=== PATIENT | female | born 1950 | race Caucasian/White ===

== ENCOUNTER 2019-07-19 10:06 | Outpatient (CLI) | payer MEDICARE, OTHER, SELFPAY ==
--- NOTE | 2019-07-19 11:30 | XRR_ITS ---
PROCEDURE INFORMATION: Exam: XR Chest, 2 Views Exam date and time: 07/19/2019 11:30 AM Age: 68 years old Clinical indication: Condition or disease; Lung condition and disease; Pulmonary nodule, solitary; Additional info: Hip pain, left pulmonary nodule TECHNIQUE: Imaging protocol: XR of the chest Views: 2 views. COMPARISON: CT CHEST 08/17/2018 12:51 PM FINDINGS: Lungs: No lung consolidation or pulmonary edema. The pulmonary nodules identified on the comparison CT CHEST are not radiographically evident. CT would be the best way to follow these. Pleural space: No pleural effusion or pneumothorax. Heart/Mediastinum: The cardiac silhouette is not enlarged. The mediastinal contours are normal. Bones/joints: There is diffuse idiopathic skeletal hyperostosis. XR/XR chest 2V* [id number] IMPRESSION: No acute radiographic abnormality.
--- NOTE | 2019-07-19 11:30 | XRR_ITS ---
PROCEDURE INFORMATION: Exam: XR Left Hip with Pelvis when Performed Exam date and time: 07/19/2019 11:30 AM Age: 68 years old Clinical indication: Left hip pain. TECHNIQUE: Imaging protocol: XR Left hip with pelvis when performed. Views: 2 or 3 views. COMPARISON: CR Hip 2-3v LEFT wwo Pelv* [id number] 02/11/2013 1:32 AM FINDINGS: Bones/joints: No fracture. No dislocation. No hip joint space narrowing. Pre-existing overgrowth of the bony acetabulum. Soft tissues: No acute soft tissue abnormality. XR/XR hip LT 2-3V wo/w pel* [id number] IMPRESSION: No acute osseous abnormality.
== END 2019-07-19 10:07 | disposition home or self-care (01) ==
PROVIDERS: Family Provider Electrodiagnostic Medicine; PCP Electrodiagnostic Medicine; Visit Provider Electrodiagnostic Medicine
DX: M25.552 Pain in left hip (principal); R91.1 Solitary pulmonary nodule
CPT/HCPCS: 71046; 73502

== ENCOUNTER 2019-12-07 08:07 | Outpatient (CLI) | payer MEDICARE, OTHER, SELFPAY ==
--- NOTE | 2019-12-07 08:39 | CT_ITS ---
WS: [id number] CT CHEST WITHOUT INTRAVENOUS CONTRAST HISTORY: PULMONARY NODULE TECHNIQUE: Contiguous 5 mm axial imaging performed on the thorax. Coronal and sagittal reformats are submitted. All CT scans at [facility] use at least one of these dose optimization techniq ues: automated exposure control; mA and/or kV adjustment per patient size (includes targeted exams wh ere dose is matched to clinical indication); or iterative reconstruction. CONTRAST: None DLP: 1026.53 mGycm COMPARISON: 08/17/2018 and 01/03/2018 Lungs and central airway: Lungs are well expanded. There are numerous very small noncalcified nodules in the RIGHT middle and RIGHT lower lobe as seen on the prior study. Minimal increase in size by les s than 2 mm since 2017. The largest measures 8 mm in the medial RIGHT middle lobe. Linear scar at the LEFT lung base. Pleura: Normal. No pleural effusion. Heart and pericardium: Mild size heart. There is extensive calcification throughout the [place] LEFT a nterior descending coronary artery. More moderate calcification in the circumflex artery. Mediastinum and hetal: No mediastinum or hilar adenopathy. Vessels: Mild atherosclerosis aorta. LEFT vertebral artery arises directly from the arch. Chest wall and lower neck: No soft tissue masses. Upper abdomen: Cholelithiasis without acute cholecystitis. Mild hepatic steatosis. Normal-sized adren al glands. Osseous structures: Mild increase in the thoracic kyphosis. CT/CT chest wo con [id number] IMPRESSION: 1. Long-term stability of subcentimeter and noncalcified RIGHT middle and RIGH T lower lobe pulmonary nodules. No additional follow-up necessary. 2. Mild cardiomegaly. 3. Extensive atherosclerosis in the [place] coronary arteries. 4. Cholelithiasis without acute cholecystitis.
== END 2019-12-07 08:08 | disposition home or self-care (01) ==
LOC: RADWPI 08:14
PROVIDERS: Family Provider Electrodiagnostic Medicine; PCP Electrodiagnostic Medicine; Visit Provider Electrodiagnostic Medicine
DX: R91.1 Solitary pulmonary nodule (principal); I51.7 Cardiomegaly; I25.10 Atherosclerotic heart disease of native coronary artery without angina pectoris; K80.20 Calculus of gallbladder without cholecystitis without obstruction
CPT/HCPCS: 71250

== ENCOUNTER 2020-09-15 18:47 | Emergency (ER) | payer MEDICARE, OTHER, SELFPAY ==
[2020-09-15 19:09] VITALS: BP 175/83; PULSE 65; RESP 16; TEMP 36.6; O2SAT 99; BMI 34.0
--- NOTE | 2020-09-15 19:50 | W.ED.FEMALGU ---
HPI - Female Genitourinary General: Chief complaint: Urogenital-Female Stated complaint: Abd Pain\Bleeding Time Seen by Provider: 09/15/20 19:50 History of Present Illness: HPI Narrative: 69-year-old female comes in today with urinary difficulty, pain, and blood in urine. Patient reports that she has had similar infections in the past that have treated well with antibiotic and medication for pain. Patient appears well and nontoxic. Patient is slightly obese. Patient is in no acute distress. Review of Systems General: Reports: 10 or more systems reviewed and unremarkable except in HPI and below : Reports: dysuria, urinary frequency and hematuria Physical Exam Const: COMMON NORMALS: no acute distress and patient oriented x3 GENERAL APPEARANCE: cooperative HENMT: COMMON NORMALS: normocephalic and Normal external nose present HEAD & SCALP: normal to inspection and normocephalic NOSE: Normal external nose present MOUTH: Normal oral and palatal mucosa present Eye: GENERAL EYE: appearance normal, both eyes and all related structures Neck/C-Spine: COMMON NORMALS: full ROM Chest: COMMONS NORMALS: normal inspection of the chest Resp: COMMON NORMALS: normal respiratory effort EFFORT & INSPECTION: Yes able to speak in complete sentences Cardio: COMMON NORMALS: regular rate and regular rhythm RATE: regular rate RHYTHM: regular rhythm GI: COMMON NORMALS: non-tender Back/Pelvis: COMMON NORMALS: thoracic and lumbar spine normal to inspection Extremity: COMMON NORMALS: normal to inspection Neuro: COMMON NORMALS: patient oriented x3 and moves all extremities Psych: COMMON NORMALS: mental status grossly normal and cooperative Skin: COMMON NORMALS: no rashes or lesions noted GENERAL SKIN EXAM: no rashes or lesions noted Course Vital Signs: Vital signs: Vital Signs Temperature 97.9 F 09/15/20 19:09 Pulse Rate 65 09/15/20 19:09 Respiratory Rate 16 09/15/20 19:09 Blood Pressure 175/83 09/15/20 19:09 Pulse Oximetry 99 09/15/20 19:09 MDM - Female MDM Narrative: Medical decision making narrative: 69-year-old female comes in today for complaints of blood in her urine. Patient reports that she has had previous urinary tract infections with blood in her urine. Patient reports most of her pain is in her bladder and low back. Respirations are even lungs are clear to auscultation. No CVA tenderness. No tenderness with palpation of the abdomen. Differential diagnosis includes but not limited to cystitis with hematuria, renal calculi, bladder cancer. Reviewed exam with patient with recommendations for treatment for infection. There is noticeable blood in the urine and white blood cells. Urine culture will be sent. Patient was recommended to follow-up with primary care in 1 week to make sure that the urine is clear. Patient reported understanding of care plan and need for follow-up or return. Lab Data: Labs: Lab Results 09/15/20 Range/Units 19:49 Urine Color Yellow (Yellow) Urine Appearance Sl hazy (CLEAR) Urine pH 5 (5-7) Ur Specific Gravit y 1.010 (1.005-1.030) Urine Protein Trace (Negative) Urine Glucose (UA) 4+ H (Normal) Urine Ketones Negative (Negative) Urine Blood 3+ H (Negative) Urine Nitrate Negative (Negative) Urine Bilirubin Neg (Negative) Urine Urobilinogen Norm (Negative) mg/dL Ur Leukocyte Cori ase 1+ H (Negative) Urine RBC >100 H (0-2) /hpf Urine WBC 10-15 H (0-5) /hpf Ur Squamous Epith Cells 0-4 H (0-5) /hpf Amorphous Sediment Not Reportable Urine Bacteria Trace (NONE) /hpf Discharge Plan Discharge Patient Disposition: Home Clinical Impression: Urinary tract infection Qualifiers: Urinary tract infection type: acute cystitis Hematuria presence: with hematuria Qualified Code(s): N30.01 - Acute cystitis with hematuria Condition: Stable Prescriptions: New levofloxacin 500 mg tablet 500 mg PO DAILY 7 Days RF: 0 phenazopyridine 100 mg tablet 100 mg PO TID PRN (Reason: pain) Qty: 6 RF: 0 Discharge Orders: Discharge ED (Routine); Ordered 09/15/20 Ordered By: Vinnie Moon Referrals: Vishnu Bautista DO [Primary Care Provider] - Discharge Diet: Usual diet Discharge Activity: Increase activity as tolerated Patient Instructions: Acute Hematuria (ED), Opioid Safety Activity Restrictions/Additional Instructions: Drink plenty of water. Take antibiotics as directed. Follow-up with primary care in 1 week for recheck of urine. If the blood does not seem to resolve you need to follow-up with the urologist. Return to the emergency department for new concerns. Coding Level of Care Code ED Heel Edge Inker Machine for Chg Fwd Exam Comprehensive
[2020-09-15 20:34] LABS: Urine Appearance SL Hazy (CLEAR); Urine Color Yellow (Yellow); pH Urine 5 (5-7)
[2020-09-15 20:35] LABS: Add Urine Microscopic? YES; Bilirubin Urine Neg (Negative); Blood Urine 3+ (Negative); Glucose Urine UA 4+ (Normal); Ketones Urine Negative (Negative); Leukocyte Esterase Urine 1+ (Negative); Nitrate Urine Negative (Negative); Protein Urine Trace (Negative); Urobilinogen Urine Norm (Negative)
[2020-09-15 20:44] LABS: Add Urine Culture? Yes; Bacteria Urine TRACE /hpf; RBC Urine >100 /hpf (0-2); Squamous Epithelial Cell Urine 0-4 /hpf (0-5)
[2020-09-15] MEDS: levoFLOXacin 500 mg Tablet PO (21:08)
[2020-09-15] MEDS: phenazopyridine 100 mg Tablet PO (21:08)
== END 2020-09-15 21:12 | disposition home or self-care (01) ==
LOC: ER 20:57
PROVIDERS: Emergency Medicine; Emergency Provider Nurse Practitioner Family; Family Provider Electrodiagnostic Medicine; PCP Electrodiagnostic Medicine
DX: N30.01 Acute cystitis with hematuria (principal)
CPT/HCPCS: 81001; 87077; 87086; 87186; 99283

== ENCOUNTER → 2021-03-13 15:26 | Outpatient (BNVA) | payer OTHER, MEDICARE, SELFPAY | PROVIDERS: Family Provider Electrodiagnostic Medicine; PCP Electrodiagnostic Medicine; Visit Provider Nurse Practitioner | DX: R39.9 Unspecified symptoms and signs involving the genitourinary system (principal) | CPT/HCPCS: 81000 ==

== ENCOUNTER 2021-10-20 13:53 | Emergency (ER) | payer MEDICARE, OTHER, SELFPAY ==
[2021-10-20 14:10] VITALS: BP 178/101; PULSE 61; RESP 16; TEMP 36.7; O2SAT 99; BMI 35.2
--- NOTE | 2021-10-20 15:36 | XRR_ITS ---
PROCEDURE INFORMATION: Exam: XR Right Humerus Exam date and time: 10/20/2021 3:59 PM Age: 70 years old Clinical indication: Pain; Upper arm; Right; Additional info: Fall TECHNIQUE: Imaging protocol: Radiologic exam of the Right humerus. Views: 2 or more views. COMPARISON: CT chest wo con [id number] 12/07/2019 9:14 AM FINDINGS: Bones/joints: Degenerative change of the glenohumeral joint. No fracture or other acute osseous abnormality. Vasculature: There are atherosclerotic calcifications demonstrated. Soft tissues: The soft tissues appear unremarkable. XR/[place] [id number] IMPRESSION: No acute fracture demonstrated.
--- NOTE | 2021-10-20 15:36 | XRR_ITS ---
PROCEDURE INFORMATION: Exam: XR Left Hand Exam date and time: 10/20/2021 4:07 PM Age: 70 years old Clinical indication: Pain; Hand; Left; Additional info: Fall TECHNIQUE: Imaging protocol: Radiologic exam of the Left hand. Views: 3 or more views. COMPARISON: No relevant prior studies available. FINDINGS: Bones/joints: No fracture or other acute osseous abnormality. Mild degenerative changes of the interphalangeal joints. Soft tissues: 3 mm soft tissue calcifications incidentally noted adjacent to the 3rd metacarpophalangeal joint. Vasculature: There are atherosclerotic calcifications demonstrated. XR/XR hand LT min 3V* [id number] IMPRESSION: No acute fracture demonstrated.
[2021-10-20] MEDS: HYDROcodone-acetaminophen 5-325 mg Tablet 1 TAB PO (15:43)
--- NOTE | 2021-10-20 17:19 | ED_ITS ---
HPI - Fall General: Chief Complaint: Fall Stated Complaint: fall, right hand pain Time Seen by Provider: 10/20/21 14:17 History of Present Illness: 70-year-old female patient presents to the emergency department stating she had a fall about a month ago and is continuing to have left hand pain as well as right arm pain. Patient states she can use her arm and her hand it just hurts to do so. Patient denies any other injury or trauma. Patient denies any fever patient denies any numbness or tingling Associated symptoms-after fall: Denies abdominal pain, chest pain, confusion, difficulty walking, headache(s), hematuria, lightheadedness, neck pain or vertigo Review of Systems Const: Denies: fever(s), chills, body aches, change in appetite, change in weight, fatigue, malaise or diaphoresis Eyes: Denies: change in vision, blurry vision, blind spots, photophobia, eye discomfort, eye discharge, eye redness, floaters or seeing flashes ENMT: Denies: throat pain, uvular edema, enlarged tonsils, odynophagia, hoarseness, mouth pain, swelling of lips/tongue, oral sores, bleeding gums, dental pain, dry mouth, ear or mastoid pain, ear discharge, change in hearing, tinnitus, disequilibrium, nasal discharge, nasal congestion, post nasal drip or sinus pain Card: Denies: chest pain, palpitations, irregular heart rhythm, edema, swelling of feet/ankles, lightheadedness, syncope, pre-syncope, dyspnea on exertion, orthopnea, leg pain with exertion or acrocyanosis Resp: Denies: dyspnea, productive cough, non-productive cough, wheezing, stridor, pain on inspiration, change in phlegm color, hemoptysis or chest congestion GI: Denies: abdominal pain, nausea, vomiting, hematemesis, dysphagia, diarrhea, constipation, GI cramping, change in bowel habits or rectal pain : Denies: flank pain, difficulty voiding, dysuria, urinary frequency, urinary urgency, urinary hesitancy or hematuria Musc: Reports: extremity pain; Denies: neck pain, back pain, extremity swelling, joint pain, joint swelling, joint redness, joint warmth or deformity Skin/Breast: Denies: rash, pruritus, erythema, sores, new lesions, changes in skin color or dry skin Neuro: Denies: headache(s), numbness in extremities, weakness in extremities, sensory changes, lack of coordination, difficulty walking, frequent falls, dizziness, vertigo, confusion, behavioral changes, Slurred speech present, difficulty communicating thoughts or seizure-like activity Psych: Denies: anxiety, depression, suicidal ideation or homicidal ideation Endo: Denies: polyuria, polydipsia, tired all the time, cold intolerance, excessive sweating, flushing, hot flashes or heat intolerance Adrian/Lymph: Denies: easy bruising, easy bleeding, petechiae, purpura, enlarged lymph nodes or tender lymph nodes All/Imm: Denies: urticaria, throat swelling, tongue swelling, facial swelling, acute wheezing or itchy eyes PFSH ED PFSH: Social History Smoking and tobacco status: current every day smoker Physical Exam Const: COMMON NORMALS: no acute distress, average body habitus, patient oriented x3, no limitations, healthy appearing, alert and well nourished HENMT: THROAT: no uvular edema : COMMON NORMALS: Yes no CVA tenderness BLADDER/KIDNEY EXAM: Yes no CVA tenderness Back/Pelvis: COMMON NORMALS: no CVA tenderness, thoracic and lumbar spine normal to inspection, no thoracic nor lumbar tenderness and thoraco-lumbar ROM normal Extremity: NARRATIVE EXTREMITY EXAM: Patient is tender to third digit on the right left hand as well as distal aspect of the humerus patient is neurovascular intact Neuro: COMMON NORMALS: patient oriented x3 SENSORIUM/ORIENTATION: Yes alert Course Vital Signs: Vital signs: Vital Signs Temperature 98.0 F 10/20/21 14:10 Pulse Rate 61 10/20/21 14:10 Respiratory Rate 16 10/20/21 14:10 Blood Pressure 178/101 10/20/21 14:10 Pulse Oximetry 99 10/20/21 14:10 Oxygen Delivery Me thod 10/20/21 14:10 MDM - Fall Medical Decision Making Patient is well apearing non toxic and in no acute distress. 70-year-old female patient presents to the emergency department stating she had a fall about a month ago and is continuing to have left hand pain as well as right arm pain. Patient states she can use her arm and her hand it just hurts to do so. Patient denies any other injury or trauma. Patient denies any fever patient denies any numbness or tingling Xrays are negative for acute findings. I discussed home care and follow up with pt Lab Data Radiology Impressions Hand X-Ray 10/20/21 15:36 IMPRESSION: No acute fracture demonstrated. Humerus X-Ray 10/20/21 15:36 IMPRESSION: No acute fracture demonstrated. Discharge Plan Discharge Patient Disposition: Home Clinical Impression: Finger sprain Condition: Stable Prescriptions: No Action metoprolol succinate 100 mg tablet extended release 24 hr 100 mg PO DAILY paroxetine HCl [Paxil] 40 mg tablet 60 mg PO DAILY Jardiance 25 mg tablet 25 mg PO DAILY Levemir FlexTouch U-100 Insuln 100 unit/mL (3 mL) insulin pen 110 unit SUBCUT BID ciprofloxacin HCl [Cipro] 500 mg tablet 500 mg PO Q12H 7 Days Qty: 14 0RF phenazopyridine [Pyridium] 200 mg tablet 200 mg PO TID Qty: 6 0RF Discharge Orders: Discharge ED (Routine); Ordered 10/20/21 Ordered By: Rani Meadows Referrals: Vishnu Bautista DO [Primary Care Provider] - Discharge Diet: Advance as tolerated Discharge Activity: Increase activity as tolerated Patient Instructions: Opioid Safety Activity Restrictions/Additional Instructions: Marito tape for comfort Return to ER with any worsening of symptoms Coding Level of Care Code 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
== END 2021-10-20 17:53 | disposition home or self-care (01) ==
PROVIDERS: Emergency Provider Registered Nurse; PCP Electrodiagnostic Medicine
DX: S63.612A Unspecified sprain of right middle finger, initial encounter (principal); F17.210 Nicotine dependence, cigarettes, uncomplicated; Z79.4 Long term (current) use of insulin; W19.XXXA Unspecified fall, initial encounter
CPT/HCPCS: 73060; 73130; 99283

== ENCOUNTER 2022-11-17 16:12 | Inpatient (IN) | payer MEDICARE, OTHER, SELFPAY ==
[2022-11-17] VITALS (7 sets, daily range): BP systolic 111–137; BP diastolic 55–66; PULSE 62–69; RESP 16–19; TEMP 36.4–36.6; O2SAT 99–100; BMI 28.3
--- NOTE | 2022-11-17 16:14 | XR_ITS ---
WS: [id number] EXAMINATION: XR chest 1V portable [id number] REASON FOR EXAM: dyspnea/cough COMPARISON: 07/19/2019 ORDER DATE: 11/17/2022 4:19 PM TECHNIQUE: A single, portable frontal chest x-ray was obtained. X-RAY FINDINGS: The lungs are clear. Pleural spaces are clear. No pleural effusions or pneumothorax. Cardiomediastinal silhouette is normal. No evidence for pulmonary edema. Soft tissue and osseous structures are unremarkable. No tubes or lines are present. IMPRESSION: Unremarkable frontal portable chest x-ray.
[2022-11-17 16:30] LABS: Basophils % 0.4 %; Hematocrit 44.2 % (36-47); Lymphocytes % 9.4 %; Mean Corpuscular HGB Conc 33.7 g/dL (30-55); Mean Corpuscular Hemoglobin 30.3 pg (27-33); Mean Corpuscular Volume 89.8 fl (85-98); Mean Platelet Volume 10.2 fL (7.4-10.4); Monocytes # 0.8 10^3/uL (0.2-0.9); Monocytes % 6.9 %; Neutrophils # 9.11 10^3/uL (1.8-7.7); Neutrophils % 82.8 %; Nucleated Red Blood Cells % 0 %; Platelet Count 188 10^3/cmm (157-399); Red Blood Count 4.92 10^6/uL (3.85-5.65); Red Cell Distribution Width 13.5 % (12.1-15.1); White Blood Count 11.01 10^3/uL (3.29-11.43)
[2022-11-17 16:34] LABS: Glucose Point of Care 349 mg/dL (70-110)
[2022-11-17] MEDS: ondansetron 2 mg/ML SDV 2 mL 4 MG IVP (16:47)
--- NOTE | 2022-11-17 17:06 | ED_ITS ---
HPI - Altered Mental Status General: Chief Complaint: Altered Mental Status Stated Complaint: AMS x 1weeks Time Seen by Provider: 11/17/22 16:13 Source: patient and family Mode of arrival: EMS History of Present Illness: 71-year-old female presents emergency room with complaints of altered mental status not eating or drinking well for the last several weeks. She also had some vomiting. Family told me that she has been having coffee-ground emesis began this morning she is up 3-4 times today patient denies throwing up. The nurses notes stated that she did been having vomiting blood for the last 3 days and that she had not eaten for 5 days. Her speech has been altered but all of this both the son and the daughter at the bedside says been going on for months. Patient herself denies any chest pain or difficulty breathing she is a poorly controlled diabetic. I do states she had significant weight loss in the last several months as well. She is aware of place and person but unable to tell date or time or month. MD complaint: altered mental status and confusion Onset (ago): week(s) Severity: moderate Consistency of symptoms: Getting Worse Context: diabetes (Poorly controlled) Associated symptoms: Deny auditory hallucinations, visual hallucinations, delusions, depression, homicidal ideation, racing thoughts or suicidal ideation Review of Systems ENMT: Denies: throat pain, ear or mastoid pain, nasal discharge or nasal congestion Card: Denies: chest pain, edema, dyspnea on exertion or orthopnea Resp: Denies: dyspnea, productive cough or non-productive cough GI: Denies: abdominal pain, nausea, vomiting, hematemesis, coffee ground emesis, diarrhea, constipation, bloating, hematochezia or melena : Denies: flank pain, difficulty voiding, dysuria, urinary frequency or urinary urgency Skin/Breast: Denies: rash or pruritus Psych: Denies: depression, visual hallucinations, auditory hallucinations, suicidal ideation or homicidal ideation [facility] ED PFSH: Medical History (Updated 11/22/22 @ 11:50 by Sedrick Abbott DO) Acute encephalopathy WARREN (acute kidney injury) CVA (cerebrovascular accident due to intracerebral hemorrhage) Diverticulitis Elevated lipase Hematemesis History of type 2 diabetes mellitus Hypernatremia NSTEMI (non-ST elevated myocardial infarction) Rhabdomyolysis Type 2 diabetes mellitus Uremia Social History Smoking and tobacco status: current every day smoker Physical Exam Const: GENERAL APPEARANCE: cooperative and comfortable ORIENTATION/CONSCIOUSNESS: Yes awake, Yes oriented to person and Yes oriented to place HENMT: COMMON NORMALS: normocephalic, atraumatic, hearing grossly normal bilaterally, external ears normal, EAC's normal, TM's normal bilaterally, Normal nasal mucous membranes and turbinates present, moist oral mucous membranes and oropharynx normal HEAD & SCALP: normocephalic and atraumatic NOSE: Normal nasal mucous membranes and turbinates present EXTERNAL EAR: Yes external ears normal EXTERNAL AUDITORY CANAL: EAC's normal TYMPANIC MEMBRANE: TM's normal bilaterally Neck/C-Spine: COMMON NORMALS: full ROM, no lymphadenopathy, supple and no JVD Lymph: LYMPHATIC: no lymphadenopathy noted and no lymphedema noted Resp: COMMON NORMALS: normal respiratory effort, No retractions, No use of accessory muscles and clear to auscultation bilaterally AUSCULTATION: clear to auscultation bilaterally Cardio: COMMON NORMALS: no JVD, regular rate, regular rhythm and No murmurs present (Cardio) RATE: regular rate RHYTHM: regular rhythm GI: COMMON NORMALS: Soft to palpation and No hepatosplenomegaly present AUSCULTATION: Yes normoactive bowel sounds PALPATION: Yes Soft to palpation, No Tenderness to palpation present (GI), No Guarding due to palpation present (GI) and Yes No hepatosplenomegaly present Extremity: COMMON NORMALS: normal to inspection, capillary refill normal, no clubbing, cyanosis or edema, no calf tenderness and no pedal edema Neuro: SENSORIUM/ORIENTATION: Yes oriented to person and Yes oriented to place Psych: THOUGHT CONTENT: No delusions Skin: COMMON NORMALS: no rashes or lesions noted GENERAL SKIN EXAM: no rashes or lesions noted Course Vital Signs: Vital signs: Vital Signs Temperature 97.3 F L 11/20/22 17:47 Pulse Rate 81 11/20/22 17:47 Respiratory Rate 18 11/20/22 17:47 Blood Pressure 159/69 11/20/22 17:47 Pulse Oximetry 100 11/20/22 17:47 Oxygen Delivery Me thod Room Air 11/20/22 17:11 MDM - Altered Mental Status Medical Decision Making Acute encephalopathy. This been ongoing and progressively worsening according to the family. She does have an acute kidney injury. With evidence of rhabdomyolysis. Discussed with hospitalist will admit. She does have a mildly elevated lipase as well but has no abdominal pain at this time. CT of head included in this report was done after admission by hospitalist. Medical Records I reviewed the patient's medical records. Lab Data I reviewed the patient's lab results. 11/20/22 04:28 11/20/22 04:28 Radiology Impressions Abdomen/Pelvis CT 11/17/22 17:50 IMPRESSION: 1. No acute findings. 2. Diverticulosis of the colon without diverticulitis. COMMENTS: Consistent with the [employer]'s Incidental Findings Committee white paper (J Am Shannen Radiol 2017): Any incidental adrenal lesion less than 1 cm is likely benign. No follow-up imaging is recommended for these lesions per consensus recommendations based on imaging criteria. Further lab evaluation could be pursued if warranted based on clinical findings. Head CT 11/17/22 20:59 IMPRESSION: 1. Hyperdensity in the right caudate head, anterior limb of the internal capsule, and lentiform nucleus. This most likely represents an acute parenchymal hemorrhage. ADDENDUM: 11/17/222319 The comparison CT head on 02/11/2013 was made available. The 3.3 cm hyperdensity in the right basal ganglia is a new finding and is believed to represent acute hemorrhage. THIS REPORT CONTAINS FINDINGS THAT MAY BE CRITICAL TO PATIENT CARE. The findings were verbally communicated via telephone conference with TK ADAMS at 11:16 PM CDT on 11/17/2022. The findings were acknowledged and understood. Chest CT 11/17/22 23:20 IMPRESSION: 1. Mild bilateral atelectasis or scarring. 2. Lower esophageal thickening suggestive of esophagitis. 3. Atherosclerotic vascular disease including coronary artery disease. 4. Densely calcified proximal right subclavian artery with moderate to severe stenosis. Laboratory Results WBC 11.01 10^3/uL (3.29-11.43) 11/17/22 16:00 RBC 4.92 10^6/uL (3.85-5.65) 11/17/22 16:00 Hgb 14.90 g/dL (11.27-16.99) 11/17/22 16:00 Hct 44.2 % (36-47) 11/17/22 16:00 MCV 89.8 fl (85-98) 11/17/22 16:00 MCH 30.3 pg (27-33) 11/17/22 16:00 MCHC 33.7 g/dL (30-55) 11/17/22 16:00 RDW 13.5 % (12.1-15.1) 11/17/22 16:00 Plt Count 188 10^3/cmm (157-399) 11/17/22 16:00 MPV 10.2 fL (7.4-10.4) 11/17/22 16:00 Neut % (Auto) 82.8 % 11/17/22 16:00 Lymph % (Auto) 9.4 % 11/17/22 16:00 Stephens % (Auto) 6.9 % 11/17/22 16:00 Eos % (Auto) 0.0 % 11/17/22 16:00 Baso % (Auto) 0.4 % 11/17/22 16:00 Neut # (Auto) 9.11 10^3/uL (1.8-7.7) H 11/17/22 16:00 Lymph # (Auto) 1.0 10^3/uL (0.8-4.8) 11/17/22 16:00 Stephens # (Auto) 0.8 10^3/uL (0.2-0.9) 11/17/22 16:00 Eos # (Auto) 0.0 10^3/uL (0.0-0.8) 11/17/22 16:00 Baso # (Auto) 0.0 10^3/uL (0.0-0.1) 11/17/22 16:00 Nucleated RBC % (auto) 0 % 11/17/22 16:00 Nucleated RBCs # 0.0 /100WBC 11/17/22 16:00 Sodium 137 mmol/L (136-145) 11/17/22 16:52 Potassium 3.8 mmol/L (3.5-5.1) 11/17/22 16:52 Chloride 96 mmol/L (98-107) L 11/17/22 16:52 Carbon Dioxide 11 mmol/L (22-29) L 11/17/22 16:52 Anion Gap 33.8 (5-19) H 11/17/22 16:52 BUN 62 mg/dL (8-23) H 11/17/22 16:52 Creatinine 1.4 mg/dL (0.5-0.9) H 11/17/22 16:52 GFR Calculation Not Reportable 11/17/22 16:52 Glucose 336 mg/dL (65-115) H 11/17/22 16:52 POC Glucose 349 mg/dL (70-110) H 11/17/22 16:31 Calculated Osmolality 315 mOsm/kg (285-295) H 11/17/22 16:52 Lactic Acid 1.8 mmol/L (0.5-2.2) 11/17/22 16:52 Calcium 9.1 mg/dL (8.5-10.5) 11/17/22 16:52 Total Bilirubin 0.3 mg/dL (0.15-1.2) 11/17/22 16:52 AST 54 U/L (0-32) H 11/17/22 16:52 ALT 15 U/L (0-33) 11/17/22 16:52 Alkaline Phosphatase 105 U/L (35-105) 11/17/22 16:52 Creatine Kinase 406 U/L (26-192) H* 11/17/22 16:52 Total Protein 6.7 g/dL (6.6-8.7) 11/17/22 16:52 Albumin 2.9 g/dL (3.5-5.2) L 11/17/22 16:52 Globulin 3.8 g/dL (1.3-4.6) 11/17/22 16:52 Lipase 289 U/L (13-60) H 11/17/22 16:52 Urine Color Yellow (Yellow) 11/17/22 17:22 Urine Appearance Clear (CLEAR) 11/17/22 17:22 Urine pH 5 (5-7) 11/17/22 17:22 Ur Specific [place] 1.015 (1.005-1.030) 11/17/22 17:22 Urine Protein Neg (Negative) 11/17/22 17:22 Urine Glucose (UA) 4+ (Normal) H 11/17/22 17:22 Urine Ketones 2+ (Negative) H 11/17/22 17:22 Urine Blood Neg (Negative) 11/17/22 17: Urine Nitrate Negative (Negative) 11/17/22 17:22 Urine Bilirubin Neg (Negative) 11/17/22 17:22 Urine Urobilinogen Norm mg/dL (Negative) 11/17/22 17:22 Ur Leukocyte Esterase Negative (Negative) 11/17/22 17:22 All radiology interpretation(s) finalized by discharge Discharge Plan Discharge Patient Disposition: Admitted As Inpatient Admit Provider: Sobia Gunderson Clinical Impression: Acute kidney injury, Delirium due to general medical condition, Dementia, Rhabdomyolysis Condition: Stable Discharge Diet: As Directed Coding Level of Care Code ED Sap Grc Security for Airam Hamilton
[2022-11-17 17:26] LABS: Lactic Sepsis W/Reflex 1.8 mmol/L (0.5-2.2)
[2022-11-17 17:27] LABS: Alanine Aminotransferase 15 U/L (0-33); Albumin Level 2.9 g/dL (3.5-5.2); Alkaline Phosphatase 105 U/L (35-105); Anion Gap 33.8 (5-19); Aspartate Amino Transferase 54 U/L (0-32); Blood Urea Nitrogen 62 mg/dL (8-23); Calcium 9.1 mg/dL (8.5-10.5); Carbon Dioxide 11 mmol/L (22-29); Chloride 96 mmol/L (98-107); Globulin 3.8 g/dL (1.3-4.6); Glucose 336 mg/dL (65-115); Lipase 289 U/L (13-60); Osmolality Calculated 315 mOsm/kg (285-295); Potassium 3.8 mmol/L (3.5-5.1); Sodium 137 mmol/L (136-145); Total Bilirubin 0.3 mg/dL (0.15-1.2); Total Protein 6.7 g/dL (6.6-8.7)
[2022-11-17 17:39] LABS: Add Urine Microscopic? NO; Charge for UA Resulting for Rev
[2022-11-17 17:44] LABS: Creatine Phosphokinase 406 U/L (26-192)
--- NOTE | 2022-11-17 17:50 | CTR_ITS ---
PROCEDURE INFORMATION: Exam: CT Abdomen And Pelvis With Contrast Exam date and time: 11/17/2022 6:06 PM Age: 71 years old Clinical indication: Abdominal pain; Generalized; Additional info: Abd pain TECHNIQUE: Imaging protocol: Computed tomography of the abdomen and pelvis with contrast. Radiation optimization: All CT scans at this facility use at least one of these dose optimization techniques: automated exposure control; mA and/or kV adjustment per patient size (includes targeted exams where dose is matched to clinical indication); or iterative reconstruction. Contrast material: OMNI 350; Contrast volume: 100 ml; Contrast route: INTRAVENOUS (IV); REPORTING DATA: Count of CT and Cardiac NM exams in prior 12 months: This patient has received 0 known CTs and 0 known cardiac nuclear medicine studies in the 12 months prior to the current study. COMPARISON: CT kidney stone [id number] 03/05/2017 8:32 AM RADIATION DOSE METRICS: Total DLP (mGy-cm): 778 FINDINGS: Limitations: Images are degraded by motion artifact. Coronary arteries: Dense coronary artery calcifications. Liver: Normal. No mass. Gallbladder and bile ducts: 5 mm solitary stone in the gallbladder. No wall thickening. The bile ducts are normal. Pancreas: Normal. No ductal dilation. Spleen: Normal. No splenomegaly. 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 The right adrenal is normal. Kidneys and ureters: Normal. No hydronephrosis. Stomach and bowel: Mild diverticulosis of the colon. No diverticulitis. The stomach and small bowel are unremarkable. No wall thickening or obstruction. Appendix: The appendix is visualized and is normal. Intraperitoneal space: Unremarkable. No free air. No significant fluid collection. Vasculature: Scattered arterial calcifications. No aneurysm. Lymph nodes: Unremarkable. No enlarged lymph nodes. Urinary bladder: Unremarkable as visualized. Reproductive: Unremarkable as visualized. Bones/joints: Mild degenerative changes of the spine. No acute fracture. Soft tissues: Calcified injection granulomas in the buttock. CT/CT abdomen pelvis w con* [id number] IMPRESSION: 1. No acute findings. 2. Diverticulosis of the colon without diverticulitis. COMMENTS: Consistent with the [employer]'s Incidental Findings Committee white paper (J Am Shannen Radiol 2017): Any incidental adrenal lesion less than 1 cm is likely benign. No follow-up imaging is recommended for these lesions per consensus recommendations based on imaging criteria. Further lab evaluation could be pursued if warranted based on clinical findings.
[2022-11-17 18:04] LABS: Glucose Urine UA 4+ (Normal); Ketones Urine 2+ (Negative); Protein Urine Neg (Negative); Specific Gravity, Urine 1.015 (1.005-1.030); Urine Appearance Clear (CLEAR); Urine Color Yellow (Yellow); pH Urine 5 (5-7)
[2022-11-17 18:05] LABS: Bilirubin Urine Neg (Negative); Blood Urine Neg (Negative); Leukocyte Esterase Urine Negative (Negative); Nitrate Urine Negative (Negative); Urobilinogen Urine Norm (Negative)
[2022-11-17] MEDS: pantoprazole 40 mg SDV IVP (18:16)
[2022-11-17] MEDS: sodium chloride 0.9% 1,000 ML 999 ML IV ×2 (18:16→20:06)
[2022-11-17] MEDS: iohexol 350 mg/mL 500 mL Btl (per mL) IV (18:37)
[2022-11-17] MEDS: sucralfate 1 gm/10 mL Oral Liq UDC PO (20:09)
--- NOTE | 2022-11-17 20:57 | P.HP_ITS ---
Providers/Chief Complaint Admitting Physician: Sobia Gunderson MD Primary Care Provider: Vihsnu Bautista DO Chief Complaint: AMS x 1weeks History of Present Illness Danita Thorpe is a 71 year old female with a past medical history of type 2 diabetes mellitus, who presents [facility] due to concerns for hematemesis, and confusion. Currently patient is alert to person, not to place, not to time, she can follow commands, she keeps looking towards her right th inking that that the nurse at her bedside is her daughter, Wendie. Whenever I asked her question she looks over to the right, thinking it is Wendie for the answer, when asked her why she is here in the hospital she tells me she does not know, she denies any pain, I asked her about her vomiting blood she tells me yes but she cannot exactly tell me the specifics, she denies any abdominal pain, no chest pain, no shortness of breath she denies a history of CAD, denies a history of COPD no history of strokes currently I cannot discern any facial droop, no slurring of words, no focal weakness, she cannot provide any other history, as she tells me Wendie knows everything, she tells me that she lives in [place] with her daughter Wendie, but then tells me that Wendie , could not obtain a surgical history, could not obtain a family history, could not obtain a social history due to patient's encephalopathy Review of Systems Const: Denies: fever(s) Card: Denies: chest pain Resp: Denies: dyspnea GI: Denies: abdominal pain Medications/Allergies Home Medications Medication Instructions Recorded Confirmed Last Taken Type ciprofloxacin HCl 500 mg tablet 500 mg PO Q12H 7 days #14 tabs 03/13/21 03/13/21 Unknown Rx (Cipro) empagliflozin 25 mg tablet 25 mg PO DAILY 03/13/21 03/13/21 Unknown History (Jardiance) insulin detemir U-100 100 unit/mL 110 unit SUBCUT BID 03/13/21 03/13/21 Unknown History (3 mL) subcutaneous pen (Levemir FlexTouch U-100 Insulin) paroxetine HCl 40 mg tablet (Paxil) 60 mg PO DAILY 03/13/21 03/13/21 Unknown History phenazopyridine 200 mg tablet 200 mg PO TID 6 doses #6 tabs 03/13/21 03/13/21 Unknown Rx (Pyridium) metoprolol succinate 100 mg See Rx Instructions .Route 07/27/22 Unknown Rx tablet,extended release 24 hr .COMPLEX #90 tabs Allergies Allergy/AdvReac Type Severity Reaction Status Date / Time cefaclor [From [facility]] Allergy ALGY-Anaphy Verified 11/17/22 16:24 laxis Iodine and Iodide Containing Allergy ADR-Vomitin Verified 11/17/22 16:24 Produc g PFSH Acute PFSH: Medical History (Updated 11/17/22 @ 21:06 by Addison Akers MD) History of type 2 diabetes mellitus Social History Smoking and tobacco status: current every day smoker Vitals/I&O/Wt Last Vital Signs Temp 97.6 F 11/17/22 20:00 Pulse 62 11/17/22 20:00 Resp 16 11/17/22 20:00 BP 122/62 11/17/22 20:00 Pulse Ox 99 11/17/22 20:00 O2 Del Method Room Air 11/17/22 20:00 11/17/22 11/17/22 11/17/22 06:59 14:59 22:59 Intake Total 1000 / 1000 Balance 1000 / 1000 Weight last 48 hrs Weight 68.039 kg Physical Exam Const: COMMON NORMALS: no acute distress EXAM LIMITATIONS: altered mental status GENERAL APPEARANCE: cooperative and well developed ORIENTATION/CONSCIOUSNESS: Yes awake, Yes oriented to person and Yes confused; not oriented to place and not oriented to time HENMT: COMMON NORMALS: normocephalic and Normal external nose present HEAD & SCALP: normocephalic FACE & SINUS: normal facial exam NOSE: Normal external nose present MOUTH: Normal oral and palatal mucosa present Eye: COMMON NORMALS: Equal, round and reactive pupils present, EOMs intact bilaterally, conjunctivae normal and no scleral icterus CONJUNCTIVA: Yes conjunctivae normal PUPIL: Yes Equal, round and reactive pupils present Neck/C-Spine: COMMON NORMALS: full ROM, no lymphadenopathy, no JVD, Thyroid normal and No carotid bruits THYROID: Thyroid normal Lymph: LYMPHATIC: no lymphadenopathy noted Chest: COMMONS NORMALS: normal inspection of the chest Resp: COMMON NORMALS: normal respiratory effort, No retractions, No use of accessory muscles and clear to auscultation bilaterally AUSCULTATION: clear to auscultation bilaterally Cardio: COMMON NORMALS: regular rate, regular rhythm, S1 normal heart sound present, S2 normal heart sound present, No murmurs present (Cardio) and Peripheral pulses 2+ throughout RATE: regular rate RHYTHM: regular rhythm HEART SOUNDS: S1 normal heart sound present and S2 normal heart sound present PERIPHERAL PULSES: Peripheral pulses 2+ throughout GI: COMMON NORMALS: Normal to inspection, nondistended, normoactive bowel sounds present, Soft to palpation and non-tender : BLADDER/KIDNEY EXAM: Yes no CVA tenderness Back/Pelvis: COMMON NORMALS: no CVA tenderness Extremity: COMMON NORMALS: normal to inspection and full ROM Neuro: COMMON NORMALS: CN's II-XII intact bilaterally, moves all extremities and no focal motor deficits OTHER: Difficult to do extensive neurologic testing Psych: COMMON NORMALS: cooperative and speech normal Skin: COMMON NORMALS: turgor normal and no jaundice GENERAL SKIN EXAM: turgor normal Urinary Catheter Management: Straight: Cath Placed During This Visit: yes Urinary Catheter Date of Insertion: 11/17/22 Urinary Catheter Time of Insertion: 17:36 Data 11/17/22 16:00 11/17/22 16:52 A&P Assessment and plan (1) Acute encephalopathy: (2) Hematemesis: (3) WARREN (acute kidney injury): (4) Rhabdomyolysis: (5) Type 2 diabetes mellitus: (6) Elevated lipase: (7) Uremia: Plan Acute encephalopathy -Etiology unclear -Potentially patient could have underlying dementia -We will order CT of the head -She does have uremia, BUN 62 -We will order ammonia levels -UA unremarkable -no focal neurologic deficits, no facial droop, no slurred words -Neuro checks, and NIH stroke scale, aspiration precautions -Acute kidney injury, IV fluids -Rhabdomyolysis, IV fluids -Hematemesis, hemoglobin within normal limits, hold anticoagulant therapy, Protonix, Carafate, monitor hemoglobin -Elevated lipase? No radiographic evidence of acute bursitis, no abdominal pain on palpation, will monitor, GGT, amylase, Attestations Medical Necessity Statement*: Patient requires hospitalization, inpatient, greater than 2 midnights, for acute encephalopathy, WARREN, rhabdomyolysis, Diagnoses Acute encephalopathy G93.40 Hematemesis K92.0 WARREN (acute kidney injury) N17.9 Rhabdomyolysis M62.82 Type 2 diabetes mellitus E11.9 Elevated lipase R74.8 Uremia N19
--- NOTE | 2022-11-17 20:59 | CTR_ITS ---
PROCEDURE INFORMATION: Exam: CT Head Without Contrast Exam date and time: 11/17/2022 10:33 PM Age: 71 years old Clinical indication: Altered mental status/memory loss; Additional info: AMS TECHNIQUE: Imaging protocol: Computed tomography of the head without contrast. Radiation optimization: All CT scans at this facility use at least one of these dose optimization techniques: automated exposure control; mA and/or kV adjustment per patient size (includes targeted exams where dose is matched to clinical indication); or iterative reconstruction. REPORTING DATA: Count of CT and Cardiac NM exams in prior 12 months: This patient has received 0 known CTs and 0 known cardiac nuclear medicine studies in the 12 months prior to the current study. COMPARISON: No relevant prior studies available. RADIATION DOSE METRICS: Total DLP (mGy-cm): 1086.58 FINDINGS: Brain: Mild diffuse cortical volume loss. Mild hypodensities in supratentorial periventricular and subcortical white matter, consistent with microangiopathy. Hyperdensity in the right caudate head, anterior limb of the right internal capsule, and in the right lentiform nucleus. This measures 55 Hounsfield units, with an estimated volume of 4.8 cc. Cerebral ventricles: No ventriculomegaly. Paranasal sinuses: Visualized sinuses are unremarkable. No fluid levels. Mastoid air cells: Visualized mastoid air cells are well aerated. Bones/joints: Unremarkable. No acute fracture. Soft tissues: Unremarkable. Vasculature: No hyperdense artery. CT/CT head wo con* [id number] IMPRESSION: 1. Hyperdensity in the right caudate head, anterior limb of the internal capsule, and lentiform nucleus. This most likely represents an acute parenchymal hemorrhage.
--- NOTE | 2022-11-17 21:06 | ECG_ITS ---
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 Measurements Intervals [place] Rate: 62 P: 63 CA: 156 QRS: 3 QRSD: 110 T: 136 QT: 449 QTc: 459 Interpretive Statements SINUS RHYTHM POSSIBLE LATERAL MYOCARDIAL INFARCTION , OF INDETERMINATE AGE [30 ms Q WAVE IN I/aVL/V5/V6] MODERATE T-WAVE ABNORMALITY, CONSIDER ANTERIOR ISCHEMIA [-0.1+ mV T-WAVE IN V3/V4] No previous ECG available for comparison Electronically Signed On 11-18-2022 8:27:12 CDT by Manohar Campbell M.D. [id number]
[2022-11-17] MEDS: sodium chloride 0.9% 1,000 ML 100 ML IV (21:26)
[2022-11-17 22:11] LABS: Glucose Point of Care 192 mg/dL (70-110)
[2022-11-17 23:02] LABS: Ammonia 12 umol/L (11-51)
[2022-11-17 23:04] LABS: Estmated Average Glucose 369; Hemoglobin A1C 14.5 % (4.0-6.0)
[2022-11-17 23:10] LABS: Procalcitonin 1.46 ng/mL (0-0.5); Thyroid Stimulating Hormone 1.05 uIU/mL (0.27-4.20)
[2022-11-17 23:12] LABS: Troponin(5th) Baseline 1946 ng/L (0-10)
--- NOTE | 2022-11-17 23:19 | USCV_ITS ---
Danita Thorpe Age: 71 Gender: F : 1950 Exam Date: 11/17/2022 23:39 Ordering Phys: Addison Akers MD Technologist: DURAN [place] [facility] [place]: NSTEMI, altered mental status. Patient is poor historian, confused. BP: 122 / 62 HR: 76 Rhythm: Sinus Technical Quality: Adequate MEASUREMENTS (Male / Female) Normal Values 2D ECHO LV Diastolic Diameter PLAX 3.7 cm 4.2 - 5.9 / 3.9 - 5.3 cm LV Systolic Diameter PLAX 2.6 cm IVS Diastolic Thickness 2.0 cm 0.6 - 1.0 / 0.6 - 0.9 cm IVS Systolic Thickness 2.6 cm LVPW Diastolic Thickness 1.2 cm 0.6 - 1.0 / 0.6 - 0.9 cm LVPW Systolic Thickness 1.4 cm LVOT Diameter 1.8 cm LV Ejection Fraction 2D Teich 56.3 % LV Ejection Fraction MOD 2C 59.8 % LV Ejection Fraction 2C AL 59.7 % LA Diameter 3.4 cm LA Width 3.5 cm LA Height 5.2 cm RA Width 2.8 cm RA Height 4.4 cm Aorta at Sinotubular Diameter 2.4 cm IVC Diameter 1.3 cm M-MODE Aortic Annulus Diameter 2.8 cm LA Ao Ratio MM 1.2 MV E Point Septal Separation 0.1 cm DOPPLER AV Peak Velocity 109.0 cm/s LVOT Peak Velocity 85.0 cm/s AV Area Cont Eq vti 1.9 cm squared AV Area Cont Eq pk 2.0 cm squared MV Peak Velocity 97.0 cm/s MV Area PHT 3.0 cm squared Mitral E to A Ratio 0.8 MV E' Velocity 41.0 cm/s Mitral E to MV E' Ratio 14.7 Mitral E to LV E' Lateral Ratio 14.7 Mitral E to LV E' Septal Ratio 14.7 TR Peak Velocity 223.0 cm/s TR Peak Gradient 19.9 mmHg TV Peak E Velocity 39.0 cm/s Right Atrial Pressure 5.0 mmHg Pulmonary Artery Systolic Pressu 24.9 mmHg PV Peak Velocity 77.0 cm/s RV Acceleration Time 0.1 s RV Ejection Time 0.4 s RV AcT/ET 0.2 FINDINGS Left Ventricle Left ventricle is normal in size. LV systolic function is normal with EF of 55-60%. No regional wall motion abnormalities are seen. Grade 1 diastolic dysfunction Right Ventricle Normal in size and function Right Atrium Normal in size Left Atrium Dilated Mitral Valve Structurally normal mitral valve. Mild mitral regurgitation. Aortic Valve Structurally normal aortic valve. No significant stenosis or regurgitation. Tricuspid Valve Mild tricuspid regurgitation. Insufficient TR jet to calculate RVSP Pulmonic Valve Not well visualized Pericardium Normal Aorta Normal in size IVC Appears to be normal CONCLUSIONS LV systolic function is normal with EF of 55-60% Grade 1 diastolic dysfunction Left atrial dilation Mild mitral regurgitation Mild tricuspid regurgitation No comparison studies are available. Manohar Campbell MD (Electronically Signed) Final Date: 18 November 2022 11:44 S
--- NOTE | 2022-11-17 23:20 | CTR_ITS ---
PROCEDURE INFORMATION: Exam: CT Chest Without Contrast; Diagnostic Exam date and time: 11/18/2022 4:13 AM Age: 71 years old Clinical indication: Cough TECHNIQUE: Imaging protocol: Diagnostic computed tomography of the chest without contrast. Radiation optimization: All CT scans at this facility use at least one of these dose optimization techniques: automated exposure control; mA and/or kV adjustment per patient size (includes targeted exams where dose is matched to clinical indication); or iterative reconstruction. REPORTING DATA: Count of CT and Cardiac NM exams in prior 12 months: This patient has received 2 known CTs and 0 known cardiac nuclear medicine studies in the 12 months prior to the current study. COMPARISON: 1. CT abdomen pelvis w con* [id number] 11/17/2022 6:06 PM 2. CR XR chest 1V portable [id number] 11/17/2022 4:[address] chest wo con [id number] 12/07/2019 9:14 AM RADIATION DOSE METRICS: Total DLP (mGy-cm): 552.82 FINDINGS: Limitations: Mild motion artifact. Lungs: Mild bilateral atelectasis or scarring. No consolidation. Redemonstrated stable small circumscribed bilateral noncalcified pulmonary nodules or granulomas including 8 mm medial right middle lobe subpleural nodule. Pleural spaces: No significant pleural effusion. No pneumothorax. Heart: Heart size upper limits of normal. Coronary arteries: Dense coronary artery calcifications. Mediastinal space: Lower esophageal thickening suggestive of esophagitis. Lymph nodes: No enlarged lymph nodes. Vasculature: Atherosclerotic tortuosity and calcification of the thoracic aorta. No aortic aneurysm. Densely calcified proximal right subclavian artery with moderate to severe stenosis. Bones/joints: Thoracic spondylosis and degenerative bony changes. Soft tissues: No significant soft tissue abnormalities. CT/CT chest wo con [id number] IMPRESSION: 1. Mild bilateral atelectasis or scarring. 2. Lower esophageal thickening suggestive of esophagitis. 3. Atherosclerotic vascular disease including coronary artery disease. 4. Densely calcified proximal right subclavian artery with moderate to severe stenosis.
[2022-11-17 23:23] LABS: Amylase 271 U/L (28-100); C Reactive Protein 168.3 mg/L (0.0-4.9)
[2022-11-18] VITALS (7 sets, daily range): BP systolic 136–154; BP diastolic 66–81; PULSE 60–69; RESP 16–18; TEMP 36.4–36.8; O2SAT 97–99
[2022-11-18 00:12] LABS: Gamma Glutamyl Transferase 39 U/L (5-36)
[2022-11-18 01:08] LABS: Troponin 5 2HR 1648 ng/L (0-10)
[2022-11-18 03:59] LABS: Basophils % 0.1 %; Hematocrit 38.2 % (36-47); Lymphocytes % 9.1 %; Mean Corpuscular HGB Conc 34.3 g/dL (30-55); Mean Corpuscular Hemoglobin 30.3 pg (27-33); Mean Corpuscular Volume 88.4 fl (85-98); Mean Platelet Volume 9.5 fL (7.4-10.4); Monocytes # 0.6 10^3/uL (0.2-0.9); Monocytes % 5.4 %; Neutrophils # 9.27 10^3/uL (1.8-7.7); Nucleated Red Blood Cells % 0 %; Platelet Count 169 10^3/cmm (157-399); Red Blood Count 4.32 10^6/uL (3.85-5.65); Red Cell Distribution Width 13.7 % (12.1-15.1)
[2022-11-18 04:21] LABS: Anion Gap 22.3 (5-19); Blood Urea Nitrogen 51 mg/dL (8-23); Calcium 8.9 mg/dL (8.5-10.5); Carbon Dioxide 20 mmol/L (22-29); Chloride 106 mmol/L (98-107); Glucose 79 mg/dL (65-115); Magnesium 2.3 mg/dL (1.7-2.3); Osmolality Calculated 313 mOsm/kg (285-295); Phosphorus 2.1 mg/dL (2.5-4.5); Potassium 3.3 mmol/L (3.5-5.1); Sodium 145 mmol/L (136-145); Troponin 5 6HR 1621 ng/L (0-10)
[2022-11-18 04:23] LABS: Creatinine Clr Calc Pharmacy 44.2119
[2022-11-18] MEDS: pantoprazole 40 mg SDV IVP ×2 (04:46→17:29)
[2022-11-18 06:26] LABS: Glucose Point of Care 76 mg/dL (70-110)
--- NOTE | 2022-11-18 08:49 | PC.PHAR ---
PT UNABLE TO VERIFY MEDICATIONS- PT DOES NOT HAVE A VALID CONTACTS IN THE SYSTEM- MEDICATIONS VERIFIED USING EXTERNAL MED LIST AND CALLING PTS PHARMACY FOR LAST FILLED AND PICKED UP [facility]
--- NOTE | 2022-11-18 09:43 | P.PN_ITS ---
Subjective Subjective: This morning patient is able to follow commands Short attention span Spoke with her daughter phone number is [phone] She is not endorsing any chest pain or shortness of breath, she is on room air Hemodynamic stable She lives with her family PT OT ST pending Not a candidate to be on any anticoagulating agent considering non-STEMI Vitals/I&O/Wt Last Vital Signs Temp 97.7 F 11/18/22 07:31 Pulse 61 11/18/22 07:31 Resp 18 11/18/22 07:31 BP 148/66 11/18/22 07:31 Pulse Ox 99 11/18/22 07:31 O2 Del Method Room Air 11/18/22 04:00 11/17/22 11/18/22 11/18/22 22:59 06:59 14:59 Intake Total 1999 Output Total 250 / 250 525 / 775 Balance 1750 / 1750 -525 / 1225 Weight last 48 hrs Weight 68.039 kg Physical Exam Narrative: She is able to move her extremities Noticed significant dysarthria Mild left-sided facial droop Strength of upper and lower extremity reduced She is not able to keep her extremities in the air for more than 5 seconds Comprehension has been reduced Able to answer questions to some extent Answered simple question S1, S2 Currently on room air Abdomen soft Euvolemic Urinary Catheter Management: Straight: Cath Placed During This Visit: yes Urinary Catheter Date of Insertion: 11/17/22 Urinary Catheter Time of Insertion: 17:36 Data 11/18/22 03:23 11/18/22 03:23 Micro: Microbiology 11/17/22 22:23 Blood Culture - Preliminary Blood SPECIMEN COLLECTED 11/17/22 22:15 Blood Culture - Preliminary Blood SPECIMEN COLLECTED A&P Assessment and plan (1) Uremia: (2) Elevated lipase: (3) Type 2 diabetes mellitus: (4) Rhabdomyolysis: (5) WARREN (acute kidney injury): (6) Hematemesis: (7) Acute encephalopathy: (8) NSTEMI (non-ST elevated myocardial infarction): (9) CVA (cerebrovascular accident due to intracerebral hemorrhage): Plan Acute CVA Hemorrhagic stroke Keep blood pressure at goal below 120/60 mmHg Raise head end PT OT ST Non-STEMI Not a candidate to be on any antiplatelet therapy considering intra parenchymal hemorrhage We will request echo Stress test Type 2 diabetes uncontrolled hemoglobin A1c above 10 Patient will need higher dose of insulin not sure if he was compliant with her insulin at home she was taking 60 twice daily Continue IV fluids for now Spoke with her family phone number [phone]: Ignacio Harris Diverticulitis: Start Zosyn No hematemesis/hemoptysis at the time of my evaluation Full code however daughter stating that patient never wanted resuscitation and she did verbalize her in the past, she will like to be discussed with her mother today I will put her on pur?ed diet until speech evaluation Attestations Medical Necessity Statement*: Continue medical management Diagnoses Uremia N19 Elevated lipase R74.8 Type 2 diabetes mellitus E11.9 Rhabdomyolysis M62.82 WARREN (acute kidney injury) N17.9 Hematemesis K92.0 Acute encephalopathy G93.40 NSTEMI (non-ST elevated myocardial infarction) I21.4 CVA (cerebrovascular accident due to intracerebral hemorrhage) I61.9
--- NOTE | 2022-11-18 10:02 | PC.CHAP ---
Pastoral Care Encounter/Spiritual Assessment Type of Contact [] Declined [employer] football [employer] visit [] Patient/Family/Request visit [] Outpatient visit [] Follow-up visit [] Physician referral [] Code/Alert [x] Routine visit [] Staff referral [] Actively dying [] Patient sleeping [] Family support [] [] Out of room [] Palliative care [] [] Receiving care in room [] Pre-surgical visit [] Trauma [] Long length of stay [] ICU visit [] Other: Relational/Emotional Strength [] Patient feels connected with others/family/visitors/staff [] Distress [] Loneliness/isolation [] Abandonment Spirituality of Patient [] Person of Patti [] Attends Sikh of their Patti [] Believes in Prayer [] Reads Bible or Yazidi materials [] There are Spiritual issues to be addressed Publications Designer Interventions [x] Prayer [] Active listening [] Non-anxious presence [] Spiritual/emotional support [] Crisis/trauma care [] Spiritual counseling [] Bereavement support [] Provided bereavement packet [] Provided Bible/devotional materials [] Provided toy/stuffed animal, coloring book to patient or family member [] Provided Communion [] Anointing/[place] [] Salvation [] Completed spiritual assessment [] Other: Impact on Illness or Injury [] Angry [] Fearful [] Anxious [] Often cries [] Exhaustion [] Unable to work [] Unable to attend denominational [] Unable to walk/stand [] Unable to read [] Unable to drive [] Unable to eat/drink [] Unable to sleep [] Unable to be with family [] Patient intubated [] Other: Summary Time spent with patient 10 min
--- NOTE | 2022-11-18 10:09 | ECG_ITS ---
[facility] Test Date: 2022-11-20 Pat Name: Danita Thorpe Department: Room: 261 Gender: Female Motion Picture Commentator: : 1950 Requested By: Corrie Dale Order Number: [id number] Corey MD: Michaela Simmons M.D. Interpretive Statements NAME OF STUDY: LEXISCAN SESTAMIBI STRESS TEST INDICATION: NSTEMI PROCEDURE: At the baseline, the blood pressure was 129/58 mm Hg with a heart rate of 77 bpm. The electrocardiogram showed sinus rhythm with isolated PVC, normal axis. Poor anterior R wave progression. Non specific ST depression. ??? The Lexiscan was infused over a period of 20 seconds. A total of 0.4 milligrams of Lexiscan was infused. The stress phase was continued for a total of 5 minutes. Heart rate at the end of the stress phase was 88 bpm with a blood pressure of 92/42 mm Hg. The EKG at the peak infusion revealed no significant ST- T wave chnages. Study was terminated due to protocol completion. ??? Sestamibi was injected 20 seconds after the Lexiscan infusion. ??? Blood pressure at the end of the recovery phase was 109/39 mm Hg with a heart rate of 84 beats per minute. ??? CONCLUSION: 1. No significant EKG changes with the LexiScan infusion. 2. No LexiScan induced chest pain or cardiac arrhythmia. 3. Normal blood pressure and heart rate response. 4. Sestamibi/sestamibi perfusion scan pending; see separate report. Electronically Signed On 11-24-2022 12:31:26 CDT by Michaela Simmons M.D. [email or web address]
[2022-11-18] MEDS: sodium chloride 0.9% 1,000 ML 100 ML IV ×2 (10:28→21:23)
[2022-11-18] MEDS: piperacillin-tazobactam 3.375 GM in sodium chloride 0.9% (plus) 50 ML IV ×2 (10:43→17:26)
[2022-11-18 11:22] LABS: Glucose Point of Care 63 mg/dL (70-110)
--- NOTE | 2022-11-18 11:22 | PC.OT ---
HOLD OT EVALUATION TODAY DUE TO ELEVATED TROPONIN AND DISCUSSION WITH NURSE.
[2022-11-18 11:53] LABS: Glucose Point of Care 64 mg/dL (70-110)
[2022-11-18] MEDS: dextrose 50% syringe 50 mL 25 ML IVP (11:55)
[2022-11-18 12:37] LABS: Glucose Point of Care 127 mg/dL (70-110)
[2022-11-18] MEDS: dextrose 5 % 500 ML 50 ML IV (12:48)
[2022-11-18 16:50] LABS: Glucose Point of Care 132 mg/dL (70-110)
[2022-11-18 21:23] LABS: Glucose Point of Care 139 mg/dL (70-110)
[2022-11-18] MEDS: sucralfate 1 gm/10 mL Oral Liq UDC PO (21:24)
[2022-11-19] VITALS (8 sets, daily range): BP systolic 110–176; BP diastolic 68–78; PULSE 65–81; RESP 15–18; TEMP 36.4–37.1; O2SAT 92–99
[2022-11-19] MEDS: piperacillin-tazobactam 3.375 GM in sodium chloride 0.9% (plus) 50 ML IV ×3 (01:56→17:54)
[2022-11-19] MEDS: pantoprazole 40 mg SDV IVP ×2 (04:49→17:54)
--- NOTE | 2022-11-19 06:01 | PC.NURSE ---
Patient refusing to be injected for stress test. Patient educated on reasoning for and need for stress test and stated I just don't feel good. Attempt to contact patient's daughter and she did not answer. Voicemail left asking to call back.
[2022-11-19 06:53] LABS: Basophils % 0.3 %; Hematocrit 37.1 % (36-47); Lymphocytes # 0.7 10^3/uL (0.8-4.8); Lymphocytes % 10.4 %; Mean Corpuscular Hemoglobin 30.3 pg (27-33); Mean Corpuscular Volume 89.2 fl (85-98); Mean Platelet Volume 9.7 fL (7.4-10.4); Monocytes # 0.5 10^3/uL (0.2-0.9); Monocytes % 6.5 %; Neutrophils # 5.68 10^3/uL (1.8-7.7); Neutrophils % 82.4 %; Nucleated Red Blood Cells % 0 %; Platelet Count 128 10^3/cmm (157-399); Red Blood Count 4.16 10^6/uL (3.85-5.65); Red Cell Distribution Width 13.9 % (12.1-15.1)
[2022-11-19 06:58] LABS: Glucose Point of Care 107 mg/dL (70-110)
--- NOTE | 2022-11-19 07:01 | SUR.PREOP ---
PRE STRESS NOTE Patient at this point states she does not feel well and doesn't want to proceed. Awaiting approval from patient/family/ to proceed. Stress test on hold at this point.
[2022-11-19 07:09] LABS: Blood Urea Nitrogen 23 mg/dL (8-23); Calcium 8.9 mg/dL (8.5-10.5); Carbon Dioxide 23 mmol/L (22-29); Chloride 112 mmol/L (98-107); Creatinine Clr Calc Pharmacy 55.2648; Glucose 101 mg/dL (65-115); Magnesium 2.1 mg/dL (1.7-2.3); Osmolality Calculated 312 mOsm/kg (285-295); Sodium 149 mmol/L (136-145)
[2022-11-19 07:48] LABS: Anion Gap 17.1 (5-19); Phosphorus 0.9 mg/dL (2.5-4.5); Potassium 3.1 mmol/L (3.5-5.1)
[2022-11-19] MEDS: sodium chloride 0.9% 1,000 ML 100 ML IV (08:13)
[2022-11-19] MEDS: sucralfate 1 gm/10 mL Oral Liq UDC PO ×2 (08:13→20:41)
--- NOTE | 2022-11-19 09:45 | PM.PN ---
Subjective Subjective: Hyponatremia noted Patient refused her stress test Patient stating that she is not feeling like she has energy to go for a stress test today No active chest pain Started diet, n.p.o. after midnight Vitals/I&O/Wt Last Vital Signs Temp 98 F 11/19/22 07:34 Pulse 71 11/19/22 07:34 Resp 17 11/19/22 07:34 BP 176/78 11/19/22 07:34 Pulse Ox 97 11/19/22 07:34 O2 Del Method Room Air 11/19/22 05:15 11/18/22 11/19/22 11/19/22 22:59 06:59 14:59 Intake Total 605 / 1961.667 650 / 2611.667 338.333 / 338.333 Output Total 400 / 600 Balance 605 / 1761.667 250 / 2011.667 338.333 / 338.333 Weight last 48 hrs Weight 68.039 kg Physical Exam Narrative: Awake and alert Able to move extremities No dysarthria Fatigue lethargic GCS 15 Currently on room air Pleasant and cooperative S1, S2 Urinary Catheter Management: Straight: Cath Placed During This Visit: yes Urinary Catheter Date of Insertion: 11/17/22 Urinary Catheter Time of Insertion: 17:36 Data 11/19/22 05:50 11/19/22 05:50 Micro: Microbiology 11/17/22 22:23 Blood Culture - Preliminary Blood NEGATIVE TO DATE 11/17/22 22:15 Blood Culture - Preliminary Blood NEGATIVE TO DATE A&P Assessment and plan (1) CVA (cerebrovascular accident due to intracerebral hemorrhage): (2) NSTEMI (non-ST elevated myocardial infarction): (3) Elevated lipase: (4) Uremia: (5) Type 2 diabetes mellitus: (6) WARREN (acute kidney injury): (7) Hematemesis: (8) Acute encephalopathy: (9) Diverticulitis: (10) Hypernatremia: Plan Diverticulitis continue Zosyn Acute CVA hemorrhagic stroke conservative management No new focal deficit Non-STEMI We will request a stress tomorrow Not a candidate for to be on antiplatelet therapy We will follow-up with PT evaluation Daughter wanted to take her home with home health services We have to wait for 1 more day because she refused stress test today N.p.o. after midnight I will start D5 half-normal saline for her hypernatremia due to poor p.o. intake Attestations Medical Necessity Statement*: Continue medical management Diagnoses CVA (cerebrovascular accident due to intracerebral hemorrhage) I61.9 NSTEMI (non-ST elevated myocardial infarction) I21.4 Elevated lipase R74.8 Uremia N19 Type 2 diabetes mellitus E11.9 WARREN (acute kidney injury) N17.9 Hematemesis K92.0 Acute encephalopathy G93.40 Diverticulitis K57.92 Hypernatremia E87.0
--- NOTE | 2022-11-19 10:31 | PC.NURSE ---
Pt able to verbalize name, , month, location, and what admitting dx is to this nurse.
[2022-11-19] MEDS: dextrose 5%-sod chloride 0.45% 1,000 ML 75 ML IV (10:44)
[2022-11-19 10:58] LABS: Glucose Point of Care 126 mg/dL (70-110)
[2022-11-19 16:03] LABS: Glucose Point of Care 124 mg/dL (70-110)
[2022-11-19 20:58] LABS: Glucose Point of Care 108 mg/dL (70-110)
[2022-11-20] VITALS (7 sets, daily range): BP systolic 109–170; BP diastolic 37–77; PULSE 62–81; RESP 16–18; TEMP 36.3–36.7; O2SAT 99–100
[2022-11-20] MEDS: dextrose 5%-sod chloride 0.45% 1,000 ML 75 ML IV (03:01)
[2022-11-20] MEDS: piperacillin-tazobactam 3.375 GM in sodium chloride 0.9% (plus) 50 ML IV (03:02)
[2022-11-20 04:41] LABS: Basophils % 0.4 %; Eosinophils % 0.2 %; Hematocrit 37.7 % (36-47); Lymphocytes # 0.9 10^3/uL (0.8-4.8); Lymphocytes % 16.4 %; Mean Corpuscular HGB Conc 32.6 g/dL (30-55); Mean Corpuscular Hemoglobin 30.2 pg (27-33); Mean Corpuscular Volume 92.6 fl (85-98); Mean Platelet Volume 10.1 fL (7.4-10.4); Monocytes # 0.4 10^3/uL (0.2-0.9); Monocytes % 6.7 %; Neutrophils # 4.21 10^3/uL (1.8-7.7); Neutrophils % 75.6 %; Nucleated Red Blood Cells % 0 %; Platelet Count 105 10^3/cmm (157-399); Red Blood Count 4.07 10^6/uL (3.85-5.65); White Blood Count 5.56 10^3/uL (3.29-11.43)
[2022-11-20] MEDS: pantoprazole 40 mg SDV IVP (04:48)
[2022-11-20 05:00] LABS: Anion Gap 26.7 (5-19); Blood Urea Nitrogen 14 mg/dL (8-23); Calcium 8.5 mg/dL (8.5-10.5); Carbon Dioxide 19 mmol/L (22-29); Chloride 104 mmol/L (98-107); Creatinine Clr Calc Pharmacy 55.2648; Glucose 120 mg/dL (65-115); Magnesium 1.8 mg/dL (1.7-2.3); Osmolality Calculated 306 mOsm/kg (285-295); Phosphorus 1.5 mg/dL (2.5-4.5); Sodium 147 mmol/L (136-145)
[2022-11-20 05:08] LABS: Potassium 2.7 mmol/L (3.5-5.1)
[2022-11-20] MEDS: regadenoson 0.4 Mg/5 ml Syringe IVP (07:49)
--- NOTE | 2022-11-20 08:00 | NMCV_ITS ---
NM mario perf SPECT r/s* [id number] Danita Thorpe Age: 71 Gender: F : 1950 Exam Date: 11/20/2022 06:33 Ordering Phys: Corrie Dale MD Technologist: RENETTA Jean Baptiste Exam Location: [facility] Indications: CHEST PAIN STRESS TEST [facility] IMAGE PROTOCOL Rest/Stress 1 Lexiscan Day Radiopharmaceutical Dose (mCi) Administration Site Administered by Rest: Tc-99m 10.9 IV Cam Noland, KILN TESTER Sestamibi Stress:Tc-99m 32.9 IV Cam N[place]and, KILN TESTER Sestamibi Rest: 20-Nov-2022 60 Discovery 630 Stress: 20-Nov-2022 30 Discovery 630 0.4mg Lexiscan. Supine position only as patient was unable to lay prone. SPECT RESULTS Technical Quality: Excellent Raw Data Analysis: Normal Image Corrections: No attenuation or motion correction applied Summed Stress Score: 6 Summed Rest Score: 19 Summed Difference Score: 0 PERFUSION FINDINGS Large sized perfusion abnormality of basal to apical inferior, basal to mid inferolateral, mid anterolateral apical lateral and apical naranjo on rest images with improved tracer uptake in inferior wall on stress images. FUNCTIONAL RESULTS (calculated via Gated SPECT) Stress Image LV EF (%): 71 Stress EDV (mL):38 TID: 1.39 Stress ESV (mL):11 FUNCTIONAL FINDINGS: The left ventricle is normal in size. Transient Ischemia Dilatation of 1.39. The left ventricular ejection fraction is normal with a value of 71%. There is normal left ventricular wall thickening. IMPRESSIONS 1. Large sized perfusion abnormality of basal to apical inferior, basal to mid inferolateral, mid anterolateral apical lateral and apical naranjo improved tracer uptake on stress images. 2. This is likely suggestive of attenuation artifact. 3. Overall left ventricular systolic function is normal without regional wall motion abnormalities, LVEF=71%. 4. EKG portion of the study will be reported separately. 5. No coronary ischemia based on the study. Michaela Simmons MD (Electronically Signed) Final Date: 20 November 2022 11:21 S
[2022-11-20] MEDS: aminophylline 25 mg/mL SDV 10 mL IVP (08:01)
--- NOTE | 2022-11-20 09:35 | PM.DCS ---
Discharge Providers Date of Admission: 11/17/22 18:38 Date of Discharge: November 20, 2022 Attending Provider at Admission: Sobia Gunderson MD Attending Provider at Discharge: Corrie Dale MD Primary Care Provider: Vishnu Bautista DO Diagnoses at Discharge Discharge Diagnosis (1) CVA (cerebrovascular accident due to intracerebral hemorrhage): Status: Acute (2) NSTEMI (non-ST elevated myocardial infarction): Status: Acute (3) Elevated lipase: Status: Acute (4) Uremia: Status: Acute (5) Type 2 diabetes mellitus: Status: Acute (6) WARREN (acute kidney injury): Status: Acute (7) Hematemesis: Status: Acute (8) Acute encephalopathy: Status: Acute (9) Diverticulitis: Status: Acute (10) Hypernatremia: Status: Acute Reason for Visit Reason for Visit: AMS x 1weeks Hospital Course Hospital Course 68-year female who was admitted for management evaluation of metabolic encephalopathy, she was diagnosed with hemorrhagic stroke, blood pressure was kept at goal, patient was not put on ACS protocol patient has significant troponin leak echo did not show wall motion abnormality grade 1 diastolic function with EF 55 to 60%. Patient remained in sinus rhythm. Patient was put on level 4 dysphagia diet, she did well with physical therapy, home health services arranged. Patient lives with her daughter. Family meeting conducted. She is not a candidate of coronary angiogram aspirin or Plavix considering intracranial hemorrhage, she did not complain of any chest pain, EKG did not show any significant ischemic or infarct changes, because of intraparenchymal hemorrhage. Patient has not shown any worsening of her symptoms. Case discussed with Dr. Rita Muhammad wire photo operator who recommended medical management since she is not a candidate for angiogram or anticoagulating agent, will discharge patient on beta-nawaf, atorvastatin and lisinopril. Patient will need outpatient neurology evaluation to get clearance for possible angiogram in the future Physical Exam Narrative: Dysarthria improved Good strength of upper and lower extremity Short attention span otherwise able to comprehend and answer questions appropriately GCS 15 Urinary Catheter Management: Straight: Cath Placed During This Visit: yes Urinary Catheter Date of Insertion: 11/17/22 Urinary Catheter Time of Insertion: 17:36 Discharge Data Studies Completed and Pending Completed Studies During Hospitalization Category Date Time Status CT abdomen pelvis w con* [id number] Stat Cat Scan 11/17/22 17:[address] chest wo con [id number] Routine Cat Scan 11/17/22 23:[address] head wo con* [id number] Routine Cat Scan 11/17/22 20:59 Completed Sestamibi Stress Test Request Routine Exams 11/18/22 10:09 Draft XR chest 1V portable [id number] Stat Exams 11/17/22 16:14 Completed CV. echo complete* [id number] Routine Ultrasound 11/17/22 23:19 Completed Pending at discharge Category Date Time Status Sestamibi Stress Test Request Routine Exams 11/19/22 09:46 Ordered Blood Culture Stat Lab 11/17/22 22:23 Results NM mario perf SPECT r/s* [id number] Routine Nuc Med 11/20/22 08:00 Taken Radiology Impressions Abdomen/Pelvis CT 11/17/22 17:50 IMPRESSION: 1. No acute findings. 2. Diverticulosis of the colon without diverticulitis. COMMENTS: Consistent with the [place] [employer]'s Incidental Findings Committee white paper (J Am Shannen Radiol 2017): Any incidental adrenal lesion less than 1 cm is likely benign. No follow-up imaging is recommended for these lesions per consensus recommendations based on imaging criteria. Further lab evaluation could be pursued if warranted based on clinical findings. Head CT 11/17/22 20:59 IMPRESSION: 1. Hyperdensity in the right caudate head, anterior limb of the internal capsule, and lentiform nucleus. This most likely represents an acute parenchymal hemorrhage. ADDENDUM: 11/17/[id number] head on 02/11/2013 was made available. The 3.3 cm hyperdensity in the right basal ganglia is a new finding and is believed to represent acute hemorrhage. THIS REPORT CONTAINS FINDINGS THAT MAY BE CRITICAL TO PATIENT CARE. The findings were verbally communicated via telephone conference with TK ADAMS at 11:16 PM CDT on 11/17/2022. The findings were acknowledged and understood. Chest CT 11/17/22 23:20 IMPRESSION: 1. Mild bilateral atelectasis or scarring. 2. Lower esophageal thickening suggestive of esophagitis. 3. Atherosclerotic vascular disease including coronary artery disease. 4. Densely calcified proximal right subclavian artery with moderate to severe stenosis. Laboratory Results WBC 5.56 10^3/uL (3.29-11.43) 11/20/22 04:28 RBC 4.07 10^6/uL (3.85-5.65) 11/20/22 04:28 Hgb 12.30 g/dL (11.27-16.99) 11/20/22 04:28 Hct 37.7 % (36-47) 11/20/22 04:28 MCV 92.6 fl (85-98) 11/20/22 04:28 MCH 30.2 pg (27-33) 11/20/22 04:28 MCHC 32.6 g/dL (30-55) 11/20/22 04:28 RDW 14.0 % (12.1-15.1) 11/20/22 04:28 Plt Count 105 10^3/cmm (157-399) L 11/20/22 04:28 MPV 10.1 fL (7.4-10.4) 11/20/22 04:28 Neut % (Auto) 75.6 % 11/20/22 04:28 Lymph % (Auto) 16.4 % 11/20/22 04:28 [place] % (Auto) 6.7 % 11/20/22 04:28 Eos % (Auto) 0.2 % 11/20/22 04:28 Baso % (Auto) 0.4 % 11/20/22 04:28 Neut # (Auto) 4.21 10^3/uL (1.8-7.7) 11/20/22 04:28 Lymph # (Auto) 0.9 10^3/uL (0.8-4.8) 11/20/22 04:28 [place] # (Auto) 0.4 10^3/uL (0.2-0.9) 11/20/22 04:28 Eos # (Auto) 0.0 10^3/uL (0.0-0.8) 11/20/22 04:28 Baso # (Auto) 0.0 10^3/uL (0.0-0.1) 11/20/22 04:28 Nucleated RBC % (auto) 0 % 11/20/22 04:28 Nucleated RBCs # 0.0 /100WBC 11/20/22 04:28 Sodium 147 mmol/L (136-145) H 11/20/22 04:28 Potassium 2.7 mmol/L (3.5-5.1) L* 11/20/22 04:28 Chloride 104 mmol/L (98-107) 11/20/22 04:28 Carbon Dioxide 19 mmol/L (22-29) L 11/20/22 04:28 Anion Gap 26.7 (5-19) H 11/20/22 04:28 BUN 14 mg/dL (8-23) 11/20/22 04:28 Creatinine 0.8 mg/dL (0.5-0.9) 11/20/22 04:28 GFR Calculation Not Reportable 11/20/22 04:28 Glucose 120 mg/dL (65-115) H 11/20/22 04:28 POC Glucose 108 mg/dL (70-110) 11/19/22 20:52 Estimat Average Glucose 369 11/17/22 22:15 Hemoglobin A1c 14.5 % (4.0-6.0) H 11/17/22 22:15 Calculated Osmolality 306 mOsm/kg (285-295) H 11/20/22 04:28 Lactic Acid 1.8 mmol/L (0.5-2.2) 11/17/22 16:52 Calcium 8.5 mg/dL (8.5-10.5) 11/20/22 04:28 Phosphorus 1.5 mg/dL (2.5-4.5) L D 11/20/22 04:28 Magnesium 1.8 mg/dL (1.7-2.3) 11/20/22 04:28 Total Bilirubin 0.3 mg/dL (0.15-1.2) 11/17/22 16:52 GGT 39 U/L (5-36) H 11/17/22 22:15 AST 54 U/L (0-32) H 11/17/22 16:52 ALT 15 U/L (0-33) 11/17/22 16:52 Alkaline Phosphatase 105 U/L (35-105) 11/17/22 16:52 Ammonia 12 umol/L (11-51) 11/17/22 22:15 Creatine Kinase 406 U/L (26-192) H* 11/17/22 16:52 Troponin T Baseline 1946 ng/L (0-10) H* 11/17/22 22:15 Troponin T 120 Minute 1648 ng/L (0-10) H 11/18/22 00:15 Delta Troponin T -298 ABS# (0-10) L 11/18/22 00:15 Troponin T Hi Sens 6Hr 1621 ng/L (0-10) H 11/18/22 03:23 Troponin T Hi Sens 6Hr Delta -325 ng/L (0-12) L 11/18/22 03:23 C-Reactive Protein 168.3 mg/L (0.0-4.9) H 11/17/22 22:15 Total Protein 6.7 g/dL (6.6-8.7) 11/17/22 16:52 Albumin 2.9 g/dL (3.5-5.2) L 11/17/22 16:52 Globulin 3.8 g/dL (1.3-4.6) 11/17/22 16:52 Amylase 271 U/L (28-100) H 11/17/22 22:15 Lipase 289 U/L (13-60) H 11/17/22 16:52 Procalcitonin 1.46 ng/mL (0-0.5) H 11/17/22 22:15 TSH 1.05 uIU/mL (0.27-4.20) 11/17/22 22:15 Urine Color Yellow (Yellow) 11/17/22 17:22 Urine Appearance Clear (CLEAR) 11/17/22 17:22 Urine pH 5 (5-7) 11/17/22 17:22 Ur Specific [place] 1.015 (1.005-1.030) 11/17/22 17:22 Urine Protein Neg (Negative) 11/17/22 17:22 Urine Glucose (UA) 4+ (Normal) H 11/17/22 17:22 Urine Ketones 2+ (Negative) H 11/17/22 17:22 Urine Blood Neg (Negative) 11/17/22 17:22 Urine Nitrate Negative (Negative) 11/17/22 17:22 Urine Bilirubin Neg (Negative) 11/17/22 17:22 Urine Urobilinogen Norm mg/dL (Negative) 11/17/22 17:22 Ur Leukocyte Esterase Negative (Negative) 11/17/22 17:22 Vitals Last Vital Signs Temp 97.8 F 11/20/22 08:39 Pulse 78 11/20/22 08:39 Resp 18 11/20/22 08:39 BP 170/77 11/20/22 08:39 Pulse Ox 100 11/20/22 08:39 O2 Del Method Room Air 11/20/22 08:39 Discharge Plan Discharge Patient Disposition: Home Condition: Stable Prescriptions: New insulin lispro [Humalog KwikPen Insulin] 100 unit/mL insulin pen See Rx Instructions .ROUTE .COMPLEX Qty: 15 2RF Rx Instructions: Low intensity sliding scale amoxicillin-pot clavulanate 875-125 mg tablet 1 tab PO BID Qty: 6 0RF lisinopril 20 mg tablet 20 mg PO DAILY Qty: 60 0RF amlodipine 5 mg tablet 5 mg PO DAILY Qty: 30 0RF Phospha 250 Neutral 250 mg Tablet 250 mg PO BID Qty: 10 0RF potassium chloride [Klor-Con] 20 mEq packet 20 meq PO DAILY 6 Days Qty: 30 0RF magnesium 200 mg tablet 200 mg PO DAILY Qty: 10 0RF atorvastatin 40 mg tablet 40 mg PO DAILY Qty: 60 0RF Continued phenazopyridine [Pyridium] 200 mg tablet 200 mg PO TID Qty: 6 0RF fenofibrate micronized 200 mg capsule 200 mg PO DAILY rosuvastatin 10 mg tablet 10 mg PO DAILY metoprolol succinate 100 mg tablet extended release 24 hr 100 mg PO DAILY Lantus Solostar U-100 Insulin 100 unit/mL (3 mL) insulin pen 60 unit SUBCUT BID Qty: 15 3RF Discontinued Levemir FlexTouch U100 Insulin 100 unit/mL (3 mL) insulin pen 110 unit SUBCUT BID glipizide 10 mg tablet extended release 24hr 10 mg PO DAILY Discharge Orders: Discharge Order (Routine); Ordered 11/20/22 Ordered By: Corrie Dale Other Ambulatory Orders: DME: Wheelchair (Order) Location: None Selected Ordered By: Sobia Gunderson Referrals: Vishnu Bautista DO [Primary Care Provider] - 11/23/22 10:10 am Discharge Diet: As Directed Patient Instructions: Hyponatremia (ED), Benzodiazepine Use Disorder (ED), Dementia (ED), Non-diabetic Hypoglycemia (ED), Hypoglycemia in a Person with Diabetes (ED), Concussion (ED), Alcohol Intoxication (ED), Subarachnoid Hemorrhage (GEN), Altered Mental Status (ED), Opioid Safety Activity Restrictions/Additional Instructions: Keep your blood pressure below 130 mmHg for which I have added amlodipine and lisinopril you can continue metoprolol Discharge Attestations Time Spent in Discharge Care*: greater than 30 min Quality Metrics Clinical Quality Measures [ No reported AMI, CVA or VTE this stay] Coding Level of Care Code Acute Code for Chg Fwd Diagnoses CVA (cerebrovascular accident due to intracerebral hemorrhage) I61.9 NSTEMI (non-ST elevated myocardial infarction) I21.4 Elevated lipase R74.8 Uremia N19 Type 2 diabetes mellitus E11.9 WARREN (acute kidney injury) N17.9 Hematemesis K92.0 Acute encephalopathy G93.40 Diverticulitis K57.92 Hypernatremia E87.0
[2022-11-20 10:18] LABS: Glucose Point of Care 136 mg/dL (70-110)
[2022-11-20] MEDS: sucralfate 1 gm/10 mL Oral Liq UDC PO (10:27)
[2022-11-20] MEDS: lidocaine 1% 5 ML in potassium chloride premix 100 ML 26.25 ML IV (10:27)
[2022-11-20] MEDS: phosphorus 250 mg Tablet PO (10:27)
[2022-11-20 11:48] LABS: Glucose Point of Care 194 mg/dL (70-110)
[2022-11-20] MEDS: insulin lispro 100 unit/1 mL SUBCUT (13:44)
[2022-11-20 16:41] LABS: Glucose Point of Care 212 mg/dL (70-110)
== END 2022-11-20 17:48 | disposition home or self-care (01) | DRG 64 ==
LOC: ER 17:07 → MEDSURG 18:39
PROVIDERS: Family Medicine; Admitting Provider Student in an Organized Health Care Education/Training Program; Emergency Provider Family Medicine; PCP Electrodiagnostic Medicine; Visit Provider Internal Medicine
DX: I61.8 Other nontraumatic intracerebral hemorrhage (principal); G93.41 Metabolic encephalopathy; I21.4 Non-ST elevation (NSTEMI) myocardial infarction; N17.9 Acute kidney failure, unspecified; G81.94 Hemiplegia, unspecified affecting left nondominant side; M62.82 Rhabdomyolysis; K92.0 Hematemesis; K57.92 Diverticulitis of intestine, part unspecified, without perforation or abscess without bleeding; E87.1 Hypo-osmolality and hyponatremia; R29.704 NIHSS score 4; I62.9 Nontraumatic intracranial hemorrhage, unspecified; R47.1 Dysarthria and anarthria; R29.810 Facial weakness; Z79.4 Long term (current) use of insulin; E11.9 Type 2 diabetes mellitus without complications; F17.200 Nicotine dependence, unspecified, uncomplicated; F03.90 Unspecified dementia, unspecified severity, without behavioral disturbance, psychotic disturbance, mood disturbance, and anxiety
CPT/HCPCS: 36415; 36416; 51701; 51702; 70450; 71045; 71250; 74177; 78452; 80048; 80053; 81003; 82140; 82150; 82550; 82962; 82977; 83036; 83605; 83690; 83735; 84100; 84145; 84443; 84484; 85025; 86140; 87040; 92507; 92523; 92526; 92610; 93005; 93017; 93306; 94664; 96372; 96374; 96375; 97116; 97161; 97167; 97530; 99285; A9500; C9113; J0280; J1815; J2405; J2543; J2785; J3480; J7030; J7060; J7799; Q9967

== ENCOUNTER 2022-11-27 09:10 | Observation (INO) | payer MEDICARE, OTHER, SELFPAY ==
[2022-11-27] VITALS (20 sets, daily range): BP systolic 121–171; BP diastolic 59–74; PULSE 67–158; RESP 11–21; TEMP 36.7–37.1; O2SAT 93–99
[2022-11-27 09:24] LABS: Glucose Point of Care 156 mg/dL (70-110)
--- NOTE | 2022-11-27 09:24 | CT_ITS ---
WS: [id number] CT HEAD NONCONTRAST HISTORY: Recent CVA TECHNIQUE: Contiguous axial imaging performed through the brain in 2.5 mm imaging. Bone and soft tiss ue windows. Sagittal and coronal reformats reviewed. All CT scans at [facility] use at least one of these dose optimization techniques: automated exposure control; mA and/or kV adjustment per pa tient size (includes targeted exams where dose is matched to clinical indication); or iterative recon struction. DLP: 1005.18 mGy.cm COMPARISON: None available. Recently described acute RIGHT caudate, lentiform nucleus and internal capsule hemorrhage is identifi ed but decreasing in overall density consistent with resolving hemorrhage. No acute blood products. Moderate atrophy and small vessel ischemic disease is chronic. Ventricles: Normal size with no hydrocephalus. Paranasal sinuses: As visualized are clear. Mastoid air cells: Well pneumatized. Calvarium and scalp: Skull is intact with no soft tissue edema or swelling. IMPRESSION: 1. Resolving, subacute hemorrhage in the RIGHT caudate head and basal ganglia since 11/17/2022. No new acute blood products. 2. No hydrocephalus. 3. Moderate atrophy and small vessel ischemic disease.
--- NOTE | 2022-11-27 09:25 | XR_ITS ---
WS: [id number] Portable AP supine chest, 11/27/2022 Clinical Data: dyspnea/cough Comparison: Portable chest, 11/17/2022 Findings: No nodules, masses or effusions are seen. The heart is normal. The pulmonary vascularity is not increased. No pneumonia or pneumothorax is seen. The aortic arch shows mild tortuosity. Impression: Atherosclerosis.
--- NOTE | 2022-11-27 09:25 | ECG_ITS ---
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 Measurements Intervals [place] Rate: 70 P: 8 [place]: 160 QRS: -23 QRSD: 110 T: 105 QT: 401 QTc: 434 Interpretive Statements SINUS RHYTHM BORDERLINE LEFT AXIS DEVIATION [QRS AXIS < -20] ST DEVIATION AND MODERATE T-WAVE ABNORMALITY, CONSIDER LATERAL ISCHEMIA [-0.1+ mV T-WAVE IN I/aVL/V5/V6] Compared to ECG 11/17/2022 21:53:01 Myocardial infarct finding no longer present T-wave abnormality still present Possible ischemia still present Electronically Signed On 11-27-2022 11:04:14 CDT by Michaela Simmons M.D. [id number]
[2022-11-27 09:33] LABS: Basophils % 0.5 %; Eosinophils % 0.5 %; Hematocrit 41.5 % (36-47); Lymphocytes # 1.3 10^3/uL (0.8-4.8); Lymphocytes % 17.1 %; Mean Corpuscular HGB Conc 33.5 g/dL (30-55); Mean Corpuscular Hemoglobin 30.4 pg (27-33); Mean Corpuscular Volume 90.8 fl (85-98); Monocytes # 0.9 10^3/uL (0.2-0.9); Monocytes % 12.5 %; Neutrophils # 5.09 10^3/uL (1.8-7.7); Neutrophils % 69.3 %; Nucleated Red Blood Cells % 0 %; Platelet Count 195 10^3/cmm (157-399); Red Blood Count 4.57 10^6/uL (3.85-5.65); Red Cell Distribution Width 13.2 % (12.1-15.1); White Blood Count 7.36 10^3/uL (3.29-11.43)
--- NOTE | 2022-11-27 09:39 | W.ED.AMS ---
HPI - Altered Mental Status General: Chief Complaint: Altered Mental Status Stated Complaint: AMS Time Seen by Provider: 11/27/22 09:12 Source: patient Mode of arrival: EMS History of Present Illness: 71-year-old female brought in by EMS with complaints of altered mental status they were concerned because she recently had a small stroke she been hospitalized. She also had a positive stress test no complaint of chest pain. EMS found her blood sugar is 49 initially was given glucose supplement and improved to 156 on arrival here she is awake and alert she is slightly confused has known history of dementia. complaint: altered mental status Severity: moderate Context: other (Recent hemorrhagic stroke) Review of Systems Const: Denies: fever(s) or chills Card: Denies: chest pain Resp: Denies: dyspnea GI: Denies: abdominal pain : Denies: dysuria, urinary frequency or urinary urgency Musc: Denies: neck pain or back pain Skin/Breast: Denies: rash PFSH ED PFSH: Medical History Acute encephalopathy WARREN (acute kidney injury) CVA (cerebrovascular accident due to intracerebral hemorrhage) Diverticulitis Elevated lipase Hematemesis History of type 2 diabetes mellitus Hypernatremia NSTEMI (non-ST elevated myocardial infarction) Rhabdomyolysis Type 2 diabetes mellitus Uremia Social History Smoking and tobacco/nicotine status: current every day tobacco/nicotine user Household members: other Details: Daughter Physical Exam Const: COMMON NORMALS: no acute distress GENERAL APPEARANCE: cooperative and comfortable ORIENTATION/CONSCIOUSNESS: Yes awake HENMT: COMMON NORMALS: normocephalic, atraumatic and hearing grossly normal bilaterally HEAD & SCALP: normocephalic and atraumatic Resp: COMMON NORMALS: normal respiratory effort, No retractions, No use of accessory muscles and clear to auscultation bilaterally AUSCULTATION: clear to auscultation bilaterally Cardio: COMMON NORMALS: regular rate, regular rhythm and No murmurs present (Cardio) RATE: regular rate RHYTHM: regular rhythm GI: COMMON NORMALS: Soft to palpation and No hepatosplenomegaly present AUSCULTATION: Yes normoactive bowel sounds PALPATION: Yes Soft to palpation, No Tenderness to palpation present (GI), No Guarding due to palpation present (GI) and Yes No hepatosplenomegaly present Extremity: COMMON NORMALS: normal to inspection, capillary refill normal, no clubbing, cyanosis or edema, no calf tenderness and no pedal edema Skin: COMMON NORMALS: no rashes or lesions noted GENERAL SKIN EXAM: no rashes or lesions noted Course Vital Signs: Vital signs: Vital Signs Temperature 99.1 F 11/28/22 04:00 Pulse Rate 75 11/28/22 04:39 Respiratory Rate 18 11/28/22 04:00 Blood Pressure 126/58 11/28/22 04:00 Pulse Oximetry 93 11/28/22 04:00 Oxygen Delivery Me thod Room Air 11/28/22 04:00 MDM - Altered Mental Status Medical Decision Making Her episode of altered mental status appears to have been caused by hypoglycemia. She is completely resolved and back to her normal baseline at this time. She was recently hospitalized and had a intraparenchymal hemorrhage that is decreasing in size. She was also found to have an NSTEMI and no symptoms or EKG changes at the time stress testing showed area of reversibility there was concern about proceeding with any intervention if she was stented she would need aspirin and Plavix because of the recent intracranial hemorrhage it was decided to treat her medically. Patient has a slight bump in her troponin. She continues to be asymptomatic. I did review the case with Dr. Whitney she felt the patient could be placed on Plavix or aspirin if necessary. Discussed with hospitalist will admit to continue rule out reevaluate for possible further cardiac assessments. Medical Records I reviewed the patient's medical records. Lab Data I reviewed the patient's lab results. 11/28/22 03:15 11/28/22 03:15 Radiology Impressions Pelvis X-Ray 11/27/22 15:30 IMPRESSION: No acute findings. Laboratory Results WBC 7.36 10^3/uL (3.29-11.43) 11/27/22 09:00 RBC 4.57 10^6/uL (3.85-5.65) 11/27/22 09:00 Hgb 13.90 g/dL (11.27-16.99) 11/27/22 09:00 Hct 41.5 % (36-47) 11/27/22 09:00 MCV 90.8 fl (85-98) 10/13/23 09:00 MCH 30.4 pg (27-33) 11/27/22 09:00 MCHC 33.5 g/dL (30-55) 11/27/22 09:00 RDW 13.2 % (12.1-15.1) 11/27/22 09:00 Plt Count 195 10^3/cmm (157-399) 11/27/22 09:00 MPV 9.0 fL (7.4-10.4) 11/27/22 09:00 Neut % (Auto) 69.3 % 11/27/22 09:00 Lymph % (Auto) 17.1 % 11/27/22 09:00 [place] % (Auto) 12.5 % 11/27/22 09:00 Eos % (Auto) 0.5 % 11/27/22 09:00 Baso % (Auto) 0.5 % 11/27/22 09:00 Neut # (Auto) 5.09 10^3/uL (1.8-7.7) 11/27/22 09:00 Lymph # (Auto) 1.3 10^3/uL (0.8-4.8) 11/27/22 09:00 [place] # (Auto) 0.9 10^3/uL (0.2-0.9) 11/27/22 09:00 Eos # (Auto) 0.0 10^3/uL (0.0-0.8) 11/27/22 09:00 Baso # (Auto) 0.0 10^3/uL (0.0-0.1) 11/27/22 09:00 Nucleated RBC % (auto) 0 % 11/27/22 09:00 Nucleated RBCs # 0.0 /100WBC 11/27/22 09:00 Sodium 141 mmol/L (136-145) 11/27/22 09:00 Potassium 3.8 mmol/L (3.5-5.1) 11/27/22 09:00 Chloride 99 mmol/L (98-107) 11/27/22 09:00 Carbon Dioxide 31 mmol/L (22-29) H 11/27/22 09:00 Anion Gap 14.8 (5-19) 11/27/22 09:00 BUN 14 mg/dL (8-23) 11/27/22 09:00 Creatinine 0.6 mg/dL (0.5-0.9) 11/27/22 09:00 GFR Calculation Not Reportable 11/27/22 09:00 Glucose 32 mg/dL (65-115) L* 11/27/22 09:00 POC Glucose 92 mg/dL (70-110) 11/27/22 14:14 Calculated Osmolality 289 mOsm/kg (285-295) 11/27/22 09:00 Calcium 9.4 mg/dL (8.5-10.5) 11/27/22 09:00 Troponin T Baseline 122 ng/L (0-10) H* 11/27/22 09:00 Troponin T 120 Minute 126.6 ng/L (0-10) H 11/27/22 10:54 Delta Troponin T 4.6 ABS# (0-10) 11/27/22 10:54 All radiology interpretation(s) finalized by discharge Discharge Plan Discharge Patient Disposition: Placed in Observation Admit Provider: Aram Jeffers Clinical Impression: Hypoglycemia, History of recent stroke, Dementia, Troponin level elevated Condition: Stable Coding Level of Care Code ED Motor 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
[2022-11-27 09:57] LABS: Anion Gap 14.8 (5-19); Blood Urea Nitrogen 14 mg/dL (8-23); Calcium 9.4 mg/dL (8.5-10.5); Carbon Dioxide 31 mmol/L (22-29); Chloride 99 mmol/L (98-107); Osmolality Calculated 289 mOsm/kg (285-295); Potassium 3.8 mmol/L (3.5-5.1); Sodium 141 mmol/L (136-145)
[2022-11-27 09:59] LABS: Glucose Point of Care 133 mg/dL (70-110)
[2022-11-27 09:59] LABS: Glucose 32 mg/dL (65-115)
[2022-11-27 10:14] LABS: Troponin(5th) Baseline 122 ng/L (0-10)
[2022-11-27 10:52] LABS: Glucose Point of Care 107 mg/dL (70-110)
[2022-11-27 11:22] LABS: Troponin 5 2HR Delta 4.6 ABS# (0-10)
--- NOTE | 2022-11-27 11:25 | ECG_ITS ---
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 Measurements Intervals [place] Rate: 72 P: 46 CT: 167 QRS: -24 QRSD: 98 T: 98 QT: 381 QTc: 417 Interpretive Statements SINUS RHYTHM BORDERLINE LEFT AXIS DEVIATION [QRS AXIS < -20] MODERATE T-WAVE ABNORMALITY, CONSIDER LATERAL ISCHEMIA [-0.1+ mV T-WAVE IN I/aVL/V5/V6] Compared to ECG 11/27/2022 09:29:06 No significant changes Electronically Signed On 11-27-2022 12:35:32 CDT by Michaela Simmons M.D. [id number]
[2022-11-27 11:27] LABS: Troponin 5 2HR 126.6 ng/L (0-10)
[2022-11-27 12:16] LABS: Glucose Point of Care 137 mg/dL (70-110)
--- NOTE | 2022-11-27 12:59 | PC.NURSE ---
PT NOT UP FOR DISCHARGE PER DR. GOLD
[2022-11-27] MEDS: nitroglycerin 1 gm/inch oint Pkt 1 INCH TOPICAL (13:00)
[2022-11-27 14:19] LABS: Glucose Point of Care 92 mg/dL (70-110)
--- NOTE | 2022-11-27 15:30 | XRR_ITS ---
PROCEDURE INFORMATION: Exam: XR Pelvis Exam date and time: 11/27/2022 4:16 PM Age: 71 years old Clinical indication: Injury or trauma; Fall; Other: Unknown; Additional info: Falls, coccyx pain TECHNIQUE: Imaging protocol: Radiologic exam of the pelvis. Views: 1 or 2 view. COMPARISON: CT abdomen pelvis w con* [id number] 11/17/2022 6:06 PM FINDINGS: Bones/joints: Unremarkable. No acute fracture. Soft tissues: Unremarkable. XR/XR pelvis 1-2V* [id number] IMPRESSION: No acute findings.
--- NOTE | 2022-11-27 15:31 | USCV_ITS ---
Danita Thorpe Age: 71 Gender: F : 1950 Exam Date: 11/27/2022 16:08 Ordering Phys: Aram Jeffers MD Technologist: Jesse David [place] [facility] [place]: elevated trop BP: 126 / 70 HR: 72 Rhythm: Sinus Technical Quality: Adequate MEASUREMENTS (Male / Female) Normal Values 2D ECHO LVOT Diameter 2.0 cm LV Ejection Fraction MOD 2C 64.2 % LV Ejection Fraction 2C AL 63.4 % LA Diameter 3.1 cm LA Width 3.0 cm LA Height 3.9 cm RA Width 2.3 cm RA Height 3.6 cm Aorta at Sinotubular Diameter 2.3 cm M-MODE Aortic Annulus Diameter 2.6 cm LA Ao Ratio MM 1.2 MV E Point Septal Separation 0.6 cm DOPPLER Right Atrial Pressure 8.0 mmHg FINDINGS Left Ventricle Normal left ventricular size and systolic function, EF 63 %. Mild left ventricular hypertrophy. No regional wall motion abnormalities. Right Ventricle Normal right ventricular size and systolic function. Right Atrium The right atrium is normal in size. Left Atrium The left atrium is normal in size. Mitral Valve No gross abnormalities noted Aortic Valve Thickened aortic valve. Tricuspid Valve No gross abnormalities no Pulmonic Valve Pulmonic valve not well visualized. Pericardium No pericardial effusion. Aorta Normal ascending aorta dimension. IVC Inferior vena cava not visualized. CONCLUSIONS Normal left ventricular size and systolic function, EF 63 %. Mild left ventricular hypertrophy. No regional wall motion abnormalities. Thickened aortic valve. There is no pericardial effusion. Compared to the study from 10/25/2022 11/17/2022, there is no significant change in the LV ejection fraction or any new wall motion normalities Dr Richard Cherry MD FACC (Electronically Signed) Final Date: 27 November 2022 19:17 S
[2022-11-27 15:43] LABS: Troponin 5 6HR 118.1 ng/L (0-10); Troponin 5 6HR Delta -3.9 ng/L (0-12)
--- NOTE | 2022-11-27 15:44 | PM.HP ---
Providers/Chief Complaint Admitting Physician: Aram Jeffers Primary Care Provider: Vishnu Bautista DO Chief Complaint: AMS History of Present Illness Pleasant 71-year-old lady was brought in for evaluation due to altered mental status at home, found to have severe hypoglycemia by EMS, given glucose supplement, still hypoglycemic on arrival here on BMP glucose 32 initially, but on recheck glucose rising. Some confusion noted on arrival. Underlying history of dementia. She is not sure but thinks there may have been some changes in her insulin regimen recently. She states she also has not had very good appetite only had a tuna sandwich today. Her history is complicated also with recent admission in the beginning of November with NSTEMI, but also with intraparenchymal hemorrhage, reassessed in ER it has been improving. He troponin is noted elevated but not nearly as high as last time which was as high as 1900, today baseline 1.2, 2 hours 126.6. Some T wave inversions noted on EKG. She tells me she is feeling better, closer to her usual self, but somewhat tired. Has no chest pain or pressure, nor any shortness of breath. She does report has had several falls recently. Is having pain in her tailbone. Chest x-ray with atherosclerosis, mild tortuosity of aortic arch. Review of Systems Const: Reports: change in appetite; Denies: fever(s), chills, body aches or malaise ENMT: Denies: throat pain Card: Denies: chest pain, edema, pre-syncope or dyspnea on exertion Resp: Denies: dyspnea, productive cough, change in phlegm color or hemoptysis GI: Denies: abdominal pain, nausea, vomiting, diarrhea, constipation, hematochezia or melena : Denies: flank pain, urinary frequency or hematuria Musc: Denies: back pain, joint swelling or joint redness Skin/Breast: Denies: rash or new lesions Neuro: Reports: frequent falls and confusion; Denies: headache(s), numbness in extremities, weakness in extremities, dizziness or seizure-like activity Medications/Allergies Home Medications Medication Instructions Recorded Confirmed Last Taken Type fenofibrate micronized 200 mg 200 mg PO QAM 11/18/22 11/27/22 11/26/22 History capsule metoprolol succinate 100 mg 100 mg PO QAM 11/18/22 11/27/22 11/26/22 History tablet,extended release 24 hr rosuvastatin 10 mg tablet 10 mg PO QAM 11/18/22 11/27/22 11/26/22 History amoxicillin 875 mg-potassium 1 tab PO BID #6 tabs 11/20/22 11/27/22 11/26/22 Rx clavulanate 125 mg tablet insulin lispro 100 unit/mL See Rx Instructions .Route 11/20/22 11/27/22 Unknown Rx subcutaneous pen (Humalog KwikPen .COMPLEX #15 mL (U-100) Insulin) sodium di- and 250 mg PO BID #10 tabs 11/20/22 11/27/22 11/26/22 Rx monophosphate-potassium phos monobasic 250 mg tablet (Phospha Neutral) empagliflozin 25 mg tablet 25 mg PO QAM 11/27/22 11/27/22 11/26/22 History (Jardiance) insulin glargine 100 unit/mL (3 45 unit (0.45 mL) SUBCUT BID #15 mL 11/27/22 11/27/22 11/26/22 Rx mL) subcutaneous pen (Lantus Solostar U-100 Insulin) magnesium 200 mg tablet 200 mg PO QAM 11/27/22 11/27/22 11/26/22 History paroxetine HCl 40 mg tablet 40 mg PO QAM 11/27/22 11/27/22 11/26/22 History Allergies Allergy/AdvReac Type Severity Reaction Status Date / Time cefaclor [From Ceclor] Allergy ALGY-Anaphy Verified 11/27/22 09:18 laxis Iodine and Iodide Containing Allergy ADR-Vomitin Verified 11/27/22 09:18 Produc g PFSH Acute PFSH: Medical History Acute encephalopathy WARREN (acute kidney injury) CVA (cerebrovascular accident due to intracerebral hemorrhage) Diverticulitis Elevated lipase Hematemesis History of type 2 diabetes mellitus Hypernatremia NSTEMI (non-ST elevated myocardial infarction) Rhabdomyolysis Type 2 diabetes mellitus Uremia Social History Smoking and tobacco/nicotine status: current every day tobacco/nicotine user Household members: other Details: Daughter Vitals/I&O/Wt Last Vital Signs Temp 98.1 F 11/27/22 09:13 Pulse 73 11/27/22 13:02 Resp 18 11/27/22 13:02 BP 171/74 11/27/22 13:02 Pulse Ox 97 11/27/22 13:02 O2 Del Method Room Air 11/27/22 15:23 Weight last 48 hrs Weight 80.739 kg Physical Exam Const: COMMON NORMALS: alert GENERAL APPEARANCE: cooperative ORIENTATION/CONSCIOUSNESS: Yes awake HENMT: COMMON NORMALS: oropharynx normal Neck/C-Spine: COMMON NORMALS: no JVD Resp: COMMON NORMALS: normal respiratory effort and clear to auscultation bilaterally AUSCULTATION: clear to auscultation bilaterally Cardio: COMMON NORMALS: no JVD, regular rhythm, S1 normal heart sound present, S2 normal heart sound present and No murmurs present (Cardio) RHYTHM: regular rhythm HEART SOUNDS: S1 normal heart sound present and S2 normal heart sound present GI: COMMON NORMALS: Normal to inspection, nondistended, normoactive bowel sounds present, Soft to palpation and non-tender PALPATION: Yes Soft to palpation Extremity: COMMON NORMALS: no joint enlargement and no pedal edema Neuro: COMMON NORMALS: patient oriented x3 and moves all extremities SENSORIUM/ORIENTATION: Yes alert Skin: COMMON NORMALS: no rashes or lesions noted GENERAL SKIN EXAM: no rashes or lesions noted Data 11/27/22 09:00 11/27/22 09:00 A&P Assessment and plan (1) Hypoglycemia: Severe symptomatic hypoglycemia with acute metabolic encephalopathy. Risk of severe neurologic injury, stroke, seizure, . Monitor accuchecks. Hold Lantus. Hypoglycemia protocol. History had to be obtained from ER staff. Could not reach her daughter oneither phone number. She feels there may have been some insulin regimen changes recently. Discussed with her. Discussed with ER physician. ER documentation reviewed. (2) Troponin level elevated: Discussed with her. Troponin elevation with increase in delta from baseline 122-126.6. TWI on review of EKG without definite sign of CO. Recent NSTEMI complicated by incidentalfinding of intracerebral hemorrhage. Complete troponin series. Monitor on tleemtry. Has not had chest pain, monitor symptoms. Obtain follow up limited echo. Intracerebral hemorrhage noted on review of head CT, noted improving compared to prior. If necessary could receive antiplatelets per discussion of ER physician ben neurology, but certainly she understands that this would increase her risk of rebleeding. As she is currently asymptomatic with only moderate troponin elevation without severe rise, for now holding off. Continue ANDRIY toscano. (3) Delirium due to general medical condition: Acute metabolic encephalopathy with severe symptomatic hypoglycemia. Treat hypoglycemia. Additional assessment for possible ACS in a lady with recent NSTEMI. Reorient. Monitor condition. Obtain UA Reviewed head CT, chest x-ray. (4) Dementia: (5) History of recent stroke: Intracerebral hemorrhage noted on review of head CT, noted improving compared to prior. Hold paroxetine for now. Plan DM2: monitor accuchecks. CC diet. SSI. History of NSTEMI: Continue statin, beta-nawaf. Plans were for additional assessment with coronary angiography at some point which was delayed due to intracerebral hemorrhage. Recently several falls: Having pain in her tailbone. Will assess pelvis x-ray. Obtain PT evaluation. Attestations Medical Necessity Statement*: Place in observation for additional assessment management of severe symptomatic hypoglycemia with acute metabolic encephalopathy, further assessment for ACS in a lady with recent NSTEMI with complication of incidentally found intracerebral hemorrhage. Diagnoses Hypoglycemia E16.2 Troponin level elevated R79.89 Delirium due to general medical condition F05 Dementia F03.90 History of recent stroke Z86.73
--- NOTE | 2022-11-27 16:34 | PC.NURSE ---
Nurse removed nitropaste from chest after a blood pressure reading of 84/45 with a MAP of 54. Nurse wiped chest clean and retook blood pressure and got a reading of 121/59.
[2022-11-27 17:56] LABS: Glucose Point of Care 110 mg/dL (70-110)
--- NOTE | 2022-11-27 18:18 | ECG_ITS ---
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 Measurements Intervals [place] Rate: 75 P: 10 RI: 155 QRS: -30 QRSD: 105 T: 103 QT: 383 QTc: 429 Interpretive Statements SINUS RHYTHM BORDERLINE LEFT AXIS DEVIATION [QRS AXIS < -20] ST DEVIATION AND MODERATE T-WAVE ABNORMALITY, CONSIDER LATERAL ISCHEMIA [-0.1+ mV T-WAVE IN I/aVL/V5/V6] Compared to ECG 11/27/2022 11:54:47 No significant changes Electronically Signed On 11-27-2022 20:28:40 CDT by Michaela Simmons M.D. [id number]
[2022-11-27] MEDS: insulin lispro 100 unit/1 mL SUBCUT (21:06)
[2022-11-27 21:43] LABS: Glucose Point of Care 180 mg/dL (70-110)
[2022-11-28] VITALS (11 sets, daily range): BP systolic 116–144; BP diastolic 52–77; PULSE 65–89; RESP 16–32; TEMP 36.6–37.7; O2SAT 91–99
[2022-11-28 03:31] LABS: Basophils % 0.7 %; Eosinophils # 0.1 10^3/uL (0.0-0.8); Eosinophils % 1.1 %; Hematocrit 35.2 % (36-47); Lymphocytes # 1.2 10^3/uL (0.8-4.8); Lymphocytes % 21.8 %; Mean Corpuscular HGB Conc 32.4 g/dL (30-55); Mean Corpuscular Volume 92.6 fl (85-98); Monocytes # 0.7 10^3/uL (0.2-0.9); Monocytes % 13.2 %; Neutrophils # 3.43 10^3/uL (1.8-7.7); Nucleated Red Blood Cells % 0 %; Platelet Count 180 10^3/cmm (157-399); Red Cell Distribution Width 13.1 % (12.1-15.1); White Blood Count 5.45 10^3/uL (3.29-11.43)
[2022-11-28 03:50] LABS: Anion Gap 11.4 (5-19); Blood Urea Nitrogen 17 mg/dL (8-23); Carbon Dioxide 33 mmol/L (22-29); Chloride 99 mmol/L (98-107); Glucose 122 mg/dL (65-115); Magnesium 2.2 mg/dL (1.7-2.3); Osmolality Calculated 293 mOsm/kg (285-295); Potassium 3.4 mmol/L (3.5-5.1); Sodium 140 mmol/L (136-145)
[2022-11-28 06:33] LABS: Glucose Point of Care 127 mg/dL (70-110)
[2022-11-28] MEDS: metoprolol succinate ER (24 HR) 100 mg Tablet PO (06:34)
[2022-11-28] MEDS: atorvastatin 40 mg Tablet PO (06:34)
[2022-11-28 11:30] LABS: Glucose Point of Care 211 mg/dL (70-110)
[2022-11-28] MEDS: insulin lispro 100 unit/1 mL SUBCUT ×3 (13:07→21:44)
[2022-11-28 14:26] LABS: Adenovirus Not Detected (NOT DETECT); Chlamydia Pneumoniae Not Detected (NOT DETECT); Coronavirus 229E,HKU1,NL63,OC4 Not Detected (NOT DETECT); Human Metapneumovirus Not Detected (NOT DETECT); Human Rhinovirus/Enterovirus Not Detected (NOT DETECT); Influenza A Not Detected (NOT DETECT); Influenza A H1 Not Detected (NOT DETECT); Influenza A H1-2009 Not Detected (NOT DETECT); Influenza A H3 Not Detected (NOT DETECT); Influenza B Not Detected (NOT DETECT); Mycoplasma Pneumoniae Not Detected (NOT DETECT); Parainfluenza Virus Type 1 Not Detected (NOT DETECT); Parainfluenza Virus Type 2 Not Detected (NOT DETECT); Parainfluenza Virus Type 3 Not Detected (NOT DETECT); Parainfluenza Virus Type 4 Not Detected (NOT DETECT); Respiratory Syncytial Virus A Not Detected (NOT DETECT); Respiratory Syncytial Virus B Not Detected (NOT DETECT); SARS-COV-2 Not Detected (NOT DETECT)
--- NOTE | 2022-11-28 17:06 | PM.PN ---
Subjective Subjective: She is overall feeling better In terms of lethargy/confusion. More awake. Had low-grade temp this morning of 9.9 Fahrenheit. Denies additional new symptoms. No dysuria. No nausea vomiting or diarrhea. Has been feeling weaker. Weaker compared to prior discharge. She does have a stage 2-3 pressure sore on the sacrum. Vitals/I&O/Wt Last Vital Signs Temp 97.9 F 11/28/22 12:00 Pulse 70 11/28/22 16:00 Resp 22 H 11/28/22 16:00 BP 117/52 11/28/22 12:00 Pulse Ox 97 11/28/22 16:00 O2 Del Method Room Air 11/28/22 16:00 11/28/22 11/28/22 11/28/22 06:59 14:59 22:59 Intake Total 160 / 160 Balance 160 / 160 Weight last 48 hrs Weight 80.739 kg Physical Exam Narrative: Accompanied by family including her daughter. Const: COMMON NORMALS: alert GENERAL APPEARANCE: cooperative ORIENTATION/CONSCIOUSNESS: Yes awake HENMT: COMMON NORMALS: oropharynx normal Neck/C-Spine: COMMON NORMALS: no JVD Resp: COMMON NORMALS: normal respiratory effort and clear to auscultation bilaterally AUSCULTATION: clear to auscultation bilaterally Cardio: COMMON NORMALS: no JVD, regular rhythm, S1 normal heart sound present, S2 normal heart sound present and No murmurs present (Cardio) RHYTHM: regular rhythm HEART SOUNDS: S1 normal heart sound present and S2 normal heart sound present GI: COMMON NORMALS: Normal to inspection, nondistended, normoactive bowel sounds present, Soft to palpation and non-tender PALPATION: Yes Soft to palpation Extremity: COMMON NORMALS: no joint enlargement and no pedal edema Neuro: COMMON NORMALS: moves all extremities SENSORIUM/ORIENTATION: Yes alert Skin: OTHER: Stage 2-3 3cm decub on R side ischium Data 11/28/22 03:15 11/28/22 03:15 A&P Assessment and plan (1) Fever: Low grade 99.9F. Source unclear. Requested respiratory viral panel as discussed with her and her family. We will request UA. On review of chest x-ray no obvious pneumonia. Does have a small decub without surrounding cellulitis. Grossly does not appear infected. Monitor symptoms for changes. Reassess vital signs. (2) Weakness: Discussed with physical therapy. She is weaker than she had been recently during her admission with stroke. Has become more deconditioned. Would benefit from SNF rehabilitation. Continue physical therapy. Will place case management consultation. (3) Hypoglycemia: Resolvevd. She has been receiving 60 mg twice daily of insulin Lantus per history obtained from family. reviewed Accu-Cheks. Discussed with her family we will hold entirely for now has not been quite that elevated. We will watch glucose before resuming Lantus. Continue sliding scale insulin. With recurrence of hypoglycemia atRisk of severe neurologic injury, stroke, seizure, . (4) Troponin level elevated: Reviewed TTE. Reviewed troponin series. Discussed with her and family. She remains free of chest pain. Does not appear to have any additional acute ACS. Monitor on telemetry While here. Should follow-up with cardiology. Recent NSTEMI complicated by incidentalfinding of intracerebral hemorrhage. Intracerebral hemorrhage noted on review of head CT, noted improving compared to prior. If necessary could receive antiplatelets per discussion of ER physician w neurology, but certainly she understands that this would increase her risk of rebleeding. As she is currently asymptomatic with only moderate troponin elevation without severe rise, for now holding off. Continue everton BB. (5) Delirium due to general medical condition: Resolved. Acute metabolic encephalopathy with severe symptomatic hypoglycemia. Treat hypoglycemia. Additional assessment for possible ACS in a lady with recent NSTEMI. Reorient. Monitor condition. Requested UA Reviewed head CT, chest x-ray. (6) Dementia: (7) History of recent stroke: Intracerebral hemorrhage noted on review of head CT, noted improving compared to prior. Hold paroxetine for now. (8) Decubitus ulcer: per history obtained from family has had decubitus ulcer at home. Managed with foam dressings. Reposition. Continue. Add nutritional supplements to meals. Plan DM2: monitor accuchecks. CC diet. SSI. History of NSTEMI: Continue statin, beta-nawaf. Plans were for additional assessment with coronary angiography at some point which was delayed due to intracerebral hemorrhage. Recently several falls: Having pain in her tailbone. Reviewed pelvis x-ray. Attestations Medical Necessity Statement*: Continue hospitalization for assessment management following acute encephalopathy, low-grade fever, worsening generalized weakness and lady with recent hemorrhagic CVA, [place]. and High MDM includes amount and/or complexity of data reviewed/ordered [ resulted lab(s)/test(s), independent historian and other healthcare professional discussion] as documented Diagnoses Fever R50.9 Weakness R53.1 Hypoglycemia E16.2 Troponin level elevated R79.89 Delirium due to general medical condition F05 Dementia F03.90 History of recent stroke Z86.73 Decubitus ulcer L89.90
[2022-11-28 17:40] LABS: Glucose Point of Care 280 mg/dL (70-110)
[2022-11-28] MEDS: acetaminophen 325 mg Tablet 650 MG PO (18:48)
[2022-11-28 21:20] LABS: Glucose Point of Care 295 mg/dL (70-110)
[2022-11-29] VITALS (62 sets, daily range): BP systolic 99–156; BP diastolic 52–83; PULSE 57–113; RESP 12–40; TEMP 36.8–37.5; O2SAT 90–97
[2022-11-29] MEDS: atorvastatin 40 mg Tablet PO (05:37)
[2022-11-29] MEDS: metoprolol succinate ER (24 HR) 100 mg Tablet PO (05:37)
[2022-11-29 05:43] LABS: Eosinophils # 0.1 10^3/uL (0.0-0.8); Eosinophils % 1.7 %; Hematocrit 35.1 % (36-47); Lymphocytes # 1.2 10^3/uL (0.8-4.8); Lymphocytes % 29.6 %; Mean Corpuscular HGB Conc 32.5 g/dL (30-55); Mean Corpuscular Hemoglobin 30.2 pg (27-33); Mean Corpuscular Volume 92.9 fl (85-98); Mean Platelet Volume 8.9 fL (7.4-10.4); Monocytes # 0.5 10^3/uL (0.2-0.9); Neutrophils % 55.5 %; Nucleated Red Blood Cells % 0 %; Platelet Count 194 10^3/cmm (157-399); Red Blood Count 3.78 10^6/uL (3.85-5.65); Red Cell Distribution Width 13.1 % (12.1-15.1); White Blood Count 4.15 10^3/uL (3.29-11.43)
[2022-11-29 05:54] LABS: Glucose Point of Care 210 mg/dL (70-110)
[2022-11-29 05:59] LABS: Anion Gap 11.5 (5-19); Blood Urea Nitrogen 20 mg/dL (8-23); Calcium 9.9 mg/dL (8.5-10.5); Carbon Dioxide 32 mmol/L (22-29); Chloride 94 mmol/L (98-107); Glucose 176 mg/dL (65-115); Osmolality Calculated 285 mOsm/kg (285-295); Potassium 3.5 mmol/L (3.5-5.1); Sodium 134 mmol/L (136-145)
[2022-11-29] MEDS: insulin lispro 100 unit/1 mL SUBCUT ×4 (08:45→20:43)
[2022-11-29 11:35] LABS: Glucose Point of Care 260 mg/dL (70-110)
--- NOTE | 2022-11-29 19:00 | PM.PN ---
Subjective Subjective: She is feeling better today. Denies any additional new symptoms. No trouble breathing. No nausea vomiting or diarrhea. Vitals/I&O/Wt Last Vital Signs Temp 99.5 F 11/29/22 17:05 Pulse 70 11/29/22 17:05 Resp 16 11/29/22 17:05 BP 116/63 11/29/22 17:05 Pulse Ox 94 11/29/22 17:05 O2 Del Method Room Air 11/29/22 04:00 11/29/22 11/29/22 11/29/22 06:59 14:59 22:59 Intake Total 720 / 720 720 / 1440 Balance 720 / 720 720 / 1440 Physical Exam Const: COMMON NORMALS: patient oriented x3 and alert GENERAL APPEARANCE: cooperative ORIENTATION/CONSCIOUSNESS: Yes awake HENMT: COMMON NORMALS: oropharynx normal Neck/C-Spine: COMMON NORMALS: no JVD Resp: COMMON NORMALS: normal respiratory effort and clear to auscultation bilaterally AUSCULTATION: clear to auscultation bilaterally Cardio: COMMON NORMALS: no JVD, regular rhythm, S1 normal heart sound present, S2 normal heart sound present and No murmurs present (Cardio) RHYTHM: regular rhythm HEART SOUNDS: S1 normal heart sound present and S2 normal heart sound present GI: COMMON NORMALS: Normal to inspection, nondistended, normoactive bowel sounds present, Soft to palpation and non-tender PALPATION: Yes Soft to palpation Extremity: COMMON NORMALS: no joint enlargement and no pedal edema Neuro: COMMON NORMALS: patient oriented x3 and moves all extremities SENSORIUM/ORIENTATION: Yes alert Skin: COMMON NORMALS: no rashes or lesions noted GENERAL SKIN EXAM: no rashes or lesions noted OTHER: Stage 2-3 3cm decub on R side ischium Data 11/29/22 05:20 11/29/22 05:20 A&P Assessment and plan (1) Fever: Denied again 99.5 low-grade temp. Pending UA. No new symptoms. Subjectively feeling better. Add incentive spirometer. Low grade 99.9F yesterday. Source unclear. Respiratory viral panel obtained, reviewed, Unremarkable. Reviewed CBC, no leukocytosis. On chest x-ray no obvious pneumonia. Does have a small decub without surrounding cellulitis. Grossly does not appear infected. Monitor symptoms for changes. Reassess vital signs. (2) Weakness: Discussed with PT. Reviewed PT note. Noted orthostatic. Will not add midodrine at this time given recent cardiac ischemia. She is weaker than she had been recently during her admission with stroke. Has become more deconditioned. Would benefit from SNF rehabilitation. Continue physical therapy. Will place case management consultation. (3) Hypoglycemia: Accu-Cheks reviewed. We will try to resume Lantus at 10 units. Monitor glucose. At risk of hypoglycemia Resolvevd. She has been receiving 60 mg twice daily of insulin Lantus per history obtained from family. reviewed Accu-Cheks. Discussed with her family we will hold entirely for now has not been quite that elevated. We will watch glucose before resuming Lantus. Continue sliding scale insulin. With recurrence of hypoglycemia atRisk of severe neurologic injury, stroke, seizure, . (4) Troponin level elevated: She remains free of chest pain. Does not appear to have any additional acute ACS. Monitor on telemetry While here. Should follow-up with cardiology. Recent NSTEMI complicated by incidentalfinding of intracerebral hemorrhage. Intracerebral hemorrhage noted on review of head CT, noted improving compared to prior. If necessary could receive antiplatelets per discussion of ER physician w neurology, but certainly she understands that this would increase her risk of rebleeding. As she is currently asymptomatic with only moderate troponin elevation without severe rise, for now holding off. Continue everton BB. (5) Delirium due to general medical condition: Resolved. Acute metabolic encephalopathy with severe symptomatic hypoglycemia. Treat hypoglycemia. Additional assessment for possible ACS in a lady with recent NSTEMI. Reorient. Monitor condition. Requested UA Reviewed head CT, chest x-ray. (6) Dementia: (7) History of recent stroke: Intracerebral hemorrhage noted on review of head CT, noted improving compared to prior. Hold paroxetine for now. (8) Decubitus ulcer: per history obtained from family has had decubitus ulcer at home. Managed with foam dressings. Reposition. Continue. Add nutritional supplements to meals. Plan DM2: Insulin requirement seems to be quite a bit lower. We will try to resume Lantus at 10 units. Monitor glucose with Accu-Cheks. CC diet. SSI. History of NSTEMI: Continue statin, beta-nawaf. Plans were for additional assessment with coronary angiography at some point which was delayed due to intracerebral hemorrhage. Recently several falls: Having pain in her tailbone. Reviewed pelvis x-ray. Attestations Medical Necessity Statement*: Continue? hospitalization for assessment management? following acute encephalopathy, low-grade fever, worsening generalized weakness and lady with recent hemorrhagic CVA, [place]. Diagnoses Fever R50.9 Weakness R53.1 Hypoglycemia E16.2 Troponin level elevated R79.89 Delirium due to general medical condition F05 Dementia F03.90 History of recent stroke Z86.73 Decubitus ulcer L89.90
[2022-11-29 20:21] LABS: Glucose Point of Care 265 mg/dL (70-110)
[2022-11-29] MEDS: insulin glargine 100 units/1 mL 10 UNIT SUBCUT (20:42)
[2022-11-30] VITALS (7 sets, daily range): BP systolic 126–160; BP diastolic 65–77; PULSE 58–70; RESP 14–20; TEMP 37.1; O2SAT 90–98
--- NOTE | 2022-11-30 04:58 | PC.NURSE ---
pt pulled iv out of left ac. physician notified, and nurse given the ok to not restart it.
[2022-11-30 05:20] LABS: Eosinophils # 0.1 10^3/uL (0.0-0.8); Eosinophils % 1.2 %; Hematocrit 36.2 % (36-47); Lymphocytes # 1.3 10^3/uL (0.8-4.8); Lymphocytes % 32.4 %; Mean Corpuscular HGB Conc 32.3 g/dL (30-55); Mean Corpuscular Hemoglobin 29.5 pg (27-33); Mean Corpuscular Volume 91.4 fl (85-98); Mean Platelet Volume 9.2 fL (7.4-10.4); Monocytes # 0.5 10^3/uL (0.2-0.9); Monocytes % 11.5 %; Neutrophils # 2.19 10^3/uL (1.8-7.7); Neutrophils % 53.7 %; Nucleated Red Blood Cells % 0 %; Platelet Count 201 10^3/cmm (157-399); Red Blood Count 3.96 10^6/uL (3.85-5.65); Red Cell Distribution Width 12.9 % (12.1-15.1); White Blood Count 4.08 10^3/uL (3.29-11.43)
[2022-11-30 05:47] LABS: Anion Gap 13.6 (5-19); Blood Urea Nitrogen 21 mg/dL (8-23); Calcium 9.6 mg/dL (8.5-10.5); Carbon Dioxide 31 mmol/L (22-29); Chloride 99 mmol/L (98-107); Glucose 123 mg/dL (65-115); Osmolality Calculated 294 mOsm/kg (285-295); Potassium 3.6 mmol/L (3.5-5.1); Sodium 140 mmol/L (136-145)
[2022-11-30] MEDS: metoprolol succinate ER (24 HR) 100 mg Tablet PO (06:46)
[2022-11-30] MEDS: atorvastatin 40 mg Tablet PO (06:46)
[2022-11-30 08:12] LABS: Glucose Point of Care 251 mg/dL (70-110)
[2022-11-30 08:12] LABS: Glucose Point of Care 141 mg/dL (70-110)
[2022-11-30 08:16] LABS: Glucose Point of Care 159 mg/dL (70-110)
[2022-11-30] MEDS: insulin lispro 100 unit/1 mL SUBCUT ×2 (08:25→12:41)
[2022-11-30] MEDS: lisinopril 10 mg Tablet PO (09:42)
[2022-11-30 10:13] LABS: Chol HDL Ratio 3.54 mg/dL (0.0-4.40); Cholesterol 99 mg/dL (0-200); HDL Cholesterol 28 mg/dL (60-100); Iron 32 ug/dL (37-145); LDL Cholesterol Calculated 38 mg/dL (50-129); Percent Saturation 22.3 % (20-50); Total Iron Binding Capacity 143 mcg/dl; Triglycerides 167 mg/dL (0-150); Unsaturated Iron Binding 111 ug/dL (112-347); VLDL Cholestrol Calculation 33 mg/dL (0-30); Vitamin B12 1497 pg/mL (232-1245)
--- NOTE | 2022-11-30 11:26 | P.DS_ITS ---
Discharge Providers Date of Admission: 11/27/22 14:27 Date of Discharge: November 30, 2022 Attending Provider at Admission: Aram Jeffers Attending Provider at Discharge: Kaden Potts MD Primary Care Provider: Vishnu Bautista DO Diagnoses at Discharge Discharge Diagnosis (1) Fever: Status: Acute (2) Weakness: Status: Acute (3) Hypoglycemia: Status: Acute (4) Troponin level elevated: Status: Acute (5) Delirium due to general medical condition: Status: Acute (6) Dementia: Status: Acute (7) History of recent stroke: Status: Acute (8) Decubitus ulcer: Status: Acute Reason for Visit Reason for Visit: AMS Brief History: History as per HPI: Pleasant 71-year-old lady was brought in for evaluation due to altered mental status at home, found to have severe hypoglycemia by EMS, given glucose supplement, still hypoglycemic on arrival here on BMP glucose 32 initially, but on recheck glucose rising.? Some confusion noted on arrival.? Underlying history of dementia.? She is not sure but thinks there may have been some changes in her insulin regimen recently.? She states she also has not had very good appetite only had a tuna sandwich today. Her history is complicated also with recent admission in the beginning of November with NSTEMI, but also with intraparenchymal hemorrhage, reassessed in ER it has been improving.? He troponin is noted elevated but not nearly as high as last time which was as high as 1900, today baseline 1.2, 2 hours 126.6.? Some T wave inversions noted on EKG.? She tells me she is feeling better, closer to her usual self, but somewhat tired.? Has no chest pain or pressure, nor any shortness of breath. She does report has had several falls recently.? Is having pain in her tailbone. Chest x-ray with atherosclerosis, mild tortuosity of aortic arch. Hospital Course Hospital Course Patient was admitted to the hospital further evaluation and management of de lirium most likely in setting of hypoglycemia. Patient's hypoglycemia admission was intractable most likely in setting of high dose of Lantus. It is believed hypoglycemia with home dose of insulin is most likely secondary to poor oral intake in setting of recent stroke. Her blood sugars improved gradually and low-dose insulin was restarted. Causes of hypoglycemia including possible infectious source were ruled out with negative UTI, pneumonia, respiratory viral panel being negative. Repeat CT head during hospitalization showed resolving subacute hemorrhage in the right caudate and basal ganglia. Patient was seen by physical therapy in the hospital and they recommended patient to be discharged to SNF for further rehabitation given recent stroke. Both patient and patient's daughter were counseled in detail for possible discharge to SNF but they declined and she has been discharged back to home with home health. Patient is advised to follow-up with cardiology and neurology within next 2 weeks for initiation of dual antiplatelets given history of recent acute non-ST elevation OH and stroke with intra cranial hemorrhage. Physical Exam Narrative: Accompanied by family including her daughter. Const: COMMON NORMALS: patient oriented x3 and alert GENERAL APPEARANCE: cooperative ORIENTATION/CONSCIOUSNESS: Yes awake HENMT: COMMON NORMALS: oropharynx normal Neck/C-Spine: COMMON NORMALS: no JVD Resp: COMMON NORMALS: normal respiratory effort and clear to auscultation bilaterally AUSCULTATION: clear to auscultation bilaterally Cardio: COMMON NORMALS: no JVD, regular rhythm, S1 normal heart sound present, S2 normal heart sound present and No murmurs present (Cardio) RHYTHM: regular rhythm HEART SOUNDS: S1 normal heart sound present and S2 normal heart sound present GI: COMMON NORMALS: Normal to inspection, nondistended, normoactive bowel sounds present, Soft to palpation and non-tender PALPATION: Yes Soft to palpation Extremity: COMMON NORMALS: no joint enlargement and no pedal edema Neuro: COMMON NORMALS: patient oriented x3 and moves all extremities SENS ORIUM/ORIENTATION: Yes alert Skin: COMMON NORMALS: no rashes or lesions noted GENERAL SKIN EXAM: no rashes or lesions noted OTHER: Stage 2-3 3cm decub on R side ischium Discharge Data Studies Completed and Pending Completed Studies During Hospitalization Category Date Time Status CT head wo con* [id number] Stat Cat Scan 11/27/22 09:24 Completed XR chest 1V portable [id number] Stat Exams 11/27/22 09:25 Completed XR pelvis 1-2V* [id number] Routine Exams 11/27/22 15:30 Completed CV. echo limited [id number] Routine Ultrasound 11/27/22 15:31 Completed Pending at discharge Category Date Time Status Complete Blood Count w/Auto AM LABS Lab 12/01/22 04:00 Ordered Comprehensive Metabolic Panel AM LABS Lab 12/01/22 04:00 Ordered Folate Level AM LABS Lab 12/01/22 04:00 Ordered UA w/Reflex to Microscope [Urinalysis] Routine Lab 11/28/22 11:02 Uncollected Radiology Impressions Pelvis X-Ray 11/27/22 15:30 IMPRESSION: No acute findings. Laboratory Results WBC 4.08 10^3/uL (3.29-11.43) 11/30/22 04:27 RBC 3.96 10^6/uL (3.85-5.65) 11/30/22 04:27 Hgb 11.70 g/dL (11.27-16.99) 11/30/22 04:27 Hct 36.2 % (36-47) 11/30/22 04:27 MCV 91.4 fl (85-98) 11/30/22 04:27 MCH 29.5 pg (27-33) 11/30/22 04:27 MCHC 32.3 g/dL (30-55) 11/30/22 04:27 RDW 12.9 % (12.1-15.1) 11/30/22 04:27 Plt Count 201 10^3/cmm (157-399) 11/30/22 04:27 MPV 9.2 fL (7.4-10.4) 11/30/22 04:27 Neut % (Auto) 53.7 % 11/30/22 04:27 Lymph % (Auto) 32.4 % 11/30/22 04:27 [place] % (Auto) 11.5 % 11/30/22 04:27 Eos % (Auto) 1.2 % 11/30/22 04:27 Baso % (Auto) 1.0 % 11/30/22 04:27 Neut # (Auto) 2.19 10^3/uL (1.8-7.7) 11/30/22 04:27 Lymph # (Auto) 1.3 10^3/uL (0.8-4.8) 11/30/22 04:27 [place] # (Auto) 0.5 10^3/uL (0.2-0.9) 11/30/22 04:27 Eos # (Auto) 0.1 10^3/uL (0.0-0.8) 11/30/22 04:27 Baso # (Auto) 0.0 10^3/uL (0.0-0.1) 11/30/22 04:27 Nucleated RBC % (auto) 0 % 11/30/22 04:27 Nucleated RBCs # 0.0 /100WBC 11/30/22 04:27 Sodium 140 mmol/L (136-145) 11/30/22 04:27 Potassium 3.6 mmol/L (3.5-5.1) 11/30/22 04:27 Chloride 99 mmol/L (98-107) 11/30/22 04:27 Carbon Dioxide 31 mmol/L (22-29) H 11/30/22 04:27 Anion Gap 13.6 (5-19) 11/30/22 04:27 BUN 21 mg/dL (8-23) 11/30/22 04:27 Creatinine 0.6 mg/dL (0.5-0.9) 11/30/22 04:27 GFR Calculation Not Reportable 11/30/22 04:27 Glucose 123 mg/dL (65-115) H 11/30/22 04:27 POC Glucose 159 mg/dL (70-110) H 11/30/22 08:12 Calculated Osmolality 294 mOsm/kg (285-295) 11/30/22 04:27 Calcium 9.6 mg/dL (8.5-10.5) 11/30/22 04:27 Magnesium 2.2 mg/dL (1.7-2.3) 11/28/22 03:15 Iron 32 ug/dL (37-145) L 11/30/22 04:27 TIBC 143 mcg/dl 11/30/22 04:27 % Saturation 22.3 % (20-50) 11/30/22 04:27 Unsat Iron Binding 111 ug/dL (112-347) L 11/30/22 04:27 Troponin T Baseline 122 ng/L (0-10) H* 11/27/22 09:00 Troponin T 120 Minute 126.6 ng/L (0-10) H 11/27/22 10:54 Delta Troponin T 4.6 ABS# (0-10) 11/27/22 10:54 Troponin T Hi Sens 6Hr 118.1 ng/L (0-10) H 11/27/22 15:00 Troponin T Hi Sens 6Hr Delta -3.9 ng/L (0-12) L 11/27/22 15:00 Triglycerides 167 mg/dL (0-150) H 11/30/22 04:27 Cholesterol 99 mg/dL (0-200) 11/30/22 04:27 LDL Cholesterol, Calc 38 mg/dL (50-129) L 11/30/22 04:27 Total VLDL Cholesterol 33 mg/dL (0-30) H 11/30/22 04:27 HDL Cholesterol 28 mg/dL (60-100) L 11/30/22 04:27 Cholesterol/HDL Ratio 3.54 mg/dL (0.0-4.40) 11/30/22 04:27 Vitamin B12 1497 pg/mL (232-1245) H 11/30/22 04:27 Nasal Influ A H1 2009 PCR Not detected (NOT DETECT) 11/28/22 12:29 Adenovirus (PCR) Not detected (NOT DETECT) 11/28/22 12:29 C. pneumoniae DNA (PCR) Not detected (NOT DETECT) 11/28/22 12:29 Coronavirus 229E (PCR) Not detected (NOT DETECT) 11/28/22 12:29 Human Metapneumovir PCR Not detected (NOT DETECT) 11/28/22 12:29 Influenza A (H1) PCR Not detected (NOT DETECT) 11/28/22 12:29 Influenza A (H3) PCR Not detected (NOT DETECT) 11/28/22 12:29 Influenza Type A (PCR) Not detected (NOT DETECT) 11/28/22 12:29 Influenza Type B (PCR) Not detected (NOT DETECT) 11/28/22 12:29 M. pneumoniae (PCR) Not detected (NOT DETECT) 11/28/22 12:29 Parainfluenza 1 (PCR) Not detected (NOT DETECT) 11/28/22 12:29 Parainfluenza 2 (PCR) Not detected (NOT DETECT) 11/28/22 12:29 Parainfluenza 3 (PCR) Not detected (NOT DETECT) 11/28/22 12:29 Parainfluenza 4 (PCR) Not detected (NOT DETECT) 11/28/22 12:29 RSV Type A (PCR) Not detected (NOT DETECT) 11/28/22 12:29 RSV Type B (PCR) Not detected (NOT DETECT) 11/28/22 12:29 Entero/Rhino (PCR) Not detected (NOT DETECT) 11/28/22 12:29 SARS-CoV-2 (PCR) Not detected (NOT DETECT) 11/28/22 12:29 Vitals Last Vital Signs Temp 98.8 F 11/30/22 04:54 Pulse 69 11/30/22 09:55 Resp 18 11/30/22 09:55 BP 160/72 11/30/22 08:00 Pulse Ox 98 11/30/22 09:55 O2 Del Method Room Air 11/30/22 09:55 O2 Flow Rate 18 11/30/22 09:55 Discharge Plan Discharge Patient Disposition: Home Health Service Condition: Stable Prescriptions: New lisinopril 10 mg Tablet 10 mg PO DAILY 30 Days Qty: 30 0RF Lantus Solostar U-100 Insulin 100 unit/mL (3 mL) insulin pen 10 unit SUBCUT DAILY Qty: 15 0RF amoxicillin-pot clavulanate 875-125 mg tablet 1 tab PO Q12H Qty: 10 0RF Continued fenofibrate micronized 200 mg capsule 200 mg PO QAM rosuvastatin 10 mg tablet 10 mg PO QAM metoprolol succinate 100 mg tablet extended release 24 hr 100 mg PO QAM insulin lispro [Humalog KwikPen Insulin] 100 unit/mL insulin pen See Rx Instructions .ROUTE .COMPLEX Qty: 15 2RF Rx Instructions: Low intensity sliding scale paroxetine HCl 40 mg tablet 40 mg PO QAM Jardiance 25 mg tablet 25 mg PO QAM magnesium 200 mg tablet 200 mg PO QAM Discontinued Phospha 250 Neutral 250 mg Tablet 250 mg PO BID Qty: 10 0RF insulin glargine [Lantus Solostar U-100 Insulin] 100 unit/mL (3 mL) insulin pen 60 unit SUBCUT BID Qty: 15 3RF amoxicillin-pot clavulanate 875-125 mg tablet 1 tab PO BID Qty: 6 0RF Discharge Orders: Discharge Order (Routine); Ordered 11/30/22 Ordered By: Kaden Potts Referrals: Vishnu Bautista DO [Primary Care Provider] - 12/15/22 7:30 am Sarah Whitney MD [Physician] - 2 weeks (Initiation of dual antiplatelet for non-ST elevation OH recently in setting of recent stroke with intracranial hemorrhage) Lindsey Lockett FNP [Nurse Practitioner] - 2 weeks Discharge Diet: Cardiac Discharge Activity: Resume usual activity and Increase activity as tolerated Patient Instructions: Lisinopril (By mouth), Amoxicillin/Clavulanate Potassium (By mouth) (Augmentin, Augmentin..., Insulin Glargine (By injection) (Lantus, Lantus SoloStar, Toujeo, Semglee), Fever - Adult, Weakness (DC), Opioid Safety, Pain Management, Decubitus Ulcers Activity Restrictions/Additional Instructions: Dose of Lantus has been decreased to 10 units daily. Neutra-Phos has been stopped. Continue taking Augmentin for 5 more days. For high blood pressure lisinopril 10 mg daily has been added to your medication list. Please follow-up with your primary care provider onsite appointment for further discussions about initiation of dual antiplatelet in setting of recent non-ST elevation OH and intracranial hemorrhage. Please also follow-up with neurology and cardiology as discussed before. Discharge Attestations Time Spent in Discharge Care*: greater than 30 min Specific Discharge Activities: educating patient, educating and/or supporting family/caregiver, discussing with pcp/other providers, discussing with employment evaluator/case manager/social workers/dc planners, documenting/other paperwork and evaluating patient/reviewing data Status at Discharge: Cognitive status at discharge: mildly impaired cognition , Behavioral status at discharge: cooperative , Functional status at discharge: uses cane/walker , Overall status at discharge: patient is back to baseline Quality Metrics Clinical Quality Measures [ No reported AMI, CVA or VTE this stay] Coding Level of Care Code 07234 Total time (in minutes) for Discharge: 60 Diagnoses Fever R50.9 Weakness R53.1 Hypoglycemia E16.2 Troponin level elevated R79.89 Delirium due to general medical condition F05 Dementia F03.90 History of recent stroke Z86.73 Decubitus ulcer L89.90
[2022-11-30 12:00] LABS: Glucose Point of Care 186 mg/dL (70-110)
--- NOTE | 2022-11-30 19:32 | PC.NURSE ---
Daughter called as she stated taht she was disconnected from the nurse going over yesenia mother's medications. The medication in question was Kwikpen insulin Lispro. It appears taht thei was a continued medication and that their pharmacy was holding it as tthe pharmacy needed clarification on the sliding scale order. I tried to explain this to the daughter and she stated that she understood. Instructed daughter to call [facility] pharmacy and see if they have clarified the orders as yet.
== END 2022-11-30 14:47 | disposition home health service (06) ==
LOC: ER 10:52 → CSU 14:29 → ICU 11-28 14:53 → CSU 11-28 15:34
PROVIDERS: Admitting Provider Internal Medicine; Emergency Provider Family Medicine; PCP Electrodiagnostic Medicine; Visit Provider Student in an Organized Health Care Education/Training Program
DX: R41.82 Altered mental status, unspecified (principal); R50.9 Fever, unspecified; R53.1 Weakness; R79.89 Other specified abnormal findings of blood chemistry; F05 Delirium due to known physiological condition; F03.90 Unspecified dementia, unspecified severity, without behavioral disturbance, psychotic disturbance, mood disturbance, and anxiety; Z86.73 Personal history of transient ischemic attack (TIA), and cerebral infarction without residual deficits; E11.649 Type 2 diabetes mellitus with hypoglycemia without coma; Z79.4 Long term (current) use of insulin; Z91.81 History of falling; M53.3 Sacrococcygeal disorders, not elsewhere classified; I25.2 Old myocardial infarction; F17.210 Nicotine dependence, cigarettes, uncomplicated; I35.8 Other nonrheumatic aortic valve disorders; L89.213 Pressure ulcer of right hip, stage 3
CPT/HCPCS: 36415; 36416; 70450; 71045; 72170; 80048; 80061; 82607; 82962; 83540; 83550; 83735; 84484; 85025; 87486; 87581; 87633; 93005; 93308; 96372; 97110; 97116; 97161; 97530; 99285; G0378; J1815

== ENCOUNTER 2023-08-06 10:34 | Observation (INO) | payer MEDICARE, OTHER, SELFPAY ==
[2023-08-06] VITALS (8 sets, daily range): BP systolic 103–184; BP diastolic 51–99; PULSE 60–86; RESP 12–22; TEMP 36.8–36.9; O2SAT 97–100; BMI 30.2
--- NOTE | 2023-08-06 10:44 | ECG_ITS ---
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 Measurements Intervals [place] Rate: 86 P: 33 DE: 173 QRS: -25 QRSD: 94 T: 64 QT: 352 QTc: 421 Interpretive Statements SINUS RHYTHM WITH OCCASIONAL VENTRICULAR PREMATURE COMPLEXES POSSIBLE ANTERIOR MYOCARDIAL INFARCTION , PROBABLY OLD [30 ms Q WAVE IN V3/V4, OR R < 0.2 mV IN V4] Compared to ECG 11/27/2022 18:18:46 Ventricular premature complex(es) now present Myocardial infarct finding now present T-wave abnormality no longer present Possible ischemia no longer present Electronically Signed On 08-07-2023 8:10:38 CDT by Red Powell M.D. [email or web address]
--- NOTE | 2023-08-06 10:51 | W.ED.GENADLT ---
Documented by User: CESIA Padilla 08/06/23 13:33 HPI - General Adult General: Chief complaint: Altered Mental Status Stated complaint: ams Time Seen by Provider: 08/06/23 10:40 Source: patient and EMS Mode of arrival: EMS Limitations: altered mental status (pt has chronic dementia; she seems alert and oriented at time of exam) History of Present Illness: Patient is a 72-year-old female presents to ED today via EMS after police were called about an individual yelling on the front steps of her home. Police then called EMS as they were concerned about possible psychiatric issues. Patient has a history of dementia. She is alert and oriented upon arrival. Patient tells me she lives with her daughter and her lesbian lover but then later states it is a boyfriend. Patient states her and her daughter do not get along and she feels like daughter is trying to kill her. She states she does not like the food her daughter cooks for her and refers to it as slop . She feels like her daughter is not compliant with dosing her medications. She becomes tearful and states her daughter will not allow her to drive. It looks like she saw her primary care provider Dr. Carcamo back in May with a request to drive and he denied this based on her lack of insight and limitations related to her dementia. Daughter states they are about to get evicted from the home because they cannot afford rent/mortgage. Daughter states patient has been making threats to kill her. Patient is her own guardian-daughter has tried to get paperwork to gain guardianship but cannot afford the legal fees. Daughter would like to see her placed in a prison or [facility] psych facility because they cannot continue to care for her. States she has had a decline/worsening of her dementia over the past several months. She reportedly was on hospice at one point but no longer is. She did have home health services but daughter states they no longer have this either. Patient adamantly does not want to go to a prison. Both the daughter and another individual who lives in the home have filled out affidavits on patient's behalf. Daughters affidavit states that patient makes statements that she wants to . She makes threatening statements to the daughter stating that she is going to kill her and pay somebody else to hurt her. Patient states she has been peeing and defecating on herself and pulling off her adult depend and urinating on the floor. The affidavit filed by the friend states that patient has made threatening statements towards her as well. She states that the patient tries to get in her vehicle and drive. She states that patient will urinate the bed and then blame it on the animals. Onset (ago): hour(s) Relieving factors: none Exacerbating factors: other (stress at home with daughter) Associated symptoms: Deny chest pain, dyspnea, headache(s), malaise or rash Treatments prior to arrival: none Review of Systems Const: Denies: fever(s), chills, body aches, fatigue or malaise Card: Denies: chest pain Resp: Denies: dyspnea GI: Denies: abdominal pain : Denies: flank pain or dysuria Musc: Denies: neck pain, back pain, extremity pain or joint pain Skin/Breast: Denies: rash Neuro: Reports: difficulty walking (chronic-using a walker/wheelchair); Denies: headache(s) or dizziness [facility] ED PFSH: Medical History Decubitus ulcer Wheel chair as ambulatory aid Hypertension CVA (cerebrovascular accident due to intracerebral hemorrhage) NSTEMI (non-ST elevated myocardial infarction) Type 2 diabetes mellitus Acute encephalopathy Surgical History No pertinent past surgical history Family History Father Heart disease Hypertension Mother Stroke Social History Smoking and tobacco/nicotine status: former use of tobacco/nicotine Quit status (tobacco/nicotine): has quit using Alcohol intake: former Substance/Drug Use: never Household members: other Details: Daughter Physical Exam Const: COMMON NORMALS: no acute distress, average body habitus, patient oriented x3, alert and well nourished GENERAL APPEARANCE: cooperative ORIENTATION/CONSCIOUSNESS: Yes awake, Yes oriented to person, Yes oriented to place and Yes oriented to time OTHER: pt becomes very agitated when daughter is in the room; she yells at her calling her a huge druggy who abandoned her kids and now lives with her lesbian lover , accuses her of poisoning her and trying to kill her Eye: COMMON NORMALS: Equal, round and reactive pupils present and EOMs intact bilaterally GENERAL EYE: appearance normal, both eyes and all related structures and normal light reflex PUPIL: Yes Equal, round and reactive pupils present DIRECT OPHTHALMOSCOPY: Yes normal light reflex Resp: COMMON NORMALS: normal respiratory effort and clear to auscultation bilaterally AUSCULTATION: clear to auscultation bilaterally Cardio: COMMON NORMALS: regular rate and regular rhythm RATE: regular rate RHYTHM: regular rhythm GI: COMMON NORMALS: Normal to inspection, nondistended, normoactive bowel sounds present, Soft to palpation and non-tender PALPATION: Yes Soft to palpation : COMMON NORMALS: Yes no CVA tenderness BLADDER/KIDNEY EXAM: Yes no CVA tenderness Back/Pelvis: COMMON NORMALS: no CVA tenderness Extremity: GENERAL: Yes normal exam except as noted Neuro: SARAVANAN COMA SCALE: document GCS findings Saravanan coma scale eye opening: Spontaneous Benavides coma scale verbal response: Orientated Benavides coma scale motor response: Obey commands Benavides coma scale total score: 15 COMMON NORMALS: patient oriented x3 SENSORIUM/ORIENTATION: Yes alert, Yes oriented to person, Yes oriented to place and Yes oriented to time Skin: COMMON NORMALS: no rashes or lesions noted GENERAL SKIN EXAM: no rashes or lesions noted Course Consultations: Consultation #1: Dr. Aguilar-accepts hospitalization Vital Signs: Vital signs: Vital Signs Temperature 98.2 F 08/12/23 03:58 Pulse Rate 64 08/12/23 03:58 Respiratory Rate 17 08/12/23 03:58 Blood Pressure 128/56 08/12/23 03:58 Pulse Oximetry 99 08/12/23 03:58 Oxygen Delivery Me thod Room Air 08/12/23 03:58 MDM - General Adult Medical Decision Making Patient is a 72-year-old female here for worsening dementia. Family states they can no longer care for her at home. Patient was found to have a glucose of over 600. She has a urinary tract infection. Patient will be admitted to hospital services and we will have case management consult on her regarding guardianship. Daughter states she has tried to get guardianship but cannot afford the legal fees associated with this. Medical Records I reviewed the patient's medical records. Lab Data I reviewed the patient's lab results. 08/11/23 05:37 08/11/23 05:37 Radiology Impressions Chest X-Ray 08/06/23 11:49 IMPRESSION: Unremarkable chest radiograph. Head CT 08/06/23 12:36 IMPRESSION: No acute pathology. Interval resolution of right caudate/basal ganglia hemorrhage seen on prior study. Head MRI 08/09/23 10:21 IMPRESSION: 1. No evidence of restricted diffusion to suggest acute ischemia. 2. 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 Mild small vessel changes with moderate parenchymal volume loss. 4. Moderate to advanced atrophy RIGHT greater than LEFT temporal lobes and hippocampal formations. 5. Small chronic lacunar infarct RIGHT cerebellum. 6. No other acute findings. Laboratory Results WBC 8.36 10^3/uL (3.29-11.43) 08/06/23 10:47 RBC 4.53 10^6/uL (3.85-5.65) 08/06/23 10:47 Hgb 13.70 g/dL (11.27-16.99) 08/06/23 10:47 Hct 40.9 % (36-47) 08/06/23 10:47 MCV 90.3 fl (85-98) 08/06/23 10:47 MCH 30.2 pg (27-33) 08/06/23 10:47 MCHC 33.5 g/dL (30-55) 08/06/23 10:47 RDW 12.3 % (12.1-15.1) 08/06/23 10:47 Plt Count 171 10^3/cmm (157-399) 08/06/23 10:47 MPV 11.5 fL (7.4-10.4) H 08/06/23 10:47 Neut % (Auto) 73.7 % 08/06/23 10:47 Lymph % (Auto) 17.7 % 08/06/23 10:47 [place] % (Auto) 7.5 % 08/06/23 10:47 Eos % (Auto) 0.4 % 08/06/23 10:47 Baso % (Auto) 0.5 % 08/06/23 10:47 Neut # (Auto) 6.16 10^3/uL (1.8-7.7) 08/06/23 10:47 Lymph # (Auto) 1.5 10^3/uL (0.8-4.8) 08/06/23 10:47 [place] # (Auto) 0.6 10^3/uL (0.2-0.9) 08/06/23 10:47 Eos # (Auto) 0.0 10^3/uL (0.0-0.8) 08/06/23 10:47 Baso # (Auto) 0.0 10^3/uL (0.0-0.1) 08/06/23 10:47 Nucleated RBC % (auto) 0 % 08/06/23 10:47 Nucleated RBCs # 0.0 /100WBC 08/06/23 10:47 Specimen Type Arterial 08/06/23 11:58 Sample Site Brachial, right 08/06/23 11:58 ABG pH 7.42 (7.35-7.45) 08/06/23 11:58 ABG pCO2 39.9 mmHg (35-45) 08/06/23 11:58 ABG pO2 85.5 mmHg (80.0-100.0) 08/06/23 11:58 ABG PO2/FiO2 Ratio 0 08/06/23 11:58 ABG HCO3 25.8 mmol/L (22-26) 08/06/23 11:58 ABG O2 Saturation 98.2 08/06/23 11:58 ABG Base Excess 1.2 mmol/L (-2.0-2.0) 08/06/23 11:58 Tyrese Test Pos 08/06/23 11:58 A-a O2 Gradient 2.0 mmHg (5-10) L 08/06/23 11:58 Hematocrit 35.9 % (37-47) L 08/06/23 11:58 Hgb O2 Saturation 95.8 % (95-100) 08/06/23 11:58 Carboxyhemoglobin 1.7 %THgb (0.4-20.1) 08/06/23 11:58 Methemoglobin 0.8 % (0.4-1.5) 08/06/23 11:58 Total Hemoglobin 11.7 g/dL (12-16) L 08/06/23 11:58 Sodium 138.0 mmol/L (131-143) 08/06/23 11:58 Potassium 3.8 mmol/L (3.5-5.0) 08/06/23 11:58 Glucose 401.0 mg/dL (70-115) H 08/06/23 11:58 Ionized Calcium 1.3 mmol/L (1.1-1.4) 08/06/23 11:58 O2 Delivery Device Room air 08/06/23 11:58 FiO2 21.0 % 08/06/23 11:58 Outside Solar Sales Consultant ID [employer] 08/06/23 11:58 Sodium 133 mmol/L (136-145) L 08/06/23 10:47 Potassium 5.2 mmol/L (3.5-5.1) H 08/06/23 10:47 Chloride 94 mmol/L (98-107) L 08/06/23 10:47 Carbon Dioxide 24 mmol/L (22-29) 08/06/23 10:47 Anion Gap 20.2 (5-19) H 08/06/23 10:47 BUN 34 mg/dL (8-23) H 08/06/23 10:47 Creatinine 1.1 mg/dL (0.5-0.9) H 08/06/23 10:47 GFR Calculation Not Reportable 08/06/23 10:47 Glucose 632 mg/dL (65-115) H* 08/06/23 10:47 POC Glucose 335 mg/dL (70-110) H 08/06/23 13:12 Estimat Average Glucose 272 08/06/23 10:47 Hemoglobin A1c 11.1 % (4.0-6.0) H 08/06/23 10:47 Calculated Osmolality 313 mOsm/kg (285-295) H 08/06/23 10:47 Calcium 10.4 mg/dL (8.5-10.5) 08/06/23 10:47 Total Bilirubin 0.6 mg/dL (0.15-1.2) 08/06/23 10:47 AST 20 U/L (0-32) 08/06/23 10:47 ALT 13 U/L (0-33) 08/06/23 10:47 Alkaline Phosphatase 85 U/L (35-105) 08/06/23 10:47 Total Protein 7.8 g/dL (6.6-8.7) 08/06/23 10:47 Albumin 4.3 g/dL (3.5-5.2) 08/06/23 10:47 Globulin 3.5 g/dL (1.3-4.6) 08/06/23 10:47 Vitamin B12 954 pg/mL (232-1245) 08/06/23 10:47 Urine Color Yellow (Yellow) 08/06/23 11:13 Urine Appearance Cloudy (CLEAR) A 08/06/23 11:13 Urine pH 5 (5-7) 08/06/23 11:13 Ur Specific [place] 1.010 (1.005-1.030) 08/06/23 11:13 Urine Protein 1+ (Negative) H 08/06/23 11:13 Urine Glucose (UA) 4+ (Normal) H 08/06/23 11:13 Urine Ketones 1+ (Negative) H 08/06/23 11:13 Urine Blood 2+ (Negative) H 08/06/23 11:13 Urine Nitrate Negative (Negative) 08/06/23 11:13 Urine Bilirubin Neg (Negative) 08/06/23 11:13 Urine Urobilinogen Norm mg/dL (Negative) 08/06/23 11:13 Ur Leukocyte Esterase 2+ (Negative) H 08/06/23 11:13 Urine RBC 0-4 /hpf (0-2) H 08/06/23 11:13 Urine WBC Too numerous to cnt /hpf (0-5) H 08/06/23 11:13 Ur Squamous Epith Cells 0-4 /hpf (0-5) H 08/06/23 11:13 Amorphous Sediment Not Reportable 08/06/23 11:13 Urine Bacteria 2+ /hpf (NONE) H 08/06/23 11:13 Urine Mucus Trace /hpf 08/06/23 11:13 Serum Ketones Negative (Negative) 08/06/23 10:47 All radiology interpretation(s) finalized by discharge Discharge Plan Discharge Patient Disposition: Admitted As Inpatient Admit Provider: Shannon Aguilar Clinical Impression: Dementia, Type 2 diabetes mellitus, Acute UTI Condition: Stable Coding Level of Care Code 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 [employer] Documented by User: Sedrick Abbott DO 08/12/23 06:24 HPI - General Adult General: Chief complaint: Altered Mental Status Stated complaint: ams Time Seen by Provider: 08/06/23 10:40 [facility] ED PFSH: Medical History Decubitus ulcer Wheel chair as ambulatory aid Hypertension CVA (cerebrovascular accident due to intracerebral hemorrhage) NSTEMI (non-ST elevated myocardial infarction) Type 2 diabetes mellitus Acute encephalopathy Surgical History No pertinent past surgical history Family History Father Heart disease Hypertension Mother Stroke Social History Smoking and tobacco/nicotine status: former use of tobacco/nicotine Quit status (tobacco/nicotine): has quit using Alcohol intake: former Substance/Drug Use: never Household members: other Details: Daughter Physical Exam Neuro: SARAVANAN COMA SCALE: document GCS findings Benavides coma scale total score: 15 Course Vital Signs: Vital signs: Vital Signs Temperature 98.2 F 08/12/23 03:58 Pulse Rate 64 08/12/23 03:58 Respiratory Rate 17 08/12/23 03:58 Blood Pressure 128/56 08/12/23 03:58 Pulse Oximetry 99 08/12/23 03:58 Oxygen Delivery Me thod Room Air 08/12/23 03:58 MDM - General Adult Medical Decision Making Patient is a 72-year-old female here for worsening dementia. Family states they can no longer care for her at home. Patient was found to have a glucose of over 600. She has a urinary tract infection. Patient will be admitted to hospital services and we will have case management consult on her regarding guardianship. Daughter states she has tried to get guardianship but cannot afford the legal fees associated with this. Chart reviewed and patient discussed with midlevel. Agree with assessment and plan. Lab Data 08/11/23 05:37 08/11/23 05:37 Radiology Impressions Chest X-Ray 08/06/23 11:49 IMPRESSION: Unremarkable chest radiograph. Head CT 08/06/23 12:36 IMPRESSION: No acute pathology. Interval resolution of right caudate/basal ganglia hemorrhage seen on prior study. Head MRI 08/09/23 10:21 IMPRESSION: 1. No evidence of restricted diffusion to suggest acute ischemia. 2. 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 Mild small vessel changes with moderate parenchymal volume loss. 4. Moderate to advanced atrophy RIGHT greater than LEFT temporal lobes and hippocampal formations. 5. Small chronic lacunar infarct RIGHT cerebellum. 6. No other acute findings. Laboratory Results WBC 8.36 10^3/uL (3.29-11.43) 08/06/23 10:47 RBC 4.53 10^6/uL (3.85-5.65) 08/06/23 10:47 Hgb 13.70 g/dL (11.27-16.99) 08/06/23 10:47 Hct 40.9 % (36-47) 08/06/23 10:47 MCV 90.3 fl (85-98) 08/06/23 10:47 MCH 30.2 pg (27-33) 08/06/23 10:47 MCHC 33.5 g/dL (30-55) 08/06/23 10:47 RDW 12.3 % (12.1-15.1) 08/06/23 10:47 Plt Count 171 10^3/cmm (157-399) 08/06/23 10:47 MPV 11.5 fL (7.4-10.4) H 08/06/23 10:47 Neut % (Auto) 73.7 % 08/06/23 10:47 Lymph % (Auto) 17.7 % 08/06/23 10:47 [place] % (Auto) 7.5 % 08/06/23 10:47 Eos % (Auto) 0.4 % 08/06/23 10:47 Baso % (Auto) 0.5 % 08/06/23 10:47 Neut # (Auto) 6.16 10^3/uL (1.8-7.7) 08/06/23 10:47 Lymph # (Auto) 1.5 10^3/uL (0.8-4.8) 08/06/23 10:47 [place] # (Auto) 0.6 10^3/uL (0.2-0.9) 08/06/23 10:47 Eos # (Auto) 0.0 10^3/uL (0.0-0.8) 08/06/23 10:47 Baso # (Auto) 0.0 10^3/uL (0.0-0.1) 08/06/23 10:47 Nucleated RBC % (auto) 0 % 08/06/23 10:47 Nucleated RBCs # 0.0 /100WBC 08/06/23 10:47 Specimen Type Arterial 08/06/23 11:58 Sample Site Brachial, right 08/06/23 11:58 ABG pH 7.42 (7.35-7.45) 08/06/23 11:58 ABG pCO2 39.9 mmHg (35-45) 08/06/23 11:58 ABG pO2 85.5 mmHg (80.0-100.0) 08/06/23 11:58 ABG PO2/FiO2 Ratio 0 08/06/23 11:58 ABG HCO3 25.8 mmol/L (22-26) 08/06/23 11:58 ABG O2 Saturation 98.2 08/06/23 11:58 ABG Base Excess 1.2 mmol/L (-2.0-2.0) 08/06/23 11:58 Tyrese Test Pos 08/06/23 11:58 A-a O2 Gradient 2.0 mmHg (5-10) L 08/06/23 11:58 Hematocrit 35.9 % (37-47) L 08/06/23 11:58 Hgb O2 Saturation 95.8 % (95-100) 08/06/23 11:58 Carboxyhemoglobin 1.7 %THgb (0.4-20.1) 08/06/23 11:58 Methemoglobin 0.8 % (0.4-1.5) 08/06/23 11:58 Total Hemoglobin 11.7 g/dL (12-16) L 08/06/23 11:58 Sodium 138.0 mmol/L (131-143) 08/06/23 11:58 Potassium 3.8 mmol/L (3.5-5.0) 08/06/23 11:58 Glucose 401.0 mg/dL (70-115) H 08/06/23 11:58 Ionized Calcium 1.3 mmol/L (1.1-1.4) 08/06/23 11:58 O2 Delivery Device Room air 08/06/23 11:58 FiO2 21.0 % 08/06/23 11:58 Outside Solar Sales Consultant ID Sacha 08/06/23 11:58 Sodium 133 mmol/L (136-145) L 08/06/23 10:47 Potassium 5.2 mmol/L (3.5-5.1) H 08/06/23 10:47 Chloride 94 mmol/L (98-107) L 08/06/23 10:47 Carbon Dioxide 24 mmol/L (22-29) 08/06/23 10:47 Anion Gap 20.2 (5-19) H 08/06/23 10:47 BUN 34 mg/dL (8-23) H 08/06/23 10:47 Creatinine 1.1 mg/dL (0.5-0.9) H 08/06/23 10:47 GFR Calculation Not Reportable 08/06/23 10:47 Glucose 632 mg/dL (65-115) H* 08/06/23 10:47 POC Glucose 335 mg/dL (70-110) H 08/06/23 13:12 Estimat Average Glucose 272 08/06/23 10:47 Hemoglobin A1c 11.1 % (4.0-6.0) H 08/06/23 10:47 Calculated Osmolality 313 mOsm/kg (285-295) H 08/06/23 10:47 Calcium 10.4 mg/dL (8.5-10.5) 08/06/23 10:47 Total Bilirubin 0.6 mg/dL (0.15-1.2) 08/06/23 10:47 AST 20 U/L (0-32) 08/06/23 10:47 ALT 13 U/L (0-33) 08/06/23 10:47 Alkaline Phosphatase 85 U/L (35-105) 08/06/23 10:47 Total Protein 7.8 g/dL (6.6-8.7) 08/06/23 10:47 Albumin 4.3 g/dL (3.5-5.2) 08/06/23 10:47 Globulin 3.5 g/dL (1.3-4.6) 08/06/23 10:47 Vitamin B12 954 pg/mL (232-1245) 08/06/23 10:47 Urine Color Yellow (Yellow) 08/06/23 11:13 Urine Appearance Cloudy (CLEAR) A 08/06/23 11:13 Urine pH 5 (5-7) 08/06/23 11:13 Ur Specific [place] 1.010 (1.005-1.030) 08/06/23 11:13 Urine Protein 1+ (Negative) H 08/06/23 11:13 Urine Glucose (UA) 4+ (Normal) H 08/06/23 11:13 Urine Ketones 1+ (Negative) H 08/06/23 11:13 Urine Blood 2+ (Negative) H 08/06/23 11:13 Urine Nitrate Negative (Negative) 08/06/23 11:13 Urine Bilirubin Neg (Negative) 08/06/23 11:13 Urine Urobilinogen Norm mg/dL (Negative) 08/06/23 11:13 Ur Leukocyte Esterase 2+ (Negative) H 08/06/23 11:13 Urine RBC 0-4 /hpf (0-2) H 08/06/23 11:13 Urine WBC Too numerous to cnt /hpf (0-5) H 08/06/23 11:13 Ur Squamous Epith Cells 0-4 /hpf (0-5) H 08/06/23 11:13 Amorphous Sediment Not Reportable 08/06/23 11:13 Urine Bacteria 2+ /hpf (NONE) H 08/06/23 11:13 Urine Mucus Trace /hpf 08/06/23 11:13 Serum Ketones Negative (Negative) 08/06/23 10:47 Discharge Plan Discharge Patient Disposition: Admitted As Inpatient Admit Provider: Shannon Aguilar Clinical Impression: Dementia, Type 2 diabetes mellitus, Acute UTI Condition: Stable Coding Level of Care Code 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 Airam Hamilton
--- NOTE | 2023-08-06 10:53 | PC.NURSE ---
Glucose @1050 via fingerstick: 559
[2023-08-06 10:57] LABS: Basophils % 0.5 %; Eosinophils % 0.4 %; Hematocrit 40.9 % (36-47); Lymphocytes # 1.5 10^3/uL (0.8-4.8); Lymphocytes % 17.7 %; Mean Corpuscular HGB Conc 33.5 g/dL (30-55); Mean Corpuscular Hemoglobin 30.2 pg (27-33); Mean Corpuscular Volume 90.3 fl (85-98); Mean Platelet Volume 11.5 fL (7.4-10.4); Monocytes # 0.6 10^3/uL (0.2-0.9); Monocytes % 7.5 %; Neutrophils # 6.16 10^3/uL (1.8-7.7); Neutrophils % 73.7 %; Nucleated Red Blood Cells % 0 %; Platelet Count 171 10^3/cmm (157-399); Red Blood Count 4.53 10^6/uL (3.85-5.65); Red Cell Distribution Width 12.3 % (12.1-15.1); White Blood Count 8.36 10^3/uL (3.29-11.43)
[2023-08-06 11:14] LABS: Alanine Aminotransferase 13 U/L (0-33); Albumin Level 4.3 g/dL (3.5-5.2); Alkaline Phosphatase 85 U/L (35-105); Blood Urea Nitrogen 34 mg/dL (8-23); Calcium 10.4 mg/dL (8.5-10.5); Carbon Dioxide 24 mmol/L (22-29); Chloride 94 mmol/L (98-107); Globulin 3.5 g/dL (1.3-4.6); Osmolality Calculated 313 mOsm/kg (285-295); Sodium 133 mmol/L (136-145); Total Bilirubin 0.6 mg/dL (0.15-1.2); Total Protein 7.8 g/dL (6.6-8.7)
[2023-08-06 11:15] LABS: Ketone (Acetest) Serum Negative (Negative)
[2023-08-06] MEDS: insulin regular-human 100 units/1 mL 10 UNIT IVP (11:29)
[2023-08-06] MEDS: sodium chloride 0.9% 1,000 ML 999 ML IV (11:36)
[2023-08-06 11:37] LABS: Glucose 632 mg/dL (65-115)
[2023-08-06] MEDS: metoprolol tartrate 1 mg/1 mL SDV 5 mL 5 MG IVP (11:37)
--- NOTE | 2023-08-06 11:37 | PC.NURSE ---
Daughter presents to pt bedside, calm and cooperative. per daughter, she has been taking care of pt for the last 8 months, pt has had many falls recently. pt seems very irritable, argumentative with daughter.
[2023-08-06 11:38] LABS: Anion Gap 20.2 (5-19); Aspartate Amino Transferase 20 U/L (0-32); Potassium 5.2 mmol/L (3.5-5.1)
[2023-08-06 11:45] LABS: Blood Urine 2+ (Negative); Glucose Urine UA 4+ (Normal); Ketones Urine 1+ (Negative); Nitrate Urine Negative (Negative); Protein Urine 1+ (Negative); Urine Appearance Cloudy (CLEAR); Urine Color Yellow (Yellow); pH Urine 5 (5-7)
[2023-08-06 11:46] LABS: Add Urine Microscopic? YES; Bilirubin Urine Neg (Negative); Leukocyte Esterase Urine 2+ (Negative); Urobilinogen Urine Norm (Negative)
[2023-08-06 11:49] LABS: Add Urine Culture? Yes; Bacteria Urine 2+ /hpf; Mucus Urine TRACE /hpf; RBC Urine 0-4 /hpf (0-2); Squamous Epithelial Cell Urine 0-4 /hpf (0-5); WBC Urine TOO NUMEROUS TO CNT /hpf (0-5)
--- NOTE | 2023-08-06 11:49 | XR_ITS ---
WS: [id number] Exam: XR chest 1V portable [id number] Date/Time of Exam: 08/06/2023 11:49 AM Reason For Exam: ams Comparison 11/27/2022. Findings: The lungs are clear and fully expanded. Costophrenic angles are sharp. No infiltrates. Bronchovascula r relief appears normal. Cardiac silhouette is unremarkable. Bony elements are intact. XR/XR chest 1V portable [id number] IMPRESSION: Unremarkable chest radiograph.
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
[2023-08-06 12:10] LABS: ABG PCO2 39.9 mmHg (35-45); ABG PH Result 7.42 (7.35-7.45); Arterial Blood Gas Hematocrit 35.9 % (37-47); Base Excess ABG 1.2 mmol/L (-2.0-2.0); Blood Gas Allen Test Pos; Blood Gas Operator Identificat WALCI; Blood Gas Sample Site Brachial, right; Blood Gas Sample Type Arterial; Carboxyhemoglobin 1.7 %THgb (0.4-20.1); HCO3 ABG 25.8 mmol/L (22-26); HGB O2 Sat 95.8 % (95-100); Ionized Calcium Level - ABG 1.3 mmol/L (1.1-1.4); Methemoglobin 0.8 % (0.4-1.5); Oxygen Device ROOM AIR; Oxygen Saturation ABG 98.2; PO2 ABG 85.5 mmHg (80.0-100.0); PO2 FiO2 Ratio Arterial Blood 0; Potassium Level - ABG 3.8 mmol/L (3.5-5.0); Total Hemoglobin 11.7 g/dL (12-16)
--- NOTE | 2023-08-06 12:36 | CTR_ITS ---
PROCEDURE INFORMATION: Exam: CT Head Without Contrast Exam date and time: 08/06/2023 12:55 PM Age: 72 years old Clinical indication: Altered mental status/memory loss; Confusion or disorientation; Additional info: AMS TECHNIQUE: Imaging protocol: Computed tomography of the head without contrast. Radiation optimization: All CT scans at this facility use at least one of these dose optimization techniques: automated exposure control; mA and/or kV adjustment per patient size (includes targeted exams where dose is matched to clinical indication); or iterative reconstruction. COMPARISON: CT head wo con* [id number] 11/27/2022 9:41 AM RADIATION DOSE METRICS: Total DLP (mGy-cm): 1007.26 FINDINGS: Brain: Mild cerebral atrophy. Mild areas of low-attenuation in the white matter most likely representing small vessel ischemic change. Interval resolution right caudate/basal ganglia hemorrhage seen on the prior exam.No evidence of mass effect, intracranial hemorrhage or extra-axial collection. No acute infarct. Cerebral ventricles: Unremarkable for age. Paranasal sinuses: No significant pathology. Mastoid air cells: Mastoids are within normal limits. Orbital cavities: Orbits are within normal limits. Bones: Unremarkable. No acute fracture. Soft tissues: No significant pathology. CT/CT head wo con* [id number] IMPRESSION: No acute pathology. Interval resolution of right caudate/basal ganglia hemorrhage seen on prior study.
--- NOTE | 2023-08-06 13:09 | PC.PHAR ---
PT UNABLE TO VERIFY MEDICATIONS-LEFT MESSAGE FOR DAUGHTER TO CALL BACK. 08/06/23 1:10PM
[2023-08-06] MEDS: haloperidol inj 5 mg/mL INJ 1 mL 2.5 MG IVP (13:13)
[2023-08-06] MEDS: LORazepam 2 mg/mL INJ 10 mL MDV 1 MG IVP (13:15)
[2023-08-06] MEDS: ciprofloxacin 400 MG/200 ML PREMIX 200 MG IV (13:15)
--- NOTE | 2023-08-06 13:17 | PC.NURSE ---
Glucose @1316 via fingerstick: 335
[2023-08-06 13:19] LABS: Glucose Point of Care 335 mg/dL (70-110)
--- NOTE | 2023-08-06 13:34 | PC.NURSE ---
pt very agitated stating she needs a catheter so she doesn't have to keep getting up . pt states she needs to go home, she can take care of herself, but unwilling to get out of bed to urinate without assistance.
--- NOTE | 2023-08-06 14:10 | P.HP_ITS ---
Providers/Chief Complaint 2 Primary Care Provider: Williams Carcamo MD Chief Complaint: ams History of Present Illness Danita Thorpe is a 72 year old female who presented to hospital with chief complaint of confusion, agitation, as per the report daughter is not able to take care of her, apparently there is an eviction notice, daughter brought her to the hospital because she won't be able to take care of her mother at this point. 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 Patient is stating that she is not able to afford medications that is why her blood sugar is very high.. That her daughter is 50 something years old her name is Wendie, she has been very nice until there is a new girlfriend that she brought in the house and since then things are different. She is also stating that daughter put title of the car on her name. She keeps saying : Her daughter can do anything she wants but she was raised differently and she does not support her actions. Review of Systems 2 Const: Denies: fever(s) Eyes: Denies: change in vision ENMT: Denies: throat pain Card: Denies: chest pain Resp: Denies: dyspnea GI: Denies: abdominal pain : Denies: flank pain Medications/Allergies Home Medications Medication Instructions Recorded Confirmed Last Taken Type fenofibrate micronized 200 mg 200 mg PO QAM 11/18/22 08/06/23 11/26/22 History capsule rosuvastatin 10 mg tablet 10 mg PO QAM 11/18/22 08/06/23 11/26/22 History insulin lispro 100 unit/mL See Rx Instructions .Route 11/20/22 08/06/23 Unknown Rx subcutaneous pen (Humalog KwikPen .COMPLEX #15 mL (U-100) Insulin) empagliflozin 25 mg tablet 25 mg PO QAM 11/27/22 08/06/23 11/26/22 History (Jardiance) magnesium 200 mg tablet 200 mg PO QAM 11/27/22 08/06/23 11/26/22 History paroxetine HCl 40 mg tablet 40 mg PO QAM 11/27/22 08/06/23 11/26/22 History insulin glargine 100 unit/mL (3 10 unit (0.1 mL) SUBCUT DAILY #15 11/30/22 08/06/23 Unknown Rx mL) subcutaneous pen (Lantus mL Solostar U-100 Insulin) Extended shower chair #1 ea 01/01/23 08/06/23 Unknown Rx metoprolol succinate 50 mg 50 mg PO QAM blood pressure #30 01/15/23 08/06/23 Unknown Rx tablet,extended release 24 hr tabs glucose free style test strips #100 ea 06/04/23 08/06/23 Unknown Rx glipizide 10 mg tablet, extended 10 mg PO QAM 08/06/23 08/06/23 Unknown History release 24 hr Allergies Allergy/AdvReac Type Severity Reaction Status Date / Time cefaclor [From Ceclor] Allergy ALGY-Anaphy Verified 05/18/23 09:15 laxis Iodine and Iodide Containing Allergy ADR-Vomitin Verified 05/18/23 09:15 Produc g PFSH Acute 2 PFSH: Medical History Decubitus ulcer Wheel chair as ambulatory aid Hypertension CVA (cerebrovascular accident due to intracerebral hemorrhage) NSTEMI (non-ST elevated myocardial infarction) Type 2 diabetes mellitus Acute encephalopathy Surgical History No pertinent past surgical history Family History Father Heart disease Hypertension Mother Stroke Social History Smoking and tobacco/nicotine status: former use of tobacco/nicotine Quit status (tobacco/nicotine): has quit using Alcohol intake: former Substance/Drug Use: never Household members: other Details: Daughter Vitals/I&O/Wt Last Vital Signs Temp 98.5 F 08/06/23 10:40 Pulse 72 08/06/23 13:53 Resp 22 H 08/06/23 13:53 BP 120/69 08/06/23 13:53 Pulse Ox 98 08/06/23 13:53 O2 Del Method Room Air 08/06/23 13:53 08/05/23 08/06/23 08/06/23 22:59 06:59 14:59 Intake Total 1000 / 1000 Balance 1000 / 1000 Weight last 48 hrs Weight 72.575 kg Physical Exam 2 Narrative: Patient is very pleasant cooperative Nonfocal neuroexam 15GCS Tangential thought pattern Speech is not pressured Nonfocal neuroexam Euvolemic S1, S2 Hemodynamic stable Able to get up and walk from the wheelchair to the bed Data 08/06/23 10:47 08/06/23 10:47 A&P Assessment and plan (1) Hypertension: Qualifiers: Hypertension type: primary hypertension Qualified Code(s): I10 - Essential (primary) hypertension (2) Type 2 diabetes mellitus: Qualifiers: Diabetes mellitus long term care phlebotomist insulin use: with longterm use Diabetes mellitus complication status: with other specified complication Qualified Code(s): E11.69 - Type 2 diabetes mellitus with other specified complication; Z79.4 - continuous churn buttermaker (current) use of insulin (3) Acute UTI: (4) Dementia: Qualifiers: Dementia behavioral or psychological symptom: unspecified whether behavioral, psychotic, or mood disturbance or anxiety Dementia severity: m oderate Dementia type: unspecified type Qualified Code(s): F03.B0 - Unspecified dementia, moderate, without behavioral disturbance, psychotic disturbance, mood disturbance, and anxiety (5) Hyperglycemia: Plan UTI Delirium related to UTI: Resolving CT head unremarkable Previous history of hemorrhagic stroke: Improving Nonfocal neuroexam Hyperglycemia No signs of DKA Start IV fluids will give her long-acting insulin along sliding scale Check A1c level Hypertension Patient is stating that she has not taken her medication because she is not able to afford them Daughter wanted snf placement but patient is stating that she will not be interested in rehab or Ana psych placement I would like to treat her UTI first before evaluating her decision-making capacity which might be impaired she is very forgetful not able to give me a straight answer when she moved with her daughter and for how long she has been living in [place] otherwise answer questions appropriately Full code DVT prophylaxis on board Mild WARREN: Start IV fluids monitor urine output correlate with creatinine Attestations 2 Medical Necessity Statement*: More than 2 midnights anticipated Diagnoses Primary hypertension I10 Hypertension type: primary hypertension Type 2 diabetes mellitus with other specified complication, with long-term current use of insulin E11.69; Z79.4 Diabetes mellitus long term care phlebotomist insulin use: with long term care phlebotomist use Diabetes mellitus complication status: with other specified complication Acute UTI N39.0 Moderate dementia, unspecified dementia type, unspecified whether behavioral, psychotic, or mood disturbance or anxiety F03.B0 Dementia behavioral or psychological symptom: unspecified whether behavioral, psychotic, or mood disturbance or anxiety Dementia severity: moderate Dementia type: unspecified type Hyperglycemia R73.9
--- NOTE | 2023-08-06 14:19 | PC.PHAR ---
PHONED BOTH [facility] AND [facility]. FILL DATES ON INSULIN ARE CORRECT. PT SEEMS TO BE UNINSURED AND UNABLE TO PAY FOR MEDICATIONS. CASE MANAGEMENT COULD POSSIBLY HELP WITH MEDICARE AND MEDICAID APPLICATIONS.
[2023-08-06 15:58] LABS: Estmated Average Glucose 272; Hemoglobin A1C 11.1 % (4.0-6.0)
[2023-08-06 16:35] LABS: Glucose Point of Care 330 mg/dL (70-110)
[2023-08-06 16:41] LABS: Vitamin B12 954 pg/mL (232-1245)
[2023-08-06] MEDS: piperacillin-tazobactam 3.375 GM in sodium chloride 0.9% (plus) 50 ML IV (17:46)
[2023-08-06] MEDS: sodium chloride 0.9% 1,000 ML 75 ML IV (17:47)
[2023-08-06] MEDS: enoxaparin 40 mg/0.4 mL Syringe SUBCUT (17:47)
[2023-08-06] MEDS: insulin glargine 100 units/1 mL 20 UNIT SUBCUT (17:48)
[2023-08-06] MEDS: insulin lispro 100 unit/1 mL SUBCUT ×2 (17:48→21:24)
--- NOTE | 2023-08-06 18:04 | PC.NURSE ---
[facility] made by this nurse. Report #[id number]
[2023-08-06 20:40] LABS: Glucose Point of Care 311 mg/dL (70-110)
[2023-08-07] VITALS (7 sets, daily range): BP systolic 101–157; BP diastolic 51–72; PULSE 72–106; RESP 17–18; TEMP 36.4–37.5; O2SAT 95–99; BMI 26.8
[2023-08-07] MEDS: piperacillin-tazobactam 3.375 GM in sodium chloride 0.9% (plus) 50 ML IV ×3 (00:02→17:17)
[2023-08-07 05:10] LABS: Basophils % 0.5 %; Eosinophils # 0.1 10^3/uL (0.0-0.8); Eosinophils % 0.9 %; Hematocrit 35.7 % (36-47); Lymphocytes # 1.7 10^3/uL (0.8-4.8); Lymphocytes % 21.1 %; Mean Corpuscular HGB Conc 32.8 g/dL (30-55); Mean Corpuscular Hemoglobin 30.4 pg (27-33); Mean Corpuscular Volume 92.7 fl (85-98); Mean Platelet Volume 11.1 fL (7.4-10.4); Monocytes # 0.8 10^3/uL (0.2-0.9); Monocytes % 9.6 %; Neutrophils % 67.6 %; Nucleated Red Blood Cells % 0 %; Platelet Count 139 10^3/cmm (157-399); Red Blood Count 3.85 10^6/uL (3.85-5.65); Red Cell Distribution Width 12.5 % (12.1-15.1); White Blood Count 7.98 10^3/uL (3.29-11.43)
[2023-08-07 05:37] LABS: Anion Gap 14.2 (5-19); Blood Urea Nitrogen 30 mg/dL (8-23); Calcium 9.8 mg/dL (8.5-10.5); Carbon Dioxide 24 mmol/L (22-29); Chloride 104 mmol/L (98-107); Glucose 201 mg/dL (65-115); Magnesium 1.9 mg/dL (1.7-2.3); Osmolality Calculated 298 mOsm/kg (285-295); Potassium 4.2 mmol/L (3.5-5.1); Sodium 138 mmol/L (136-145)
[2023-08-07 06:13] LABS: Glucose Point of Care 218 mg/dL (70-110)
[2023-08-07] MEDS: insulin lispro 100 unit/1 mL SUBCUT ×4 (09:07→21:21)
[2023-08-07] MEDS: amlodipine 5 mg Tablet PO (09:07)
[2023-08-07 11:34] LABS: Glucose Point of Care 306 mg/dL (70-110)
--- NOTE | 2023-08-07 14:24 | P.PN_ITS ---
Subjective 2 Subjective: seen today no acute events overnight Vitals/I&O/Wt Last Vital Signs Temp 97.6 F 08/07/23 08:00 Pulse 106 H 08/07/23 08:00 Resp 17 08/07/23 08:00 BP 152/61 08/07/23 08:00 Pulse Ox 98 08/07/23 08:00 O2 Del Method Room Air 08/07/23 07:50 08/06/23 08/07/23 08/07/23 22:59 06:59 14:59 Intake Total 320 / 1320 340 / 1660 1290 / 1290 Balance 320 / 1320 340 / 1660 1290 / 1290 Weight last 48 hrs Weight 64.41 kg Weight 72.575 kg Weight 72.575 kg Physical Exam 2 Narrative: Patient is very pleasant cooperative Nonfocal neuroexam 15GCS sitting up in bed, comfortable Nonfocal neuroexam Euvolemic S1, S2 Hemodynamic stable cta b/l, no wheezes or ronchi Able to get up and walk from the wheelchair to the bed Patient is alert oriented x 2 once redirected she knows who the president is and she knows what going on. Data 08/07/23 04:07 08/07/23 04:07 Micro: Microbiology 08/06/23 11:13 Urine Culture - Preliminary Urine,Clean Catch Gram Negative Rods A&P Assessment and plan (1) Hypertension: Qualifiers: Hypertension type: primary hypertension Qualified Code(s): I10 - Essential (primary) hypertension (2) Type 2 diabetes mellitus: Qualifiers: Diabetes mellitus [facility] insulin use: with parts counterman use Diabetes mellitus complication status: with other specified complication Qualified Code(s): E11.69 - Type 2 diabetes mellitus with other specified complication; Z79.4 - rodent exterminator (current) use of insulin (3) Acute UTI: (4) Dementia: Qualifiers: Dementia behavioral or psychological symptom: unspecified whether behavioral, psychotic, or mood disturbance or anxiety Dementia severity: m oderate Dementia type: unspecified type Qualified Code(s): F03.B0 - Unspecified dementia, moderate, without behavioral disturbance, psychotic disturbance, mood disturbance, and anxiety (5) Hyperglycemia: Plan UTI Delirium related to UTI: Resolving CT head unremarkable Previous history of hemorrhagic stroke: Improving Nonfocal neuroexam ceftriaxone 1g daily Diabetes mellitus, insulin-dependent complicated by hyperglycemia No signs of DKA Start IV fluids will give her long-acting insulin along sliding scale Check A1c level - 11.1 start lantus 15 daily Hypertension Patient is stating that she has not taken her medication because she is not able to afford them amlodipine 5 mg daily Daughter wanted group home placement but patient is stating that she will not be interested in rehab or Ana psych placement Full code DVT prophylaxis on board Mild WARREN: continue IV fluids monitor urine output correlate with creatinine Attestations 2 Medical Necessity Statement*: More than 2 midnights anticipated Diagnoses Primary hypertension I10 Hypertension type: primary hypertension Type 2 diabetes mellitus with other specified complication, with long-term current use of insulin E11.69; Z79.4 Diabetes mellitus [facility] insulin use: with [facility] use Diabetes mellitus complication status: with other specified complication Acute UTI N39.0 Moderate dementia, unspecified dementia type, unspecified whether behavioral, psychotic, or mood disturbance or anxiety F03.B0 Dementia behavioral or psychological symptom: unspecified whether behavioral, psychotic, or mood disturbance or anxiety Dementia severity: moderate Dementia type: unspecified type Hyperglycemia R73.9
[2023-08-07 16:55] LABS: Glucose Point of Care 245 mg/dL (70-110)
[2023-08-07] MEDS: sodium chloride 0.9% 1,000 ML 75 ML IV (17:17)
[2023-08-07] MEDS: enoxaparin 40 mg/0.4 mL Syringe SUBCUT (17:18)
[2023-08-07 21:14] LABS: Glucose Point of Care 161 mg/dL (70-110)
[2023-08-07] MEDS: insulin glargine 100 units/1 mL 15 UNIT SUBCUT (21:21)
[2023-08-08] VITALS (7 sets, daily range): BP systolic 115–185; BP diastolic 61–79; PULSE 74–88; RESP 16–20; TEMP 36.4–37.1; O2SAT 92–99
[2023-08-08] MEDS: piperacillin-tazobactam 3.375 GM in sodium chloride 0.9% (plus) 50 ML IV ×3 (00:04→17:18)
[2023-08-08 05:56] LABS: Glucose Point of Care 150 mg/dL (70-110)
[2023-08-08 06:28] LABS: Basophils % 0.4 %; Eosinophils # 0.1 10^3/uL (0.0-0.8); Eosinophils % 2.1 %; Hematocrit 34.2 % (36-47); Lymphocytes # 1.7 10^3/uL (0.8-4.8); Lymphocytes % 35.4 %; Mean Corpuscular Hemoglobin 30.5 pg (27-33); Mean Corpuscular Volume 92.2 fl (85-98); Mean Platelet Volume 10.4 fL (7.4-10.4); Monocytes # 0.5 10^3/uL (0.2-0.9); Monocytes % 9.7 %; Neutrophils # 2.47 10^3/uL (1.8-7.7); Neutrophils % 52.2 %; Nucleated Red Blood Cells % 0 %; Platelet Count 137 10^3/cmm (157-399); Red Blood Count 3.71 10^6/uL (3.85-5.65); Red Cell Distribution Width 12.3 % (12.1-15.1); White Blood Count 4.74 10^3/uL (3.29-11.43)
[2023-08-08] MEDS: sodium chloride 0.9% 1,000 ML 75 ML IV ×2 (06:30→21:01)
[2023-08-08 06:54] LABS: Anion Gap 13.3 (5-19); Blood Urea Nitrogen 21 mg/dL (8-23); Calcium 8.9 mg/dL (8.5-10.5); Carbon Dioxide 23 mmol/L (22-29); Chloride 111 mmol/L (98-107); Glucose 145 mg/dL (65-115); Magnesium 1.8 mg/dL (1.7-2.3); Osmolality Calculated 302 mOsm/kg (285-295); Potassium 4.3 mmol/L (3.5-5.1); Sodium 143 mmol/L (136-145)
[2023-08-08] MEDS: insulin lispro 100 unit/1 mL SUBCUT ×4 (08:55→21:00)
[2023-08-08] MEDS: amlodipine 5 mg Tablet PO (08:56)
[2023-08-08 12:12] LABS: Glucose Point of Care 264 mg/dL (70-110)
--- NOTE | 2023-08-08 13:07 | P.PN_ITS ---
Subjective 2 Subjective: seen this morning She states she is to live alone at home and now her daughter lives with her. She has her daughter is using her car without her permission. She says she cooks and cleans and is doing well for herself. She has a car that is totally paid off as she was used for money wisely she says. She was tearful saying that her daughter is trying to take over her life. She says there is not a single doctor who has told her yet that she cannot make her own decisions. She says yes she is forgetful sometimes. I discussed with her assisting living facility and patient is very interested at this time. I told her we can do a [place] assessment and go from there to which she agrees to. She says she is aware she is being treated for UTI. She also says that she had a fall a few weeks ago and had a bump on her head and that is the reason she came to the hospital yesterday however then she was told she is getting admitted. She says that her daughter went out the room and said something to the position of the after which I was admitted. Patient quite upset and tearful over the above. Vitals/I&O/Wt Last Vital Signs Temp 98.0 F 08/08/23 12:28 Pulse 78 08/08/23 12:28 Resp 20 H 08/08/23 12:28 BP 160/76 08/08/23 12:28 Pulse Ox 96 08/08/23 12:28 O2 Del Method Room Air 08/08/23 12:28 08/07/23 08/08/23 08/08/23 22:59 06:59 14:59 Intake Total 590 / 2360 1241.25 / 3601.25 720 / 720 Balance 590 / 2360 1241.25 / 3601.25 720 / 720 Weight last 48 hrs Weight 64.41 kg Weight 64.41 kg Weight 72.575 kg Physical Exam 2 Narrative: Patient is very pleasant cooperative Nonfocal neuroexam 15GCS sitting up in bed, comfortable Nonfocal neuroexam Euvolemic S1, S2 Hemodynamic stable cta b/l, no wheezes or ronchi Able to get up and walk from the wheelchair to the bed Patient is alert oriented x 2 once redirected she knows who the president is and she knows what going on. Data 08/08/23 06:03 08/08/23 06:03 Micro: Microbiology 08/06/23 11:13 Urine Culture - Preliminary Urine,Clean Catch Gram Negative Rods A&P Assessment and plan (1) Hypertension: Qualifiers: Hypertension type: primary hypertension Qualified Code(s): I10 - Essential (primary) hypertension (2) Type 2 diabetes mellitus: Qualifiers: Diabetes mellitus parts counterman insulin use: with parts counterman use Diabetes mellitus complication status: with other specified complication Qualified Code(s): E11.69 - Type 2 diabetes mellitus with other specified complication; Z79.4 - manager long term care (current) use of insulin (3) Acute UTI: (4) Dementia: Qualifiers: Dementia behavioral or psychological symptom: unspecified whether behavioral, psychotic, or mood disturbance or anxiety Dementia severity: m oderate Dementia type: unspecified type Qualified Code(s): F03.B0 - Unspecified dementia, moderate, without behavioral disturbance, psychotic disturbance, mood disturbance, and anxiety (5) Hyperglycemia: Plan UTI Delirium related to UTI: Resolving CT head unremarkable Previous history of hemorrhagic stroke: Improving Nonfocal neuroexam ceftriaxone 1g daily Diabetes mellitus, insulin-dependent complicated by hyperglycemia No signs of DKA Start IV fluids will give her long-acting insulin along sliding scale Check A1c level - 11.1 start lantus 15 daily Hypertension Patient is stating that she has not taken her medication because she is not able to afford them amlodipine 5 mg daily Daughter wanted senior care placement but patient is stating that she will not be interested in rehab or Ana psych placement Full code DVT prophylaxis on board Mild WARREN: Resolved Based on my conversation with the patient this morning I believe patient has capacity to make her own medical decisions. She is awake alert and knows what is going on. However at times she will be a little forgetful and is not completely oriented to time or place however does end up correcting herself after thinking about it a little bit. Between me seeing her today and yesterday I have not questioned her capacity. No doubt she may have early onset dementia or some component of it however I believe she is still quite functional. She may have some social issues and may be will benefit from assisted living facility. Will discuss with healthcare social worker in AM. I have not had a chance to talk to her daughter yet. I have a one-sided story. There has been no family at bedside. I did try to reach out however was unable to get a hold of anybody over the phone. We may try calling back again on Wednesday. I will also consult psychiatry for them to get their opinion regarding patient's capacity to have 2 physicians assessment. Check [facility] assessment today. Patient is not interested in rehab, Ana psych placement or senior care. She is open to the idea of assisted living at this time. Attestations 2 Medical Necessity Statement*: Await urine culture, disposition to be decided after further assessments. Diagnoses Primary hypertension I10 Hypertension type: primary hypertension Type 2 diabetes mellitus with other specified complication, with long-term current use of insulin E11.69; Z79.4 Diabetes mellitus parts counterman insulin use: with retirement use Diabetes mellitus complication status: with other specified complication Acute UTI N39.0 Moderate dementia, unspecified dementia type, unspecified whether behavioral, psychotic, or mood disturbance or anxiety F03.B0 Dementia behavioral or psychological symptom: unspecified whether behavioral, psychotic, or mood disturbance or anxiety Dementia severity: moderate Dementia type: unspecified type Hyperglycemia R73.9
[2023-08-08 16:34] LABS: Glucose Point of Care 283 mg/dL (70-110)
[2023-08-08] MEDS: enoxaparin 40 mg/0.4 mL Syringe SUBCUT (17:18)
[2023-08-08 20:43] LABS: Glucose Point of Care 199 mg/dL (70-110)
[2023-08-08] MEDS: insulin glargine 100 units/1 mL 15 UNIT SUBCUT (21:01)
[2023-08-09] VITALS (7 sets, daily range): BP systolic 114–185; BP diastolic 67–78; PULSE 60–85; RESP 16–20; TEMP 36.2–37.1; O2SAT 97–100
[2023-08-09] MEDS: piperacillin-tazobactam 3.375 GM in sodium chloride 0.9% (plus) 50 ML IV ×2 (00:18→08:30)
[2023-08-09] MEDS: amlodipine 5 mg Tablet PO ×2 (04:49→08:31)
[2023-08-09 06:27] LABS: Glucose Point of Care 208 mg/dL (70-110)
[2023-08-09 06:42] LABS: Blood Urea Nitrogen 17 mg/dL (8-23); Calcium 9.3 mg/dL (8.5-10.5); Carbon Dioxide 21 mmol/L (22-29); Chloride 107 mmol/L (98-107); Glucose 173 mg/dL (65-115); Osmolality Calculated 296 mOsm/kg (285-295); Sodium 140 mmol/L (136-145)
[2023-08-09] MEDS: insulin lispro 100 unit/1 mL SUBCUT ×4 (08:29→21:29)
--- NOTE | 2023-08-09 09:24 | PC.CHAP ---
Pastoral Care Encounter/Spiritual Assessment Type of Contact [] Declined turbinated bone grinder visit [] Patient/Family/Request visit [] Outpatient visit [] Follow-up visit [] Physician referral [] Code/Alert [x] Routine visit [] Staff referral [] Actively dying [] Patient sleeping [] Family support [] [x] Out of room [] Palliative care [] [] Receiving care in room [] Pre-surgical visit [] Trauma [] Long length of stay [] ICU visit [] Other: Relational/Emotional Strength [] Patient feels connected with others/family/visitors/staff [] Distress [] Loneliness/isolation [] Abandonment Spirituality of Patient [] Person of Patti [] Attends Holiness of their Patti [] Believes in Prayer [] Reads Bible or Sikh materials [] There are Spiritual issues to be addressed Central Office Technician Interventions [] Prayer [] Active listening [] Non-anxious presence [] Spiritual/emotional support [] Crisis/trauma care [] Spiritual counseling [] Bereavement support [] Provided bereavement packet [] Provided Bible/devotional materials [] Provided toy/stuffed animal, coloring book to patient or family member [] Provided Communion [] Anointing/[place] [] Salvation [] Completed spiritual assessment [] Other: Impact on Illness or Injury [] Angry [] Fearful [] Anxious [] Often cries [] Exhaustion [] Unable to work [] Unable to attend methodist [] Unable to walk/stand [] Unable to read [] Unable to drive [] Unable to eat/drink [] Unable to sleep [] Unable to be with family [] Patient intubated [] Other: Summary Time spent with patient
--- NOTE | 2023-08-09 10:21 | MR_ITS ---
WS: [id number] MRI HEAD WITHOUT CONTRAST TECHNIQUE: Sagittal T1, T2 axial, T2 axial FLAIR, axial and coronal T1 images, axial susceptibility w eighted imaging, axial diffusion weighted images, and coronal T2 images were obtained. CLINICAL INFORMATION: Post stroke, ams COMPARISON: CT 11/27/2022 and 08/06/2023 FINDINGS: No evidence of restricted diffusion to suggest acute ischemia. Ventricular system and basal cisterns are patent. Increased T1 signal abnormality with hemosiderin in the RIGHT basal ganglia corresponds to the previously described resolved hemorrhage on the prior CT 11/27/2022. T1 signal abnormality likely due to laminar necrosis. Otherwise no evidence of acute or r ecent hemorrhage. Small chronic lacunar infarct RIGHT cerebellum. Normal vascular flow voids at the skull base. No extr a-axial fluid collections. No evidence of mass or mass effect. Paranasal sinuses and mastoid air cell s are well aerated. Moderate to advanced atrophy RIGHT greater than LEFT temporal lobes and hippocampal formations. Yue l optic chiasm and pituitary infundibulum. Mild small vessel changes. Moderate parenchymal volume los s. Mild small vessel changes in the meme. No other acute findings. MR/MR head wo con* [id number] IMPRESSION: 1. No evidence of restricted diffusion to suggest acute ischemia. 2. 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 Mild small vessel changes with moderate parenchymal volume loss. 4. Moderate to advanced atrophy RIGHT greater than LEFT temporal lobes and hip pocampal formations. 5. Small chronic lacunar infarct RIGHT cerebellum. 6. No other acute findings.
[2023-08-09] MEDS: cefTRIAXone 1,000 MG in sodium chloride 0.9% (plus) 50 ML 100 MG IV (11:14)
[2023-08-09] MEDS: losartan 50 mg Tablet 25 MG PO (11:14)
[2023-08-09] MEDS: metoprolol succinate ER (24 HR) 25 mg Tablet PO (11:14)
[2023-08-09] MEDS: sodium chloride 0.9% 1,000 ML 75 ML IV (11:19)
[2023-08-09 11:21] LABS: Glucose Point of Care 359 mg/dL (70-110)
[2023-08-09 11:29] LABS: Thyroid Stimulating Hormone 4.16 uIU/mL (0.27-4.20)
[2023-08-09] MEDS: enoxaparin 40 mg/0.4 mL Syringe SUBCUT (15:36)
--- NOTE | 2023-08-09 15:51 | P.PN_ITS ---
Subjective 2 Subjective: Course, labs. On examination patient laying comfortably in bed. Awake. She is alert to self, being in the hospital but thinks he is in [facility], she is alert to the date of but is not alert to current year. Thinks she is living in 2012. She states she is in the hospital because she thinks she had a UTI because of lower abdominal pain which has improved now. She is aware that her daughter wants her to go to a half-way but she will think she has been confused because she recently moved to a new house. Vitals/I&O/Wt Last Vital Signs Temp 97.2 F L 08/09/23 12:02 Pulse 85 08/09/23 12:02 Resp 20 H 08/09/23 12:02 BP 170/76 08/09/23 12:02 Pulse Ox 98 08/09/23 12:02 O2 Del Method Room Air 08/09/23 12:02 08/09/23 08/09/23 08/09/23 06:59 14:59 22:59 Intake Total 170 / 2785.0 1360 / 1360 530 / 1890 Balance 170 / 2785.0 1360 / 1360 530 / 1890 Weight last 48 hrs Weight 65.005 kg Weight 64.41 kg Physical Exam 2 Narrative: General: No acute distress, awake and alert to self, being in the hospital, date of but not aware of the CT, current year. Slow to respond HEENT: PERRLA, pupils bilaterally equal and reactive Chest: Normal vesicular breath sounds, no added sounds, equal good air entry bilaterally CVS: S1-S2 regular, no murmurs, no tachycardia, no gallops, no rubs Abdomen: Soft, nontender, no organomegaly, bowel sounds present Neuro: No focal deficits, no facial deformity, AO x3, power 5/5 in all limbs Data 08/08/23 06:03 08/09/23 05:32 Micro: Microbiology 08/06/23 11:13 Urine Culture - Final Urine,Clean Catch Escherichia coli A&P Assessment and plan (1) Altered mental status: Alert to self and date of . Not alert to being in [facility]. Thinks she is in [facility]. Not alert to current year. Appreciate vitamin B12 levels, CT head done on admission. Check TSH. Electrolyte abnormality has resolved. WARREN has resolved. Concerns for dementia. Does have history of hemorrhagic stroke in the past. Check MRI brain. Restart home dose of paroxetine. Could be in setting of UTI. (2) Acute UTI: Urine culture growing E. coli. Sensitivities appreciated. Switch IV Zosyn to IV ceftriaxone 1 g daily. Will plan to finish a 5 to 7-day course. (3) Hypertension: Goal blood pressure less than 140/90 mmHg. Patient's blood pressure currently elevated. Patient at home takes metoprolol succinate 50 mg oral daily. Increase dose of amlodipine to 10 mg daily, add metoprolol succinate 25 mg oral daily. Add losartan 25 mg oral daily. Uptitrate as for goal blood pressures. Qualifiers: Hypertension type: primary hypertension Qualified Code(s): I10 - Essential (primary) hypertension (4) Type 2 diabetes mellitus: A1c 11.1. Blood sugars elevated. Continue with current sliding scale. Increase Lantus to 15 units twice daily. Monitor for hypoglycemia. 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 States she would want patient to go to SNF. Patient currently declining placement to SNF. Today she is alert and oriented only to self and date of . Not alert to current year or being in the hospital. Was significantly in setting of uncontrolled hypertension or UTI. Could be in setting of worsening baseline dementia. Currently patient does not seem to be stable to be living by herself. Consult Occupational Therapy for cognitive study. Will plan for safe discharge depending on occupational therapy evaluation. Qualifiers: Dementia behavioral or psychological symptom: unspecified whether behavioral, psychotic, or mood disturbance or anxiety Dementia severity: m oderate Dementia type: unspecified type Qualified Code(s): F03.B0 - Unspecified dementia, moderate, without behavioral disturbance, psychotic disturbance, mood disturbance, and anxiety (6) Hyperglycemia: Plan Full code Cardiac carb consistent diet Famotidine for PUD prophylaxis Lovenox for DVT prophylaxis Discharge plan: Plan to discharge home with home health versus SNF depending on cognitive study. Patient currently declining SNF placement. Attestations 2 Medical Necessity Statement*: Requires further hospitalization for further evaluation and management of altered mental status while, UTI, further evaluation is completed, uncontrolled hypertension, recent hemorrhagic stroke while safe discharge planning if sought Diagnoses Altered mental status R41.82 Acute UTI N39.0 Primary hypertension I10 Hypertension type: primary hypertension Type 2 diabetes mellitus with other specified complication, with long-term current use of insulin E11.69; Z79.4 Diabetes mellitus director long term care insulin use: with intermediate use Diabetes mellitus complication status: with other specified complication Moderate dementia, unspecified dementia type, unspecified whether behavioral, psychotic, or mood disturbance or anxiety F03.B0 Dementia behavioral or psychological symptom: unspecified whether behavioral, psychotic, or mood disturbance or anxiety Dementia severity: moderate Dementia type: unspecified type Hyperglycemia R73.9
[2023-08-09 16:45] LABS: Glucose Point of Care 241 mg/dL (70-110)
[2023-08-09] MEDS: famotidine 20 mg Tablet PO (17:38)
[2023-08-09] MEDS: insulin glargine 100 units/1 mL 15 UNIT SUBCUT (18:16)
[2023-08-09 20:22] LABS: Glucose Point of Care 215 mg/dL (70-110)
[2023-08-09] MEDS: acetaminophen 500 mg Tablet PO (21:28)
[2023-08-10] VITALS (9 sets, daily range): BP systolic 116–174; BP diastolic 60–93; PULSE 65–75; RESP 16–18; TEMP 36.3–37.1; O2SAT 95–100
[2023-08-10] MEDS: atorvastatin 40 mg Tablet PO (05:42)
[2023-08-10] MEDS: PARoxetine 20 mg Tablet 40 MG PO (05:43)
[2023-08-10 06:20] LABS: Glucose Point of Care 165 mg/dL (70-110)
[2023-08-10 07:12] LABS: Basophils % 0.6 %; Eosinophils # 0.1 10^3/uL (0.0-0.8); Eosinophils % 1.9 %; Hematocrit 39.9 % (36-47); Lymphocytes # 1.8 10^3/uL (0.8-4.8); Lymphocytes % 37.5 %; Mean Corpuscular HGB Conc 32.6 g/dL (30-55); Mean Corpuscular Hemoglobin 30.4 pg (27-33); Mean Corpuscular Volume 93.2 fl (85-98); Mean Platelet Volume 10.2 fL (7.4-10.4); Monocytes # 0.5 10^3/uL (0.2-0.9); Monocytes % 9.6 %; Neutrophils # 2.34 10^3/uL (1.8-7.7); Nucleated Red Blood Cells % 0 %; Platelet Count 149 10^3/cmm (157-399); Red Blood Count 4.28 10^6/uL (3.85-5.65); Red Cell Distribution Width 12.6 % (12.1-15.1); White Blood Count 4.69 10^3/uL (3.29-11.43)
[2023-08-10 07:33] LABS: Alanine Aminotransferase 11 U/L (0-33); Albumin Level 3.4 g/dL (3.5-5.2); Alkaline Phosphatase 54 U/L (35-105); Anion Gap 15.2 (5-19); Aspartate Amino Transferase 21 U/L (0-32); Blood Urea Nitrogen 20 mg/dL (8-23); Carbon Dioxide 24 mmol/L (22-29); Chloride 106 mmol/L (98-107); Globulin 2.9 g/dL (1.3-4.6); Glucose 180 mg/dL (65-115); Osmolality Calculated 299 mOsm/kg (285-295); Potassium 4.2 mmol/L (3.5-5.1); Sodium 141 mmol/L (136-145); Total Bilirubin 0.2 mg/dL (0.15-1.2); Total Protein 6.3 g/dL (6.6-8.7)
[2023-08-10 07:35] LABS: Magnesium 2.3 mg/dL (1.7-2.3)
[2023-08-10] MEDS: metoprolol succinate ER (24 HR) 25 mg Tablet PO (09:21)
[2023-08-10] MEDS: amlodipine 5 mg Tablet 10 MG PO (09:21)
[2023-08-10] MEDS: famotidine 20 mg Tablet PO ×2 (09:21→18:00)
[2023-08-10] MEDS: insulin lispro 100 unit/1 mL SUBCUT ×4 (09:22→21:00)
[2023-08-10] MEDS: losartan 50 mg Tablet 25 MG PO ×2 (09:22→12:19)
--- NOTE | 2023-08-10 09:33 | PC.CHAP ---
Pastoral Care Encounter/Spiritual Assessment Type of Contact [] Declined filter press supervisor visit [] Patient/Family/Request visit [] Outpatient visit [] Follow-up visit [] Physician referral [] Code/Alert [x] Routine visit [] Staff referral [] Actively dying [] Patient sleeping [] Family support [] [] Out of room [] Palliative care [] [] Receiving care in room [] Pre-surgical visit [] Trauma [] Long length of stay [] ICU visit [] Other: Relational/Emotional Strength [x] Patient feels connected with others/family/visitors/staff [] Distress [] Loneliness/isolation [] Abandonment Spirituality of Patient [x] Person of Patti [] Attends Sabianism of their Ptati [x] Believes in Prayer [] Reads Bible or Nondenominational materials [] There are Spiritual issues to be addressed Information Security Officer Interventions [x] Prayer [x] Active listening [x] Non-anxious presence [x] Spiritual/emotional support [] Crisis/trauma care [] Spiritual counseling [] Bereavement support [] Provided bereavement packet [] Provided Bible/devotional materials [] Provided toy/stuffed animal, coloring book to patient or family member [] Provided Communion [] Anointing/Grace [] Salvation [x] Completed spiritual assessment [] Other: Impact on Illness or Injury [] Angry [] Fearful [] Anxious [] Often cries [] Exhaustion [] Unable to work [] Unable to attend adventist [] Unable to walk/stand [] Unable to read [] Unable to drive [] Unable to eat/drink [] Unable to sleep [] Unable to be with family [] Patient intubated [] Other: Summary Time spent with patient 5 min
[2023-08-10] MEDS: cefTRIAXone 1,000 MG in sodium chloride 0.9% (plus) 50 ML 100 MG IV (10:43)
[2023-08-10] MEDS: insulin glargine 100 units/1 mL 15 UNIT SUBCUT ×2 (11:13→18:00)
[2023-08-10 11:25] LABS: Glucose Point of Care 300 mg/dL (70-110)
--- NOTE | 2023-08-10 12:23 | PC.NURSE ---
Addendum entered by Larisa Wood LPN 08/10/23 13:13: Dr. Potts aware. Original Note: Pt Behavior: During medication administration of Humalog to pt, pt stated, You sure are giving me a lot of insulin. Maybe my dream will come true and I will here instead of dying somewhere else like the care home. I want to but I don't believe in killing myself. Dr. Potts called, no answer. Message notification sent to Dr. Potts.
[2023-08-10] MEDS: enoxaparin 40 mg/0.4 mL Syringe SUBCUT (15:55)
--- NOTE | 2023-08-10 15:55 | P.PN_ITS ---
Subjective 2 Subjective: No acute events overnight. Patient has remained hemodynamically stable and afebrile. Blood pressure better but still elevated. States headache is improving. Patient is alert and oriented to self, being in hospital and date of . As per the nurse patient made a comment of stating that she would rather while being in the hospital then to go to the shelter and but she does not want to kill herself. Patient herself denied any suicidal or homicidal ideation. Patient is aware and is agreeable to go to SNF but he is not happy about the same. She would rather go and live with one of her friends if possible. We discussed in detail that unfortunately as of now as per cognitive study patient is not safe to live by herself and her daughter currently cannot take care of her. Vitals/I&O/Wt Last Vital Signs Temp 97.5 F L 08/10/23 11:45 Pulse 72 08/10/23 11:45 Resp 18 08/10/23 11:45 BP 167/93 08/10/23 12:19 Pulse Ox 99 08/10/23 11:45 O2 Del Method Room Air 08/10/23 11:45 08/10/23 08/10/23 08/10/23 06:59 14:59 22:59 Intake Total 480 / 3900 1010 / 1010 Balance 480 / 3900 1010 / 1010 Weight last 48 hrs Weight 64.319 kg Weight 65.005 kg Physical Exam 2 Narrative: General: No acute distress, awake and alert to self, being in the hospital, date of but not aware of the CT, current year. Slow to respond HEENT: PERRLA, pupils bilaterally equal and reactive Chest: Normal vesicular breath sounds, no added sounds, equal good air entry bilaterally CVS: S1-S2 regular, no murmurs, no tachycardia, no gallops, no rubs Abdomen: Soft, nontender, no organomegaly, bowel sounds present Neuro: No focal deficits, no facial deformity, AO x3, power 5/5 in all limbs Data 08/10/23 06:50 08/10/23 06:50 A&P Assessment and plan (1) Altered mental status: Alert to self and date of . Not alert to being in [facility]. Thinks she is in [facility]. Not alert to current year. Appreciate vitamin B12 levels, CT head done on admission. TSH within normal limits. Electrolyte abnormality has resolved. WARREN has resolved. Concerns for dementia. Does have history of hemorrhagic stroke in the past. 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 Continue with home dose of paroxetine. Could be in setting of UTI. (2) Acute UTI: Urine culture growing E. coli. Sensitivities appreciated. Continue with IV ceftriaxone. Currently day 4/7 of treatment. (3) Hypertension: Goal blood pressure less than 140/90 mmHg. Patient's blood pressure currently elevated. Patient at home takes metoprolol succinate 50 mg oral daily. Blood pressure is better but still elevated. Continue with amlodipine 10 mg oral daily, increase losartan to 50 mg oral daily, metoprolol succinate 25 mg oral daily. Will uptitrate losartan or add hydralazine as for goal blood pressures. Qualifiers: Hypertension type: primary hypertension Qualified Code(s): I10 - Essential (primary) hypertension (4) Type 2 diabetes mellitus: A1c 11.1. Blood sugars elevated. Continue with current sliding scale. Increase Lantus to 15 units twice daily. Monitor for hypoglycemia. Qualifiers: Diabetes mellitus jail insulin use: with petroleum terminal plant operator use Diabetes mellitus complication status: with other specified complication Qualified Code(s): E11.69 - Type 2 diabetes mellitus with other specified complication; Z79.4 - ferry terminal supervisor (current) use of insulin (5) Dementia: Daughter concerned about patient's confusion which has been getting worse. States she would want patient to go to SNF. Today she is alert and oriented only to self and date of . Not alert to current year or being in the hospital. As for Occupational Therapy evaluation for cognitive study patient scored 10 out of 12 on [place] deeming her and safe to live by herself. Patient would need to have care around herself going forward for safe discharge planning. Daughter as above does not think she will be able to take care of the patient. Discussed in detail with the patient. She is reluctant but agreeable to go to SNF. Qualifiers: Dementia behavioral or psychological symptom: unspecified whether behavioral, psychotic, or mood disturbance or anxiety Dementia severity: m oderate Dementia type: unspecified type Qualified Code(s): F03.B0 - Unspecified dementia, moderate, without behavioral disturbance, psychotic disturbance, mood disturbance, and anxiety (6) Hyperglycemia: Plan Depression: Does not have any active homicidal or suicidal ideation. Continue with home dose of paroxetine. Continue to monitor. Full code Cardiac carb consistent diet Famotidine for PUD prophylaxis Lovenox for DVT prophylaxis Discharge plan: Plan to go to SNF as above. Tried calling patient's daughter Ms. Pressley over the phone but unable to get in touch. Left a voice message. Attestations 2 Medical Necessity Statement*: Requires further hospitalization in setting of UTI, uncontrolled hypertension while safe discharge planning is sought in setting of poor cognition from dementia and old hemorrhagic stroke Diagnoses Altered mental status R41.82 Acute UTI N39.0 Primary hypertension I10 Hypertension type: primary hypertension Type 2 diabetes mellitus with other specified complication, with long-term current use of insulin E11.69; Z79.4 Diabetes mellitus petroleum terminal plant operator insulin use: with jail use Diabetes mellitus complication status: with other specified complication Moderate dementia, unspecified dementia type, unspecified whether behavioral, psychotic, or mood disturbance or anxiety F03.B0 Dementia behavioral or psychological symptom: unspecified whether behavioral, psychotic, or mood disturbance or anxiety Dementia severity: moderate Dementia type: unspecified type Hyperglycemia R73.9
[2023-08-10 16:37] LABS: Glucose Point of Care 276 mg/dL (70-110)
[2023-08-10 20:37] LABS: Glucose Point of Care 280 mg/dL (70-110)
[2023-08-11] VITALS (8 sets, daily range): BP systolic 110–149; BP diastolic 53–79; PULSE 59–73; RESP 16–18; TEMP 36.4–37.1; O2SAT 98–100
[2023-08-11] MEDS: atorvastatin 40 mg Tablet PO (05:12)
[2023-08-11] MEDS: PARoxetine 20 mg Tablet 40 MG PO (05:12)
[2023-08-11 05:50] LABS: Basophils % 0.3 %; Eosinophils # 0.1 10^3/uL (0.0-0.8); Eosinophils % 1.7 %; Hematocrit 37.3 % (36-47); Lymphocytes # 1.8 10^3/uL (0.8-4.8); Lymphocytes % 31.4 %; Mean Corpuscular Hemoglobin 30.9 pg (27-33); Mean Corpuscular Volume 93.7 fl (85-98); Mean Platelet Volume 9.9 fL (7.4-10.4); Monocytes # 0.6 10^3/uL (0.2-0.9); Monocytes % 10.8 %; Neutrophils # 3.18 10^3/uL (1.8-7.7); Neutrophils % 55.5 %; Nucleated Red Blood Cells % 0 %; Platelet Count 148 10^3/cmm (157-399); Red Blood Count 3.98 10^6/uL (3.85-5.65); Red Cell Distribution Width 12.4 % (12.1-15.1); White Blood Count 5.74 10^3/uL (3.29-11.43)
[2023-08-11 06:22] LABS: Alanine Aminotransferase 22 U/L (0-33); Albumin Level 3.6 g/dL (3.5-5.2); Alkaline Phosphatase 54 U/L (35-105); Anion Gap 14.7 (5-19); Aspartate Amino Transferase 40 U/L (0-32); Blood Urea Nitrogen 30 mg/dL (8-23); Carbon Dioxide 26 mmol/L (22-29); Chloride 107 mmol/L (98-107); Glucose 117 mg/dL (65-115); Osmolality Calculated 303 mOsm/kg (285-295); Potassium 4.7 mmol/L (3.5-5.1); Sodium 143 mmol/L (136-145); Total Bilirubin 0.3 mg/dL (0.15-1.2); Total Protein 6.6 g/dL (6.6-8.7)
[2023-08-11 06:31] LABS: Glucose Point of Care 120 mg/dL (70-110)
[2023-08-11] MEDS: metoprolol succinate ER (24 HR) 25 mg Tablet PO (08:51)
[2023-08-11] MEDS: insulin glargine 100 units/1 mL 15 UNIT SUBCUT ×2 (08:51→17:26)
[2023-08-11] MEDS: losartan 50 mg Tablet PO (08:51)
[2023-08-11] MEDS: famotidine 20 mg Tablet PO ×2 (08:51→17:26)
[2023-08-11] MEDS: amlodipine 5 mg Tablet 10 MG PO (08:51)
--- NOTE | 2023-08-11 09:43 | PC.SOCIAL ---
IMM Update Pg. 2 of IMM updated and reviewed with patient who verbalized understanding. Copy provided.
[2023-08-11] MEDS: cefTRIAXone 1,000 MG in sodium chloride 0.9% (plus) 50 ML 100 MG IV (10:35)
[2023-08-11 12:18] LABS: Glucose Point of Care 292 mg/dL (70-110)
[2023-08-11] MEDS: insulin lispro 100 unit/1 mL SUBCUT ×3 (12:22→20:46)
--- NOTE | 2023-08-11 14:06 | P.PN_ITS ---
Subjective 2 Subjective: No acute events overnight. Today morning seen sitting up in chair. States she is feeling a lot better. Joyful. Denies any nausea, vomiting, headache. Seems to be at her baseline mentation of being alert [place] oriented to self and date of . Today she states she got confused about her date of for a short while but now remembers that her birthday is in [birth year]. Vitals/I&O/Wt Last Vital Signs Temp 97.9 F 08/11/23 12:00 Pulse 64 08/11/23 12:00 Resp 16 08/11/23 12:00 BP 147/68 08/11/23 12:00 Pulse Ox 98 08/11/23 12:00 O2 Del Method Room Air 08/11/23 12:00 08/10/23 08/11/23 08/11/23 22:59 06:59 14:59 Intake Total 480 / 1490 120 / 1610 650 / 650 Balance 480 / 1490 120 / 1610 650 / 650 Weight last 48 hrs Weight 64.319 kg Weight 64.319 kg Physical Exam 2 Narrative: General: No acute distress, awake and alert to self, being in the hospital, date of but not aware of the CT, current year. Slow to respond HEENT: PERRLA, pupils bilaterally equal and reactive Chest: Normal vesicular breath sounds, no added sounds, equal good air entry bilaterally CVS: S1-S2 regular, no murmurs, no tachycardia, no gallops, no rubs Abdomen: Soft, nontender, no organomegaly, bowel sounds present Neuro: No focal deficits, no facial deformity, AO x3, power 5/5 in all limbs Data 08/11/23 05:37 08/11/23 05:37 A&P Assessment and plan (1) Altered mental status: Alert to self and date of . Not alert to being in [facility]. Thinks she is in [facility]. Not alert to current year. Appreciate vitamin B12 levels, CT head done on admission. TSH within normal limits. Electrolyte abnormality has resolved. WARREN has resolved. Concerns for dementia. Does have history of hemorrhagic stroke in the past. 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 Continue with home dose of paroxetine. Could be in setting of UTI. (2) Acute UTI: Urine culture growing E. coli. Sensitivities appreciated. Continue with IV ceftriaxone. Currently day 4/ of treatment. (3) Hypertension: Goal blood pressure less than 140/90 mmHg. Patient's blood pressure currently elevated. Patient at home takes metoprolol succinate 50 mg oral daily. Blood pressure is better but still elevated. Continue with amlodipine 10 mg oral daily, increase losartan to 50 mg oral daily, metoprolol succinate 25 mg oral daily. Will uptitrate losartan or add hydralazine as for goal blood pressures. Qualifiers: Hypertension type: primary hypertension Qualified Code(s): I10 - Essential (primary) hypertension (4) Type 2 diabetes mellitus: A1c 11.1. Blood sugars elevated. Continue with current sliding scale. Increase Lantus to 15 units twice daily. Monitor for hypoglycemia. 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 States she would want patient to go to SNF. Today she is alert and oriented only to self and date of . Not alert to current year or being in the hospital. As for Occupational Therapy evaluation for cognitive study patient scored 10 out of 12 on [place] deeming her and safe to live by herself. Patient would need to have care around herself going forward for safe discharge planning. Daughter as above does not think she will be able to take care of the patient. Discussed in detail with the patient. She is reluctant but agreeable to go to SNF. Qualifiers: Dementia behavioral or psychological symptom: unspecified whether behavioral, psychotic, or mood disturbance or anxiety Dementia severity: m oderate Dementia type: unspecified type Qualified Code(s): F03.B0 - Unspecified dementia, moderate, without behavioral disturbance, psychotic disturbance, mood disturbance, and anxiety (6) Hyperglycemia: Plan Depression: Does not have any active homicidal or suicidal ideation. Continue with home dose of paroxetine. Continue to monitor. Full code Cardiac carb consistent diet Famotidine for PUD prophylaxis Lovenox for DVT prophylaxis Plan for the day: Blood pressure is better controlled. Continue with current dose of amlodipine, losartan 50 mg, metoprolol 25 mg daily. Continue with Lantus 15 units twice daily for now. Blood sugars better controlled but still slightly elevated. Will continue to monitor for 24 more hours. Will uptitrate depending on the blood sugar within next 24 hours. Continue with IV ceftriaxone to finish a 7-day course. Day 5 today. Discharge plan: Plan to go to SNF as above. Tried calling patient's daughter Ms. Pressley over the phone but unable to get in touch. Left a voice message. Attestations 2 Medical Necessity Statement*: Requires further hospitalization for management of cognitive impairment in setting of dementia, UTI, hypertension while antihypertensives are adjusted and safe discharge planning is sought Diagnoses Altered mental status R41.82 Acute UTI N39.0 Primary hypertension I10 Hypertension type: primary hypertension Type 2 diabetes mellitus with other specified complication, with long-term current use of insulin E11.69; Z79.4 Diabetes mellitus superintendent terminal insulin use: with superintendent terminal use Diabetes mellitus complication status: with other specified complication Moderate dementia, unspecified dementia type, unspecified whether behavioral, psychotic, or mood disturbance or anxiety F03.B0 Dementia behavioral or psychological symptom: unspecified whether behavioral, psychotic, or mood disturbance or anxiety Dementia severity: moderate Dementia type: unspecified type Hyperglycemia R73.9
[2023-08-11] MEDS: enoxaparin 40 mg/0.4 mL Syringe SUBCUT (14:57)
[2023-08-11 16:13] LABS: Glucose Point of Care 165 mg/dL (70-110)
[2023-08-11 20:23] LABS: Glucose Point of Care 148 mg/dL (70-110)
[2023-08-12] VITALS (8 sets, daily range): BP systolic 100–169; BP diastolic 56–78; PULSE 62–72; RESP 16–20; TEMP 36.3–36.8; O2SAT 97–99
[2023-08-12] MEDS: PARoxetine 20 mg Tablet 40 MG PO (06:22)
[2023-08-12] MEDS: atorvastatin 40 mg Tablet PO (06:22)
[2023-08-12 06:28] LABS: Glucose Point of Care 206 mg/dL (70-110)
[2023-08-12] MEDS: metoprolol succinate ER (24 HR) 25 mg Tablet PO (08:35)
[2023-08-12] MEDS: amlodipine 5 mg Tablet 10 MG PO (08:35)
[2023-08-12] MEDS: insulin glargine 100 units/1 mL 15 UNIT SUBCUT ×2 (08:36→17:54)
[2023-08-12] MEDS: famotidine 20 mg Tablet PO ×2 (08:36→17:53)
[2023-08-12] MEDS: insulin lispro 100 unit/1 mL SUBCUT ×3 (08:36→20:47)
[2023-08-12] MEDS: losartan 50 mg Tablet PO (08:36)
[2023-08-12] MEDS: cefTRIAXone 1,000 MG in sodium chloride 0.9% (plus) 50 ML 100 MG IV (10:55)
[2023-08-12 11:43] LABS: Glucose Point of Care 265 mg/dL (70-110)
[2023-08-12] MEDS: enoxaparin 40 mg/0.4 mL Syringe SUBCUT (16:03)
--- NOTE | 2023-08-12 16:11 | P.PN_ITS ---
Subjective 2 Subjective: No acute events overnight. Today morning seen sitting up in the bed having her meal. Patient is awake and alert at baseline. Denies any nausea, vomiting, headache. Today patient states she would not want to go to SNF and is going home to live with her daughter who is buying a new camper for her. Vitals/I&O/Wt Last Vital Signs Temp 97.8 F 08/12/23 12:56 Pulse 62 08/12/23 12:56 Resp 20 H 08/12/23 12:56 BP 149/78 08/12/23 12:56 Pulse Ox 97 08/12/23 12:56 O2 Del Method Room Air 08/12/23 12:56 08/12/23 08/12/23 08/12/23 06:59 14:59 22:59 Intake Total 530 / 530 Output Total 500 / 500 Balance 30 / 30 Weight last 48 hrs Weight 64.949 kg Weight 64.319 kg Physical Exam 2 Narrative: General: No acute distress, awake and alert to self, being in the hospital, date of but not aware of the CT, current year. Slow to respond HEENT: PERRLA, pupils bilaterally equal and reactive Chest: Normal vesicular breath sounds, no added sounds, equal good air entry bilaterally CVS: S1-S2 regular, no murmurs, no tachycardia, no gallops, no rubs Abdomen: Soft, nontender, no organomegaly, bowel sounds present Neuro: No focal deficits, no facial deformity, AO x3, power 5/5 in all limbs Data 08/11/23 05:37 08/11/23 05:37 A&P Assessment and plan (1) Altered mental status: Alert to self and date of . Not alert to being in [facility]. Thinks she is in [facility]. Not alert to current year. Appreciate vitamin B12 levels, CT head done on admission. TSH within normal limits. Electrolyte abnormality has resolved. WARREN has resolved. Concerns for dementia. Does have history of hemorrhagic stroke in the past. 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 Continue with home dose of paroxetine. Could be in setting of UTI. (2) Acute UTI: Urine culture growing E. coli. Sensitivities appreciated. Continue with IV ceftriaxone. Currently day 4/7 of treatment. (3) Hypertension: Goal blood pressure less than 140/90 mmHg. Patient's blood pressure currently elevated. Patient at home takes metoprolol succinate 50 mg oral daily. Blood pressure is better but still elevated. Continue with amlodipine 10 mg oral daily, increase losartan to 50 mg oral daily, metoprolol succinate 25 mg oral daily. Will uptitrate losartan or add hydralazine as for goal blood pressures. Qualifiers: Hypertension type: primary hypertension Qualified Code(s): I10 - Essential (primary) hypertension (4) Type 2 diabetes mellitus: A1c 11.1. Blood sugars elevated. Continue with current sliding scale. Increase Lantus to 15 units twice daily. Monitor for hypoglycemia. 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 States she would want patient to go to SNF. Today she is alert and oriented only to self and date of . Not alert to current year or being in the hospital. As for Occupational Therapy evaluation for cognitive study patient scored 10 out of 12 on Kells deeming her and safe to live by herself. Patient would need to have care around herself going forward for safe discharge planning. Daughter as above does not think she will be able to take care of the patient. Discussed in detail with the patient. She is reluctant but agreeable to go to SNF. Qualifiers: Dementia behavioral or psychological symptom: unspecified whether behavioral, psychotic, or mood disturbance or anxiety Dementia severity: m oderate Dementia type: unspecified type Qualified Code(s): F03.B0 - Unspecified dementia, moderate, without behavioral disturbance, psychotic disturbance, mood disturbance, and anxiety (6) Hyperglycemia: Plan Depression: Does not have any active homicidal or suicidal ideation. Continue with home dose of paroxetine. Continue to monitor. Full code Cardiac carb consistent diet Famotidine for PUD prophylaxis Lovenox for DVT prophylaxis Plan for the day: given her lab holiday today. Repeat CBC and CMP in AM. Blood pressure stable. Continue with current medication. Blood sugars continue to remain elevated. Appreciate insulin requirement in last 24 hours. Increase Lantus to 20 units twice daily. Continue with current insulin sliding scale. Continue with IV ceftriaxone for 2 more days. Discharge planning: Patient would benefit from SNF placement and then transition to assisted living given for cognitive study. Today patient states she is going to live with her daughter who is agreeable to live with his daughter now and will be buying a camper for her. Discussed in detail with patient's daughter Ms. Lindsey Arriaga over the phone today. She confirms that she is willing and wants to live with her mother and take care of her and also her mother and herself are going to be following up with family counselor. Case management alerted. Discharge plan: Possible plan to discharge in next 24 hours to home with patient's daughter. Case management alerted. Possibly on discharge state will be informed as patient's daughter was hotlined when patient presented to the ER Attestations 2 Medical Necessity Statement*: Requires further hospitalization for management of UTI, uncontrolled hypertension in a patient with significant cognitive impairment while safe discharge planning is sought. 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
[2023-08-12 16:16] LABS: Glucose Point of Care 129 mg/dL (70-110)
[2023-08-12 20:38] LABS: Glucose Point of Care 310 mg/dL (70-110)
[2023-08-13] VITALS: BP 133/63; PULSE 63; RESP 16; TEMP 36.6; O2SAT 99
[2023-08-13 04:00] VITALS: BP 138/64; PULSE 69; RESP 18; TEMP 36.6; O2SAT 98
[2023-08-13] MEDS: atorvastatin 40 mg Tablet PO (06:01)
[2023-08-13] MEDS: PARoxetine 20 mg Tablet 40 MG PO (06:01)
[2023-08-13 06:22] LABS: Glucose Point of Care 104 mg/dL (70-110)
[2023-08-13 07:40] VITALS: BP 138/64
[2023-08-13] MEDS: losartan 50 mg Tablet PO (07:40)
[2023-08-13] MEDS: famotidine 20 mg Tablet PO (07:41)
[2023-08-13] MEDS: insulin glargine 100 units/1 mL 15 UNIT SUBCUT (07:41)
[2023-08-13] MEDS: amlodipine 5 mg Tablet 10 MG PO (07:41)
[2023-08-13] MEDS: metoprolol succinate ER (24 HR) 25 mg Tablet PO (07:41)
[2023-08-13 07:50] VITALS: BP 111/41; PULSE 78; RESP 16; TEMP 36.4; O2SAT 95
--- NOTE | 2023-08-13 10:30 | PC.NURSE ---
Pt refused 1030am IV Rocephin due to her discharging. I expressed to pt that it only takes 30mins to administer, however, pt declined for a second time.
--- NOTE | 2023-08-13 11:27 | PM.DCS ---
Discharge Providers Date of Admission: 08/06/23 14:46 Date of Discharge: August 13, 2023 Attending Provider at Admission: Shannon Aguilar MD Attending Provider at Discharge: Kaden Potts MD Primary Care Provider: Williams Carcamo MD Diagnoses at Discharge Discharge Diagnosis (1) Altered mental status: Status: Acute (2) Acute UTI: Status: Acute (3) Hypertension: Status: Acute Qualifiers: Hypertension type: primary hypertension Qualified Code(s): I10 - Essential (primary) hypertension (4) Type 2 diabetes mellitus: Status: Acute Qualifiers: Diabetes mellitus complication status: with other specified complication Diabetes mellitus residential insulin use: with residential use Qualified Code(s): E11.69 - Type 2 diabetes mellitus with other specified complication; Z79.4 - senior care (current) use of insulin (5) Dementia: Status: Acute Qualifiers: Dementia behavioral or psychological symptom: unspecified whether behavioral, psychotic, or mood disturbance or anxiety Dementia severity: moderate Dementia type: unspecified type Qualified Code(s): F03.B0 - Unspecified dementia, moderate, without behavioral disturbance, psychotic disturbance, mood disturbance, and anxiety (6) Hyperglycemia: Status: Acute Reason for Visit Reason for Visit: ams Brief History: History as per HPI: Danita Thorpe is a 72 year old female who presented to hospital with chief complaint of confusion, agitation, as per the report daughter is not able to take care of her, apparently there is an eviction notice, daughter brought her to the hospital because she won't be able to take care of her mother at this point. 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 Patient is stating that she is not able to afford medications that is why her blood sugar is very high.. That her daughter is 50 something years old her name is Wendie, she has been very nice until there is a new girlfriend that she brought in the house and since then things are different. She is also stating that daughter put title of the car on her name. She keeps saying : Her daughter can do anything she wants but she was raised differently and she does not support her actions. Hospital Course Hospital Course Patient was admitted to the hospital further evaluation and management of acute hyperglycemia, acute kidney injury, hyperkalemia from dehydration, UTI. She was started on IV hydration and broad-spectrum antibiotics. Her high anion gap metabolic acidosis, hyperkalemia and acute kidney injury resolved with IV fluids. Patient continued and finished a course of IV antibiotics for UTI. Patient was evaluated by Occupational Therapy during hospitalization and she was found to be cognitively impaired with Kells study showing requirement on 10 out of 12 points Which deemed patient unsafe to live by herself. During hospitalization she was also found to have elevated blood pressures for which her home antihypertensives were adjusted. Patient reluctantly agreed to go to SNF for safe discharge planning. While placement to SNF was worked up patient's daughter agreed to take care of her at home. Patient has been discharged home with her daughter after state has been informed in hemodynamically stable condition. Physical Exam Narrative: General: No acute distress, awake and alert to self, being in the hospital, date of but not aware of the CT, current year. Slow to respond HEENT: PERRLA, pupils bilaterally equal and reactive Chest: Normal vesicular breath sounds, no added sounds, equal good air entry bilaterally CVS: S1-S2 regular, no murmurs, no tachycardia, no gallops, no rubs Abdomen: Soft, nontender, no organomegaly, bowel sounds present Neuro: No focal deficits, no facial deformity, AO x3, power 5/5 in all limbs Discharge Data Studies Completed and Pending Completed Studies During Hospitalization Category Date Time Status CT head wo con* [id number] Stat Cat Scan 08/06/23 12:36 Completed XR chest 1V portable [id number] Urgent Exams 08/06/23 11:49 Completed MR head wo con* [id number] Routine MRI 08/09/23 10:21 Completed Radiology Impressions Chest X-Ray 08/06/23 11:49 IMPRESSION: Unremarkable chest radiograph. Head CT 08/06/23 12:36 IMPRESSION: No acute pathology. Interval resolution of right caudate/basal ganglia hemorrhage seen on prior study. Head MRI 08/09/23 10:21 IMPRESSION: 1. No evidence of restricted diffusion to suggest acute ischemia. 2. 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 Mild small vessel changes with moderate parenchymal volume loss. 4. Moderate to advanced atrophy RIGHT greater than LEFT temporal lobes and hippocampal formations. 5. Small chronic lacunar infarct RIGHT cerebellum. 6. No other acute findings. Microbiology 08/06/23 11:13 Urine,Clean Catch Urine Culture - Final Escherichia coli Laboratory Results WBC 5.74 10^3/uL (3.29-11.43) 08/11/23 05:37 RBC 3.98 10^6/uL (3.85-5.65) 08/11/23 05:37 Hgb 12.30 g/dL (11.27-16.99) 08/11/23 05:37 Hct 37.3 % (36-47) 08/11/23 05:37 MCV 93.7 fl (85-98) 08/11/23 05:37 MCH 30.9 pg (27-33) 08/11/23 05:37 MCHC 33.0 g/dL (30-55) 08/11/23 05:37 RDW 12.4 % (12.1-15.1) 08/11/23 05:37 Plt Count 148 10^3/cmm (157-399) L 08/11/23 05:37 MPV 9.9 fL (7.4-10.4) 08/11/23 05:37 Neut % (Auto) 55.5 % 08/11/23 05:37 Lymph % (Auto) 31.4 % 08/11/23 05:37 [place] % (Auto) 10.8 % 08/11/23 05:37 Eos % (Auto) 1.7 % 08/11/23 05:37 Baso % (Auto) 0.3 % 08/11/23 05:37 Neut # (Auto) 3.18 10^3/uL (1.8-7.7) 08/11/23 05:37 Lymph # (Auto) 1.8 10^3/uL (0.8-4.8) 08/11/23 05:37 [place] # (Auto) 0.6 10^3/uL (0.2-0.9) 08/11/23 05:37 Eos # (Auto) 0.1 10^3/uL (0.0-0.8) 08/11/23 05:37 Baso # (Auto) 0.0 10^3/uL (0.0-0.1) 08/11/23 05:37 Nucleated RBC % (auto) 0 % 08/11/23 05:37 Nucleated RBCs # 0.0 /100WBC 08/11/23 05:37 Specimen Type Arterial 08/06/23 11:58 Sample Site Brachial, right 08/06/23 11:58 ABG pH 7.42 (7.35-7.45) 08/06/23 11:58 ABG pCO2 39.9 mmHg (35-45) 08/06/23 11:58 ABG pO2 85.5 mmHg (80.0-100.0) 08/06/23 11:58 ABG PO2/FiO2 Ratio 0 08/06/23 11:58 ABG HCO3 25.8 mmol/L (22-26) 08/06/23 11:58 ABG O2 Saturation 98.2 08/06/23 11:58 ABG Base Excess 1.2 mmol/L (-2.0-2.0) 08/06/23 11:58 Tyrese Test Pos 08/06/23 11:58 A-a O2 Gradient 2.0 mmHg (5-10) L 08/06/23 11:58 Hematocrit 35.9 % (37-47) L 08/06/23 11:58 Hgb O2 Saturation 95.8 % (95-100) 08/06/23 11:58 Carboxyhemoglobin 1.7 %THgb (0.4-20.1) 08/06/23 11:58 Methemoglobin 0.8 % (0.4-1.5) 08/06/23 11:58 Total Hemoglobin 11.7 g/dL (12-16) L 08/06/23 11:58 Sodium 138.0 mmol/L (131-143) 08/06/23 11:58 Potassium 3.8 mmol/L (3.5-5.0) 08/06/23 11:58 Glucose 401.0 mg/dL (70-115) H 08/06/23 11:58 Ionized Calcium 1.3 mmol/L (1.1-1.4) 08/06/23 11:58 O2 Delivery Device Room air 08/06/23 11:58 FiO2 21.0 % 08/06/23 11:58 Process Controller ID Sacha 08/06/23 11:58 Sodium 143 mmol/L (136-145) 08/11/23 05:37 Potassium 4.7 mmol/L (3.5-5.1) 08/11/23 05:37 Chloride 107 mmol/L (98-107) 08/11/23 05:37 Carbon Dioxide 26 mmol/L (22-29) 08/11/23 05:37 Anion Gap 14.7 (5-19) 08/11/23 05:37 BUN 30 mg/dL (8-23) H 08/11/23 05:37 Creatinine 0.9 mg/dL (0.5-0.9) 08/11/23 05:37 GFR Calculation Not Reportable 08/11/23 05:37 Glucose 117 mg/dL (65-115) H 08/11/23 05:37 POC Glucose 104 mg/dL (70-110) 08/13/23 06:11 Estimat Average Glucose 272 08/06/23 10:47 Hemoglobin A1c 11.1 % (4.0-6.0) H 08/06/23 10:47 Calculated Osmolality 303 mOsm/kg (285-295) H 08/11/23 05:37 Calcium 10.0 mg/dL (8.5-10.5) 08/11/23 05:37 Phosphorus 3.0 mg/dL (2.5-4.5) 08/07/23 04:07 Magnesium 2.0 mg/dL (1.7-2.3) 08/11/23 05:37 Total Bilirubin 0.3 mg/dL (0.15-1.2) 08/11/23 05:37 AST 40 U/L (0-32) H 08/11/23 05:37 ALT 22 U/L (0-33) 08/11/23 05:37 Alkaline Phosphatase 54 U/L (35-105) 08/11/23 05:37 Total Protein 6.6 g/dL (6.6-8.7) 08/11/23 05:37 Albumin 3.6 g/dL (3.5-5.2) 08/11/23 05:37 Globulin 3.0 g/dL (1.3-4.6) 08/11/23 05:37 Vitamin B12 954 pg/mL (232-1245) 08/06/23 10:47 TSH 4.16 uIU/mL (0.27-4.20) 08/09/23 05:32 Urine Color Yellow (Yellow) 08/06/23 11:13 Urine Appearance Cloudy (CLEAR) A 08/06/23 11:13 Urine pH 5 (5-7) 08/06/23 11:13 Ur Specific [place] 1.010 (1.005-1.030) 08/06/23 11:13 Urine Protein 1+ (Negative) H 08/06/23 11:13 Urine Glucose (UA) 4+ (Normal) H 08/06/23 11:13 Urine Ketones 1+ (Negative) H 08/06/23 11:13 Urine Blood 2+ (Negative) H 08/06/23 11:13 Urine Nitrate Negative (Negative) 08/06/23 11:13 Urine Bilirubin Neg (Negative) 08/06/23 11:13 Urine Urobilinogen Norm mg/dL (Negative) 08/06/23 11:13 Ur Leukocyte Esterase 2+ (Negative) H 08/06/23 11:13 Urine RBC 0-4 /hpf (0-2) H 08/06/23 11:13 Urine WBC Too numerous to cnt /hpf (0-5) H 08/06/23 11:13 Ur Squamous Epith Cells 0-4 /hpf (0-5) H 08/06/23 11:13 Amorphous Sediment Not Reportable 08/06/23 11:13 Urine Bacteria 2+ /hpf (NONE) H 08/06/23 11:13 Urine Mucus Trace /hpf 08/06/23 11:13 Serum Ketones Negative (Negative) 08/06/23 10:47 Vitals Last Vital Signs Temp 97.5 F L 08/13/23 07:50 Pulse 78 08/13/23 07:50 Resp 16 08/13/23 07:50 BP 111/41 08/13/23 07:50 Pulse Ox 95 08/13/23 07:50 O2 Del Method Room Air 08/13/23 07:50 Discharge Plan Discharge Patient Disposition: Home Condition: Stable Prescriptions: New losartan 50 mg Tablet 50 mg PO DAILY Qty: 30 0RF amlodipine 5 mg Tablet 10 mg PO DAILY Qty: 60 0RF Continued (DME) Extended shower chair See Rx Instructions .Route .MEDSUPPLY Qty: 1 0RF Rx Instructions: As directed in shower metoprolol succinate 50 mg tablet extended release 24 hr 50 mg PO QAM Qty: 30 5RF Rx Instructions: hypotension (DME) glucose free style test strips See Rx Instructions .Route .MEDSUPPLY Qty: 100 5RF Rx Instructions: As directed fenofibrate micronized 200 mg capsule 200 mg PO QAM rosuvastatin 10 mg tablet 10 mg PO QAM insulin lispro [Humalog KwikPen Insulin] 100 unit/mL insulin pen See Rx Instructions .ROUTE .COMPLEX Qty: 15 2RF Rx Instructions: Low intensity sliding scale glipizide 10 mg tablet extended release 24hr 10 mg PO QAM paroxetine HCl 40 mg tablet 40 mg PO QAM Jardiance 25 mg tablet 25 mg PO QAM magnesium 200 mg tablet 200 mg PO QAM Changed Lantus Solostar U-100 Insulin 100 unit/mL (3 mL) insulin pen 20 unit SUBCUT DAILY Qty: 15 0RF Discharge Orders: Discharge Order (Routine); Ordered 08/13/23 Ordered By: Kaden Potts Referrals: [facility] [Outside] Williams Carcamo MD [Primary Care Provider] - 1 week (We have notified your physician's clinic of the need for a follow-up appointment to be scheduled. If you have not heard from them within the next 2 business days, please call them directly. ) Patient Instructions: Amlodipine (By mouth), Losartan (By mouth) (Cozaar), Altered Mental Status (ED), Opioid Safety Activity Restrictions/Additional Instructions: Dose of Lantus has been changed to 20 units daily. Amlodipine 10 mg oral daily and losartan 50 mg oral daily has been added to your medication list. Please check your blood pressure daily at home and maintain a blood pressure diary. Goal blood pressure is less than 140/90 mmHg. Discharge Attestations Time Spent in Discharge Care*: greater than 30 min Specific Discharge Activities: educating patient, educating and/or supporting family/caregiver, discussing with pcp/other providers, discussing with showcase trimmer/social workers/dc planners, documenting/other paperwork and evaluating patient/reviewing data Status at Discharge: Cognitive status at discharge: mildly impaired cognition, Behavioral status at discharge: cooperative, Functional status at discharge: independent ambulation, Overall status at discharge: patient is back to baseline Quality Metrics Clinical Quality Measures [ No reported AMI, CVA or VTE this stay] Coding Level of Care Code 33381 Total time (in minutes) for Discharge: 60 Diagnoses Altered mental status R41.82 Acute UTI N39.0 Primary hypertension I10 Hypertension type: primary hypertension Type 2 diabetes mellitus with other specified complication, with long-term current use of insulin E11.69; Z79.4 Diabetes mellitus complication status: with other specified complication Diabetes mellitus emt intermediate insulin use: with residential use Moderate dementia, unspecified dementia type, unspecified whether behavioral, psychotic, or mood disturbance or anxiety F03.B0 Dementia behavioral or psychological symptom: unspecified whether behavioral, psychotic, or mood disturbance or anxiety Dementia severity: moderate Dementia type: unspecified type Hyperglycemia R73.9
[2023-08-13 11:36] LABS: Glucose Point of Care 275 mg/dL (70-110)
[2023-08-13 11:51] VITALS: BP 101/54; PULSE 88; RESP 14; TEMP 36.4; O2SAT 95
[2023-08-13] MEDS: insulin lispro 100 unit/1 mL SUBCUT (11:54)
--- NOTE | 2023-08-13 12:46 | PC.NURSE ---
Discharge pending transportation. Patients daughter is her ride home and pt states that she has called her and she should be here to get her soon.
== END 2023-08-13 16:00 | disposition home or self-care (01) ==
LOC: ER 13:03 → MEDSURG 14:58
PROVIDERS: Internal Medicine; Admitting Provider Internal Medicine; Emergency Provider Physician Assistant; PCP Family Medicine Adult Medicine; Visit Provider Student in an Organized Health Care Education/Training Program
DX: N39.0 Urinary tract infection, site not specified (principal); E11.65 Type 2 diabetes mellitus with hyperglycemia; Z79.4 Long term (current) use of insulin; F03.B0 Unspecified dementia, moderate, without behavioral disturbance, psychotic disturbance, mood disturbance, and anxiety; I10 Essential (primary) hypertension; F32.A Depression, unspecified; N17.9 Acute kidney failure, unspecified; I25.2 Old myocardial infarction; Z87.891 Personal history of nicotine dependence
CPT/HCPCS: 36415; 36416; 36600; 70450; 70551; 71045; 80048; 80051; 80053; 81001; 82009; 82330; 82607; 82805; 82962; 83036; 83735; 84100; 84443; 85025; 87077; 87086; 87186; 93005; 96365; 96372; 96375; 97116; 97161; 97167; 97530; 99285; G0378; J0696; J0744; J1630; J1650; J1815; J2060; J2543; J3490; J7030

== ENCOUNTER 2023-09-12 14:01 | Emergency (ER) | payer MEDICARE, OTHER, SELFPAY ==
[2023-09-12 14:06] VITALS: BP 118/56; PULSE 70; TEMP 36.7; O2SAT 98; BMI 31.2
--- NOTE | 2023-09-12 14:06 | XRR_ITS ---
PROCEDURE INFORMATION: Exam: XR Chest Exam date and time: 09/12/2023 2:35 PM Age: 72 years old Clinical indication: Other: Weakness TECHNIQUE: Imaging protocol: Radiologic exam of the chest. Views: 1 view. COMPARISON: CR XR chest 1V portable [id number] 08/06/2023 12:19 PM FINDINGS: Lungs: Lungs are clear bilaterally. Pleural spaces: No pleural effusion. No pneumothorax. Heart/Mediastinum: Stable mild enlargement of the cardiac silhouette. Mediastinal contours are unremarkable. Vasculature: Stable vascular calcifications in the aorta. Bones/joints: Unremarkable for age. XR/XR chest 1V portable [id number] IMPRESSION: 1. No acute cardiopulmonary process. 2. Incidental/nonacute findings are listed in the report.
--- NOTE | 2023-09-12 14:07 | ECG_ITS ---
[facility] Test Date: 2023-09-12 Pat Name: Danita Thorpe Department: Room: Gender: Female Fitting Supervisor: : [id number] Requested By: Payton Falcon Order Number: [id number] Corey MD: Alexandr Graves M.D. Measurements Intervals [place] Rate: 68 P: -6 DC: 169 QRS: -24 QRSD: 111 T: 70 QT: 407 QTc: 433 Interpretive Statements SINUS RHYTHM BORDERLINE LEFT AXIS DEVIATION [QRS AXIS < -20] MODERATE INTRAVENTRICULAR CONDUCTION DELAY [110+ ms QRS DURATION] Compared to ECG 08/06/2023 10:44:06 Intraventricular conduction delay now present Ventricular premature complex(es) no longer present Electronically Signed On 09-12-2023 16:03:48 CDT by Alexandr Graves M.D. [id number]
--- NOTE | 2023-09-12 14:13 | ED_ITS ---
HPI - Altered Mental Status 2 General: Chief Complaint: Altered Mental Status Stated Complaint: AMS Time Seen by Provider: 09/12/23 14:03 Source: patient and EMS Mode of arrival: EMS Limitations: no limitations History of Present Illness: 72-year-old female is here with EMS for increasing confusion over the last 2 days she has a history of a stroke a year ago. Patient here is answering most my questions appropriately she knows her medical history knows her name where she is from she is a little confused on the year. She denies any headache denies any pain anywhere she states she had had some vomiting last night. Her glucose is elevated Review of Systems 2 Const: Denies: fever(s), chills, body aches or change in appetite ENMT: Denies: throat pain or dental pain Card: Denies: chest pain Resp: Denies: dyspnea GI: Reports: nausea and vomiting; Denies: abdominal pain or diarrhea Musc: Denies: neck pain or back pain Skin/Breast: Denies: rash Neuro: Reports: confusion; Denies: headache(s) PFSH ED 2 PFSH: Medical History Decubitus ulcer Wheel chair as ambulatory aid Hypertension CVA (cerebrovascular accident due to intracerebral hemorrhage) NSTEMI (non-ST elevated myocardial infarction) Type 2 diabetes mellitus Acute encephalopathy Surgical History No pertinent past surgical history Family History Father Heart disease Hypertension Mother Stroke Social History Smoking and tobacco/nicotine status: former use of tobacco/nicotine Quit status (tobacco/nicotine): has quit using Alcohol intake: former Substance/Drug Use: never Household members: other Details: Daughter Physical Exam 2 Const: COMMON NORMALS: no acute distress and healthy appearing; negative for patient oriented x3 HENMT: COMMON NORMALS: normocephalic and atraumatic HEAD & SCALP: n ormocephalic and atraumatic Eye: COMMON NORMALS: Equal, round and reactive pupils present and EOMs intact bilaterally PUPIL: Yes Equal, round and reactive pupils present Neck/C-Spine: COMMON NORMALS: full ROM and supple Chest: COMMONS NORMALS: normal inspection of the chest and normal palpation of entire chest wall Resp: COMMON NORMALS: normal respiratory effort, No retractions, No use of accessory muscles and clear to auscultation bilaterally AUSCULTATION: clear to auscultation bilaterally Cardio: COMMON NORMALS: regular rate, regular rhythm and No murmurs present (Cardio) RATE: regular rate RHYTHM: regular rhythm GI: COMMON NORMALS: Normal to inspection, nondistended, normoactive bowel sounds present, Soft to palpation, non-tender and no masses PALPATION: Yes Soft to palpation Extremity: COMMON NORMALS: normal to inspection and full ROM Neuro: COMMON NORMALS: moves all extremities and no focal motor deficits; negative for patient oriented x3 CRANIAL NERVES: Yes CN normal except as noted MOTOR EXAM: 5/5 motor strength present throughout Psych: COMMON NORMALS: mental status grossly normal, Normal thought process present and cooperative THOUGHT PROCESS: Normal thought process present Skin: COMMON NORMALS: no rashes or lesions noted and no wounds GENERAL SKIN EXAM: no rashes or lesions noted Course 2 Vital Signs: Vital signs: Vital Signs Temperature 98.1 F 09/12/23 14:06 Pulse Rate 67 09/12/23 14:25 Blood Pressure 118/56 09/12/23 14:06 Pulse Oximetry 97 09/12/23 14:25 Oxygen Delivery Me thod Room Air 09/12/23 14:25 MDM - Altered Mental Status Medical Decision Making Patient presents here with some confusion and she has not been confused here answering my questions appropriately blood work head CT here are all normal she is stable for discharge at this time. Medical Records I reviewed the patient's medical records. Lab Data I reviewed the patient's lab results. 09/12/23 13:52 09/12/23 13:52 Radiology Impressions Chest X-Ray 09/12/23 14:06 IMPRESSION: 1. No acute cardiopulmonary process. 2. Incidental/nonacute findings are listed in the report. Head CT 09/12/23 15:18 IMPRESSION: 1. No acute abnormality of the brain. 2. Stable mild atrophy of the brain parenchyma. 3. Stable mild chronic white matter microangiopathic change. Laboratory Results WBC 13.41 10^3/uL (3.29-11.43) H 09/12/23 13:52 RBC 4.10 10^6/uL (3.85-5.65) 09/12/23 13:52 Hgb 12.50 g/dL (11.27-16.99) 09/12/23 13:52 Hct 36.5 % (36-47) 09/12/23 13:52 MCV 89.0 fl (85-98) 09/12/23 13:52 MCH 30.5 pg (27-33) 09/12/23 13:52 MCHC 34.2 g/dL (30-55) 09/12/23 13:52 RDW 12.3 % (12.1-15.1) 09/12/23 13:52 Plt Count 159 10^3/cmm (157-399) 09/12/23 13:52 MPV 10.3 fL (7.4-10.4) 09/12/23 13:52 Neut % (Auto) 91.9 % 09/12/23 13:52 Lymph % (Auto) 2.8 % 09/12/23 13:52 [place] % (Auto) 4.3 % 09/12/23 13:52 Eos % (Auto) 0.3 % 09/12/23 13:52 Baso % (Auto) 0.2 % 09/12/23 13:52 Neut # (Auto) 12.33 10^3/uL (1.8-7.7) H 09/12/23 13:52 Lymph # (Auto) 0.4 10^3/uL (0.8-4.8) L 09/12/23 13:52 [place] # (Auto) 0.6 10^3/uL (0.2-0.9) 09/12/23 13:52 Eos # (Auto) 0.0 10^3/uL (0.0-0.8) 09/12/23 13:52 Baso # (Auto) 0.0 10^3/uL (0.0-0.1) 09/12/23 13:52 Nucleated RBC % (auto) 0 % 09/12/23 13:52 Nucleated RBCs # 0.0 /100WBC 09/12/23 13:52 Sodium 133 mmol/L (136-145) L 09/12/23 13:52 Potassium 4.0 mmol/L (3.5-5.1) 09/12/23 13:52 Chloride 94 mmol/L (98-107) L 09/12/23 13:52 Carbon Dioxide 23 mmol/L (22-29) 09/12/23 13:52 Anion Gap 20.0 (5-19) H 09/12/23 13:52 BUN 27 mg/dL (8-23) H 09/12/23 13:52 Creatinine 1.1 mg/dL (0.5-0.9) H 09/12/23 13:52 GFR Calculation Not Reportable 09/12/23 13:52 Glucose 444 mg/dL (65-115) H 09/12/23 13:52 POC Glucose 333 mg/dL (70-110) H 09/12/23 16:35 Calculated Osmolality 300 mOsm/kg (285-295) H 09/12/23 13:52 Calcium 10.3 mg/dL (8.5-10.5) 09/12/23 13:52 Total Bilirubin 0.5 mg/dL (0.15-1.2) 09/12/23 13:52 AST 23 U/L (0-32) 09/12/23 13:52 ALT 15 U/L (0-33) 09/12/23 13:52 Alkaline Phosphatase 96 U/L (35-105) 09/12/23 13:52 Total Protein 7.4 g/dL (6.6-8.7) 09/12/23 13:52 Albumin 3.8 g/dL (3.5-5.2) 09/12/23 13:52 Globulin 3.6 g/dL (1.3-4.6) 09/12/23 13:52 Lipase 28 U/L (13-60) 09/12/23 13:52 Urine Color Yellow (Yellow) 09/12/23 16:01 Urine Appearance Clear (CLEAR) 09/12/23 16:01 Urine pH 5 (5-7) 09/12/23 16:01 Ur Specific [place] 1.010 (1.005-1.030) 09/12/23 16:01 Urine Protein 1+ (Negative) H 09/12/23 16:01 Urine Glucose (UA) 4+ (Normal) H 09/12/23 16:01 Urine Ketones Negative (Negative) 09/12/23 16:01 Urine Blood Neg (Negative) 09/12/23 16:01 Urine Nitrate Negative (Negative) 09/12/23 16:01 Urine Bilirubin Neg (Negative) 09/12/23 16:01 Urine Urobilinogen Norm mg/dL (Negative) 09/12/23 16:01 Ur Leukocyte Esterase Negative (Negative) 09/12/23 16:01 Urine RBC None /hpf (0-2) 09/12/23 16:01 Urine WBC 0-4 /hpf (0-5) H 09/12/23 16:01 Ur Squamous Epith Cells None /hpf (0-5) 09/12/23 16:01 Amorphous Sediment Not Reportable 09/12/23 16:01 Urine Bacteria Trace /hpf (NONE) 09/12/23 16:01 All radiology interpretation(s) finalized by discharge EKG Data EKG 1: I personally reviewed and interpreted this EKG as follows: EKG interpretation date: 09/12/23 EKG interpretation time: 14:18 Interpretation: nsr hr [address] elevation qrs 111 qtc 424 Discharge Plan Discharge Patient Disposition: Home Clinical Impression: Confusion Condition: Stable Prescriptions: No Action (DME) Extended shower chair See Rx Instructions .Route .MEDSUPPLY Qty: 1 0RF Rx Instructions: As directed in shower metoprolol succinate 50 mg tablet extended release 24 hr 50 mg PO QAM Qty: 30 5RF Rx Instructions: hypotension (DME) glucose free style test strips See Rx Instructions .Route .MEDSUPPLY Qty: 100 5RF Rx Instructions: As directed fenofibrate micronized 200 mg capsule 200 mg PO QAM rosuvastatin 10 mg tablet 10 mg PO QAM insulin lispro [Humalog KwikPen Insulin] 100 unit/mL insulin pen See Rx Instructions .ROUTE .COMPLEX Qty: 15 2RF Rx Instructions: Low intensity sliding scale glipizide 10 mg tablet extended release 24hr 10 mg PO QAM losartan 50 mg Tablet 50 mg PO DAILY Qty: 30 0RF amlodipine 5 mg Tablet 10 mg PO DAILY Qty: 60 0RF Lantus Solostar U-100 Insulin 100 unit/mL (3 mL) insulin pen 20 unit SUBCUT DAILY Qty: 15 0RF paroxetine HCl 40 mg tablet 40 mg PO QAM Jardiance 25 mg tablet 25 mg PO QAM magnesium 200 mg tablet 200 mg PO QAM Discharge Orders: Discharge ED (Routine); Ordered 09/12/23 Ordered By: Payton Falcon Referrals: Williams Carcamo MD [Primary Care Provider] - 4-7 days Discharge Diet: Advance as tolerated Discharge Activity: Resume usual activity Patient Instructions: Altered Mental Status (ED) Coding Level of Care Code ED Plc Engineer for [place] Fwd NIH stroke score NIHSS Level Of Consciousness - 1a: 0 Level Of Consciousness Questions - 1b: Both Correct Level Of Consciousness Commands - 1c: Both Correct Best Gaze - 2: Normal Visual Alexis - 3: No Visual Loss Facial Palsy - 4: Normal Motor Arm Right - 5: No Drift Motor Arm Left - 5: No Drift Motor Leg Right - 6: No Drift Motor Leg Left - 6: No Drift Limb Ataxia - 7: Absent Sensory - 8: Normal Best Language - 9: No Aphasia Dysarthia - 10: Normal Extinction And Inattention - 11: 0 Score Total Score: 0
[2023-09-12] MEDS: sodium chloride 0.9% 1,000 ML 999 ML IV (14:18)
[2023-09-12] MEDS: ondansetron 2 mg/ML SDV 2 mL 4 MG IVP (14:21)
[2023-09-12 14:22] LABS: Basophils % 0.2 %; Eosinophils % 0.3 %; Hematocrit 36.5 % (36-47); Lymphocytes # 0.4 10^3/uL (0.8-4.8); Lymphocytes % 2.8 %; Mean Corpuscular HGB Conc 34.2 g/dL (30-55); Mean Corpuscular Hemoglobin 30.5 pg (27-33); Mean Platelet Volume 10.3 fL (7.4-10.4); Monocytes # 0.6 10^3/uL (0.2-0.9); Monocytes % 4.3 %; Neutrophils # 12.33 10^3/uL (1.8-7.7); Neutrophils % 91.9 %; Nucleated Red Blood Cells % 0 %; Platelet Count 159 10^3/cmm (157-399); Red Cell Distribution Width 12.3 % (12.1-15.1); White Blood Count 13.41 10^3/uL (3.29-11.43)
[2023-09-12 14:25] VITALS: PULSE 67; O2SAT 97
[2023-09-12 14:37] LABS: Alanine Aminotransferase 15 U/L (0-33); Albumin Level 3.8 g/dL (3.5-5.2); Alkaline Phosphatase 96 U/L (35-105); Aspartate Amino Transferase 23 U/L (0-32); Blood Urea Nitrogen 27 mg/dL (8-23); Calcium 10.3 mg/dL (8.5-10.5); Carbon Dioxide 23 mmol/L (22-29); Chloride 94 mmol/L (98-107); Globulin 3.6 g/dL (1.3-4.6); Glucose 444 mg/dL (65-115); Lipase 28 U/L (13-60); Osmolality Calculated 300 mOsm/kg (285-295); Sodium 133 mmol/L (136-145); Total Bilirubin 0.5 mg/dL (0.15-1.2); Total Protein 7.4 g/dL (6.6-8.7)
[2023-09-12 14:49] LABS: Glucose Point of Care 424 mg/dL (70-110)
[2023-09-12] MEDS: insulin regular-human 100 units/1 mL 10 UNIT IVP (15:01)
[2023-09-12 15:03] LABS: Creatinine Clr Calc Pharmacy 39.9004
--- NOTE | 2023-09-12 15:18 | CTR_ITS ---
PROCEDURE INFORMATION: Exam: CT Head Without Contrast Exam date and time: 09/12/2023 3:42 PM Age: 72 years old Clinical indication: Altered mental status/memory loss; Additional info: AMS TECHNIQUE: Imaging protocol: Computed tomography of the head without contrast. Sagittal and coronal reformatted images were created and reviewed. Radiation optimization: All CT scans at this facility use at least one of these dose optimization techniques: automated exposure control; mA and/or kV adjustment per patient size (includes targeted exams where dose is matched to clinical indication); or iterative reconstruction. COMPARISON: MR head wo con* [id number] 08/09/2023 12:53 PM RADIATION DOSE METRICS: Total DLP (mGy-cm): 992.58 FINDINGS: Brain: No acute intracranial hemorrhage. No acute infarct. No intra-axial or extra-axial masses. Ac-white matter differentiation is preserved. No cerebral edema. No extra-axial fluid collections. No midline shift. No evidence for Chiari 1 malformation. Stable mild atrophy of the brain parenchyma. Stable mildly decreased attenuation in the deep white matter, consistent with mild chronic microangiopathic change. Cerebral ventricles: No hydrocephalus. Paranasal sinuses: Visualized paranasal sinuses are clear. Mastoid air cells: Mastoid air cells are clear bilaterally. Orbital cavities: Globes and lenses, extraocular muscles, and optic nerves are intact bilaterally. No acute intraorbital abnormality. Bones: Unremarkable. No acute fracture. Soft tissues: The extracranial soft tissues are unremarkable. Vasculature: Atherosclerotic changes in the visualized arteries. CT/CT head wo con* [id number] IMPRESSION: 1. No acute abnormality of the brain. 2. Stable mild atrophy of the brain parenchyma. 3. Stable mild chronic white matter microangiopathic change.
[2023-09-12 16:37] LABS: Add Urine Microscopic? YES; Bilirubin Urine Neg (Negative); Blood Urine Neg (Negative); Glucose Urine UA 4+ (Normal); Ketones Urine Negative (Negative); Leukocyte Esterase Urine Negative (Negative); Nitrate Urine Negative (Negative); Protein Urine 1+ (Negative); Urine Appearance Clear (CLEAR); Urine Color Yellow (Yellow); Urobilinogen Urine Norm (Negative); pH Urine 5 (5-7)
[2023-09-12 16:38] LABS: Add Urine Culture? No; Bacteria Urine TRACE /hpf; WBC Urine 0-4 /hpf (0-5)
[2023-09-12 16:39] LABS: Glucose Point of Care 333 mg/dL (70-110)
[2023-09-12 17:49] VITALS: BP 108/51; PULSE 66; O2SAT 93
== END 2023-09-12 17:50 | disposition home or self-care (01) ==
PROVIDERS: Emergency Provider Emergency Medicine; PCP Family Medicine Adult Medicine
DX: R41.0 Disorientation, unspecified (principal); Z79.84 Long term (current) use of oral hypoglycemic drugs; Z79.4 Long term (current) use of insulin; I10 Essential (primary) hypertension; Z86.73 Personal history of transient ischemic attack (TIA), and cerebral infarction without residual deficits; I25.2 Old myocardial infarction; E11.9 Type 2 diabetes mellitus without complications; Z87.891 Personal history of nicotine dependence
CPT/HCPCS: 36416; 70450; 71045; 80053; 81001; 82962; 83690; 85025; 93005; 96374; 96375; 99285; J1815; J2405; J7030

== ENCOUNTER 2023-09-15 15:37 | Inpatient (IN) | payer MEDICARE, OTHER, SELFPAY ==
[2023-09-15] VITALS (9 sets, daily range): BP systolic 100–189; BP diastolic 50–96; PULSE 74–89; RESP 15–18; TEMP 36.9–37.1; O2SAT 95–99; BMI 31.2; BMI 27.9
--- NOTE | 2023-09-15 15:42 | XR_ITS ---
WS: [id number] Left forearm, AP and lateral views, 09/15/2023 Clinical Data: cellulitis Comparison: None. Findings: No fracture or dislocations are seen. The soft tissues are normal. The visualized left wrist and elbo w show no obvious abnormalities. There are vascular calcifications. XR/XR forearm LT 2V [id number] Impression: Negative left forearm.
--- NOTE | 2023-09-15 15:43 | ED_ITS ---
HPI - Wound/Laceration 2 General: Chief Complaint: Wound/Laceration Stated Complaint: Wound infection Time Seen by Provider: 09/15/23 15:39 Source: patient and EMS Mode of arrival: EMS Limitations: no limitations History of Present Illness: 72-year-old female who states she has morales d wound to her left arm states she thinks it was originally an insect bite she been scratching and has an open wound with erythema states erythema is worsened over the last 2 days she denies any pain or fever. Patient's not been on antibiotics. Has no other complaints at this time Associated symptoms: Denies chills, fever(s), nausea or vomiting Review of Systems 2 Const: Denies: fever(s), chills, body aches or change in appetite ENMT: Denies: throat pain or dental pain Card: Denies: chest pain Resp: Denies: dyspnea GI: Denies: abdominal pain, nausea, vomiting or diarrhea Musc: Denies: neck pain or back pain Skin/Breast: Reports: erythema; Denies: rash Neuro: Denies: headache(s) PFSH ED 2 PFSH: Medical History Decubitus ulcer Wheel chair as ambulatory aid Hypertension CVA (cerebrovascular accident due to intracerebral hemorrhage) NSTEMI (non-ST elevated myocardial infarction) Type 2 diabetes mellitus Acute encephalopathy Surgical History No pertinent past surgical history Family History Father Heart disease Hypertension Mother Stroke Social History Smoking and tobacco/nicotine status: former use of tobacco/nicotine Quit status (tobacco/nicotine): has quit using Alcohol intake: former Substance/Drug Use: never Household members: other Details: Daughter Physical Exam 2 Const: COMMON NORMALS: patient oriented x3 HENMT: COMMON NORMALS: normocephalic and atraumatic HEAD & SCALP: n ormocephalic and atraumatic Neck/C-Spine: COMMON NORMALS: full ROM and supple Chest: COMMONS NORMALS: normal inspection of the chest Resp: COMMON NORMALS: normal respiratory effort, No retractions, No use of accessory muscles and clear to auscultation bilaterally AUSCULTATION: clear to auscultation bilaterally Cardio: COMMON NORMALS: regular rate, regular rhythm and No murmurs present (Cardio) RATE: regular rate RHYTHM: regular rhythm Extremity: COMMON NORMALS: full ROM Neuro: COMMON NORMALS: patient oriented x3, moves all extremities and no focal motor deficits Psych: COMMON NORMALS: mental status grossly normal, Normal thought process present and cooperative THOUGHT PROCESS: Normal thought process present Skin: NARRATIVE SKIN EXAM: Superficial wound to left forearm with erythema cellulitis no abscess noted Course 2 Vital Signs: Vital signs: Vital Signs Temperature 98.5 F 09/15/23 15:40 Pulse Rate 85 09/15/23 16:08 Respiratory Rate 18 09/15/23 15:40 Blood Pressure 178/91 09/15/23 16:08 Pulse Oximetry 96 09/15/23 16:08 Oxygen Delivery Me thod Room Air 09/15/23 16:08 MDM - Wound/Laceration Medical Decision Making Patient presents here with cellulitis to her left arm along with hyperglycemia spoke to the hospitalist will admit for IV antibiotics for her cellulitis no signs of sepsis. Medical Records I reviewed the patient's medical records. Lab Data I reviewed the patient's lab results. 09/15/23 16:00 09/15/23 16:00 Radiology Impressions Forearm X-Ray 09/15/23 15:42 Impression: Negative left forearm. Laboratory Results WBC 5.02 10^3/uL (3.29-11.43) 09/15/23 16:00 RBC 3.86 10^6/uL (3.85-5.65) 09/15/23 16:00 Hgb 11.70 g/dL (11.27-16.99) 09/15/23 16:00 Hct 37.5 % (36-47) 09/15/23 16:00 MCV 97.2 fl (85-98) 09/15/23 16:00 MCH 30.3 pg (27-33) 09/15/23 16:00 MCHC 31.2 g/dL (30-55) 09/15/23 16:00 RDW 12.2 % (12.1-15.1) 09/15/23 16:00 Plt Count 165 10^3/cmm (157-399) 09/15/23 16:00 MPV 11.0 fL (7.4-10.4) H 09/15/23 16:00 Neut % (Auto) 70.7 % 09/15/23 16:00 Lymph % (Auto) 17.9 % 09/15/23 16:00 [place] % (Auto) 9.2 % 09/15/23 16:00 Eos % (Auto) 1.2 % 09/15/23 16:00 Baso % (Auto) 0.6 % 09/15/23 16:00 Neut # (Auto) 3.55 10^3/uL (1.8-7.7) 09/15/23 16:00 Lymph # (Auto) 0.9 10^3/uL (0.8-4.8) 09/15/23 16:00 [place] # (Auto) 0.5 10^3/uL (0.2-0.9) 09/15/23 16:00 Eos # (Auto) 0.1 10^3/uL (0.0-0.8) 09/15/23 16:00 Baso # (Auto) 0.0 10^3/uL (0.0-0.1) 09/15/23 16:00 Nucleated RBC % (auto) 0 % 09/15/23 16:00 Nucleated RBCs # 0.0 /100WBC 09/15/23 16:00 Sodium 134 mmol/L (136-145) L 09/15/23 16:00 Potassium 4.5 mmol/L (3.5-5.1) 09/15/23 16:00 Chloride 97 mmol/L (98-107) L 09/15/23 16:00 Carbon Dioxide 21 mmol/L (22-29) L 09/15/23 16:00 Anion Gap 20.5 (5-19) H 09/15/23 16:00 BUN 25 mg/dL (8-23) H 09/15/23 16:00 Creatinine 0.9 mg/dL (0.5-0.9) 09/15/23 16:00 GFR Calculation Not Reportable 09/15/23 16:00 Glucose 541 mg/dL (65-115) H* 09/15/23 16:00 POC Glucose 481 mg/dL (70-110) H 09/15/23 17:00 Calculated Osmolality 307 mOsm/kg (285-295) H 09/15/23 16:00 Lactic Acid 1.3 mmol/L (0.5-2.2) 09/15/23 16:00 Calcium 9.3 mg/dL (8.5-10.5) 09/15/23 16:00 Total Bilirubin 0.5 mg/dL (0.15-1.2) 09/15/23 16:00 AST 17 U/L (0-32) 09/15/23 16:00 ALT 12 U/L (0-33) 09/15/23 16:00 Alkaline Phosphatase 84 U/L (35-105) 09/15/23 16:00 C-Reactive Protein 68.7 mg/L (0.0-4.9) H 09/15/23 16:00 Total Protein 7.0 g/dL (6.6-8.7) 09/15/23 16:00 Albumin 3.2 g/dL (3.5-5.2) L 09/15/23 16:00 Globulin 3.8 g/dL (1.3-4.6) 09/15/23 16:00 All radiology interpretation(s) finalized by discharge Discharge Plan Discharge Patient Disposition: Admitted As Inpatient Clinical Impression: Cellulitis of arm, left, Hyperglycemia Condition: Stable Prescriptions: No Action (DME) Extended shower chair See Rx Instructions .Route .MEDSUPPLY Qty: 1 0RF Rx Instructions: As directed in shower metoprolol succinate 50 mg tablet extended release 24 hr 50 mg PO QAM Qty: 30 5RF Rx Instructions: hypotension (DME) glucose free style test strips See Rx Instructions .Route .MEDSUPPLY Qty: 100 5RF Rx Instructions: As directed fenofibrate micronized 200 mg capsule 200 mg PO QAM rosuvastatin 10 mg tablet 10 mg PO QAM insulin lispro [Humalog KwikPen Insulin] 100 unit/mL insulin pen See Rx Instructions .ROUTE .COMPLEX Qty: 15 2RF Rx Instructions: Low intensity sliding scale glipizide 10 mg tablet extended release 24hr 10 mg PO QAM losartan 50 mg Tablet 50 mg PO DAILY Qty: 30 0RF amlodipine 5 mg Tablet 10 mg PO DAILY Qty: 60 0RF Lantus Solostar U-100 Insulin 100 unit/mL (3 mL) insulin pen 20 unit SUBCUT DAILY Qty: 15 0RF paroxetine HCl 40 mg tablet 40 mg PO QAM Jardiance 25 mg tablet 25 mg PO QAM magnesium 200 mg tablet 200 mg PO QAM Referrals: Williams Carcamo MD [Primary Care Provider] - Coding Level of Care Code ED Outpatient Coding Specialist for Airam Hamilton
[2023-09-15 16:13] LABS: Basophils % 0.6 %; Eosinophils # 0.1 10^3/uL (0.0-0.8); Eosinophils % 1.2 %; Hematocrit 37.5 % (36-47); Lymphocytes # 0.9 10^3/uL (0.8-4.8); Lymphocytes % 17.9 %; Mean Corpuscular HGB Conc 31.2 g/dL (30-55); Mean Corpuscular Hemoglobin 30.3 pg (27-33); Mean Corpuscular Volume 97.2 fl (85-98); Monocytes # 0.5 10^3/uL (0.2-0.9); Monocytes % 9.2 %; Neutrophils # 3.55 10^3/uL (1.8-7.7); Neutrophils % 70.7 %; Nucleated Red Blood Cells % 0 %; Platelet Count 165 10^3/cmm (157-399); Red Blood Count 3.86 10^6/uL (3.85-5.65); Red Cell Distribution Width 12.2 % (12.1-15.1); White Blood Count 5.02 10^3/uL (3.29-11.43)
[2023-09-15] MEDS: vancomycin 1,000 MG in sodium chloride 0.9% 250 ML 250 MG IV (16:36)
[2023-09-15 16:43] LABS: Alanine Aminotransferase 12 U/L (0-33); Albumin Level 3.2 g/dL (3.5-5.2); Alkaline Phosphatase 84 U/L (35-105); Blood Urea Nitrogen 25 mg/dL (8-23); C Reactive Protein 68.7 mg/L (0.0-4.9); Calcium 9.3 mg/dL (8.5-10.5); Carbon Dioxide 21 mmol/L (22-29); Chloride 97 mmol/L (98-107); Creatinine Clr Calc Pharmacy 48.7672; Globulin 3.8 g/dL (1.3-4.6); Osmolality Calculated 307 mOsm/kg (285-295); Sodium 134 mmol/L (136-145); Total Bilirubin 0.5 mg/dL (0.15-1.2)
[2023-09-15 16:51] LABS: Lactic Sepsis W/Reflex 1.3 mmol/L (0.5-2.2)
[2023-09-15 17:00] LABS: Anion Gap 20.5 (5-19); Glucose 541 mg/dL (65-115); Potassium 4.5 mmol/L (3.5-5.1)
[2023-09-15 17:01] LABS: Aspartate Amino Transferase 17 U/L (0-32)
[2023-09-15 17:10] LABS: Glucose Point of Care 481 mg/dL (70-110)
[2023-09-15] MEDS: insulin regular-human 100 units/1 mL 10 UNIT IVP (17:27)
[2023-09-15 17:37] LABS: Charge for UA Resulting for Rev
[2023-09-15 17:41] LABS: Bilirubin Urine Negative (Negative); Blood Urine Negative (Negative); Glucose Urine UA 3+ (Normal); Ketones Urine Negative (Negative); Leukocyte Esterase Urine Negative (Negative); Nitrate Urine Negative (Negative); Protein Urine Trace (Negative); Specific Gravity, Urine 1.022 (1.005-1.030); Urine Appearance Clear (CLEAR); Urine Color Yellow (Yellow)
--- NOTE | 2023-09-15 17:44 | P.HP_ITS ---
Providers/Chief Complaint 2 Primary Care Provider: Williams Carcamo MD Chief Complaint: Wound infection History of Present Illness Danita Thorpe is a 72 year old female with a past medical history of type 2 diabetes mellitus, hypertension, hyperlipidemia, history of CVA who presents [facility] for hypoglycemia, and bug bite with subsequent cellulitis and wound of the left forearm. Patient tells me that a few days ago, on her left forearm she developed a bug bite, she is not sure what type of bug it was, but since then she has been developing severe pruritus of the area she tells me that over the last day it involved into area of erythema, she started developing areas of pustular drainage, one of the satellite lesions is quite tender, pustular, but she tells me that the main lesion mostly ruptured on itself and that has drained, no chills, but does report intermittent fevers, she does say that it is possible that one of her cats has licked her wounds, but she is not exactly sure, denies any polyuria no polydipsia no polyphagia, no abdominal pain, no nausea, vomiting, no headache, blurry vision, no lymphadenopathy Review of Systems 2 Const: Reports: fever(s); Denies: chills Card: Denies: chest pain GI: Denies: abdominal pain Medications/Allergies Home Medications Medication Instructions Recorded Confirmed Last Taken Type fenofibrate micronized 200 mg 200 mg PO QAM 11/18/22 08/06/23 11/26/22 History capsule rosuvastatin 10 mg tablet 10 mg PO QAM 11/18/22 08/06/23 11/26/22 History insulin lispro 100 unit/mL See Rx Instructions .Route 11/20/22 08/06/23 Unknown Rx subcutaneous pen (Humalog KwikPen .COMPLEX #15 mL (U-100) Insulin) empagliflozin 25 mg tablet 25 mg PO QAM 11/27/22 08/06/23 11/26/22 History (Jardiance) magnesium 200 mg tablet 200 mg PO QAM 11/27/22 08/06/23 11/26/22 History paroxetine HCl 40 mg tablet 40 mg PO QAM 11/27/22 08/06/23 11/26/22 History Extended shower chair #1 ea 01/01/23 08/06/23 Unknown Rx metoprolol succinate 50 mg 50 mg PO QAM blood pressure #30 01/15/23 08/06/23 Unknown Rx tablet,extended release 24 hr tabs glucose free style test strips #100 ea 06/04/23 08/06/23 Unknown Rx glipizide 10 mg tablet, extended 10 mg PO QAM 08/06/23 08/06/23 Unknown History release 24 hr amlodipine 5 mg tablet 10 mg (2 x 5 mg) PO DAILY #60 tabs 08/13/23 Unknown Rx insulin glargine 100 unit/mL (3 20 unit (0.2 mL) SUBCUT DAILY #15 08/13/23 08/06/23 Unknown Rx mL) subcutaneous pen (Lantus mL Solostar U-100 Insulin) losartan 50 mg tablet 50 mg PO DAILY #30 tabs 08/13/23 Unknown Rx Allergies Allergy/AdvReac Type Severity Reaction Status Date / Time cefaclor [From Ceclor] Allergy ALGY-Anaphy Verified 09/12/23 14:10 laxis Iodine and Iodide Containing Allergy ADR-Vomitin Verified 09/12/23 14:10 Produc g Sulfa (Sulfonamide Allergy Unknown Verified 09/12/23 14:11 Antibiotics) PFSH Acute 2 PFSH: Medical History Decubitus ulcer Wheel chair as ambulatory aid Hypertension CVA (cerebrovascular accident due to intracerebral hemorrhage) NSTEMI (non-ST elevated myocardial infarction) Type 2 diabetes mellitus Acute encephalopathy Surgical History No pertinent past surgical history Family History Father Heart disease Hypertension Mother Stroke Social History Smoking and tobacco/nicotine status: former use of tobacco/nicotine Quit status (tobacco/nicotine): has quit using Alcohol intake: former Substance/Drug Use: never Household members: other Details: Daughter Vitals/I&O/Wt Last Vital Signs Temp 98.5 F 09/15/23 15:40 Pulse 85 09/15/23 16:08 Resp 18 09/15/23 15:40 BP 178/91 09/15/23 16:08 Pulse Ox 96 09/15/23 16:08 O2 Del Method Room Air 09/15/23 16:08 Weight last 48 hrs Weight 72.575 kg Physical Exam 2 Const: COMMON NORMALS: no acute distress and patient oriented x3 HENMT: COMMON NORMALS: normocephalic HEAD & SCALP: normocephalic Eye: COMMON NORMALS: Equal, round and reactive pupils present and EOMs intact bilaterally Neck/C-Spine: COMMON NORMALS: no JVD Resp: COMMON NORMALS: normal respiratory effort, No retractions, No use of accessory muscles and clear to auscultation bilaterally AUSCULTATION: clear to auscultation bilaterally Cardio: COMMON NORMALS: regular rate, regular rhythm, S1 normal heart sound present and S2 normal heart sound present RATE: regular rate RHYTHM: r egular rhythm HEART SOUNDS: S1 normal heart sound present and S2 normal heart sound present GI: COMMON NORMALS: Normal to inspection, nondistended, normoactive bowel sounds present, Soft to palpation and non-tender PALPATION: Yes No hepatosplenomegaly present Extremity: COMMON NORMALS: no calf tenderness and no pedal edema Neuro: COMMON NORMALS: patient oriented x3, CN's II-XII intact bilaterally and moves all extremities Psych: COMMON NORMALS: mental status grossly normal Data 09/15/23 16:00 09/15/23 16:00 Micro: Microbiology 09/15/23 16:13 Blood Culture - Preliminary Blood SPECIMEN COLLECTED 09/15/23 16:00 Blood Culture - Preliminary Blood SPECIMEN COLLECTED A&P Assessment and plan (1) Cellulitis: (2) Abscess: (3) Hypertension: Qualifiers: Hypertension type: primary hypertension Qualified Code(s): I10 - Essential (primary) hypertension (4) Type 2 diabetes mellitus: Qualifiers: Diabetes mellitus [facility] insulin use: with emt intermediate use Diabetes mellitus complication status: with other specified complication Qualified Code(s): E11.69 - Type 2 diabetes mellitus with other specified complication; Z79.4 - [facility] (current) use of insulin (5) Hyperglycemia: (6) Dementia: Qualifiers: Dementia behavioral or psychological symptom: unspecified whether behavioral, psychotic, or mood disturbance or anxiety Dementia severity: m oderate Dementia type: unspecified type Qualified Code(s): F03.B0 - Unspecified dementia, moderate, without behavioral disturbance, psychotic disturbance, mood disturbance, and anxiety Plan Left forearm ? Area of cellulitis measuring 5 x 5 cm, irregular borders ? Superficial abscess, being abscess 1 x 1 cm, slight purulent drainage, but no palpable underlying abscess ? Satellite lesion abscess 1 x 1 cm, pustular abscess, -Radial, ulnar pulses present ? Plan ? Spoke to ER provider about drainage of possible abscess in the ER ? Wound care wet-to-dry ? Cellulitis and abscess all seem superficial, will hold off on further imaging ? Vancomycin -Meropenem -Blood cultures ? Wound cultures -She will need tight blood sugar control ? Full code -Lovenox for DVT prophylaxis ? Poorly controlled type 2 diabetes mellitus -Lantus 20 in its subcu daily, moderate dose sliding scale Hypertension resume home medications Hyperlipidemia resume home medications Attestations 2 Medical Necessity Statement*: Patient requires hospitalization, outpatient observation, for cellulitis, superficial abscess, hyperglycemia, with type 2 diabetes mellitus, poorly controlled Diagnoses Cellulitis L03.90 Abscess L02.91 Primary hypertension I10 Hypertension type: primary hypertension Type 2 diabetes mellitus with other specified complication, with long-term current use of insulin E11.69; Z79.4 Diabetes mellitus emt intermediate insulin use: with emt intermediate use Diabetes mellitus complication status: with other specified complication Hyperglycemia R73.9 Moderate dementia, unspecified dementia type, unspecified whether behavioral, psychotic, or mood disturbance or anxiety F03.B0 Dementia behavioral or psychological symptom: unspecified whether behavioral, psychotic, or mood disturbance or anxiety Dementia severity: moderate Dementia type: unspecified type
[2023-09-15 17:46] LABS: Bacteria Urine None Seen /hpf; Hyaline Casts Urine 0-4 /lpf; RBC Urine 0-2 /hpf (0-2); Squamous Epithelial Cell Urine 0-5 /hpf (0-5)
[2023-09-15 17:54] LABS: Ketone (Acetest) Serum Negative (Negative)
[2023-09-15 18:06] LABS: Procalcitonin 0.32 ng/mL (0-0.5)
[2023-09-15 18:25] LABS: Erythrocyte Sedimentation Rate 10 mm/hr (0-15)
--- NOTE | 2023-09-15 19:33 | PC.NURSE ---
Report called to Ayanna at 1933. med surg.
[2023-09-15] MEDS: sodium chloride 0.9% 1,000 ML 75 ML IV (20:34)
[2023-09-15] MEDS: enoxaparin 40 mg/0.4 mL Syringe SUBCUT (20:34)
[2023-09-15] MEDS: pantoprazole 40 mg SDV IVP (20:34)
[2023-09-15] MEDS: meropenem 500 mg SDV IVP (20:34)
[2023-09-15 20:40] LABS: Glucose Point of Care 311 mg/dL (70-110)
[2023-09-15] MEDS: hyDRALAzine 20 mg/mL INJ 1 mL 10 MG IVP (21:08)
[2023-09-15] MEDS: insulin lispro 100 unit/1 mL SUBCUT (21:14)
[2023-09-16] VITALS (8 sets, daily range): BP systolic 127–172; BP diastolic 63–74; PULSE 65–80; RESP 16–18; TEMP 36.9–37.1; O2SAT 97–99
[2023-09-16] MEDS: meropenem 500 mg SDV IVP ×3 (03:40→20:58)
[2023-09-16] MEDS: morphine 4 mg/mL SDV 1 mL 1 MG IVP (04:27)
[2023-09-16] MEDS: vancomycin 1,000 MG in sodium chloride 0.9% 250 ML 250 MG IV (04:28)
[2023-09-16] MEDS: metoprolol succinate ER (24 HR) 50 mg Tablet PO (05:14)
[2023-09-16] MEDS: atorvastatin 40 mg Tablet PO (05:14)
[2023-09-16] MEDS: PARoxetine 20 mg Tablet 40 MG PO (05:14)
[2023-09-16 06:40] LABS: Basophils % 0.2 %; Eosinophils # 0.1 10^3/uL (0.0-0.8); Hematocrit 31.1 % (36-47); Lymphocytes # 1.4 10^3/uL (0.8-4.8); Lymphocytes % 25.8 %; Mean Corpuscular HGB Conc 32.8 g/dL (30-55); Mean Corpuscular Volume 91.5 fl (85-98); Mean Platelet Volume 9.8 fL (7.4-10.4); Monocytes # 0.6 10^3/uL (0.2-0.9); Monocytes % 10.8 %; Neutrophils # 3.27 10^3/uL (1.8-7.7); Neutrophils % 60.8 %; Nucleated Red Blood Cells % 0 %; Platelet Count 147 10^3/cmm (157-399); Red Cell Distribution Width 12.1 % (12.1-15.1); White Blood Count 5.38 10^3/uL (3.29-11.43)
[2023-09-16 07:00] LABS: Anion Gap 15.1 (5-19); Blood Urea Nitrogen 22 mg/dL (8-23); Calcium 8.8 mg/dL (8.5-10.5); Carbon Dioxide 22 mmol/L (22-29); Chloride 107 mmol/L (98-107); Creatinine Clr Calc Pharmacy 52.3183; Glucose 315 mg/dL (65-115); Osmolality Calculated 305 mOsm/kg (285-295); Potassium 4.1 mmol/L (3.5-5.1); Sodium 140 mmol/L (136-145)
[2023-09-16 07:05] LABS: Procalcitonin 0.31 ng/mL (0-0.5)
[2023-09-16 07:45] LABS: C Reactive Protein 38.7 mg/L (0.0-4.9)
[2023-09-16 08:27] LABS: Glucose Point of Care 372 mg/dL (70-110)
[2023-09-16] MEDS: insulin glargine 100 units/1 mL 20 UNIT SUBCUT (08:32)
[2023-09-16] MEDS: losartan 50 mg Tablet PO (08:33)
[2023-09-16] MEDS: amlodipine 10 mg Tablet PO (08:33)
[2023-09-16] MEDS: insulin lispro 100 unit/1 mL SUBCUT ×4 (08:33→21:24)
--- NOTE | 2023-09-16 08:50 | PC.CHAP ---
Pastoral Care Encounter/Spiritual Assessment Type of Contact [] Declined epitaxial reactor technician visit [] Patient/Family/Request visit [] Outpatient visit [] Follow-up visit [] Physician referral [] Code/Alert [x] Routine visit [] Staff referral [] Actively dying [] Patient sleeping [] Family support [] [] Out of room [] Palliative care [] [] Receiving care in room [] Pre-surgical visit [] Trauma [] Long length of stay [] ICU visit [] Other: Relational/Emotional Strength [x] Patient feels connected with others/family/visitors/staff [x] Distress [] Loneliness/isolation [] Abandonment Spirituality of Patient [x] Person of Patti [] Attends Judaism of their Patti [x] Believes in Prayer [] Reads Bible or Latter Day materials [] There are Spiritual issues to be addressed Credit Front Office Developer Interventions [x] Prayer [x] Active listening [x] Non-anxious presence [x] Spiritual/emotional support [] Crisis/trauma care [] Spiritual counseling [] Bereavement support [] Provided bereavement packet [] Provided Bible/devotional materials [] Provided toy/stuffed animal, coloring book to patient or family member [] Provided Communion [] Anointing/[place] [] Salvation [x] Completed spiritual assessment [] Other: Impact on Illness or Injury [] Angry [] Fearful [] Anxious [] Often cries [] Exhaustion [] Unable to work [] Unable to attend scientology [] Unable to walk/stand [] Unable to read [] Unable to drive [] Unable to eat/drink [] Unable to sleep [] Unable to be with family [] Patient intubated [] Other: Summary Time spent with patient 5 min
[2023-09-16] MEDS: sodium chloride 0.9% 1,000 ML 75 ML IV ×2 (10:21→23:26)
[2023-09-16 11:03] LABS: Glucose Point of Care 322 mg/dL (70-110)
[2023-09-16] MEDS: water for injection-sterile 10 ML 240 ML (11:27)
--- NOTE | 2023-09-16 15:08 | P.PN_ITS ---
Subjective 2 Subjective: Patient was seen this morning, she is alert oriented x 3,,, she does state that the cellulitis in her left arm is getting better, no fevers, chills, cough blood sugars are still elevated currently greater than 300, no polyuria, no polydipsia, no polyphagia Vitals/I&O/Wt Last Vital Signs Temp 98.6 F 09/16/23 11:18 Pulse 65 09/16/23 11:18 Resp 16 09/16/23 11:18 BP 129/63 09/16/23 11:18 Pulse Ox 98 09/16/23 11:18 O2 Del Method Room Air 09/16/23 11:18 09/16/23 09/16/23 09/16/23 06:59 14:59 22:59 Intake Total 250 / 740 1500 / 1500 Output Total 525 / 525 Balance -275 / 215 1500 / 1500 Weight last 48 hrs Weight 66.043 kg Weight 64.892 kg Weight 72.575 kg Physical Exam 2 Const: COMMON NORMALS: no acute distress and patient oriented x3 Resp: COMMON NORMALS: normal respiratory effort, No retractions, No use of accessory muscles and clear to auscultation bilaterally AUSCULTATION: clear to auscultation bilaterally Cardio: COMMON NORMALS: regular rate, regular rhythm, S1 normal heart sound present and S2 normal heart sound present RATE: regular rate RHYTHM: r egular rhythm HEART SOUNDS: S1 normal heart sound present and S2 normal heart sound present GI: COMMON NORMALS: Normal to inspection, nondistended, normoactive bowel sounds present and non-tender Extremity: COMMON NORMALS: no pedal edema Neuro: COMMON NORMALS: patient oriented x3 Psych: COMMON NORMALS: mental status grossly normal Data 09/16/23 06:06 09/16/23 06:06 Micro: Microbiology 09/15/23 19:19 Gram Stain - Final Arm - Left Middle Anaerobic Culture - Preliminary Wound Culture - Preliminary Coag positive Staphylococcus 09/15/23 16:13 Blood Culture - Preliminary Blood SPECIMEN COLLECTED 09/15/23 16:00 Blood Culture - Preliminary Blood SPECIMEN COLLECTED A&P Assessment and plan (1) Cellulitis: (2) Abscess: (3) Hypertension: Qualifiers: Hypertension type: primary hypertension Qualified Code(s): I10 - Essential (primary) hypertension (4) Type 2 diabetes mellitus: Qualifiers: 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 control technician insulin use: with [facility] use Diabetes mellitus complication status: with other specified complication Qualified Code(s): E11.69 - Type 2 diabetes mellitus with other specified complication; Z79.4 - buttermaker continuous churn (current) use of insulin (5) Hyperglycemia: (6) Dementia: Qualifiers: Dementia behavioral or psychological symptom: unspecified whether behavioral, psychotic, or mood disturbance or anxiety Dementia severity: m oderate Dementia type: unspecified type Qualified Code(s): F03.B0 - Unspecified dementia, moderate, without behavioral disturbance, psychotic disturbance, mood disturbance, and anxiety Plan Left forearm ? Area of cellulitis measuring 5 x 5 cm, irregular borders ? Superficial abscess, being abscess 1 x 1 cm, slight purulent drainage, but no palpable underlying abscess ? Satellite lesion abscess 1 x 1 cm, pustular abscess, drained by ER -Radial, ulnar pulses present ? Culture showing coagulase positive staphylococci ? Plan ? Wound care wet-to-dry ? Cellulitis and abscess all seem superficial, has improved, but still significant, significant tenderness, no crepitus, continues to have significant warmth, still widespread erythema, will hold off on further imaging, looks improved today ? Vancomycin -Meropenem -Blood cultures ? Wound cultures -Blood sugars remain greater than 300, start high-dose sliding scale ? Full code -Lovenox for DVT prophylaxis ? Poorly controlled type 2 diabetes mellitus -Lantus 20 in its subcu daily, moderate dose sliding scale Hypertension resume home medications Hyperlipidemia resume home medications Attestations 2 Medical Necessity Statement*: Patient requires hospitalization for left forearm cellulitis, requiring IV antibiotics, type 2 diabetes mellitus requiring tight blood sugar control Diagnoses Cellulitis L03.90 Abscess L02.91 Primary hypertension I10 Hypertension type: primary hypertension Type 2 diabetes mellitus with other specified complication, with long-term current use of insulin E11.69; Z79.4 Diabetes mellitus [facility] insulin use: with termite control technician use Diabetes mellitus complication status: with other specified complication Hyperglycemia R73.9 Moderate dementia, unspecified dementia type, unspecified whether behavioral, psychotic, or mood disturbance or anxiety F03.B0 Dementia behavioral or psychological symptom: unspecified whether behavioral, psychotic, or mood disturbance or anxiety Dementia severity: moderate Dementia type: unspecified type
[2023-09-16 16:47] LABS: Glucose Point of Care 147 mg/dL (70-110)
--- NOTE | 2023-09-16 18:39 | PC.NURSE ---
I spoke with patient and verified that patient was comfortable being in the room alone with the door closed. Carry was called and was also okay with patient staying in the room alone with the door closed.
[2023-09-16] MEDS: enoxaparin 40 mg/0.4 mL Syringe SUBCUT (20:58)
[2023-09-16] MEDS: pantoprazole 40 mg SDV IVP (20:58)
[2023-09-16 21:17] LABS: Glucose Point of Care 170 mg/dL (70-110)
[2023-09-17] VITALS (7 sets, daily range): BP systolic 128–185; BP diastolic 61–70; PULSE 61–87; RESP 16–18; TEMP 36.8–37.1; O2SAT 96–99
[2023-09-17] MEDS: meropenem 500 mg SDV IVP ×3 (04:46→21:28)
[2023-09-17 05:14] LABS: Basophils % 0.5 %; Eosinophils # 0.1 10^3/uL (0.0-0.8); Eosinophils % 1.8 %; Hematocrit 31.1 % (36-47); Lymphocytes # 1.8 10^3/uL (0.8-4.8); Lymphocytes % 29.2 %; Mean Corpuscular HGB Conc 32.8 g/dL (30-55); Mean Corpuscular Hemoglobin 30.2 pg (27-33); Monocytes # 0.6 10^3/uL (0.2-0.9); Monocytes % 9.9 %; Neutrophils # 3.58 10^3/uL (1.8-7.7); Neutrophils % 58.1 %; Nucleated Red Blood Cells % 0 %; Platelet Count 152 10^3/cmm (157-399); Red Blood Count 3.38 10^6/uL (3.85-5.65); Red Cell Distribution Width 12.1 % (12.1-15.1); White Blood Count 6.16 10^3/uL (3.29-11.43)
[2023-09-17] MEDS: vancomycin 1,000 MG in sodium chloride 0.9% 250 ML 250 MG IV (05:29)
[2023-09-17] MEDS: metoprolol succinate ER (24 HR) 50 mg Tablet PO (05:30)
[2023-09-17] MEDS: atorvastatin 40 mg Tablet PO (05:30)
[2023-09-17] MEDS: PARoxetine 20 mg Tablet 40 MG PO (05:31)
[2023-09-17 05:33] LABS: C Reactive Protein 20.4 mg/L (0.0-4.9)
[2023-09-17 05:35] LABS: Anion Gap 14.7 (5-19); Blood Urea Nitrogen 19 mg/dL (8-23); Carbon Dioxide 22 mmol/L (22-29); Chloride 110 mmol/L (98-107); Creatinine Clr Calc Pharmacy 52.3183; Glucose 117 mg/dL (65-115); Osmolality Calculated 299 mOsm/kg (285-295); Potassium 3.7 mmol/L (3.5-5.1); Sodium 143 mmol/L (136-145)
[2023-09-17 05:41] LABS: Procalcitonin 0.25 ng/mL (0-0.5)
[2023-09-17 06:07] LABS: Glucose Point of Care 137 mg/dL (70-110)
[2023-09-17] MEDS: nystatin powder 15 gm Btl 1 APPLIC TOPICAL (06:45)
[2023-09-17] MEDS: amlodipine 10 mg Tablet PO (08:04)
[2023-09-17] MEDS: insulin glargine 100 units/1 mL 20 UNIT SUBCUT (08:04)
[2023-09-17] MEDS: losartan 50 mg Tablet PO (08:04)
[2023-09-17 10:40] LABS: Glucose Point of Care 291 mg/dL (70-110)
[2023-09-17] MEDS: insulin lispro 100 unit/1 mL SUBCUT ×3 (11:59→21:27)
[2023-09-17] MEDS: sodium chloride 0.9% 1,000 ML 75 ML IV (14:49)
[2023-09-17] MEDS: water for injection-sterile 10 ML 240 ML (14:50)
--- NOTE | 2023-09-17 15:18 | P.PN_ITS ---
Subjective 2 Subjective: Patient was seen this morning, she is alert oriented x 3, follows all commands, no nausea, no vomiting, no abdominal pain Vitals/I&O/Wt Last Vital Signs Temp 98.2 F 09/17/23 12:00 Pulse 66 09/17/23 12:00 Resp 18 09/17/23 12:00 BP 161/65 09/17/23 12:00 Pulse Ox 96 09/17/23 12:00 O2 Del Method Room Air 09/17/23 12:00 09/17/23 09/17/23 09/17/23 06:59 14:59 22:59 Intake Total 1351.25 / 2971.25 1360 / 1360 10 / 1370 Output Total 500 / 500 Balance 851.25 / 2471.25 1360 / 1360 10 / 1370 Weight last 48 hrs Weight 65.998 kg Weight 66.043 kg Weight 64.892 kg Weight 72.575 kg Physical Exam 2 Const: COMMON NORMALS: no acute distress and patient oriented x3 Resp: COMMON NORMALS: normal respiratory effort, No retractions, No use of accessory muscles and clear to auscultation bilaterally AUSCULTATION: clear to auscultation bilaterally Cardio: COMMON NORMALS: regular rate, regular rhythm, S1 normal heart sound present and S2 normal heart sound present RATE: regular rate RHYTHM: r egular rhythm HEART SOUNDS: S1 normal heart sound present and S2 normal heart sound present GI: COMMON NORMALS: Normal to inspection, nondistended, normoactive bowel sounds present and non-tender Extremity: COMMON NORMALS: no pedal edema Neuro: COMMON NORMALS: patient oriented x3 Psych: COMMON NORMALS: mental status grossly normal Skin: NARRATIVE SKIN EXAM: Left forearm, continues to have areas of erythema, serous drainage Data 09/17/23 04:47 09/17/23 04:47 Micro: Microbiology 09/15/23 19:19 Gram Stain - Final Arm - Left Middle Anaerobic Culture - Preliminary Wound Culture - Final Methicillin Resis Staph Aureus 09/15/23 16:13 Blood Culture - Preliminary Blood NEGATIVE TO DATE 09/15/23 16:00 Blood Culture - Preliminary Blood NEGATIVE TO DATE A&P Assessment and plan (1) Cellulitis: (2) Abscess: (3) Hypertension: Qualifiers: Hypertension type: primary hypertension Qualified Code(s): I10 - Essential (primary) hypertension (4) Type 2 diabetes mellitus: Qualifiers: Diabetes mellitus 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 school principal insulin use: with 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 school principal use Diabetes mellitus complication status: with other specified complication Qualified Code(s): E11.69 - Type 2 diabetes mellitus with other specified complication; Z79.4 - assisted (current) use of insulin (5) Hyperglycemia: (6) Dementia: Qualifiers: Dementia behavioral or psychological symptom: unspecified whether behavioral, psychotic, or mood disturbance or anxiety Dementia severity: m oderate Dementia type: unspecified type Qualified Code(s): F03.B0 - Unspecified dementia, moderate, without behavioral disturbance, psychotic disturbance, mood disturbance, and anxiety Plan Left forearm ? Area of cellulitis measuring 5 x 5 cm, irregular borders ? Superficial abscess, being abscess 1 x 1 cm, slight purulent drainage, but no palpable underlying abscess ? Satellite lesion abscess 1 x 1 cm, pustular abscess, drained by ER -Radial, ulnar pulses present ? Culture showing MRSA ? Plan ? Wound care wet-to-dry ? Cellulitis and abscess, continues to have serous drainage, purulence, erythema ? Wound culture showing ? Vancomycin -Meropenem -Blood cultures ? Wound cultures -Blood sugars remain greater than 300, start high-dose sliding scale ? Full code -Lovenox for DVT prophylaxis ? Poorly controlled type 2 diabetes mellitus -Lantus 20 in its subcu daily, moderate dose sliding scale Hypertension resume home medications Hyperlipidemia resume home medications Attestations 2 Medical Necessity Statement*: Patient requires hospitalization for left forearm cellulitis Diagnoses Cellulitis L03.90 Abscess L02.91 Primary hypertension I10 Hypertension type: primary hypertension Type 2 diabetes mellitus with other specified complication, with long-term current use of insulin E11.69; Z79.4 Diabetes mellitus skilled nursing insulin use: with 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 school principal use Diabetes mellitus complication status: with other specified complication Hyperglycemia R73.9 Moderate dementia, unspecified dementia type, unspecified whether behavioral, psychotic, or mood disturbance or anxiety F03.B0 Dementia behavioral or psychological symptom: unspecified whether behavioral, psychotic, or mood disturbance or anxiety Dementia severity: moderate Dementia type: unspecified type
[2023-09-17 16:13] LABS: Glucose Point of Care 256 mg/dL (70-110)
[2023-09-17 20:47] LABS: Glucose Point of Care 215 mg/dL (70-110)
[2023-09-17] MEDS: enoxaparin 40 mg/0.4 mL Syringe SUBCUT (21:28)
[2023-09-17] MEDS: pantoprazole 40 mg SDV IVP (21:28)
[2023-09-18] VITALS (7 sets, daily range): BP systolic 106–181; BP diastolic 60–65; PULSE 62–64; RESP 17–18; TEMP 36.8; O2SAT 92–98
[2023-09-18 03:34] LABS: Basophils % 0.6 %; Eosinophils # 0.1 10^3/uL (0.0-0.8); Eosinophils % 2.4 %; Hematocrit 32.8 % (36-47); Lymphocytes # 1.8 10^3/uL (0.8-4.8); Lymphocytes % 34.6 %; Mean Corpuscular HGB Conc 33.2 g/dL (30-55); Mean Corpuscular Volume 93.2 fl (85-98); Mean Platelet Volume 10.3 fL (7.4-10.4); Monocytes # 0.6 10^3/uL (0.2-0.9); Monocytes % 10.7 %; Neutrophils # 2.68 10^3/uL (1.8-7.7); Neutrophils % 50.4 %; Nucleated Red Blood Cells % 0 %; Platelet Count 172 10^3/cmm (157-399); Red Blood Count 3.52 10^6/uL (3.85-5.65); Red Cell Distribution Width 12.3 % (12.1-15.1); White Blood Count 5.32 10^3/uL (3.29-11.43)
[2023-09-18 03:56] LABS: C Reactive Protein 12.9 mg/L (0.0-4.9)
[2023-09-18 04:03] LABS: Procalcitonin 0.22 ng/mL (0-0.5)
[2023-09-18 04:05] LABS: Anion Gap 14.4 (5-19); Blood Urea Nitrogen 21 mg/dL (8-23); Calcium 9.2 mg/dL (8.5-10.5); Carbon Dioxide 26 mmol/L (22-29); Chloride 106 mmol/L (98-107); Creatinine Clr Calc Pharmacy 52.3008; Glucose 278 mg/dL (65-115); Osmolality Calculated 307 mOsm/kg (285-295); Potassium 4.4 mmol/L (3.5-5.1); Sodium 142 mmol/L (136-145)
[2023-09-18 04:11] LABS: Vancomycin Trough 11.2 ug/mL (10-15)
[2023-09-18] MEDS: morphine 4 mg/mL SDV 1 mL 1 MG IVP (04:43)
[2023-09-18] MEDS: meropenem 500 mg SDV IVP ×2 (04:45→13:24)
[2023-09-18] MEDS: vancomycin 1,000 MG in sodium chloride 0.9% 250 ML 250 MG IV (05:12)
[2023-09-18] MEDS: atorvastatin 40 mg Tablet PO (05:13)
[2023-09-18] MEDS: metoprolol succinate ER (24 HR) 50 mg Tablet PO (05:13)
[2023-09-18] MEDS: PARoxetine 20 mg Tablet 40 MG PO (05:13)
[2023-09-18 06:38] LABS: Glucose Point of Care 255 mg/dL (70-110)
[2023-09-18] MEDS: amlodipine 10 mg Tablet PO (08:25)
[2023-09-18] MEDS: losartan 50 mg Tablet PO (08:25)
[2023-09-18] MEDS: insulin glargine 100 units/1 mL 20 UNIT SUBCUT (08:26)
[2023-09-18] MEDS: insulin lispro 100 unit/1 mL SUBCUT ×2 (08:26→13:22)
[2023-09-18 12:00] LABS: Glucose Point of Care 178 mg/dL (70-110)
--- NOTE | 2023-09-18 12:32 | PM.DCS ---
Discharge Providers Date of Admission: 09/15/23 19:06 Date of Discharge: September 18, 2023 Attending Provider at Admission: Addison Akers MD Attending Provider at Discharge: Addison Akers MD Primary Care Provider: Williams Carcamo MD Diagnoses at Discharge Discharge Diagnosis (1) Cellulitis: Status: Acute (2) Abscess: Status: Acute (3) Hypertension: Status: Acute Qualifiers: Hypertension type: primary hypertension Qualified Code(s): I10 - Essential (primary) hypertension (4) Type 2 diabetes mellitus: Status: Acute Qualifiers: Diabetes mellitus residential insulin use: with termite control representative use Diabetes mellitus complication status: with other specified complication Qualified Code(s): E11.69 - Type 2 diabetes mellitus with other specified complication; Z79.4 - alf (current) use of insulin (5) Hyperglycemia: Status: Acute (6) Dementia: Status: Acute Qualifiers: Dementia behavioral or psychological symptom: unspecified whether behavioral, psychotic, or mood disturbance or anxiety Dementia severity: moderate Dementia type: unspecified type Qualified Code(s): F03.B0 - Unspecified dementia, moderate, without behavioral disturbance, psychotic disturbance, mood disturbance, and anxiety Reason for Visit Reason for Visit: Wound infection Hospital Course Hospital Course Danita Thorpe is a 72 year old female with a past medical history of type 2 diabetes mellitus, hypertension, hyperlipidemia, history of CVA who presents [facility] for hypoglycemia, and bug bite with subsequent cellulitis and wound of the left forearm. Patient tells me that a few days ago, on her left forearm she developed a bug bite, she is not sure what type of bug it was, but since then she has been developing severe pruritus of the area she tells me that over the last day it involved into area of erythema, she started developing areas of pustular drainage, one of the satellite lesions is quite tender, pustular, but she tells me that the main lesion mostly ruptured on itself and that has drained, no chills, but does report intermittent fevers, she does say that it is possible that one of her cats has licked her wounds, but she is not exactly sure, denies any polyuria no polydipsia no polyphagia, no abdominal pain, no nausea, vomiting, no headache, blurry vision, no lymphadenopathy This is a 72-year-old female, was admitted to [facility] for left forearm diabetic skin infection, cellulitis, with superficial abscess, and satellite abscess, with uncontrolled type 2 diabetes mellitus. During her hospitalization, her satellite abscess was drained by the emergency room. During her hospitalization, she was managed with broad-spectrum antibiotic therapy, culture showing MRSA species. She was managed on wet-to-dry dressings. Her wound has overall clinically improved, managed with wet-to-dry dressings, no significant drainage, has well-demarcated borders, starting to develop good granulation tissues. On discharge, she will be discharged with instructions for twice daily dressing changes, dry dressing changes, and to apply topical bacitracin twice daily. Advised to keep area clean and dry, avoid any creams or lotions or any harsh chemicals such as soaps. The wound looks clean and dry on my examination 09/18/2023, while demarcated borders, good granulation tissue is no discharge, wound is quite superficial, healing well. continue to monitor will wound very closely, if any worsening of infection or more pustular drainage, or if it looks dark and dusky to go immediately to the emergency room. Please follow-up with primary care provider next week for skin check. I have discharged her on 7 remaining days of p.o. antibiotics. For her type 2 diabetes mellitus, we need tight control of her type 2 diabetes mellitus, tight control of her blood sugars, discharged on home Lantus 20 units subcu daily, moderate dose sliding scale, continue to monitor blood sugars closely follow-up with primary care provider next week. Physical Exam Const: COMMON NORMALS: no acute distress and patient oriented x3 Resp: COMMON NORMALS: normal respiratory effort, No retractions, No use of accessory muscles and clear to auscultation bilaterally AUSCULTATION: clear to auscultation bilaterally Cardio: COMMON NORMALS: regular rate, regular rhythm, S1 normal heart sound present and S2 normal heart sound present RATE: regular rate RHYTHM: regular rhythm HEART SOUNDS: S1 normal heart sound present and S2 normal heart sound present GI: COMMON NORMALS: Normal to inspection, nondistended, normoactive bowel sounds present and non-tender Extremity: COMMON NORMALS: no pedal edema Neuro: COMMON NORMALS: patient oriented x3 Psych: COMMON NORMALS: mental status grossly normal Discharge Data Studies Completed and Pending Completed Studies During Hospitalization Category Date Time Status XR forearm LT 2V [id number] Stat Exams 09/15/23 15:42 Completed Pending at discharge Category Date Time Status Anaerobic Culture Stat Lab 09/15/23 19:19 Results Blood Culture Stat Lab 09/15/23 16:13 Results Wound Culture and Gram Stain Stat Lab 09/15/23 19:19 Results Radiology Impressions Forearm X-Ray 09/15/23 15:42 Impression: Negative left forearm. Laboratory Results WBC 5.32 10^3/uL (3.29-11.43) 09/18/23 03:15 RBC 3.52 10^6/uL (3.85-5.65) L 09/18/23 03:15 Hgb 10.90 g/dL (11.27-16.99) L 09/18/23 03:15 Hct 32.8 % (36-47) L 09/18/23 03:15 MCV 93.2 fl (85-98) 09/18/23 03:15 MCH 31.0 pg (27-33) 09/18/23 03:15 MCHC 33.2 g/dL (30-55) 09/18/23 03:15 RDW 12.3 % (12.1-15.1) 09/18/23 03:15 Plt Count 172 10^3/cmm (157-399) 09/18/23 03:15 MPV 10.3 fL (7.4-10.4) 09/18/23 03:15 Neut % (Auto) 50.4 % 09/18/23 03:15 Lymph % (Auto) 34.6 % 09/18/23 03:15 [place] % (Auto) 10.7 % 09/18/23 03:15 Eos % (Auto) 2.4 % 09/18/23 03:15 Baso % (Auto) 0.6 % 09/18/23 03:15 Neut # (Auto) 2.68 10^3/uL (1.8-7.7) 09/18/23 03:15 Lymph # (Auto) 1.8 10^3/uL (0.8-4.8) 09/18/23 03:15 [place] # (Auto) 0.6 10^3/uL (0.2-0.9) 09/18/23 03:15 Eos # (Auto) 0.1 10^3/uL (0.0-0.8) 09/18/23 03:15 Baso # (Auto) 0.0 10^3/uL (0.0-0.1) 09/18/23 03:15 Nucleated RBC % (auto) 0 % 09/18/23 03:15 Nucleated RBCs # 0.0 /100WBC 09/18/23 03:15 ESR 10 mm/hr (0-15) 09/15/23 18:15 Sodium 142 mmol/L (136-145) 09/18/23 03:15 Potassium 4.4 mmol/L (3.5-5.1) 09/18/23 03:15 Chloride 106 mmol/L (98-107) 09/18/23 03:15 Carbon Dioxide 26 mmol/L (22-29) 09/18/23 03:15 Anion Gap 14.4 (5-19) 09/18/23 03:15 BUN 21 mg/dL (8-23) 09/18/23 03:15 Creatinine 0.8 mg/dL (0.5-0.9) 09/18/23 03:15 GFR Calculation Not Reportable 09/18/23 03:15 Glucose 278 mg/dL (65-115) H 09/18/23 03:15 POC Glucose 178 mg/dL (70-110) H 09/18/23 11:53 Calculated Osmolality 307 mOsm/kg (285-295) H 09/18/23 03:15 Lactic Acid 1.3 mmol/L (0.5-2.2) 09/15/23 16:00 Calcium 9.2 mg/dL (8.5-10.5) 09/18/23 03:15 Total Bilirubin 0.5 mg/dL (0.15-1.2) 09/15/23 16:00 AST 17 U/L (0-32) 09/15/23 16:00 ALT 12 U/L (0-33) 09/15/23 16:00 Alkaline Phosphatase 84 U/L (35-105) 09/15/23 16:00 C-Reactive Protein 12.9 mg/L (0.0-4.9) H 09/18/23 03:15 Total Protein 7.0 g/dL (6.6-8.7) 09/15/23 16:00 Albumin 3.2 g/dL (3.5-5.2) L 09/15/23 16:00 Globulin 3.8 g/dL (1.3-4.6) 09/15/23 16:00 Procalcitonin 0.22 ng/mL (0-0.5) 09/18/23 03:15 Urine Color Yellow (Yellow) 09/15/23 17:19 Urine Appearance Clear (CLEAR) 09/15/23 17:19 Urine pH 7.0 (5-7) 09/15/23 17:19 Ur Specific [place] 1.022 (1.005-1.030) 09/15/23 17:19 Urine Protein Trace (Negative) A 09/15/23 17:19 Urine Glucose (UA) 3+ (Normal) H 09/15/23 17:19 Urine Ketones Negative (Negative) 09/15/23 17:19 Urine Blood Negative (Negative) 09/15/23 17:19 Urine Nitrate Negative (Negative) 09/15/23 17:19 Urine Bilirubin Negative (Negative) 09/15/23 17:19 Urine Urobilinogen 1.0 mg/dL (Negative) 09/15/23 17:19 Ur Leukocyte Esterase Negative (Negative) 09/15/23 17:19 Urine RBC 0-2 /hpf (0-2) 09/15/23 17:19 Urine WBC 11-20 /hpf (0-5) 09/15/23 17:19 Ur Squamous Epith Cells 0-5 /hpf (0-5) 09/15/23 17:19 Amorphous Sediment Not Reportable 09/15/23 17:19 Urine Bacteria None seen /hpf (NONE) 09/15/23 17:19 Hyaline Casts 0-4 /lpf H 09/15/23 17:19 Vancomycin Trough 11.2 ug/mL (10-15) 09/18/23 03:15 Serum Ketones Negative (Negative) 09/15/23 16:00 Vitals Last Vital Signs Temp 98.2 F 09/18/23 08:00 Pulse 64 09/18/23 08:00 Resp 18 09/18/23 08:00 BP 106/61 09/18/23 08:25 Pulse Ox 98 09/18/23 08:00 O2 Del Method Room Air 09/18/23 08:00 Discharge Plan Discharge Patient Disposition: Home Condition: Stable Prescriptions: New metronidazole 500 mg tablet 500 mg PO Q8H 7 Days Qty: 21 0RF doxycycline hyclate 100 mg tablet 100 mg PO BID 7 Days Qty: 14 0RF Continued (DME) Extended shower chair See Rx Instructions .Route .MEDSUPPLY Qty: 1 0RF Rx Instructions: As directed in shower metoprolol succinate 50 mg tablet extended release 24 hr 50 mg PO QAM Qty: 30 5RF Rx Instructions: hypotension (DME) glucose free style test strips See Rx Instructions .Route .MEDSUPPLY Qty: 100 5RF Rx Instructions: As directed fenofibrate micronized 200 mg capsule 200 mg PO QAM rosuvastatin 10 mg tablet 10 mg PO QAM losartan 50 mg Tablet 50 mg PO DAILY Qty: 30 0RF amlodipine 5 mg Tablet 10 mg PO DAILY Qty: 60 0RF insulin glargine [Lantus Solostar U-100 Insulin] 100 unit/mL (3 mL) insulin pen 20 unit SUBCUT DAILY Qty: 15 0RF paroxetine HCl 40 mg tablet 40 mg PO QAM Jardiance 25 mg tablet 25 mg PO QAM magnesium 200 mg tablet 200 mg PO QAM Changed insulin lispro [Humalog KwikPen Insulin] 100 unit/mL insulin pen See Rx Instructions .ROUTE .COMPLEX Qty: 15 2RF Rx Instructions: Inject, subcut, 3 times daily, after meals, based on sliding scale provided Discontinued glipizide 10 mg tablet extended release 24hr 10 mg PO QAM Discharge Orders: Discharge Order (Routine); Ordered 09/18/23 Ordered By: Addison Akers Referrals: Williams Carcamo MD [Primary Care Provider] - 4-7 days Discharge Diet: Diabetic Discharge Activity: Resume usual activity Patient Instructions: Opioid Safety Activity Restrictions/Additional Instructions: -Please monitor your blood sugars closely -Monitor your blood sugars 3 times daily as after meals -Please record your blood sugars, and a blood sugar log -For your Humalog -Please inject blood sugar after meals based on sliding scale provided -Do not inject insulin if you do not eat as hypoglycemia kills -This is a Humalog sliding scale -Insulin sliding ?fingerstick? Insulin ?141-180?4 units/sq 181-220?6 units/sq ?221-260?8 units/sq ?261-300 10 units/sq ?301-350?12 units/sq ?351-400 14 units/sq ?401-450?16 units/sq >450? 18 units/sq -If your blood sugar is greater than 500 go to the emergency room -If your blood sugar is less than 60 or at anytime you feel lightheaded or dizzy or diaphoretic or have chest palpitations check your blood sugar, and eat a hard candy or drink orange juice and go immediately to the emergency room -Remember hypoglycemia kills, so if his blood sugar is less than 60 we have to increase it by taking in a sugary meal such as a hard candy or orange juice and go to the emergency room -If you have any questions please call us where here to help Discharge Attestations Time Spent in Discharge Care*: greater than 30 min Status at Discharge: Cognitive status at discharge: mildly impaired cognition, Behavioral status at discharge: cooperative, Quality Metrics Clinical Quality Measures [ No reported AMI, CVA or VTE this stay] Coding Level of Care Code 41995 Total time (in minutes) for Discharge: 45 Diagnoses Cellulitis L03.90 Abscess L02.91 Primary hypertension I10 Hypertension type: primary hypertension Type 2 diabetes mellitus with other specified complication, with long-term current use of insulin E11.69; Z79.4 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 control representative insulin use: with residential use Diabetes mellitus complication status: with other specified complication Hyperglycemia R73.9 Moderate dementia, unspecified dementia type, unspecified whether behavioral, psychotic, or mood disturbance or anxiety F03.B0 Dementia behavioral or psychological symptom: unspecified whether behavioral, psychotic, or mood disturbance or anxiety Dementia severity: moderate Dementia type: unspecified type
[2023-09-18] MEDS: bacitracin ointment Pkt 1 EACH TOPICAL (13:24)
--- NOTE | 2023-09-18 16:00 | PC.NURSE ---
Discussed discharge extensively with patient and daughter. Explained about the slider scale for insulin in which the daughter stated that she only gave patient 8 Units of Lispro if accu check read HI at home. Went over the sliding scale in detail with patient and daughter. Went over dressing changes in detail with daughter. Twice a day the wound dressings on left forearm needs to be changed. Clean with sterile water, bacitracin, telfa, and gauze applied. No soaps, other chemicals or medication is to be put on the arm per physician. Patient and daughter both verbalized understanding. Discussed new medications, changed medications and stopped medications a long with follow up visit. Again both parties verbalized understanding.
== END 2023-09-18 14:10 | disposition home or self-care (01) | DRG 603 ==
LOC: ER 17:27 → MEDSURG 19:15
PROVIDERS: Admitting Provider Family Medicine; Emergency Provider Emergency Medicine; PCP Family Medicine Adult Medicine; Visit Provider Family Medicine
DX: L02.414 Cutaneous abscess of left upper limb (principal); L03.114 Cellulitis of left upper limb; B95.62 Methicillin resistant Staphylococcus aureus infection as the cause of diseases classified elsewhere; E11.65 Type 2 diabetes mellitus with hyperglycemia; E11.628 Type 2 diabetes mellitus with other skin complications; Z79.4 Long term (current) use of insulin; Z79.84 Long term (current) use of oral hypoglycemic drugs; I10 Essential (primary) hypertension; F03.B0 Unspecified dementia, moderate, without behavioral disturbance, psychotic disturbance, mood disturbance, and anxiety; E78.5 Hyperlipidemia, unspecified; Z87.891 Personal history of nicotine dependence
CPT/HCPCS: 36415; 36416; 73090; 80048; 80053; 80202; 81003; 81015; 82009; 82962; 83605; 84145; 85025; 85651; 86140; 87040; 87070; 87075; 87077; 87186; 87205; 94664; 96365; 96372; 96375; 99285; J0360; J1650; J1815; J2185; J2270; J2470; J3370; J7030; J7050

== ENCOUNTER 2023-09-30 14:35 | Emergency (ER) | payer MEDICARE, OTHER, SELFPAY ==
[2023-09-30 14:36] VITALS: BP 166/113; PULSE 88; TEMP 37.1; O2SAT 97; BMI 31.2
--- NOTE | 2023-09-30 14:40 | ECG_ITS ---
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 Measurements Intervals [place] Rate: 84 P: 9 IA: 163 QRS: -32 QRSD: 101 T: 78 QT: 347 QTc: 412 Interpretive Statements SINUS RHYTHM LEFT AXIS DEVIATION [QRS AXIS < -30] POSSIBLE ANTERIOR MYOCARDIAL INFARCTION , PROBABLY OLD [30 ms Q WAVE IN V3/V4, OR R < 0.2 mV IN V4] POSSIBLE INFERIOR MYOCARDIAL INFARCTION , PROBABLY OLD [30 ms Q WAVE IN II/aVF] Compared to ECG 09/12/2023 14:18:51 Myocardial infarct finding now present Intraventricular conduction delay no longer present Electronically Signed On 09-30-2023 16:53:30 CDT by Manohar Campbell M.D. [id number] f
[2023-09-30 14:52] LABS: Glucose Point of Care 502 mg/dL (70-110)
--- NOTE | 2023-09-30 14:52 | ED_ITS ---
HPI - Recheck/Abnormal Lab/Rx 2 General: Chief Complaint: Recheck/Abnormal Lab/Rx Stated Complaint: high blood sugar Time Seen by Provider: 09/30/23 14:48 Source: EMS Mode of arrival: EMS Limitations: no limitations History of Present Illness: 72-year-old female states that she is un sure if she had taken her insulin today and her blood sugar was over 500 she became very concerned. He denies any pain denies any nausea or vomiting. She denies any recent illness or fever. Related Data Home Medications Medication Instructions Recorded Confirmed fenofibrate micronized 200 mg 200 mg PO QAM 11/18/22 09/15/23 capsule rosuvastatin 10 mg tablet 10 mg PO QAM 11/18/22 09/15/23 empagliflozin 25 mg tablet 25 mg PO QAM 11/27/22 09/15/23 (Jardiance) magnesium 200 mg tablet 200 mg PO QAM 11/27/22 09/15/23 paroxetine HCl 40 mg tablet 40 mg PO QAM 11/27/22 09/15/23 Previous Rx's Medication Instructions Recorded Extended shower chair #1 ea 01/01/23 metoprolol succinate 50 mg 50 mg PO QAM blood pressure #30 01/15/23 tablet,extended release 24 hr tabs glucose free style test strips #100 ea 06/04/23 amlodipine 5 mg tablet 10 mg (2 x 5 mg) PO DAILY #60 tabs 08/13/23 insulin glargine 100 unit/mL (3 20 unit (0.2 mL) SUBCUT DAILY #15 08/13/23 mL) subcutaneous pen (Lantus mL Solostar U-100 Insulin) losartan 50 mg tablet 50 mg PO DAILY #30 tabs 08/13/23 insulin lispro 100 unit/mL See Rx Instructions .Route 09/18/23 subcutaneous pen (Humalog KwikPen .COMPLEX #15 mL (U-100) Insulin) Allergies Allergy/AdvReac Type Severity Reaction Status Date / Time cefaclor [From [facility]] Allergy ALGY-Anaphy Verified 09/30/23 14:48 laxis Iodine and Iodide Containing Allergy ADR-Vomitin Verified 09/30/23 14:48 Produc g Sulfa (Sulfonamide Allergy Unknown Verified 09/30/23 14:48 Antibiotics) Review of Systems 2 Const: Denies: fever(s), chills, body aches or change in appetite ENMT: Denies: throat pain or dental pain Card: Denies: chest pain Resp: Denies: dyspnea GI: Denies: abdominal pain, nausea, vomiting or diarrhea Musc: Denies: neck pain or back pain Skin/Breast: Denies: rash Neuro: Denies: headache(s) PFSH ED 2 PFSH: Medical History Decubitus ulcer Wheel chair as ambulatory aid Hypertension CVA (cerebrovascular accident due to intracerebral hemorrhage) NSTEMI (non-ST elevated myocardial infarction) Type 2 diabetes mellitus Acute encephalopathy Surgical History No pertinent past surgical history Family History Father Heart disease Hypertension Mother Stroke Social History Smoking and tobacco/nicotine status: former use of tobacco/nicotine Quit status (tobacco/nicotine): has quit using Alcohol intake: former Substance/Drug Use: never Household members: other Details: Daughter Physical Exam 2 Const: COMMON NORMALS: no acute distress, patient oriented x3 and healthy appearing HENMT: COMMON NORMALS: normocephalic and atraumatic HEAD & SCALP: n ormocephalic and atraumatic Eye: COMMON NORMALS: Equal, round and reactive pupils present and EOMs intact bilaterally PUPIL: Yes Equal, round and reactive pupils present Neck/C-Spine: COMMON NORMALS: full ROM and supple Chest: COMMONS NORMALS: normal inspection of the chest Resp: COMMON NORMALS: normal respiratory effort, No retractions, No use of accessory muscles and clear to auscultation bilaterally AUSCULTATION: clear to auscultation bilaterally Cardio: COMMON NORMALS: regular rate, regular rhythm and No murmurs present (Cardio) RATE: regular rate RHYTHM: regular rhythm GI: COMMON NORMALS: Normal to inspection, nondistended, normoactive bowel sounds present, Soft to palpation, non-tender and no masses PALPATION: Yes Soft to palpation Extremity: COMMON NORMALS: normal to inspection and full ROM Neuro: COMMON NORMALS: patient oriented x3, moves all extremities and no focal motor deficits Psych: COMMON NORMALS: mental status grossly normal, Normal thought process present and cooperative THOUGHT PROCESS: Normal thought process present Skin: COMMON NORMALS: no rashes or lesions noted and no wounds GENERAL SKIN EXAM: no rashes or lesions noted Course 2 Vital Signs: Vital signs: Vital Signs Temperature 98.8 F 09/30/23 14:36 Pulse Rate 82 09/30/23 16:49 Blood Pressure 158/87 09/30/23 16:49 Pulse Oximetry 99 09/30/23 16:49 Oxygen Delivery Me thod Room Air 09/30/23 14:36 MDM - Recheck/Abnormal Lab/Rx Medical Decision Making Patient presents with hyperglycemia blood sugars much improved here she is not DKA she has had no vomiting she feels improved she is stable for discharge she is follow-up with PCP and return if worsening she understands agrees to plan Medical Records I reviewed the patient's medical records. Lab Data I reviewed the patient's lab results. 09/30/23 14:50 09/30/23 14:50 Laboratory Results WBC 5.25 10^3/uL (3.29-11.43) 09/30/23 14:50 RBC 4.15 10^6/uL (3.85-5.65) 09/30/23 14:50 Hgb 12.70 g/dL (11.27-16.99) 09/30/23 14:50 Hct 37.3 % (36-47) 09/30/23 14:50 MCV 89.9 fl (85-98) 09/30/23 14:50 MCH 30.6 pg (27-33) 09/30/23 14:50 MCHC 34.0 g/dL (30-55) 09/30/23 14:50 RDW 12.5 % (12.1-15.1) 09/30/23 14:50 Plt Count 164 10^3/cmm (157-399) 09/30/23 14:50 MPV 10.7 fL (7.4-10.4) H 09/30/23 14:50 Neut % (Auto) 52.5 % 09/30/23 14:50 Lymph % (Auto) 35.6 % 09/30/23 14:50 [place] % (Auto) 9.7 % 09/30/23 14:50 Eos % (Auto) 1.0 % 09/30/23 14:50 Baso % (Auto) 1.0 % 09/30/23 14:50 Neut # (Auto) 2.76 10^3/uL (1.8-7.7) 09/30/23 14:50 Lymph # (Auto) 1.9 10^3/uL (0.8-4.8) 09/30/23 14:50 [place] # (Auto) 0.5 10^3/uL (0.2-0.9) 09/30/23 14:50 Eos # (Auto) 0.1 10^3/uL (0.0-0.8) 09/30/23 14:50 Baso # (Auto) 0.1 10^3/uL (0.0-0.1) 09/30/23 14:50 Nucleated RBC % (auto) 0 % 09/30/23 14:50 Nucleated RBCs # 0.0 /100WBC 09/30/23 14:50 Sodium 134 mmol/L (136-145) L 09/30/23 14:50 Potassium 5.1 mmol/L (3.5-5.1) 09/30/23 14:50 Chloride 95 mmol/L (98-107) L 09/30/23 14:50 Carbon Dioxide 23 mmol/L (22-29) 09/30/23 14:50 Anion Gap 21.1 (5-19) H 09/30/23 14:50 BUN 34 mg/dL (8-23) H 09/30/23 14:50 Creatinine 1.1 mg/dL (0.5-0.9) H 09/30/23 14:50 GFR Calculation Not Reportable 09/30/23 14:50 Glucose 552 mg/dL (65-115) H* 09/30/23 14:50 POC Glucose 234 mg/dL (70-110) H 09/30/23 16:27 Calculated Osmolality 311 mOsm/kg (285-295) H 09/30/23 14:50 Calcium 10.1 mg/dL (8.5-10.5) 09/30/23 14:50 Total Bilirubin 0.5 mg/dL (0.15-1.2) 09/30/23 14:50 AST 15 U/L (0-32) 09/30/23 14:50 ALT 13 U/L (0-33) 09/30/23 14:50 Alkaline Phosphatase 89 U/L (35-105) 09/30/23 14:50 Total Protein 7.1 g/dL (6.6-8.7) 09/30/23 14:50 Albumin 3.9 g/dL (3.5-5.2) 09/30/23 14:50 Globulin 3.2 g/dL (1.3-4.6) 09/30/23 14:50 No radiology studies performed this visit Discharge Plan Discharge Patient Disposition: Home Clinical Impression: Hyperglycemia Condition: Stable Prescriptions: No Action (DME) Extended shower chair See Rx Instructions .Route .MEDSUPPLY Qty: 1 0RF Rx Instructions: As directed in shower metoprolol succinate 50 mg tablet extended release 24 hr 50 mg PO QAM Qty: 30 5RF Rx Instructions: hypotension (DME) glucose free style test strips See Rx Instructions .Route .MEDSUPPLY Qty: 100 5RF Rx Instructions: As directed fenofibrate micronized 200 mg capsule 200 mg PO QAM rosuvastatin 10 mg tablet 10 mg PO QAM losartan 50 mg Tablet 50 mg PO DAILY Qty: 30 0RF amlodipine 5 mg Tablet 10 mg PO DAILY Qty: 60 0RF insulin glargine [Lantus Solostar U-100 Insulin] 100 unit/mL (3 mL) insulin pen 20 unit SUBCUT DAILY Qty: 15 0RF Humalog KwikPen Insulin 100 unit/mL insulin pen See Rx Instructions .ROUTE .COMPLEX Qty: 15 2RF Rx Instructions: Inject, subcut, 3 times daily, after meals, based on sliding scale provided paroxetine HCl 40 mg tablet 40 mg PO QAM Jardiance 25 mg tablet 25 mg PO QAM magnesium 200 mg tablet 200 mg PO QAM Discharge Orders: Discharge ED (Routine); Ordered 09/30/23 Ordered By: Payton Falcon Referrals: Williams Carcamo MD [Primary Care Provider] - 4-7 days Discharge Diet: Advance as tolerated Discharge Activity: Resume usual activity Patient Instructions: Diabetic Hyperglycemia (ED) Coding Level of Care Code 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
--- NOTE | 2023-09-30 14:57 | PC.NURSE ---
pt arrived with 20G iv in left ac with NS running. IV was infiltrated. IV removed and wrapped by this nurse. New IV placed in left hand
[2023-09-30 14:59] LABS: Basophils # 0.1 10^3/uL (0.0-0.1); Eosinophils # 0.1 10^3/uL (0.0-0.8); Hematocrit 37.3 % (36-47); Lymphocytes # 1.9 10^3/uL (0.8-4.8); Lymphocytes % 35.6 %; Mean Corpuscular Hemoglobin 30.6 pg (27-33); Mean Corpuscular Volume 89.9 fl (85-98); Mean Platelet Volume 10.7 fL (7.4-10.4); Monocytes # 0.5 10^3/uL (0.2-0.9); Monocytes % 9.7 %; Neutrophils # 2.76 10^3/uL (1.8-7.7); Neutrophils % 52.5 %; Nucleated Red Blood Cells % 0 %; Platelet Count 164 10^3/cmm (157-399); Red Blood Count 4.15 10^6/uL (3.85-5.65); Red Cell Distribution Width 12.5 % (12.1-15.1); White Blood Count 5.25 10^3/uL (3.29-11.43)
[2023-09-30] MEDS: insulin regular-human 100 units/1 mL 11 UNIT IVP (15:01)
[2023-09-30 15:14] LABS: Alanine Aminotransferase 13 U/L (0-33); Albumin Level 3.9 g/dL (3.5-5.2); Alkaline Phosphatase 89 U/L (35-105); Anion Gap 21.1 (5-19); Aspartate Amino Transferase 15 U/L (0-32); Blood Urea Nitrogen 34 mg/dL (8-23); Calcium 10.1 mg/dL (8.5-10.5); Carbon Dioxide 23 mmol/L (22-29); Chloride 95 mmol/L (98-107); Globulin 3.2 g/dL (1.3-4.6); Osmolality Calculated 311 mOsm/kg (285-295); Potassium 5.1 mmol/L (3.5-5.1); Sodium 134 mmol/L (136-145); Total Bilirubin 0.5 mg/dL (0.15-1.2); Total Protein 7.1 g/dL (6.6-8.7)
[2023-09-30 15:22] LABS: Creatinine Clr Calc Pharmacy 39.9004
[2023-09-30 15:23] LABS: Glucose 552 mg/dL (65-115)
[2023-09-30 15:47] LABS: Glucose Point of Care 305 mg/dL (70-110)
[2023-09-30 15:48] VITALS: BP 147/81; PULSE 83; O2SAT 99
[2023-09-30 16:29] LABS: Glucose Point of Care 234 mg/dL (70-110)
[2023-09-30 16:49] VITALS: BP 158/87; PULSE 82; O2SAT 99
== END 2023-09-30 16:50 | disposition home or self-care (01) ==
PROVIDERS: Emergency Provider Emergency Medicine; PCP Family Medicine Adult Medicine
DX: E11.65 Type 2 diabetes mellitus with hyperglycemia (principal); Z79.4 Long term (current) use of insulin; Z87.891 Personal history of nicotine dependence; I10 Essential (primary) hypertension; Z86.73 Personal history of transient ischemic attack (TIA), and cerebral infarction without residual deficits; I25.2 Old myocardial infarction
CPT/HCPCS: 36416; 80053; 82962; 85025; 93005; 96374; 99284; J1815

== ENCOUNTER 2023-10-03 12:13 | Emergency (ER) | payer MEDICARE, OTHER, SELFPAY ==
[2023-10-03] VITALS (11 sets, daily range): BP systolic 83–153; BP diastolic 37–71; PULSE 63–79; TEMP 36.7; O2SAT 91–100; BMI 28.3
--- NOTE | 2023-10-03 12:52 | XRR_ITS ---
PROCEDURE INFORMATION: Exam: XR Chest Exam date and time: 10/03/2023 1:05 PM Age: 72 years old Clinical indication: Other: Weakness; Additional info: Hypotension TECHNIQUE: Imaging protocol: Radiologic exam of the chest. Views: 1 view. COMPARISON: CR (CHEST, ) 09/12/2023 2:35 PM FINDINGS: Lungs: Unremarkable. No consolidation. Pleural spaces: Unremarkable. No pleural effusion. No pneumothorax. Heart/Mediastinum: Unremarkable. No cardiomegaly. Bones/joints: Unremarkable. XR/XR chest 1V portable [id number] IMPRESSION: No acute findings.
[2023-10-03 12:53] LABS: Basophils % 0.6 %; Eosinophils # 0.1 10^3/uL (0.0-0.8); Eosinophils % 0.7 %; Hematocrit 38.8 % (36-47); Lymphocytes # 2.5 10^3/uL (0.8-4.8); Lymphocytes % 36.4 %; Mean Corpuscular HGB Conc 32.7 g/dL (30-55); Mean Corpuscular Hemoglobin 30.1 pg (27-33); Mean Corpuscular Volume 91.9 fl (85-98); Mean Platelet Volume 10.3 fL (7.4-10.4); Monocytes # 0.7 10^3/uL (0.2-0.9); Monocytes % 9.5 %; Neutrophils # 3.64 10^3/uL (1.8-7.7); Neutrophils % 52.5 %; Nucleated Red Blood Cells % 0 %; Platelet Count 162 10^3/cmm (157-399); Red Blood Count 4.22 10^6/uL (3.85-5.65); Red Cell Distribution Width 12.7 % (12.1-15.1); White Blood Count 6.93 10^3/uL (3.29-11.43)
--- NOTE | 2023-10-03 12:53 | ECG_ITS ---
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 Measurements Intervals [place] Rate: 67 P: 46 MI: 156 QRS: -24 QRSD: 101 T: 73 QT: 401 QTc: 425 Interpretive Statements SINUS RHYTHM BORDERLINE LEFT AXIS DEVIATION [QRS AXIS < -20] Compared to ECG 09/30/2023 14:40:45 Myocardial infarct finding no longer present Electronically Signed On 10-03-2023 20:07:14 CDT by Manohar Campbell M.D. [id number]
[2023-10-03 13:15] LABS: Alanine Aminotransferase 10 U/L (0-33); Albumin Level 3.7 g/dL (3.5-5.2); Alkaline Phosphatase 71 U/L (35-105); Anion Gap 18.3 (5-19); Aspartate Amino Transferase 15 U/L (0-32); Blood Urea Nitrogen 23 mg/dL (8-23); Calcium 9.7 mg/dL (8.5-10.5); Carbon Dioxide 22 mmol/L (22-29); Chloride 98 mmol/L (98-107); Globulin 3.1 g/dL (1.3-4.6); Glucose 391 mg/dL (65-115); Lipase 49 U/L (13-60); Osmolality Calculated 298 mOsm/kg (285-295); Potassium 4.3 mmol/L (3.5-5.1); Sodium 134 mmol/L (136-145); Total Bilirubin 0.6 mg/dL (0.15-1.2); Total Protein 6.8 g/dL (6.6-8.7)
[2023-10-03] MEDS: sodium chloride 0.9% 1,000 ML 1999 ML IV (13:17)
[2023-10-03 13:19] LABS: Creatinine Clr Calc Pharmacy 34.8082
--- NOTE | 2023-10-03 13:25 | W.ED.WEAKNES ---
HPI - Weakness General: Chief complaint: Weakness Stated complaint: headache/elevated sugar Time Seen by Provider: 10/03/23 12:56 History of Present Illness: 72-year-old female presents to the ER by private vehicle along with her daughter. The patient has dementia so her history is somewhat limited. The daughter provides most of the history. Patient just simply does not feel good but cannot really describe much. She has felt this way for several weeks now. The patient's daughter states that she seems to be eating and drinking okay but she is always fatigued. Today she wanted to lay down and seemed to have less energy than usual. She did eat a good breakfast with fried eggs and potatoes. In fact, daughter states her overall appetite has been pretty good and her p.o. intake has been what she believes to be adequate. Daughter is doing a sliding scale insulin. Daughter giving Lantus 10 units daily. (Discharge summary says 20 units; unclear which dose is accurate). There was reportedly some talk about her saying that she thought she was going to or that she would not see her family again. The patient does not remember saying this. She does have lapses in her short-term memory. She thought she was just admitted to the hospital yesterday when in fact it has been about 15 days. She does not remember multiple things about her recent days including her meals, etc. The patient is not suicidal now. When I asked her about this, she seems to rationalize it by saying that she thought something was wrong with her. Associated symptoms: Reports chills, confusion and headache(s) (Has been having frequent headaches); Denies chest pain, diaphoresis, dysuria, fever(s), nausea, syncope or vomiting Review of Systems General: Reports: 10 or more systems reviewed and unremarkable except in HPI and below Const: Reports: chills, fatigue, malaise and daytime sleepiness; Denies: fever(s), body aches, change in appetite or diaphoresis Eyes: Denies: change in vision ENMT: Denies: throat pain, hoarseness or dry mouth Card: Denies: chest pain, edema or syncope Resp: Denies: dyspnea or productive cough GI: Denies: abdominal pain, nausea, vomiting or diarrhea : Denies: flank pain, dysuria or urinary frequency Musc: Denies: neck pain, back pain, extremity pain or extremity swelling Skin/Breast: Denies: rash or erythema Neuro: Reports: headache(s) (Has been having frequent headaches), difficulty walking and confusion; Denies: numbness in extremities or lack of coordination Psych: Reports: mood swings, hopelessness, irritability, memory loss and difficulty concentrating FOR[facility]LY [facility] ED PFSH: Medical History Decubitus ulcer Wheel chair as ambulatory aid Hypertension CVA (cerebrovascular accident due to intracerebral hemorrhage) NSTEMI (non-ST elevated myocardial infarction) Type 2 diabetes mellitus Acute encephalopathy Surgical History No pertinent past surgical history Family History Father Heart disease Hypertension Mother Stroke Social History Smoking and tobacco/nicotine status: former use of tobacco/nicotine Quit status (tobacco/nicotine): has quit using Alcohol intake: former Substance/Drug Use: never Household members: other Details: Daughter Physical Exam Narrative: EXAM NARRATIVE: Abnormal physical exam findings include generalized weakness, pale skin/conjunctiva/mucous membranes, poor short-term memory. There is also a healed wound on the left forearm without any signs of infection currently. Const: COMMON NORMALS: no limitations, alert and well nourished HENMT: COMMON NORMALS: normocephalic, atraumatic and external ears normal HEAD & SCALP: normocephalic and atraumatic EXTERNAL EAR: Yes external ears normal MOUTH: no muffled voice Eye: COMMON NORMALS: conjunctivae normal and no scleral icterus CONJUNCTIVA: Yes conjunctivae normal Neck/C-Spine: COMMON NORMALS: no JVD GENERAL: Yes normal visual inspection and Yes trachea midline Resp: COMMON NORMALS: normal respiratory effort, No use of accessory muscles and clear to auscultation bilaterally AUSCULTATION: clear to auscultation bilaterally Cardio: COMMON NORMALS: no JVD, regular rate and regular rhythm RATE: regular rate RHYTHM: regular rhythm GI: COMMON NORMALS: Soft to palpation and non-tender PALPATION: Yes Soft to palpation and No Guarding due to palpation present (GI) Extremity: COMMON NORMALS: normal to inspection Neuro: COMMON NORMALS: moves all extremities, no focal motor deficits and no sensory deficits noted SENSORIUM/ORIENTATION: Yes alert SPEECH: speech normal Psych: COMMON NORMALS: Normal thought process present, cooperative, normal affect and speech normal SPEECH: Yes normal speech THOUGHT PROCESS: Normal thought process present Skin: COMMON NORMALS: no jaundice; negative for no wounds (healing wound left forearm) and negative for turgor normal GENERAL SKIN EXAM: decreased turgor Course ED course: Patient is workup has been notable for an episode of hypotension when she checked in. Patient did not endorse feeling lightheaded. We went ahead and did a large workup to make sure there was nothing going on. CT scan of the head was negative. Chest x-ray no acute findings. No signs of sepsis. No UTI. No significant drop in hemoglobin. The patient's blood pressure cuff was repositioned and I checked it several times. Her blood pressures in the 140s over 60s and 70s on my rechecks. After the patient's daughter left, she told me that she feels her daughter just wants her out of the house. She reports her daughter stressed out trying to care for her and manage the home. They are in the middle of a move. The patient tells me that she did not feel like she needed to be here. She reports that she feels okay and does not have any concerns. I have noted that she is speaking very fluidly. She thinks about things from the past, points out things from the future, and comments about things in the present. She does not seem to have advanced dementia. I noted during the history that she did forget some small things such as what she had for meals or the dates of certain things. Her workup here has been notable for hyperglycemia. When I asked the patient's daughter about her insulin; daughter states she is giving 10 units of Lantus per day. The patient is prescribed 20 units a day. This means she is getting half of the long-acting insulin that she supposed to. They are using a sliding scale. Since she is not in DKA, I went ahead and gave her 10 units of short acting here. I have no reason at this point to admit her to the hospital. She had been stuck several times for blood cultures and refused any further sticks. Vital Signs: Vital signs: Vital Signs Temperature 98.0 F 10/03/23 12:29 Pulse Rate 70 08/18/24 12:29 Blood Pressure 83/49 10/03/23 12:29 Pulse Oximetry 100 10/03/23 12:29 MDM - Weakness Medical Decision Making Differential diagnosis includes UTI, dehydration, anemia, GI bleeding, intracranial mass or hemorrhage, depression, renal failure, electrolyte disturbance, thyroid issue, accidental overdose, advancing dementia, COVID infection, other. The patient's mental status is actually at what the daughter says is her baseline. She is conversational with me but has a lot of gaps in her short-term memory. Her speech is still fluid. She is reporting frequent headaches but does not report any injuries. Will go ahead and do a CT scan of her head given her known ambulatory dysfunction and memory deficit, she may have had trauma not recalled. Her blood pressure was abnormal when she checked in. Her systolic was soft during my exam. Her pulses were diminished. Her diastolic is low. Will go ahead and do a larger workup today to see if we can figure out what is going on and making her feel poorly. Lab Data 10/03/23 12:48 10/03/23 12:48 Radiology Impressions Chest X-Ray 10/03/23 12:52 IMPRESSION: No acute findings. Head CT 10/03/23 13:32 IMPRESSION: No acute intracranial findings. Laboratory Results WBC 6.93 10^3/uL (3.29-11.43) 10/03/23 12:48 RBC 4.22 10^6/uL (3.85-5.65) 10/03/23 12:48 Hgb 12.70 g/dL (11.27-16.99) 10/03/23 12:48 Hct 38.8 % (36-47) 10/03/23 12:48 MCV 91.9 fl (85-98) 10/03/23 12:48 MCH 30.1 pg (27-33) 10/03/23 12:48 MCHC 32.7 g/dL (30-55) 10/03/23 12:48 RDW 12.7 % (12.1-15.1) 10/03/23 12:48 Plt Count 162 10^3/cmm (157-399) 10/03/23 12:48 MPV 10.3 fL (7.4-10.4) 10/03/23 12:48 Neut % (Auto) 52.5 % 10/03/23 12:48 Lymph % (Auto) 36.4 % 10/03/23 12:48 [place] % (Auto) 9.5 % 10/03/23 12:48 Eos % (Auto) 0.7 % 10/03/23 12:48 Baso % (Auto) 0.6 % 10/03/23 12:48 Neut # (Auto) 3.64 10^3/uL (1.8-7.7) 10/03/23 12:48 Lymph # (Auto) 2.5 10^3/uL (0.8-4.8) 10/03/23 12:48 [place] # (Auto) 0.7 10^3/uL (0.2-0.9) 10/03/23 12:48 Eos # (Auto) 0.1 10^3/uL (0.0-0.8) 10/03/23 12:48 Baso # (Auto) 0.0 10^3/uL (0.0-0.1) 10/03/23 12:48 Nucleated RBC % (auto) 0 % 10/03/23 12:48 Nucleated RBCs # 0.0 /100WBC 10/03/23 12:48 Sodium 134 mmol/L (136-145) L 10/03/23 12:48 Potassium 4.3 mmol/L (3.5-5.1) 10/03/23 12:48 Chloride 98 mmol/L (98-107) 10/03/23 12:48 Carbon Dioxide 22 mmol/L (22-29) 10/03/23 12:48 Anion Gap 18.3 (5-19) 10/03/23 12:48 BUN 23 mg/dL (8-23) 10/03/23 12:48 Creatinine 1.2 mg/dL (0.5-0.9) H 10/03/23 12:48 GFR Calculation Not Reportable 10/03/23 12:48 Glucose 391 mg/dL (65-115) H 10/03/23 12:48 POC Glucose 418 mg/dL (70-110) H 10/03/23 14:53 Calculated Osmolality 298 mOsm/kg (285-295) H 10/03/23 12:48 Lactic Acid 2.5 mmol/L (0.5-2.2) H 10/03/23 12:48 Calcium 9.7 mg/dL (8.5-10.5) 10/03/23 12:48 Phosphorus 3.2 mg/dL (2.5-4.5) 10/03/23 12:48 Magnesium 1.9 mg/dL (1.7-2.3) 10/03/23 12:48 Total Bilirubin 0.6 mg/dL (0.15-1.2) 10/03/23 12:48 AST 15 U/L (0-32) 10/03/23 12:48 ALT 10 U/L (0-33) 10/03/23 12:48 Alkaline Phosphatase 71 U/L (35-105) 10/03/23 12:48 Total Protein 6.8 g/dL (6.6-8.7) 10/03/23 12:48 Albumin 3.7 g/dL (3.5-5.2) 10/03/23 12:48 Globulin 3.1 g/dL (1.3-4.6) 10/03/23 12:48 Lipase 49 U/L (13-60) 10/03/23 12:48 Urine Color Yellow (Yellow) 10/03/23 14:03 Urine Appearance Cloudy (CLEAR) A 10/03/23 14:03 Urine pH 5.0 (5-7) 10/03/23 14:03 Ur Specific [place] 1.023 (1.005-1.030) 10/03/23 14:03 Urine Protein 3+ (Negative) A 10/03/23 14:03 Urine Glucose (UA) 3+ (Normal) H 10/03/23 14:03 Urine Ketones Trace (Negative) 10/03/23 14:03 Urine Blood Negative (Negative) 10/03/23 14:03 Urine Nitrate Negative (Negative) 10/03/23 14:03 Urine Bilirubin Negative (Negative) 10/03/23 14:03 Urine Urobilinogen 1.0 mg/dL (Negative) 10/03/23 14:03 Ur Leukocyte Esterase Negative (Negative) 10/03/23 14:03 Urine RBC 0-2 /hpf (0-2) 10/03/23 14:03 Urine WBC 0-5 /hpf (0-5) 10/03/23 14:03 Ur Squamous Epith Cells 0-5 /hpf (0-5) 10/03/23 14:03 Amorphous Sediment Not Reportable 10/03/23 14:03 Urine Bacteria None seen /hpf (NONE) 10/03/23 14:03 Hyaline Casts 59.16 /lpf 10/03/23 14:03 Fine Granular Casts 0-4 /lpf H 10/03/23 14:03 Salicylates < 0.3 mg/dL (3-10) L 10/03/23 12:48 Acetaminophen < 5.0 ug/mL (10-30) L 10/03/23 12:48 Ethyl Alcohol < 10 mg/dL (0-10) 10/03/23 12:48 All radiology interpretation(s) finalized by discharge EKG Data EKG 1: Interpretation: Sinus rhythm, rate 67, borderline left axis deviation, QRS 101 ms, no concerning ST segment elevations or depressions, no ectopy Discharge Plan Discharge Patient Disposition: Home Clinical Impression: Hyperglycemia Condition: Stable Prescriptions: No Action (DME) Extended shower chair See Rx Instructions .Route .MEDSUPPLY Qty: 1 0RF Rx Instructions: As directed in shower metoprolol succinate 50 mg tablet extended release 24 hr 50 mg PO QAM Qty: 30 5RF Rx Instructions: hypotension (DME) glucose free style test strips See Rx Instructions .Route .MEDSUPPLY Qty: 100 5RF Rx Instructions: As directed fenofibrate micronized 200 mg capsule 200 mg PO QAM rosuvastatin 10 mg tablet 10 mg PO QAM losartan 50 mg Tablet 50 mg PO DAILY Qty: 30 0RF amlodipine 5 mg Tablet 10 mg PO DAILY Qty: 60 0RF insulin glargine [Lantus Solostar U-100 Insulin] 100 unit/mL (3 mL) insulin pen 20 unit SUBCUT DAILY Qty: 15 0RF Humalog KwikPen Insulin 100 unit/mL insulin pen See Rx Instructions .ROUTE .COMPLEX Qty: 15 2RF Rx Instructions: Inject, subcut, 3 times daily, after meals, based on sliding scale provided paroxetine HCl 40 mg tablet 40 mg PO QAM Jardiance 25 mg tablet 25 mg PO QAM magnesium 200 mg tablet 200 mg PO QAM Discharge Orders: Discharge ED (Routine); Ordered 10/03/23 Ordered By: Phil Blake Referrals: Williams Carcamo MD [Primary Care Provider] - 1-3 days Patient Instructions: Diabetic Hyperglycemia (ED), Diabetes and Exercise (ED), Opioid Safety, Pain Management Activity Restrictions/Additional Instructions: You are to be using 20 units of Lantus daily. Use your sliding scale insulin at least 3 times a day to keep your blood sugar and check. An extensive workup was performed and there are no findings that suggest you need to be admitted to the hospital or have emergent treatment. Coding Level of Care Code ED [employer] for Chg Fwd Related Data Home Medications Medication Instructions Recorded Confirmed fenofibrate micronized 200 mg 200 mg PO QAM 11/18/22 09/15/23 capsule rosuvastatin 10 mg tablet 10 mg PO QAM 11/18/22 09/15/23 empagliflozin 25 mg tablet 25 mg PO QAM 11/27/22 09/15/23 (Jardiance) magnesium 200 mg tablet 200 mg PO QAM 11/27/22 09/15/23 paroxetine HCl 40 mg tablet 40 mg PO QAM 11/27/22 09/15/23 Previous Rx's Medication Instructions Recorded Extended shower chair #1 ea 01/01/23 metoprolol succinate 50 mg 50 mg PO QAM blood pressure #30 01/15/23 tablet,extended release 24 hr tabs glucose free style test strips #100 ea 06/04/23 amlodipine 5 mg tablet 10 mg (2 x 5 mg) PO DAILY #60 tabs 08/13/23 insulin glargine 100 unit/mL (3 20 unit (0.2 mL) SUBCUT DAILY #15 08/13/23 mL) subcutaneous pen (Lantus mL Solostar U-100 Insulin) losartan 50 mg tablet 50 mg PO DAILY #30 tabs 08/13/23 insulin lispro 100 unit/mL See Rx Instructions .Route 09/18/23 subcutaneous pen (Humalog KwikPen .COMPLEX #15 mL (U-100) Insulin) Allergies Allergy/AdvReac Type Severity Reaction Status Date / Time cefaclor [From [facility]] Allergy ALGY-Anaphy Verified 10/03/23 12:29 laxis Iodine and Iodide Containing Allergy ADR-Vomitin Verified 10/03/23 12:29 Produc g Sulfa (Sulfonamide Allergy Unknown Verified 10/03/23 12:29 Antibiotics)
--- NOTE | 2023-10-03 13:32 | CTR_ITS ---
PROCEDURE INFORMATION: Exam: CT Head Without Contrast Exam date and time: 10/03/2023 1:46 PM Age: 72 years old Clinical indication: Pain; Headache not specified; Additional info: Headaches, not feeling right, dementia TECHNIQUE: Imaging protocol: Computed tomography of the head without contrast. Radiation optimization: All CT scans at this facility use at least one of these dose optimization techniques: automated exposure control; mA and/or kV adjustment per patient size (includes targeted exams where dose is matched to clinical indication); or iterative reconstruction. COMPARISON: CT head wo con* [id number] 09/12/2023 3:42 PM RADIATION DOSE METRICS: Total DLP (mGy-cm): 1685.38 FINDINGS: Brain: No acute intracranial hemorrhage. Normal differentiation of parsons-white matter. No midline shift. No cerebellar tonsillar ectopia. Cerebral ventricles: Mild chronic enlargement of the lateral ventricles secondary to atrophy, unchanged. No evidence of hydrocephalus. Paranasal sinuses: Visualized paranasal sinuses are clear. Mastoid air cells: Mastoid air cells are clear. Bones: Mild hyperostosis frontalis interna. No acute osseous findings. Soft tissues: Visualized superficial soft tissues are within normal limits. Other findings: Intracranial atherosclerosis. CT/CT head wo con* [id number] IMPRESSION: No acute intracranial findings.
[2023-10-03 13:38] LABS: Lactic Sepsis W/Reflex 2.5 mmol/L (0.5-2.2); Magnesium 1.9 mg/dL (1.7-2.3); Phosphorus 3.2 mg/dL (2.5-4.5)
[2023-10-03 13:43] LABS: Acetaminophen < 5.0 ug/mL (10-30); Alcohol Level < 10 mg/dL (0-10); Salicylate < 0.3 mg/dL (3-10)
[2023-10-03 14:23] LABS: Charge for UA Resulting for Rev
[2023-10-03 14:28] LABS: Bilirubin Urine Negative (Negative); Blood Urine Negative (Negative); Glucose Urine UA 3+ (Normal); Ketones Urine Trace (Negative); Leukocyte Esterase Urine Negative (Negative); Nitrate Urine Negative (Negative); Protein Urine 3+ (Negative); Specific Gravity, Urine 1.023 (1.005-1.030); Urine Appearance Cloudy (CLEAR); Urine Color Yellow (Yellow)
[2023-10-03] MEDS: insulin regular-human 100 units/1 mL 10 UNIT IVP (14:30)
[2023-10-03 14:31] LABS: Bacteria Urine None Seen /hpf; Hyaline Casts Urine 59.16 /lpf; RBC Urine 0-2 /hpf (0-2); Squamous Epithelial Cell Urine 0-5 /hpf (0-5); WBC Urine 0-5 /hpf (0-5)
[2023-10-03 14:41] LABS: UA Slide Review UA Slide Review Perf
[2023-10-03 14:42] LABS: Add Urine Culture? No; Fine Granular Casts Urine 0-4 /lpf
[2023-10-03 14:57] LABS: Glucose Point of Care 418 mg/dL (70-110)
[2023-10-03 15:12] LABS: Reflex Lactate Order REFLEX LACTIC ORDERD
[2023-10-03 15:54] LABS: Amphetamines Screen Urine Negative (Negative); Barbiturates Screen Urine Negative (Negative); Benzodiazepines Screen Urine Negative (Negative); Cocaine Screen Urine Negative (Negative); Opiate Screen Urine Negative (Negative); PCP Screen Urine Negative (Negative); THC Screen Urine Negative (Negative)
[2023-10-03 16:02] LABS: SARS Covid-2 Antigen negative (Negative)
== END 2023-10-03 16:14 | disposition home or self-care (01) ==
PROVIDERS: Emergency Medicine; Emergency Provider Emergency Medicine; PCP Family Medicine Adult Medicine
DX: E11.65 Type 2 diabetes mellitus with hyperglycemia (principal); Z79.4 Long term (current) use of insulin; I10 Essential (primary) hypertension; Z86.73 Personal history of transient ischemic attack (TIA), and cerebral infarction without residual deficits; I25.2 Old myocardial infarction; Z87.891 Personal history of nicotine dependence; Z11.52 Encounter for screening for COVID-19
CPT/HCPCS: 36415; 36416; 70450; 71045; 80053; 80306; 80307; 81003; 81015; 82962; 83605; 83690; 83735; 84100; 85025; 87426; 93005; 96374; 99285; J1815; J7030

== ENCOUNTER 2023-11-23 14:34 | Emergency (ER) | payer MEDICARE, OTHER, SELFPAY ==
[2023-11-23 15:12] VITALS: BP 151/84; PULSE 78; RESP 16; TEMP 36.8; O2SAT 99; BMI 31.2
[2023-11-23 16:09] LABS: Basophils % 0.4 %; Eosinophils % 0.6 %; Hematocrit 39.4 % (36-47); Lymphocytes # 1.4 10^3/uL (0.8-4.8); Lymphocytes % 19.6 %; Mean Corpuscular HGB Conc 33.8 g/dL (30-55); Mean Corpuscular Hemoglobin 31.1 pg (27-33); Mean Corpuscular Volume 92.3 fl (85-98); Monocytes # 0.4 10^3/uL (0.2-0.9); Monocytes % 6.3 %; Neutrophils # 5.04 10^3/uL (1.8-7.7); Neutrophils % 72.7 %; Nucleated Red Blood Cells % 0 %; Platelet Count 179 10^3/cmm (157-399); Red Blood Count 4.27 10^6/uL (3.85-5.65); Red Cell Distribution Width 12.7 % (12.1-15.1); White Blood Count 6.94 10^3/uL (3.29-11.43)
[2023-11-23 16:16] LABS: Alanine Aminotransferase 10 U/L (0-33); Alkaline Phosphatase 76 U/L (35-105); Anion Gap 16.2 (5-19); Aspartate Amino Transferase 17 U/L (0-32); Blood Urea Nitrogen 30 mg/dL (8-23); Calcium 9.9 mg/dL (8.5-10.5); Carbon Dioxide 27 mmol/L (22-29); Chloride 98 mmol/L (98-107); Creatinine Clr Calc Pharmacy 54.8631; Globulin 3.4 g/dL (1.3-4.6); Glucose 412 mg/dL (65-115); Osmolality Calculated 308 mOsm/kg (285-295); Potassium 4.2 mmol/L (3.5-5.1); Sodium 137 mmol/L (136-145); Total Bilirubin 0.5 mg/dL (0.15-1.2); Total Protein 7.4 g/dL (6.6-8.7)
== END 2023-11-23 16:30 | disposition left against medical advice (07) ==
PROVIDERS: Emergency Provider Family Medicine; PCP Family Medicine Adult Medicine
DX: Z53.21 Procedure and treatment not carried out due to patient leaving prior to being seen by health care provider (principal)
CPT/HCPCS: 36415; 80053; 85025

== ENCOUNTER 2023-12-02 11:38 | Observation (INO) | payer MEDICARE, OTHER, SELFPAY ==
[2023-12-02 11:52] VITALS: BP 158/86; PULSE 81; RESP 16; TEMP 36.7; O2SAT 100; BMI 31.2
--- NOTE | 2023-12-02 12:11 | ED_ITS ---
HPI - Altered Mental Status 2 General: Chief Complaint: Altered Mental Status Stated Complaint: ams, anxiety Time Seen by Provider: 12/02/23 11:44 Source: patient and EMS Limitations: other (Dementia limits history) History of Present Illness: History is very limited on this patient. When I interviewed the patient she denied any particular complaints. EMS providers report that she has a history of chronic dementia and her symptoms seem to be worse today therefore she is transported from her home. There is no other family member available at the time of my initial intake. She denies any complaints at this time. MD complaint: confusion Related Data Home Medications Medication Instructions Recorded Confirmed fenofibrate micronized 200 mg 200 mg PO QAM 11/18/22 12/02/23 capsule rosuvastatin 10 mg tablet 10 mg PO QAM 11/18/22 12/02/23 Previous Rx's Medication Instructions Recorded Extended shower chair #1 ea 01/01/23 glucose free style test strips #100 ea 06/04/23 insulin glargine 100 unit/mL (3 20 unit (0.2 mL) SUBCUT DAILY #15 08/13/23 mL) subcutaneous pen (Lantus mL Solostar U-100 Insulin) Allergies Allergy/AdvReac Type Severity Reaction Status Date / Time cefaclor [From [facility]] Allergy ALGY-Anaphy Verified 11/23/23 15:19 laxis codeine Allergy Unknown Verified 11/23/23 15:19 Iodine and Iodide Containing Allergy ADR-Vomitin Verified 11/23/23 15:19 Produc g Penicillins Allergy Unknown Verified 11/23/23 15:19 Sulfa (Sulfonamide Allergy Unknown Verified 11/23/23 15:19 Antibiotics) Review of Systems 2 Const: Denies: fever(s) or chills ENMT: Denies: odynophagia, nasal discharge or nasal congestion Card: Denies: palpitations or irregular heart rhythm Resp: Denies: dyspnea, productive cough or non-productive cough GI: Denies: abdominal pain, nausea, vomiting or diarrhea Musc: Denies: neck pain, back pain or extremity pain Skin/Breast: Denies: rash or pruritus Neuro: Denies: headache(s), numbness in extremities or weakness in extremities PFSH ED 2 PFSH: Medical History Decubitus ulcer Wheel chair as ambulatory aid Hypertension CVA (cerebrovascular accident due to intracerebral hemorrhage) NSTEMI (non-ST elevated myocardial infarction) Type 2 diabetes mellitus Acute encephalopathy Surgical History No pertinent past surgical history Family History Father Heart disease Hypertension Mother Stroke Social History Smoking and tobacco/nicotine status: former use of tobacco/nicotine Quit status (tobacco/nicotine): has quit using Alcohol intake: former Substance/Drug Use: never Household members: other Details: Daughter Physical Exam 2 Narrative: The patient appears to be quite comfortable she makes good eye contact answers questions within her ability in normal voice. She is cooperative. Const: COMMON NORMALS: no acute distress, average body habitus, no limitations, healthy appearing and alert GENERAL APPEARANCE: cooperative and comfortable ORIENTATION/CONSCIOUSNESS: Yes awake, Yes oriented to person and Yes oriented to place HENMT: COMMON NORMALS: normocephalic, Normal nasal mucous membranes and turbinates present, moist oral mucous membranes and oropharynx normal HEAD & SCALP: normocephalic FACE & SINUS: normal facial exam and face symmetric N OSE: Normal nasal mucous membranes and turbinates present Eye: COMMON NORMALS: Equal, round and reactive pupils present, EOMs intact bilaterally and conjunctivae normal CONJUNCTIVA: Yes conjunctivae normal P UPIL: Yes Equal, round and reactive pupils present Neck/C-Spine: COMMON NORMALS: full ROM, no lymphadenopathy, no JVD and Thyroid normal THYROID: Thyroid normal Chest: COMMONS NORMALS: normal inspection of the chest Resp: COMMON NORMALS: normal respiratory effort, No retractions, No use of accessory muscles and clear to auscultation bilaterally AUSCULTATION: clear to auscultation bilaterally Cardio: COMMON NORMALS: no JVD, regular rate, regular rhythm, No murmurs present (Cardio) and Peripheral pulses 2+ throughout RATE: regular rate R HYTHM: regular rhythm PERIPHERAL PULSES: Peripheral pulses 2+ throughout GI: COMMON NORMALS: Normal to inspection, nondistended, normoactive bowel sounds present, Soft to palpation and non-tender PALPATION: Yes Soft to palpation : COMMON NORMALS: Yes no CVA tenderness BLADDER/KIDNEY EXAM: Yes no CVA tenderness Back/Pelvis: COMMON NORMALS: no CVA tenderness and thoracic and lumbar spine normal to inspection Extremity: COMMON NORMALS: normal to inspection, full ROM, no calf tenderness and no pedal edema Neuro: COMMON NORMALS: moves all extremities, no focal motor deficits and no sensory deficits noted SENSORIUM/ORIENTATION: Yes alert, Yes oriented to person and Yes oriented to place CRANIAL NERVES: Yes CN normal except as noted OTHER: Patient is oriented to person and place but cannot remember her number of children, current birthdate and is has no memory or recollection of any current events such as current president etc. Skin: COMMON NORMALS: no rashes or lesions noted, no wounds and turgor normal GENERAL SKIN EXAM: no rashes or lesions noted and turgor normal Course 2 Reevaluation(s): Reevaluation #1: I interviewed the patient again. She still has confusion but is very pleasantly confused. She states that some days she feels sad but not every day. Her daughter is not present to find the additional illuminating information although the RN has spoken to the daughter and the daughter is considering long-term care placement for her mother. RN placed a call for social work assistance. Time: 15:05 Reevaluation #2: Discussed with case management and at this point she does not qualify for direct admission to a long-term from the emergency department. Family will have to make private arrangements with long-term and they will have to work through Medicaid as well as Medicare to for her to meet long-term care facility requirements. This is because she does not recall this require any skilled services at this time. Time: 16:22 Reevaluation #3: Was able to spend some time talking with the patient with her daughter present. The patient is very tearful and expressing concerns that her daughter was trying to get rid of her. The daughter apparently has made arrangements in the past month or so to have her admitted to one of the long-term care facilities that process could not be completed. Time: 17:22 Consultations: Consultation #1: Discussed with Dr. Dale regarding placing her in observation due to her hyperglycemia as well as her urinary tract infection requiring additional care on that which we can render in the emergency department to get her sugars in the normal range. This will also allow reevaluation of her dementia and potential long-term care placement. Time: 18:11 Vital Signs: Vital signs: Vital Signs Temperature 98.1 F 12/02/23 11:52 Pulse Rate 82 12/02/23 16:53 Respiratory Rate 16 12/02/23 11:52 Blood Pressure 201/117 12/02/23 16:53 Pulse Oximetry 100 12/02/23 16:53 Oxygen Delivery Me thod Room Air 12/02/23 16:53 MDM - Altered Mental Status Medical Decision Making Patient was transported the emergency department via EMS from her domicile. Initial does not Tatian was unclear as to whether the patient had an altered mental status or not but apparently she has chronic dementia and had been uncooperative with her family over the past day or so and has not taken much of her regular medication. She presented to the emergency department with elevated blood sugar and evidence of a UTI on ancillary studies after a unremarkable clinical examination other than just being pleasantly confused. She received IV fluids as well as intravenous antibiotics in the emergency department and additional discussion was entertained with the daughter who arrived later in her course regarding ultimate disposition. The family currently is not domiciled as their regular home was sold from out from underneath him more some similar event occurred and she does not have a place to take her mother safely to at this time. She is in the midst of making plans for long-term care placement but obviously cannot do that at this time a day. She will be placed in observation to manage her elevated blood sugar and UTI and have case management involved in ultimate disposition. No current evidence of other ongoing emergency medical condition at this time. Lab Data I reviewed the patient's lab results. 12/02/23 11:54 12/02/23 11:54 Radiology Impressions Chest X-Ray 12/02/23 12:15 Impression: Atherosclerosis. Laboratory Results WBC 6.44 10^3/uL (3.29-11.43) 12/02/23 11:54 RBC 4.61 10^6/uL (3.85-5.65) 12/02/23 11:54 Hgb 14.40 g/dL (11.27-16.99) 12/02/23 11:54 Hct 42.0 % (36-47) 12/02/23 11:54 MCV 91.1 fl (85-98) 12/02/23 11:54 MCH 31.2 pg (27-33) 12/02/23 11:54 MCHC 34.3 g/dL (30-55) 12/02/23 11:54 RDW 13.0 % (12.1-15.1) 12/02/23 11:54 Plt Count 182 10^3/cmm (157-399) 12/02/23 11:54 MPV 10.8 fL (7.4-10.4) H 12/02/23 11:54 Neut % (Auto) 58.8 % 12/02/23 11:54 Lymph % (Auto) 30.3 % 12/02/23 11:54 [place] % (Auto) 9.3 % 12/02/23 11:54 Eos % (Auto) 0.8 % 12/02/23 11:54 Baso % (Auto) 0.5 % 12/02/23 11:54 Neut # (Auto) 3.79 10^3/uL (1.8-7.7) 12/02/23 11:54 Lymph # (Auto) 2.0 10^3/uL (0.8-4.8) 12/02/23 11:54 [place] # (Auto) 0.6 10^3/uL (0.2-0.9) 12/02/23 11:54 Eos # (Auto) 0.1 10^3/uL (0.0-0.8) 12/02/23 11:54 Baso # (Auto) 0.0 10^3/uL (0.0-0.1) 12/02/23 11:54 Nucleated RBC % (auto) 0 % 12/02/23 11:54 Nucleated RBCs # 0.0 /100WBC 12/02/23 11:54 Sodium 132 mmol/L (136-145) L 12/02/23 11:54 Potassium 4.1 mmol/L (3.5-5.1) 12/02/23 11:54 Chloride 93 mmol/L (98-107) L 12/02/23 11:54 Carbon Dioxide 26 mmol/L (22-29) 12/02/23 11:54 Anion Gap 17.1 (5-19) 12/02/23 11:54 BUN 26 mg/dL (8-23) H 12/02/23 11:54 Creatinine 0.9 mg/dL (0.5-0.9) 12/02/23 11:54 GFR Calculation Not Reportable 12/02/23 11:54 Glucose 591 mg/dL (65-115) H* 12/02/23 11:54 POC Glucose 558 mg/dL (70-110) H* 12/02/23 17:33 Calculated Osmolality 306 mOsm/kg (285-295) H 12/02/23 11:54 Calcium 10.0 mg/dL (8.5-10.5) 12/02/23 11:54 Magnesium 2.2 mg/dL (1.7-2.3) 12/02/23 11:54 Total Bilirubin 0.5 mg/dL (0.15-1.2) 12/02/23 11:54 AST 14 U/L (0-32) 12/02/23 11:54 ALT 12 U/L (0-33) 12/02/23 11:54 Alkaline Phosphatase 111 U/L (35-105) H 12/02/23 11:54 Total Protein 7.5 g/dL (6.6-8.7) 12/02/23 11:54 Albumin 4.2 g/dL (3.5-5.2) 12/02/23 11:54 Globulin 3.3 g/dL (1.3-4.6) 12/02/23 11:54 TSH 3.02 uIU/mL (0.27-4.20) 12/02/23 11:54 Urine Color Yellow (Yellow) 12/02/23 12:03 Urine Appearance Clear (CLEAR) 12/02/23 12:03 Urine pH 5.0 (5-7) 12/02/23 12:03 Ur Specific [place] 1.034 (1.005-1.030) H 12/02/23 12:03 Urine Protein 1+ (Negative) A 12/02/23 12:03 Urine Glucose (UA) 3+ (Normal) H 12/02/23 12:03 Urine Ketones Trace (Negative) 12/02/23 12:03 Urine Blood Negative (Negative) 12/02/23 12:03 Urine Nitrate Negative (Negative) 12/02/23 12:03 Urine Bilirubin Negative (Negative) 12/02/23 12:03 Urine Urobilinogen 1.0 mg/dL (Negative) 12/02/23 12:03 Ur Leukocyte Esterase Negative (Negative) 12/02/23 12:03 Urine RBC 0-2 /hpf (0-2) 12/02/23 12:03 Urine WBC 51-100 /hpf (0-5) H 12/02/23 12:03 Ur Squamous Epith Cells 0-5 /hpf (0-5) 12/02/23 12:03 Amorphous Sediment Not Reportable 12/02/23 12:03 Urine Bacteria 4+ /hpf (NONE) H 12/02/23 12:03 Hyaline Casts 0-4 /lpf H 12/02/23 12:03 Serum Ketones Negative (Negative) 12/02/23 11:54 All radiology interpretation(s) finalized by discharge EKG Data EKG 1: I personally reviewed and interpreted this EKG as follows: Interpretation: Resting EKG reveals a sinus rhythm of 80 bpm with normal ID interval, QRS duration, corrected QT interval. Borderline leftward axis. She has some baseline irritability which computer generated statement regarding nonspecific ST-T wave changes however further review of the entire EKG does not reveal any changes from prior tracings within the system. Discharge Plan Discharge Patient Disposition: Placed in Observation Clinical Impression: Acute UTI, Dementia, Hyperglycemia due to diabetes mellitus Condition: Stable Prescriptions: No Action (DME) Extended shower chair See Rx Instructions .Route .MEDSUPPLY Qty: 1 0RF Rx Instructions: As directed in shower (DME) glucose free style test strips See Rx Instructions .Route .MEDSUPPLY Qty: 100 5RF Rx Instructions: As directed fenofibrate micronized 200 mg capsule 200 mg PO QAM rosuvastatin 10 mg tablet 10 mg PO QAM insulin glargine [Lantus Solostar U-100 Insulin] 100 unit/mL (3 mL) insulin pen 20 unit SUBCUT DAILY Qty: 15 0RF Referrals: Williams Carcamo MD [Primary Care Provider] - Patient Instructions: Altered Mental Status (ED) Coding Level of Care Code ED Cleaning Crew Member for Airam Hamilton
--- NOTE | 2023-12-02 12:15 | XR_ITS ---
WS: [id number] Portable AP upright chest, 12/02/2023 Clinical Data: ams Comparison: Portable chest, 10/03/2023 Findings: No nodules, masses or effusions are seen. The heart is normal. The pulmonary vascularity is not increased. No pneumonia or pneumothorax is seen. The aortic arch and descending thoracic aorta s how mild tortuosity. XR/XR chest 1V portable [id number] Impression: Atherosclerosis.
--- NOTE | 2023-12-02 12:16 | ECG_ITS ---
[facility] Test Date: 2023-12-02 Pat Name: Danita Thorpe Department: Room: Gender: Female Performance Improvement Coordinator: : 1950 Requested By: Ignacio Truong Order Number: [id number] Corey MD: MARIELA THOMAS Measurements Intervals [place] Rate: 80 P: 39 AR: 157 QRS: -26 QRSD: 102 T: 89 QT: 378 QTc: 436 Interpretive Statements SINUS RHYTHM POSSIBLE ANTERIOR MYOCARDIAL INFARCTION , OF INDETERMINATE AGE [30 ms Q WAVE IN V3/V4, OR R < 0.2 mV IN V4] MODERATE T-WAVE ABNORMALITY, CONSIDER LATERAL ISCHEMIA [-0.1+ mV T-WAVE IN I/aVL/V5/V6] Compared to ECG 10/03/2023 13:13:41 Myocardial infarct finding now present T-wave abnormality now present Possible ischemia now present Electronically Signed On 12-04-2023 18:12:41 CDT by MARIELA THOMAS [email or web address]
[2023-12-02 12:24] LABS: Basophils % 0.5 %; Eosinophils # 0.1 10^3/uL (0.0-0.8); Eosinophils % 0.8 %; Lymphocytes % 30.3 %; Mean Corpuscular HGB Conc 34.3 g/dL (30-55); Mean Corpuscular Hemoglobin 31.2 pg (27-33); Mean Corpuscular Volume 91.1 fl (85-98); Mean Platelet Volume 10.8 fL (7.4-10.4); Monocytes # 0.6 10^3/uL (0.2-0.9); Monocytes % 9.3 %; Neutrophils # 3.79 10^3/uL (1.8-7.7); Neutrophils % 58.8 %; Nucleated Red Blood Cells % 0 %; Platelet Count 182 10^3/cmm (157-399); Red Blood Count 4.61 10^6/uL (3.85-5.65); White Blood Count 6.44 10^3/uL (3.29-11.43)
[2023-12-02 12:45] LABS: Alanine Aminotransferase 12 U/L (0-33); Albumin Level 4.2 g/dL (3.5-5.2); Alkaline Phosphatase 111 U/L (35-105); Anion Gap 17.1 (5-19); Aspartate Amino Transferase 14 U/L (0-32); Blood Urea Nitrogen 26 mg/dL (8-23); Carbon Dioxide 26 mmol/L (22-29); Chloride 93 mmol/L (98-107); Creatinine Clr Calc Pharmacy 48.7672; Globulin 3.3 g/dL (1.3-4.6); Magnesium 2.2 mg/dL (1.7-2.3); Osmolality Calculated 306 mOsm/kg (285-295); Potassium 4.1 mmol/L (3.5-5.1); Sodium 132 mmol/L (136-145); Thyroid Stimulating Hormone 3.02 uIU/mL (0.27-4.20); Total Bilirubin 0.5 mg/dL (0.15-1.2); Total Protein 7.5 g/dL (6.6-8.7)
[2023-12-02 13:00] LABS: Glucose 591 mg/dL (65-115)
--- NOTE | 2023-12-02 13:05 | PC.PHAR ---
Patient not sure of medications . Called and verified with [address] I have removed the older medications Amlodipine 5mg last fill 08/13/23, Humalog Kwikpen Insulin 100 unit/ml ,Jardiance 25 mg last fill 12/21/22 30days, losartan 50 mg 08/13/23 30days, Magnesium 200mg, Metopralol succinate 50mg Has script on file at Pharmacy but last fill 01/01/23 90days, Paroxtine HCL 40mg last fill 10/30/23 90days from her medication list .
[2023-12-02 13:20] LABS: Bilirubin Urine Negative (Negative); Blood Urine Negative (Negative); Glucose Urine UA 3+ (Normal); Ketones Urine Trace (Negative); Leukocyte Esterase Urine Negative (Negative); Nitrate Urine Negative (Negative); Protein Urine 1+ (Negative); Urine Appearance Clear (CLEAR); Urine Color Yellow (Yellow)
[2023-12-02 13:25] LABS: Add Urine Microscopic? YES; Bacteria Urine 4+ /hpf; Hyaline Casts Urine 0-4 /lpf; RBC Urine 0-2 /hpf (0-2); Squamous Epithelial Cell Urine 0-5 /hpf (0-5); WBC Urine 51-100 /hpf (0-5)
[2023-12-02 13:26] LABS: Specific Gravity, Urine 1.034 (1.005-1.030)
[2023-12-02 13:27] LABS: Add Urine Culture? Yes
[2023-12-02 13:49] LABS: Ketone (Acetest) Serum Negative (Negative)
[2023-12-02] MEDS: lactated ringers 1,000 ML 999 ML IV (14:31)
[2023-12-02] MEDS: levofloxacin-dextrose 5 % 750 MG/150 ML PREMIX 100 MG IV (15:41)
--- NOTE | 2023-12-02 16:52 | PC.NURSE ---
assumed care of patient at 1652
[2023-12-02 16:53] VITALS: BP 201/117; PULSE 82; O2SAT 100
[2023-12-02 17:40] LABS: Glucose Point of Care 558 mg/dL (70-110)
--- NOTE | 2023-12-02 18:03 | PM.HP ---
Providers/Chief Complaint Primary Care Provider: Williams Carcamo MD Chief Complaint: ams, anxiety History of Present Illness Danita Thorpe is a 72 year old female type II diabetic insulin-dependent, was living with her daughter, her daughter has lost her house and currently they are living in a camper, daughter was trying to get her to a long-term facility was not able to complete the process, she is coming in today for possible ultimate status however she seems to be at baseline for her cognitive impairment related to dementia. In the ER she has been diagnosed with UTI and hyperglycemia without signs of DKA. Her anion gap is not high. She can be monitored at [facility] with sliding scale and IV fluids. Review of Systems Const: Denies: fever(s) Eyes: Denies: change in vision ENMT: Denies: throat pain Card: Denies: chest pain Resp: Denies: dyspnea GI: Reports: nausea : Reports: urinary urgency and urinary incontinence Medications/Allergies Home Medications Medication Instructions Recorded Confirmed Last Taken Type fenofibrate micronized 200 mg 200 mg PO [facility] 11/18/22 12/02/23 11/26/22 History capsule rosuvastatin 10 mg tablet 10 mg PO [facility] 11/18/22 12/02/23 11/26/22 History Extended shower chair #1 ea 01/01/23 12/02/23 Unknown Rx glucose free style test strips #100 ea 06/04/23 12/02/23 Unknown Rx insulin glargine 100 unit/mL (3 20 unit (0.2 mL) SUBCUT DAILY #15 08/13/23 12/02/23 Unknown Rx mL) subcutaneous pen (Lantus mL Solostar U-100 Insulin) Allergies Allergy/AdvReac Type Severity Reaction Status Date / Time [facility] Allergy ALGY-Anaphy Verified 11/23/23 15:19 laxis codeine Allergy Unknown Verified 11/23/23 15:19 Iodine and Iodide Containing Allergy ADR-Vomitin Verified 11/23/23 15:19 Produc g Penicillins Allergy Unknown Verified 11/23/23 15:19 Sulfa (Sulfonamide Allergy Unknown Verified 11/23/23 15:19 Antibiotics) PFSH Acute PFSH: Medical History Decubitus ulcer Wheel chair as ambulatory aid Hypertension CVA (cerebrovascular accident due to intracerebral hemorrhage) NSTEMI (non-ST elevated myocardial infarction) Type 2 diabetes mellitus Acute encephalopathy Surgical History No pertinent past surgical history Family History Father Heart disease Hypertension Mother Stroke Social History Smoking and tobacco/nicotine status: former use of tobacco/nicotine Quit status (tobacco/nicotine): has quit using Alcohol intake: former Substance/Drug Use: never Household members: other Details: Daughter Vitals/I&O/Wt Last Vital Signs Temp 98.1 F 12/02/23 11:52 Pulse 82 12/02/23 16:53 Resp 16 12/02/23 11:52 BP 201/117 12/02/23 16:53 Pulse Ox 100 12/02/23 16:53 O2 Del Method Room Air 12/02/23 16:53 12/02/23 12/02/23 12/02/23 06:59 14:59 22:59 Intake Total 200 / 200 Balance 200 / 200 Weight last 48 hrs Weight 72.575 kg Physical Exam Narrative: Baseline dementia Cognitive impairment No sign of stroke Awake and alert Pleasant Hypertensive Currently on room air Emotionally labile Sinus rhythm Data 12/02/23 11:54 12/02/23 11:54 Micro: Microbiology 12/02/23 15:54 Blood Culture - Preliminary Blood SPECIMEN COLLECTED 12/02/23 15:48 Blood Culture - Preliminary Blood SPECIMEN COLLECTED A&P Assessment and plan (1) Hypertension: Qualifiers: Hypertension type: primary hypertension Qualified Code(s): I10 - Essential (primary) hypertension (2) Type 2 diabetes mellitus: Qualifiers: Diabetes mellitus terminal operator insulin use: with terminal operator use Diabetes mellitus complication status: with other specified complication Qualified Code(s): E11.69 - Type 2 diabetes mellitus with other specified complication; Z79.4 - nursing home (current) use of insulin (3) Acute UTI: (4) Altered mental status: (5) Confusion: (6) Dementia: Qualifiers: Dementia behavioral or psychological symptom: unspecified whether behavioral, psychotic, or mood disturbance or anxiety Dementia severity: moderate Dementia type: unspecified type Qualified Code(s): F03.B0 - Unspecified dementia, moderate, without behavioral disturbance, psychotic disturbance, mood disturbance, and anxiety Plan Hyperglycemia without signs of DKA Anion gap is not hide I would allow her to have consistent carb diet with sliding scale In the ER she can get 50 units of regular IV push of insulin For now she can have diet No need of ICU at this point continue IV fluids till 7 AM tomorrow Ultimately status related to underlying dementia, no sign of stroke Hypertension can add metoprolol and lisinopril optimize dose UTI: Added levofloxacin no signs of sepsis Family was trying to send her to a long-term facility/will test rest with case management Full code Consistent carb diet DVT prophylaxis added Attestations Medical Necessity Statement*: More than 2 midnights anticipated Diagnoses Primary hypertension I10 Hypertension type: primary hypertension Type 2 diabetes mellitus with other specified complication, with long-term current use of insulin E11.69; Z79.4 Diabetes mellitus nursing home insulin use: with nursing home use Diabetes mellitus complication status: with other specified complication Acute UTI N39.0 Altered mental status R41.82 Confusion R41.0 Moderate dementia, unspecified dementia type, unspecified whether behavioral, psychotic, or mood disturbance or anxiety F03.B0 Dementia behavioral or psychological symptom: unspecified whether behavioral, psychotic, or mood disturbance or anxiety Dementia severity: moderate Dementia type: unspecified type
[2023-12-02] MEDS: LORazepam 0.5 mg Tablet PO (18:36)
[2023-12-02 20:11] VITALS: BP 142/69; PULSE 79; O2SAT 100
[2023-12-02] MEDS: amlodipine 10 mg Tablet 5 MG PO (20:15)
[2023-12-02 20:30] VITALS: BP 150/87; PULSE 76; RESP 16; O2SAT 98
[2023-12-02 20:47] LABS: Glucose Point of Care 494 mg/dL (70-110)
--- NOTE | 2023-12-02 20:49 | PC.NURSE ---
report called to Iman[facility] at 2045 med surg, requesting insulin be given d/t hyperglycemia. Dr. Truong notified of finger stick glucose, 491, ordering insulin. imani notified of glucose and insulin to be ordered.
[2023-12-02 20:51] VITALS: BMI 25.9
[2023-12-02 21:00] VITALS: BP 150/71; PULSE 76; RESP 16; O2SAT 100
--- NOTE | 2023-12-02 21:37 | PC.NURSE ---
new order insulin unverified by pharmacy, nurse Marleen on med surg notified and states okay to bring pt up and aware of order.
[2023-12-02 21:38] VITALS: BP 155/81; PULSE 74; O2SAT 95
--- NOTE | 2023-12-02 22:28 | PC.NURSE ---
patient has a one time IVP of 11 units of regular insulin and a sliding scale of humalog for bedtime, dr bustos notified in regards to which one to give. IVP not given per dr bustos.
[2023-12-02 22:42] LABS: Glucose Point of Care 486 mg/dL (70-110)
[2023-12-02] MEDS: insulin lispro 100 unit/1 mL SUBCUT (22:43)
[2023-12-02] MEDS: enoxaparin 40 mg/0.4 mL Syringe SUBCUT (22:43)
[2023-12-02] MEDS: metoprolol tartrate 25 mg Tablet PO (22:43)
[2023-12-02] MEDS: sodium chloride 0.9% 1,000 ML 100 ML IV (22:50)
[2023-12-03 04:00] VITALS: BP 118/85; PULSE 69; RESP 15; TEMP 36.5; O2SAT 98
[2023-12-03 05:31] LABS: Basophils % 0.5 %; Eosinophils # 0.1 10^3/uL (0.0-0.8); Eosinophils % 1.1 %; Hematocrit 36.4 % (36-47); Lymphocytes # 1.8 10^3/uL (0.8-4.8); Lymphocytes % 29.7 %; Mean Corpuscular HGB Conc 33.8 g/dL (30-55); Mean Corpuscular Hemoglobin 30.2 pg (27-33); Mean Corpuscular Volume 89.4 fl (85-98); Mean Platelet Volume 10.5 fL (7.4-10.4); Monocytes # 0.7 10^3/uL (0.2-0.9); Neutrophils # 3.49 10^3/uL (1.8-7.7); Neutrophils % 57.2 %; Nucleated Red Blood Cells % 0 %; Platelet Count 163 10^3/cmm (157-399); Red Blood Count 4.07 10^6/uL (3.85-5.65)
[2023-12-03 05:54] LABS: Anion Gap 12.8 (5-19); Blood Urea Nitrogen 29 mg/dL (8-23); Calcium 9.8 mg/dL (8.5-10.5); Carbon Dioxide 27 mmol/L (22-29); Chloride 102 mmol/L (98-107); Creatinine Clr Calc Pharmacy 33.8143; Glucose 209 mg/dL (65-115); Osmolality Calculated 298 mOsm/kg (285-295); Potassium 3.8 mmol/L (3.5-5.1); Sodium 138 mmol/L (136-145)
[2023-12-03 06:28] LABS: Glucose Point of Care 300 mg/dL (70-110)
[2023-12-03] MEDS: insulin lispro 100 unit/1 mL SUBCUT ×4 (08:02→21:09)
[2023-12-03] MEDS: amlodipine 10 mg Tablet 5 MG PO (08:03)
[2023-12-03] MEDS: metoprolol tartrate 25 mg Tablet PO ×2 (08:03→20:34)
[2023-12-03] MEDS: lisinopril 10 mg Tablet 20 MG PO ×2 (08:03→17:27)
[2023-12-03] MEDS: levoFLOXacin 750 mg Tablet PO (08:04)
[2023-12-03 08:12] VITALS: BP 153/64; PULSE 76; O2SAT 98
--- NOTE | 2023-12-03 09:56 | PM.PN ---
Subjective Subjective: Hyperglycemia improved Patient is pleasant cooperative stating that she would discussed with her daughter regarding disposition plan She is stating that she is absolutely does not want to go to longterm, she is stating that we are 1 happy family with 1 dog daughter and mother Vitals/I&O/Wt Last Vital Signs Temp 97.7 F 12/03/23 04:00 Pulse 76 12/03/23 08:12 Resp 15 12/03/23 04:00 BP 153/64 12/03/23 08:12 Pulse Ox 98 12/03/23 08:12 O2 Del Method Room Air 12/03/23 04:00 12/02/23 12/03/23 12/03/23 22:59 06:59 14:59 Intake Total 1150 / 1150 1000 / 1000 Balance 1150 / 1150 1000 / 1000 Weight last 48 hrs Weight 61.944 kg Weight 60.328 kg Weight 72.575 kg Physical Exam Narrative: Euvolemic GCS 15 Pleasant cooperative S1, S2 Nonfocal neuroexam Hypertensive Currently on room air Data 12/03/23 04:55 12/03/23 04:55 Micro: Microbiology 12/02/23 15:54 Blood Culture - Preliminary Blood SPECIMEN COLLECTED 12/02/23 15:48 Blood Culture - Preliminary Blood SPECIMEN COLLECTED A&P Assessment and plan (1) Hypertension: Qualifiers: Hypertension type: primary hypertension Qualified Code(s): I10 - Essential (primary) hypertension (2) Type 2 diabetes mellitus: Qualifiers: Diabetes mellitus manager long term care insulin use: with manager long term care use Diabetes mellitus complication status: with other specified complication Qualified Code(s): E11.69 - Type 2 diabetes mellitus with other specified complication; Z79.4 - watermelon inspector (current) use of insulin (3) Acute UTI: (4) Altered mental status: (5) Confusion: (6) Dementia: Qualifiers: Dementia behavioral or psychological symptom: unspecified whether behavioral, psychotic, or mood disturbance or anxiety Dementia severity: moderate Dementia type: unspecified type Qualified Code(s): F03.B0 - Unspecified dementia, moderate, without behavioral disturbance, psychotic disturbance, mood disturbance, and anxiety Plan Hyperglycemia without signs of DKA Hyperglycemia improved No signs of DKA No significant acidosis or high anion gap I will increase her Lantus dose to 25 units in the daytime Ultimately status related to underlying dementia, no sign of stroke Hypertension can add metoprolol and lisinopril optimize dose Continue amlodipine Compliance with medication seems questionable UTI: Added levofloxacin no signs of sepsis Family was trying to send her to a long-term facility/will test rest with case management: I will discuss with her daughter 1 more time today patient is stating that she does not want to go to longterm, her insight seems to be poor at this point Full code Consistent carb diet DVT prophylaxis added Attestations Medical Necessity Statement*: Continue medical management Diagnoses Primary hypertension I10 Hypertension type: primary hypertension Type 2 diabetes mellitus with other specified complication, with long-term current use of insulin E11.69; Z79.4 Diabetes mellitus care home insulin use: with care home use Diabetes mellitus complication status: with other specified complication Acute UTI N39.0 Altered mental status R41.82 Confusion R41.0 Moderate dementia, unspecified dementia type, unspecified whether behavioral, psychotic, or mood disturbance or anxiety F03.B0 Dementia behavioral or psychological symptom: unspecified whether behavioral, psychotic, or mood disturbance or anxiety Dementia severity: moderate Dementia type: unspecified type
--- NOTE | 2023-12-03 10:30 | P.DS_ITS ---
Discharge Providers Date of Admission: 12/02/23 20:34 Date of Discharge: December 03, 2023 Attending Provider at Admission: Corrie Dale MD Attending Provider at Discharge: Corrie Dale MD Primary Care Provider: Williams Carcamo MD Diagnoses at Discharge Discharge Diagnosis (1) Hypertension: Status: Acute Qualifiers: Hypertension type: primary hypertension Qualified Code(s): I10 - Essential (primary) hypertension (2) Type 2 diabetes mellitus: Status: Acute Qualifiers: Diabetes mellitus terminal operations manager insulin use: with terminal operations manager use Diabetes mellitus complication status: with other specified complication Qualified Code(s): E11.69 - Type 2 diabetes mellitus with other specified complication; Z79.4 - jail (current) use of insulin (3) Acute UTI: Status: Acute (4) Altered mental status: Status: Acute (5) Confusion: Status: Acute (6) Dementia: Status: Acute Qualifiers: Dementia behavioral or psychological symptom: unspecified whether behavioral, psychotic, or mood disturbance or anxiety Dementia severity: moderate Dementia type: unspecified type Qualified Code(s): F03.B0 - Unspecified dementia, moderate, without behavioral disturbance, psychotic disturbance, mood disturbance, and anxiety Reason for Visit Reason for Visit: ams, anxiety Hospital Course Hospital Course 72-year-old female who was admitted for management and evaluation of hypertension and hyperglycemia she was not in DKA, she was given IV fluid bolus and continued on her Lantus with sliding scale which improved her blood sugar, she was given levofloxacin for UTI, for blood pressure she was given amlodipine, metoprolol, lisinopril was added however at the time of discharge I have decided not to continue lisinopril because of her creatinine 1.2, she will get amlodipine 10 mg along metoprolol for hypertension and insulin dose has been increased to 25 units, I have also added very low-dose Januvia I do not have her GFR hence would not add metformin at this point. Patient walked 100 feet without any office services assistant does not need assistance for ambulation she does not meet criteria to go to rehab hence we have decided to discharge her home, called her daughter at number [phone] Bart Pressley, she will come pick her up, she was stating that they are living in a camper, she is stating that she was staying with her boyfriend and went for was not able to take care of her and called ambulance yesterday. But at this point I told her that she does not need any criteria to be in the hospital or go to rehab, she can continue her antihypertensive regimen and insulin regimen at home, she is very pleasant and physically capable. Will give her a few more days of levofloxacin for UTI. Physical Exam Narrative: Pleasant cooperative Nonfocal neuroexam GCS 15 Awake and alert Discharge Data Studies Completed and Pending Completed Studies During Hospitalization Category Date Time Status XR chest 1V portable [id number] Stat Exams 12/02/23 12:15 Completed Pending at discharge Category Date Time Status Basic Metabolic Panel AM LABS Lab 12/04/23 04:00 Ordered Blood Culture Stat Lab 12/02/23 15:54 Results Urine Culture Stat Lab 12/02/23 12:03 Received Radiology Impressions Chest X-Ray 12/02/23 12:15 Impression: Atherosclerosis. Laboratory Results WBC 6.10 10^3/uL (3.29-11.43) 12/03/23 04:55 RBC 4.07 10^6/uL (3.85-5.65) 12/03/23 04:55 Hgb 12.30 g/dL (11.27-16.99) 12/03/23 04:55 Hct 36.4 % (36-47) 12/03/23 04:55 MCV 89.4 fl (85-98) 12/03/23 04:55 MCH 30.2 pg (27-33) 12/03/23 04:55 MCHC 33.8 g/dL (30-55) 12/03/23 04:55 RDW 13.0 % (12.1-15.1) 12/03/23 04:55 Plt Count 163 10^3/cmm (157-399) 12/03/23 04:55 MPV 10.5 fL (7.4-10.4) H 12/03/23 04:55 Neut % (Auto) 57.2 % 12/03/23 04:55 Lymph % (Auto) 29.7 % 12/03/23 04:55 Russell % (Auto) 11.0 % 12/03/23 04:55 Eos % (Auto) 1.1 % 12/03/23 04:55 Baso % (Auto) 0.5 % 12/03/23 04:55 Neut # (Auto) 3.49 10^3/uL (1.8-7.7) 12/03/23 04:55 Lymph # (Auto) 1.8 10^3/uL (0.8-4.8) 12/03/23 04:55 Russell # (Auto) 0.7 10^3/uL (0.2-0.9) 12/03/23 04:55 Eos # (Auto) 0.1 10^3/uL (0.0-0.8) 12/03/23 04:55 Baso # (Auto) 0.0 10^3/uL (0.0-0.1) 12/03/23 04:55 Nucleated RBC % (auto) 0 % 12/03/23 04:55 Nucleated RBCs # 0.0 /100WBC 12/03/23 04:55 Sodium 138 mmol/L (136-145) 12/03/23 04:55 Potassium 3.8 mmol/L (3.5-5.1) 12/03/23 04:55 Chloride 102 mmol/L (98-107) 12/03/23 04:55 Carbon Dioxide 27 mmol/L (22-29) 12/03/23 04:55 Anion Gap 12.8 (5-19) 12/03/23 04:55 BUN 29 mg/dL (8-23) H 12/03/23 04:55 Creatinine 1.2 mg/dL (0.5-0.9) H 12/03/23 04:55 GFR Calculation Not Reportable 12/03/23 04:55 Glucose 209 mg/dL (65-115) H 12/03/23 04:55 POC Glucose 300 mg/dL (70-110) H 12/03/23 06:18 Calculated Osmolality 298 mOsm/kg (285-295) H 12/03/23 04:55 Calcium 9.8 mg/dL (8.5-10.5) 12/03/23 04:55 Magnesium 2.0 mg/dL (1.7-2.3) 12/03/23 04:55 Total Bilirubin 0.5 mg/dL (0.15-1.2) 12/02/23 11:54 AST 14 U/L (0-32) 12/02/23 11:54 ALT 12 U/L (0-33) 12/02/23 11:54 Alkaline Phosphatase 111 U/L (35-105) H 12/02/23 11:54 Total Protein 7.5 g/dL (6.6-8.7) 12/02/23 11:54 Albumin 4.2 g/dL (3.5-5.2) 12/02/23 11:54 Globulin 3.3 g/dL (1.3-4.6) 12/02/23 11:54 TSH 3.02 uIU/mL (0.27-4.20) 12/02/23 11:54 Urine Color Yellow (Yellow) 12/02/23 12:03 Urine Appearance Clear (CLEAR) 12/02/23 12:03 Urine pH 5.0 (5-7) 12/02/23 12:03 Ur Specific [place] 1.034 (1.005-1.030) H 12/02/23 12:03 Urine Protein 1+ (Negative) A 12/02/23 12:03 Urine Glucose (UA) 3+ (Normal) H 12/02/23 12:03 Urine Ketones Trace (Negative) 12/02/23 12:03 Urine Blood Negative (Negative) 12/02/23 12:03 Urine Nitrate Negative (Negative) 12/02/23 12:03 Urine Bilirubin Negative (Negative) 12/02/23 12:03 Urine Urobilinogen 1.0 mg/dL (Negative) 12/02/23 12:03 Ur Leukocyte Esterase Negative (Negative) 12/02/23 12:03 Urine RBC 0-2 /hpf (0-2) 12/02/23 12:03 Urine WBC 51-100 /hpf (0-5) H 12/02/23 12:03 Ur Squamous Epith Cells 0-5 /hpf (0-5) 12/02/23 12:03 Amorphous Sediment Not Reportable 12/02/23 12:03 Urine Bacteria 4+ /hpf (NONE) H 12/02/23 12:03 Hyaline Casts 0-4 /lpf H 12/02/23 12:03 Serum Ketones Negative (Negative) 12/02/23 11:54 Vitals Last Vital Signs Temp 97.7 F 12/03/23 04:00 Pulse 76 12/03/23 08:12 Resp 15 12/03/23 04:00 BP 153/64 12/03/23 08:12 Pulse Ox 98 12/03/23 08:12 O2 Del Method Room Air 12/03/23 04:00 Discharge Plan Discharge Patient Disposition: Home Condition: Stable Prescriptions: New amlodipine 10 mg Tablet 10 mg PO DAILY Qty: 30 2RF Januvia 25 mg tablet 25 mg PO DAILY Qty: 30 4RF levofloxacin 750 mg Tablet 750 mg PO DAILY Qty: 3 0RF metoprolol tartrate 25 mg Tablet 25 mg PO BID@0900,2100 Qty: 60 2RF Continued (DME) Extended shower chair See Rx Instructions .Route .MEDSUPPLY Qty: 1 0RF Rx Instructions: As directed in shower (DME) glucose free style test strips See Rx Instructions .Route .MEDSUPPLY Qty: 100 5RF Rx Instructions: As directed fenofibrate micronized 200 mg capsule 200 mg PO QAM rosuvastatin 10 mg tablet 10 mg PO QAM Changed insulin glargine [Lantus Solostar U-100 Insulin] 100 unit/mL (3 mL) insulin pen 25 unit SUBCUT DAILY Qty: 15 3RF Discharge Orders: Discharge Order (Routine); Ordered 12/03/23 Ordered By: Corrie Dale Referrals: Williams Carcamo MD [Primary Care Provider] - Patient Instructions: Altered Mental Status (ED), Opioid Safety Discharge Attestations Time Spent in Discharge Care*: greater than 30 min Status at Discharge: Cognitive status at discharge: mildly impaired cognition , Behavioral status at discharge: cooperative , Quality Metrics Clinical Quality Measures [ No reported AMI, CVA or VTE this stay] Coding Level of Care Code Acute Code for Chg Fwd Diagnoses Primary hypertension I10 Hypertension type: primary hypertension Type 2 diabetes mellitus with other specified complication, with long-term current use of insulin E11.69; Z79.4 Diabetes mellitus residential insulin use: with residential use Diabetes mellitus complication status: with other specified complication Acute UTI N39.0 Altered mental status R41.82 Confusion R41.0 Moderate dementia, unspecified dementia type, unspecified whether behavioral, psychotic, or mood disturbance or anxiety F03.B0 Dementia behavioral or psychological symptom: unspecified whether behavioral, psychotic, or mood disturbance or anxiety Dementia severity: moderate Dementia type: unspecified type
[2023-12-03 10:39] LABS: Glucose Point of Care 327 mg/dL (70-110)
[2023-12-03 12:04] VITALS: BP 149/73; PULSE 70; O2SAT 95
--- NOTE | 2023-12-03 15:39 | PC.SOCIAL ---
IMM Updated Updated pt on IMM. No questions voiced. Provided pt a copy. Initialed, dated, & timed a copy & placed in chart.
[2023-12-03 16:03] VITALS: BP 119/63; PULSE 71; RESP 15; O2SAT 99
[2023-12-03 16:36] LABS: Glucose Point of Care 257 mg/dL (70-110)
--- NOTE | 2023-12-03 18:54 | PC.NURSE ---
After several attempts we are still unable to get patient's daughter to answer the phone to come and pickup her mother. Patient and Dr. Dale made aware and orders to discharged cancelled for tonight.
[2023-12-03 20:00] VITALS: BP 111/66; PULSE 70; RESP 19; TEMP 36.8; O2SAT 96
[2023-12-03 20:33] LABS: Glucose Point of Care 333 mg/dL (70-110)
[2023-12-03] MEDS: acetaminophen 500 mg Tablet PO (20:34)
[2023-12-03] MEDS: enoxaparin 40 mg/0.4 mL Syringe SUBCUT (20:50)
[2023-12-04] VITALS (7 sets, daily range): BP systolic 116–176; BP diastolic 57–79; PULSE 65–76; RESP 15–19; TEMP 36.6–37.2; O2SAT 97–100
[2023-12-04 04:58] LABS: Anion Gap 14.2 (5-19); Blood Urea Nitrogen 36 mg/dL (8-23); Calcium 9.5 mg/dL (8.5-10.5); Carbon Dioxide 23 mmol/L (22-29); Chloride 100 mmol/L (98-107); Glucose 355 mg/dL (65-115); Osmolality Calculated 299 mOsm/kg (285-295); Potassium 4.2 mmol/L (3.5-5.1); Sodium 133 mmol/L (136-145)
--- NOTE | 2023-12-04 04:58 | PM.PN ---
Subjective Subjective: We have discharged the patient, but family is not willing to come in and pick her up I will ask major case detective to see what other options we can use to help Ms. Thorpe Vitals/I&O/Wt Last Vital Signs Temp 97.7 F 12/03/23 04:00 Pulse 70 12/03/23 12:04 Resp 15 12/03/23 04:00 BP 149/73 12/03/23 12:04 Pulse Ox 95 12/03/23 12:04 O2 Del Method Room Air 12/03/23 12:04 12/03/23 12/03/23 12/03/23 06:59 14:59 22:59 Intake Total 1350 / 1350 Balance 1350 / 1350 Weight last 48 hrs Weight 61.944 kg Weight 60.328 kg Weight 72.575 kg Physical Exam Narrative: Awake and alert Pleasant cooperative GCS 15 Nonfocal neuroexam No sign of confusion Oriented to self Hemodynamically stable currently on room air Data 12/03/23 04:55 12/03/23 04:55 Micro: Microbiology 12/02/23 12:03 Urine Culture - Preliminary Urine,Clean Catch Gram Negative Rods 12/02/23 15:54 Blood Culture - Preliminary Blood SPECIMEN COLLECTED 12/02/23 15:48 Blood Culture - Preliminary Blood SPECIMEN COLLECTED A&P Assessment and plan (1) Hypertension: Qualifiers: Hypertension type: primary hypertension Qualified Code(s): I10 - Essential (primary) hypertension (2) Type 2 diabetes mellitus: Qualifiers: Diabetes mellitus complication status: with other specified complication Diabetes mellitus retirement insulin use: with retirement use Qualified Code(s): E11.69 - Type 2 diabetes mellitus with other specified complication; Z79.4 - terminal makeup operator (current) use of insulin (3) Acute UTI: (4) Altered mental status: (5) Confusion: (6) Dementia: Qualifiers: Dementia behavioral or psychological symptom: unspecified whether behavioral, psychotic, or mood disturbance or anxiety Dementia severity: moderate Dementia type: unspecified type Qualified Code(s): F03.B0 - Unspecified dementia, moderate, without behavioral disturbance, psychotic disturbance, mood disturbance, and anxiety Plan Hyperglycemia without signs of DKA Hyperglycemia improved Ultimately status related to underlying dementia, no sign of stroke Hypertension blood pressure better with use of antihypertensive regimen UTI: Continue levofloxacin Full code Consistent carb diet DVT prophylaxis added Attestations Medical Necessity Statement*: Continue medical management Diagnoses Primary hypertension I10 Hypertension type: primary hypertension Type 2 diabetes mellitus with other specified complication, with long-term current use of insulin E11.69; Z79.4 Diabetes mellitus complication status: with other specified complication Diabetes mellitus exterminator helper insulin use: with retirement use Acute UTI N39.0 Altered mental status R41.82 Confusion R41.0 Moderate dementia, unspecified dementia type, unspecified whether behavioral, psychotic, or mood disturbance or anxiety F03.B0 Dementia behavioral or psychological symptom: unspecified whether behavioral, psychotic, or mood disturbance or anxiety Dementia severity: moderate Dementia type: unspecified type
[2023-12-04 05:00] LABS: Creatinine Clr Calc Pharmacy 36.8416
[2023-12-04 06:20] LABS: Glucose Point of Care 340 mg/dL (70-110)
[2023-12-04] MEDS: insulin glargine 100 units/1 mL 25 UNIT SUBCUT (08:54)
[2023-12-04] MEDS: insulin lispro 100 unit/1 mL SUBCUT ×4 (08:55→20:34)
[2023-12-04] MEDS: amlodipine 10 mg Tablet 5 MG PO (08:56)
[2023-12-04] MEDS: lisinopril 10 mg Tablet 20 MG PO ×2 (08:57→17:46)
[2023-12-04] MEDS: metoprolol tartrate 25 mg Tablet PO ×2 (08:58→19:55)
[2023-12-04 11:17] LABS: Glucose Point of Care 464 mg/dL (70-110)
[2023-12-04 16:19] LABS: Glucose Point of Care 250 mg/dL (70-110)
--- NOTE | 2023-12-04 17:15 | PM.MISC ---
Miscellaneous Note Note: It has been difficult to contact patient's family. Nursing staff has called several times however we could not get a hold of anybody. Patient scored 10 out of 12 on [place] assessment that was done at previous hospitalization. She requires 24-hour supervision. Patient is wanting to sign out AMA. Currently she is unsafe for discharge. She also is somewhat confused. She is quite forgetful and does have cognitive impairment. Will check head CT. Have consulted psychiatry to assess for capacity. We have no way of verifying things that patient is telling us. Based on reviewing her chart from previous hospitalizations and this visit and upon talking to nursing staff we will go ahead and start a 96-hour hold at this time until she can be cleared by psychiatry. I do not believe she can go home alone at this time. It is unsafe for her to do so. If we can get a hold of the patient's family and she can be discharged home with the family with supervision we may be able to lift a 96-hour hold at that time. Paperwork filled out and in chart at this time.
[2023-12-04] MEDS: enoxaparin 40 mg/0.4 mL Syringe SUBCUT (19:56)
--- NOTE | 2023-12-04 20:23 | PC.NURSE ---
96 Hour Hold Patient informed of being placed under a 96 hour hold and education regarding her rights explained. Patient tearful while stating she did not like this, also stating I would not have come here if I knew you would do this. Further education provided to patient that this is for her personal safety; patient verbalized that she understood the information presented to her. Care nurse at bedside for further questions.
[2023-12-04 20:39] LABS: Glucose Point of Care 297 mg/dL (70-110)
[2023-12-05] VITALS (8 sets, daily range): BP systolic 92–162; BP diastolic 56–78; PULSE 63–74; RESP 16–20; TEMP 36.4–37.1; O2SAT 97–100
[2023-12-05] MEDS: ALPRAZolam 0.5 mg Tablet 0.25 MG PO (00:57)
[2023-12-05 05:47] LABS: Basophils % 0.5 %; Eosinophils # 0.1 10^3/uL (0.0-0.8); Eosinophils % 1.1 %; Hematocrit 34.2 % (36-47); Lymphocytes # 2.3 10^3/uL (0.8-4.8); Lymphocytes % 37.3 %; Mean Corpuscular HGB Conc 32.7 g/dL (30-55); Mean Corpuscular Hemoglobin 30.5 pg (27-33); Mean Corpuscular Volume 93.2 fl (85-98); Mean Platelet Volume 11.1 fL (7.4-10.4); Monocytes # 0.6 10^3/uL (0.2-0.9); Neutrophils # 3.14 10^3/uL (1.8-7.7); Neutrophils % 50.8 %; Nucleated Red Blood Cells % 0 %; Platelet Count 142 10^3/cmm (157-399); Red Blood Count 3.67 10^6/uL (3.85-5.65); Red Cell Distribution Width 13.4 % (12.1-15.1); White Blood Count 6.19 10^3/uL (3.29-11.43)
[2023-12-05] MEDS: acetaminophen 500 mg Tablet PO ×2 (06:12→14:31)
[2023-12-05 06:14] LABS: Blood Urea Nitrogen 37 mg/dL (8-23); Calcium 9.2 mg/dL (8.5-10.5); Carbon Dioxide 23 mmol/L (22-29); Chloride 109 mmol/L (98-107); Glucose 168 mg/dL (65-115); Osmolality Calculated 305 mOsm/kg (285-295); Sodium 141 mmol/L (136-145)
[2023-12-05 06:19] LABS: Creatinine Clr Calc Pharmacy 39.9675
[2023-12-05 06:21] LABS: Glucose Point of Care 165 mg/dL (70-110)
[2023-12-05] MEDS: levoFLOXacin 750 mg Tablet PO (08:35)
[2023-12-05] MEDS: insulin lispro 100 unit/1 mL SUBCUT ×4 (08:36→20:12)
[2023-12-05] MEDS: insulin glargine 100 units/1 mL 25 UNIT SUBCUT (08:36)
--- NOTE | 2023-12-05 09:30 | CTR_ITS ---
PROCEDURE INFORMATION: Exam: CT Head Without Contrast Exam date and time: 12/05/2023 8:51 AM Age: 72 years old Clinical indication: Altered mental status/memory loss; Confusion or disorientation; Additional info: Cognitive impairment, not done 12/03, date moved TECHNIQUE: Imaging protocol: Computed tomography of the head without contrast. Radiation optimization: All CT scans at this facility use at least one of these dose optimization techniques: automated exposure control; mA and/or kV adjustment per patient size (includes targeted exams where dose is matched to clinical indication); or iterative reconstruction. COMPARISON: CT head wo con* [id number] 10/03/2023 1:46 PM RADIATION DOSE METRICS: Total DLP (mGy-cm): 982.58 FINDINGS: Brain: No acute intracranial hemorrhage. 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 No mass, mass effect or midline shift. There is no evidence of acute large vessel infarct. The posterior fossa is grossly unremarkable; however, it is partially obscurred by beam hardening artifact. Cerebral ventricles: The ventricles are prominent, compatible with mild parenchymal volume loss. Paranasal sinuses: The visualized paranasal sinuses are clear. Mastoid air cells: No mastoid effusion. Orbital cavities: The visualized orbits are unremarkable. Bones: No acute fracture is seen. Soft tissues: No significant scalp soft tissue swelling. CT/CT head wo con* [id number] IMPRESSION: 1. No acute intracranial abnormality is identified. 2. Mild parenchymal volume loss.
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
[2023-12-05 10:55] LABS: Glucose Point of Care 354 mg/dL (70-110)
--- NOTE | 2023-12-05 12:04 | P.NPUCON_ITS ---
Providers/Reason for Consult 2 Consulting Physican/Specialty*: Mark Mitchell MD. Psychiatry. Reason for Consult*: Evaluate patient for ability to discharge AMA Attending Physician: Kaden Potts MD Primary Care Provider: Williams Carcamo MD Psych Consult HPI History of Present Illness Danita Thorpe is a 72 year old female who presented to the emergency department with the following report: Chief Complaint: Altered Mental Status Stated Complaint: ams, anxiety Time Seen by Provider: 12/02/23 11:44 Source: patient and EMS Limitations: other (Dementia limits history) History of Present Illness: History is very limited on this patient. When I interviewed the patient she denied any particular complaints. EMS providers report that she has a history of chronic dementia and her symptoms seem to be worse today therefore she is transported from her home. There is no other family member available at the time of my initial intake. She denies any complaints at this time. complaint: confusion. [facility] for [facility] treatment of those issues. A psychiatric consult was requested but she was fairly resistant to interaction. We had a brief encounter where she was willing to stay in the hospital and receive the assistance that she clearly needs. She spent much of the time during the interview deflecting from the questions that hand as we attempted to explore her capacity for decision making and spent most of the time focusing on how she has been abandoned by her family and that she was not wanting to go back with them. She identified during the time that we spoke that she was having some slight memory problems which she denied that they were significant. She reported that she had nowhere to go and so she would be open to us identifying resources for her. We also discussed having someone come and do a LEXIE evaluation to see how she does with that. We discussed consideration of a level 2 if significant limitations were identified. Meds Home Medications and Allergies Home Medications Medication Instructions Recorded Confirmed Last Taken Type fenofibrate micronized 200 mg 200 mg PO QAM 11/18/22 12/02/23 11/26/22 History capsule rosuvastatin 10 mg tablet 10 mg PO QAM 11/18/22 12/02/23 11/26/22 History Extended shower chair #1 ea 01/01/23 12/02/23 Unknown Rx glucose free style test strips #100 ea 06/04/23 12/02/23 Unknown Rx amlodipine 10 mg tablet 10 mg PO DAILY #30 tabs 12/03/23 Unknown Rx insulin glargine 100 unit/mL (3 25 unit (0.25 mL) SUBCUT DAILY #15 12/03/23 Unknown Rx mL) subcutaneous pen (Lantus mL Solostar U-100 Insulin) levofloxacin 750 mg tablet 750 mg PO DAILY #3 tabs 12/03/23 Unknown Rx metoprolol tartrate 25 mg tablet 25 mg PO BID@0900,2100 #60 tabs 12/03/23 Unknown Rx sitagliptin phosphate 25 mg tablet 25 mg PO DAILY #30 tabs 12/03/23 Unknown Rx (Januvia) Allergies Allergy/AdvReac Type Severity Reaction Status Date / Time cefaclor [From [facility], [facility]] Allergy ALGY-Anaphy Verified 11/23/23 15:19 laxis codeine Allergy Unknown Verified 11/23/23 15:19 Iodine and Iodide Containing Allergy ADR-Vomitin Verified 11/23/23 15:19 Produc g Penicillins Allergy Unknown Verified 11/23/23 15:19 Sulfa (Sulfonamide Allergy Unknown Verified 11/23/23 15:19 Antibiotics) Current Medications Current Medications Generic Name Dose Route Start Last Admin Trade Name Freq PRN Reason Stop Dose Admin Acetaminophen 500 mg 12/02/23 21:44 12/19/23 17:01 Acetaminophen 500 Mg Tablet PO 500 mg Q4H PRN Administration fever Atorvastatin Calcium 40 mg 12/14/23 06:00 12/19/23 05:55 Atorvastatin 40 Mg Tablet PO 40 mg QAM KAYLIE Administration Enoxaparin Sodium 40 mg 12/02/23 21:44 12/18/23 22:09 Enoxaparin 40 Mg/0.4 Ml Syringe SUBCUT 40 mg Q24H KAYLIE Administration Escitalopram Oxalate 10 mg 12/05/23 14:00 12/19/23 09:07 Escitalopram 10 Mg Tablet PO 10 mg DAILY KAYLIE Administration Fenofibrate 145 mg 12/14/23 06:00 12/19/23 05:55 Fenofibrate 145 Mg Tablet PO 145 mg QAM KAYLIE Administration Insulin Glargine 20 unit 12/13/23 18:00 12/19/23 17:00 Insulin Glargine 100 Units/1 Ml SUBCUT 20 unit BID KAYLIE Administration Insulin Human Lispro 0 unit 12/18/23 12:00 12/19/23 16:59 Insulin Lispro 100 Unit/1 Ml SUBCUT 6 unit TIDWM KAYLIE Administration Protocol Losartan Potassium 50 mg 12/13/23 11:25 12/19/23 09:07 Losartan 50 Mg Tablet PO 50 mg DAILY KAYLIE Administration Metoprolol Tartrate 25 mg 12/02/23 21:44 12/19/23 09:07 Metoprolol Tartrate 25 Mg Tablet PO 25 mg BID@0900,2100 KAYLIE Administration Ondansetron HCl 4 mg 12/14/23 22:12 12/14/23 22:22 Ondansetron 4 Mg Tablet PO 4 mg Q6H PRN Administration NAUSEA AND VOMITING PFSH NPU 2 PFSH: Medical History Decubitus ulcer Wheel chair as ambulatory aid Hypertension CVA (cerebrovascular accident due to intracerebral hemorrhage) NSTEMI (non-ST elevated myocardial infarction) Type 2 diabetes mellitus Acute encephalopathy Surgical History No pertinent past surgical history Family History Father Heart disease Hypertension Mother Stroke Social History Smoking and tobacco/nicotine status: former use of tobacco/nicotine Quit status (tobacco/nicotine): has quit using Alcohol intake: former Substance/Drug Use: never Household members: other Details: Daughter Mental Status Exam 2 MSE Comments: This is a overweight versus obese white female in hospital gown with limited grooming and eye contact. No abnormal movements except for mild psychomotor retardation. Somewhat uncooperative with exam in mild distress. Speech was mostly normal rate and volume. Mood described as okay, affect congruent. Thought process linear. Thought content: Patient denied suicidal or homicidal ideation, there were no delusions reported or noted, she denied any auditory or visual hallucinations. Attention and concentration were limited and memory was limited but not formally tested. She is alert and oriented to person. Insight, judgment and impulse control are impaired. Vitals/I&O/Wt Last Vital Signs Temp 97.5 F L 12/05/23 11:39 Pulse 66 12/05/23 11:39 Resp 17 12/05/23 11:39 BP 156/78 12/05/23 11:39 Pulse Ox 97 12/05/23 11:39 O2 Del Method Room Air 12/05/23 11:39 Weight last 48 hrs Data NPU 12/18/23 11:03 12/18/23 11:03 A&P Assessment and plan (1) Altered mental status: (2) Dementia: Qualifiers: Dementia behavioral or psychological symptom: unspecified whether behavioral, psychotic, or mood disturbance or anxiety Dementia severity: m oderate Dementia type: unspecified type Qualified Code(s): F03.B0 - Unspecified dementia, moderate, without behavioral disturbance, psychotic disturbance, mood disturbance, and anxiety (3) Acute UTI: (4) Type 2 diabetes mellitus: Qualifiers: 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 exterminator insulin use: with termite exterminator use Diabetes mellitus complication status: with other specified complication Qualified Code(s): E11.69 - Type 2 diabetes mellitus with other specified complication; Z79.4 - terminal system operator (current) use of insulin Plan This is a 72-year-old white female with history of reported mild dementia along with diabetes and significant behavioral dysregulation at times along with clear memory challenges. She was somewhat resistant to the interview but did report that she acknowledges her challenges and that she is willing to work with the treatment team to figure out some options for her moving forward. 1. Continue current medication. 2. Recommend LEXIE evaluation. 3. At this point patient's behaviors are suggestive of possible need for assistance for independence will await LEXIE results to consider whether she needs placement. 4. Will consider possible MMSE if she is cooperative next visit. 5. Will need to ensure that she is not being impacted overly by her UTI or any other medical considerations. Attestations NPU 2 Medical Necessity Statement*: N/A. Please see primary team note for medical necessity. Coding Level of Care Code Acute Code for Chg Fwd Diagnoses Altered mental status R41.82 Moderate dementia, unspecified dementia type, unspecified whether behavioral, psychotic, or mood disturbance or anxiety F03.B0 Dementia behavioral or psychological symptom: unspecified whether behavioral, psychotic, or mood disturbance or anxiety Dementia severity: moderate Dementia type: unspecified type Acute UTI N39.0 Type 2 diabetes mellitus with other specified complication, with long-term current use of insulin E11.69; Z79.4 Diabetes mellitus half-way insulin use: with termite exterminator use Diabetes mellitus complication status: with other specified complication
[2023-12-05] MEDS: escitalopram 10 mg Tablet PO (13:57)
[2023-12-05 16:46] LABS: Glucose Point of Care 238 mg/dL (70-110)
[2023-12-05] MEDS: metoprolol tartrate 25 mg Tablet PO (20:00)
[2023-12-05] MEDS: enoxaparin 40 mg/0.4 mL Syringe SUBCUT (20:01)
[2023-12-05 20:20] LABS: Glucose Point of Care 283 mg/dL (70-110)
[2023-12-05 23:38] LABS: Glucose Point of Care 155 mg/dL (70-110)
--- NOTE | 2023-12-06 00:28 | PC.NURSE ---
pt having trouble sleeping tonight, used none pharmaceutical techniques without positive outcome. pt verbalized having way too much stuff on her mind she couldn't shut it down, Dr Gunderson notified and order for Xanax 0.25 once received
[2023-12-06] MEDS: ALPRAZolam 0.5 mg Tablet 0.25 MG PO (01:24)
[2023-12-06 03:34] VITALS: BP 130/62; PULSE 16; RESP 20; TEMP 36.4; O2SAT 99
[2023-12-06 06:22] LABS: Glucose Point of Care 248 mg/dL (70-110)
[2023-12-06 07:07] VITALS: BP 148/63; PULSE 65; RESP 18; TEMP 36.8; O2SAT 98
[2023-12-06] MEDS: insulin lispro 100 unit/1 mL SUBCUT ×3 (08:34→18:23)
[2023-12-06] MEDS: insulin glargine 100 units/1 mL 25 UNIT SUBCUT (08:35)
[2023-12-06] MEDS: acetaminophen 500 mg Tablet PO ×2 (08:36→21:12)
[2023-12-06] MEDS: amlodipine 10 mg Tablet 5 MG PO (08:36)
[2023-12-06] MEDS: escitalopram 10 mg Tablet PO (08:37)
[2023-12-06] MEDS: metoprolol tartrate 25 mg Tablet PO ×2 (08:37→21:12)
--- NOTE | 2023-12-06 10:01 | PC.SOCIAL ---
IMM Update pg 2 of IMM not updated as patient is on a 96 hour hold. IMM dated, initialed and placed in chart.
[2023-12-06 10:48] LABS: Glucose Point of Care 452 mg/dL (70-110)
[2023-12-06 11:14] VITALS: BP 146/71; PULSE 71; RESP 16; TEMP 37; O2SAT 97
--- NOTE | 2023-12-06 11:18 | P.PN_ITS ---
Subjective 2 Subjective: Will increase the dose of Lantus, hyperglycemia Patient is awake and alert Will be seen by Dr. Gonzales as well, spoke with Dr. Stephen Mitchell stating that patient likely has age-related cognitive impairment Vitals/I&O/Wt Last Vital Signs Temp 98.6 F 12/06/23 11:14 Pulse 71 12/06/23 11:14 Resp 16 12/06/23 11:14 BP 146/71 12/06/23 11:14 Pulse Ox 97 12/06/23 11:14 O2 Del Method Room Air 12/06/23 11:14 12/05/23 12/06/23 12/06/23 22:59 06:59 14:59 Intake Total 270 / 1110 60 / 1170 360 / 360 Output Total 50 / 50 620 / 670 200 / 200 Balance 220 / 1060 -560 / 500 160 / 160 Weight last 48 hrs Weight 61.944 kg Weight 59.988 kg Physical Exam 2 Narrative: Awake and alert GCS 15 Pleasant cooperative S1, S2 Pleasant cooperative Nonfocal neuroexam Data 12/05/23 04:57 12/05/23 04:57 A&P Assessment and plan (1) Hypertension: Qualifiers: Hypertension type: primary hypertension Qualified Code(s): I10 - Essential (primary) hypertension (2) Type 2 diabetes mellitus: Qualifiers: Diabetes mellitus terminal block assembler insulin use: with senior living use Diabetes mellitus complication status: with other specified complication Qualified Code(s): E11.69 - Type 2 diabetes mellitus with other specified complication; Z79.4 - intermodal dispatcher (current) use of insulin (3) Acute UTI: (4) Altered mental status: (5) Confusion: (6) Dementia: Qualifiers: Dementia behavioral or psychological symptom: unspecified whether behavioral, psychotic, or mood disturbance or anxiety Dementia severity: m oderate Dementia type: unspecified type Qualified Code(s): F03.B0 - Unspecified dementia, moderate, without behavioral disturbance, psychotic disturbance, mood disturbance, and anxiety Plan Will wait for final psych evaluation Patient is awake and alert She is able to answer my questions appropriate Continue night 6-hour hold until seen by Dr. Gonzales today Continue antihypertensive regimen I will increase the dose of Lantus to 30 units because of her hyperglycemia For her UTI continue levofloxacin Earlier in the morning patient said she does not want to see her daughter, but later in the day she told nursing staff that she is okay and wants to talk with her daughter today Attestations 2 Medical Necessity Statement*: Continue medical management Diagnoses Primary hypertension I10 Hypertension type: primary hypertension Type 2 diabetes mellitus with other specified complication, with long-term current use of insulin E11.69; Z79.4 Diabetes mellitus senior living insulin use: with terminal block assembler use Diabetes mellitus complication status: with other specified complication Acute UTI N39.0 Altered mental status R41.82 Confusion R41.0 Moderate dementia, unspecified dementia type, unspecified whether behavioral, psychotic, or mood disturbance or anxiety F03.B0 Dementia behavioral or psychological symptom: unspecified whether behavioral, psychotic, or mood disturbance or anxiety Dementia severity: moderate Dementia type: unspecified type
[2023-12-06 15:33] VITALS: BP 135/65; PULSE 68; RESP 17; TEMP 37.1; O2SAT 99
[2023-12-06 16:41] LABS: Glucose Point of Care 186 mg/dL (70-110)
[2023-12-06 20:00] VITALS: BP 138/62; PULSE 68; RESP 18; TEMP 36.9; O2SAT 98
--- NOTE | 2023-12-06 20:03 | P.NPUPN_ITS ---
Subjective NPU 2 Subjective: 72-year-old female with some age-related cognitive impairment currently admitted and recently abandoned here by family with plan for discharge having occurred 3 days ago. Patient had acknowledged having some difficulties with caring for herself and stated that she did not have a place to go at this time.The patient had denied any depressed mood at this time. She had reported that she had slept better last night. The patient reported feeling tired and was unwilling to answer any detailed questions. Mental Status Exam 2 MSE Comments: She was alert and oriented to person and place. She was somewhat noncooperative on interview. Her mood was described as fine. Her affect appeared slightly restricted in range. She did not endorse any thoughts of hurting herself or others. There is no clear evidence of delusional thinking. She did not appear to be responding to internal stimuli. She had expressed some themes of abandonment on interview. Her recent and remote memory were not formally assessed today. Vitals/I&O/Wt Last Vital Signs Temp 98.8 F 12/06/23 15:33 Pulse 68 12/06/23 15:33 Resp 17 12/06/23 15:33 BP 135/65 12/06/23 15:33 Pulse Ox 99 12/06/23 15:33 O2 Del Method Room Air 12/06/23 15:33 12/06/23 12/06/23 12/06/23 06:59 14:59 22:59 Intake Total 60 / 1170 600 / 600 240 / 840 Output Total 620 / 670 200 / 200 200 / 400 Balance -560 / 500 400 / 400 40 / 440 Weight last 48 hrs Weight 61.944 kg Weight 59.988 kg Data NPU 12/05/23 04:57 12/05/23 04:57 A&P Assessment and plan (1) Hypertension: Qualifiers: Hypertension type: primary hypertension Qualified Code(s): I10 - Essential (primary) hypertension (2) Type 2 diabetes mellitus: Qualifiers: Diabetes mellitus terminal computer operator insulin use: with [facility] use Diabetes mellitus complication status: with other specified complication Qualified Code(s): E11.69 - Type 2 diabetes mellitus with other specified complication; Z79.4 - shelter (current) use of insulin (3) Acute UTI: (4) Altered mental status: (5) Confusion: (6) Dementia: Qualifiers: Dementia behavioral or psychological symptom: unspecified whether behavioral, psychotic, or mood disturbance or anxiety Dementia severity: m oderate Dementia type: unspecified type Qualified Code(s): F03.B0 - Unspecified dementia, moderate, without behavioral disturbance, psychotic disturbance, mood disturbance, and anxiety Plan Will perform full mini mental status exam tommorow. Patient appears compliant and willing to stay here in hospital. Attestations NPU 2 Medical Necessity Statement*: NA. Coding Level of Care Code Acute Code for Chg Fwd Diagnoses Primary hypertension I10 Hypertension type: primary hypertension Type 2 diabetes mellitus with other specified complication, with long-term current use of insulin E11.69; Z79.4 Diabetes mellitus terminal computer operator insulin use: with [facility] use Diabetes mellitus complication status: with other specified complication Acute UTI N39.0 Altered mental status R41.82 Confusion R41.0 Moderate dementia, unspecified dementia type, unspecified whether behavioral, psychotic, or mood disturbance or anxiety F03.B0 Dementia behavioral or psychological symptom: unspecified whether behavioral, psychotic, or mood disturbance or anxiety Dementia severity: moderate Dementia type: unspecified type
[2023-12-06 21:01] LABS: Glucose Point of Care 136 mg/dL (70-110)
[2023-12-06] MEDS: enoxaparin 40 mg/0.4 mL Syringe SUBCUT (21:12)
[2023-12-07] VITALS (7 sets, daily range): BP systolic 100–155; BP diastolic 58–74; PULSE 62–78; RESP 16–18; TEMP 36.8–37.2; O2SAT 95–99
[2023-12-07 05:43] LABS: Anion Gap 11.3 (5-19); Blood Urea Nitrogen 37 mg/dL (8-23); Carbon Dioxide 24 mmol/L (22-29); Chloride 108 mmol/L (98-107); Creatinine Clr Calc Pharmacy 36.8883; Glucose 128 mg/dL (65-115); Osmolality Calculated 298 mOsm/kg (285-295); Potassium 4.3 mmol/L (3.5-5.1); Sodium 139 mmol/L (136-145)
[2023-12-07] MEDS: levoFLOXacin 750 mg Tablet PO (06:27)
[2023-12-07 07:07] LABS: Glucose Point of Care 127 mg/dL (70-110)
[2023-12-07] MEDS: insulin glargine 100 units/1 mL 30 UNIT SUBCUT (08:03)
[2023-12-07] MEDS: amlodipine 10 mg Tablet 5 MG PO (08:03)
[2023-12-07] MEDS: escitalopram 10 mg Tablet PO (08:03)
--- NOTE | 2023-12-07 09:22 | P.PN_ITS ---
Subjective 2 Subjective: Patient has not left the hospital because daughter has not picked her up, She has been hotlined Vitals/I&O/Wt Last Vital Signs Temp 98.3 F 12/08/23 07:10 Pulse 64 12/08/23 07:10 Resp 15 12/08/23 07:10 BP 136/71 12/08/23 07:10 Pulse Ox 99 12/08/23 07:10 O2 Del Method Room Air 12/08/23 07:10 12/07/23 12/08/23 12/08/23 22:59 06:59 14:59 Intake Total 240 / 720 240 / 240 Output Total 100 / 100 Balance 140 / 620 240 / 240 Weight last 48 hrs Weight 64.042 kg Weight 62.051 kg Physical Exam 2 Narrative: Pleasant and cooperative GCS 15 Nonfocal neuroexam awake and alert S1, S2 Abdomen soft Data 12/05/23 04:57 12/07/23 04:43 Micro: Microbiology 12/02/23 15:54 Blood Culture - Final Blood NO GROWTH AFTER 5 DAYS 12/02/23 15:48 Blood Culture - Final Blood NO GROWTH AFTER 5 DAYS A&P Assessment and plan (1) Hypertension: Qualifiers: Hypertension type: primary hypertension Qualified Code(s): I10 - Essential (primary) hypertension (2) Type 2 diabetes mellitus: Qualifiers: Diabetes mellitus [facility] insulin use: with [facility] use Diabetes mellitus complication status: with other specified complication Qualified Code(s): E11.69 - Type 2 diabetes mellitus with other specified complication; Z79.4 - keno terminal operator (current) use of insulin (3) Acute UTI: (4) Altered mental status: (5) Confusion: (6) Dementia: Qualifiers: Dementia behavioral or psychological symptom: unspecified whether behavioral, psychotic, or mood disturbance or anxiety Dementia severity: m oderate Dementia type: unspecified type Qualified Code(s): F03.B0 - Unspecified dementia, moderate, without behavioral disturbance, psychotic disturbance, mood disturbance, and anxiety Plan Patient is awake and alert She does have decision-making capacity at this point however she is not able to take care of herself, since daughter has not responded to our phone calls despite getting hotlined, we will look for safe disposition plan possible jail placement Continue antihypertensive regimen I will increase the dose of Lantus to 30 units because of her hyperglycemia For her UTI continue levofloxacin Attestations 2 Medical Necessity Statement*: Continue comanagement Diagnoses Primary hypertension I10 Hypertension type: primary hypertension Type 2 diabetes mellitus with other specified complication, with long-term current use of insulin E11.69; Z79.4 Diabetes mellitus terminal block assembler insulin use: with terminal block assembler use Diabetes mellitus complication status: with other specified complication Acute UTI N39.0 Altered mental status R41.82 Confusion R41.0 Moderate dementia, unspecified dementia type, unspecified whether behavioral, psychotic, or mood disturbance or anxiety F03.B0 Dementia behavioral or psychological symptom: unspecified whether behavioral, psychotic, or mood disturbance or anxiety Dementia severity: moderate Dementia type: unspecified type
[2023-12-07] MEDS: acetaminophen 500 mg Tablet PO (09:45)
--- NOTE | 2023-12-07 09:59 | PM.DCS ---
Discharge Providers Date of Admission: 12/02/23 20:34 Date of Discharge: December 07, 2023 Attending Provider at Admission: Corrie Dale MD Attending Provider at Discharge: Corrie Dale MD Primary Care Provider: Williams Carcamo MD Diagnoses at Discharge Discharge Diagnosis (1) Hypertension: Status: Acute Qualifiers: Hypertension type: primary hypertension Qualified Code(s): I10 - Essential (primary) hypertension (2) Type 2 diabetes mellitus: Status: Acute Qualifiers: Diabetes mellitus complication status: with other specified complication Diabetes mellitus assisted insulin use: with assisted use Qualified Code(s): E11.69 - Type 2 diabetes mellitus with other specified complication; Z79.4 - intermediate (current) use of insulin (3) Acute UTI: Status: Acute (4) Altered mental status: Status: Acute (5) Confusion: Status: Acute (6) Dementia: Status: Acute Qualifiers: Dementia behavioral or psychological symptom: unspecified whether behavioral, psychotic, or mood disturbance or anxiety Dementia severity: moderate Dementia type: unspecified type Qualified Code(s): F03.B0 - Unspecified dementia, moderate, without behavioral disturbance, psychotic disturbance, mood disturbance, and anxiety Reason for Visit Reason for Visit: ams, anxiety Hospital Course Hospital Course 72-year-old female who was admitted for management and evaluation of hypertension and hyperglycemia she was not in DKA, she was given IV fluid bolus and continued on her Lantus with sliding scale which improved her blood sugar, she was given levofloxacin for UTI, for blood pressure she was given amlodipine, metoprolol, lisinopril was added however at the time of discharge I have decided not to continue lisinopril because of her creatinine 1.2, she will get amlodipine 10 mg along metoprolol for hypertension and insulin dose has been increased to 25 units, I have also added very low-dose Januvia I do not have her GFR hence would not add metformin at this point. Patient walked 100 feet without any senior office support assistant sosa does not need assistance for ambulation she does not meet criteria to go to rehab hence we have decided to discharge her home, called her daughter at number [phone] Bart Pressley, she will come pick her up, she was stating that they are living in a camper, she is stating that she was staying with her boyfriend and went for was not able to take care of her and called ambulance yesterday. But at this point I told her that she does not need any criteria to be in the hospital or go to rehab, she can continue her antihypertensive regimen and insulin regimen at home, she is very pleasant and physically capable. Patient ended up staying extra days because daughter did not come to pick her up, we hotlined for abandonment, then she called right away and talked with the block and case maker and told her that she is coming to pick her up, during hospitalization we decided to get psych evaluation to observe her decision making capacity, she does have decision-making capacity at this time but she is not able to take care of herself because of age-related cognitive impairment. Otherwise she is very stable and calm and cooperative. Discharge Data Studies Completed and Pending Completed Studies During Hospitalization Category Date Time Status CT head wo con* [id number] Routine Cat Scan 12/05/23 09:30 Completed XR chest 1V portable [id number] Stat Exams 12/02/23 12:15 Completed Pending at discharge Category Date Time Status Blood Culture Stat Lab 12/02/23 15:54 Results Radiology Impressions Chest X-Ray 12/02/23 12:15 Impression: Atherosclerosis. Head CT 12/05/23 09:30 IMPRESSION: 1. No acute intracranial abnormality is identified. 2. Mild parenchymal volume loss. Laboratory Results WBC 6.19 10^3/uL (3.29-11.43) 12/05/23 04:57 RBC 3.67 10^6/uL (3.85-5.65) L 12/05/23 04:57 Hgb 11.20 g/dL (11.27-16.99) L 12/05/23 04:57 Hct 34.2 % (36-47) L 12/05/23 04:57 MCV 93.2 fl (85-98) 12/05/23 04:57 MCH 30.5 pg (27-33) 12/05/23 04:57 MCHC 32.7 g/dL (30-55) 12/05/23 04:57 RDW 13.4 % (12.1-15.1) 12/05/23 04:57 Plt Count 142 10^3/cmm (157-399) L 12/05/23 04:57 MPV 11.1 fL (7.4-10.4) H 12/05/23 04:57 Neut % (Auto) 50.8 % 12/05/23 04:57 Lymph % (Auto) 37.3 % 12/05/23 04:57 Tyrrell % (Auto) 10.0 % 12/05/23 04:57 Eos % (Auto) 1.1 % 12/05/23 04:57 Baso % (Auto) 0.5 % 12/05/23 04:57 Neut # (Auto) 3.14 10^3/uL (1.8-7.7) 12/05/23 04:57 Lymph # (Auto) 2.3 10^3/uL (0.8-4.8) 12/05/23 04:57 Tyrrell # (Auto) 0.6 10^3/uL (0.2-0.9) 12/05/23 04:57 Eos # (Auto) 0.1 10^3/uL (0.0-0.8) 12/05/23 04:57 Baso # (Auto) 0.0 10^3/uL (0.0-0.1) 12/05/23 04:57 Nucleated RBC % (auto) 0 % 12/05/23 04:57 Nucleated RBCs # 0.0 /100WBC 12/05/23 04:57 Sodium 139 mmol/L (136-145) 12/07/23 04:43 Potassium 4.3 mmol/L (3.5-5.1) 12/07/23 04:43 Chloride 108 mmol/L (98-107) H 12/07/23 04:43 Carbon Dioxide 24 mmol/L (22-29) 12/07/23 04:43 Anion Gap 11.3 (5-19) 12/07/23 04:43 BUN 37 mg/dL (8-23) H 12/07/23 04:43 Creatinine 1.1 mg/dL (0.5-0.9) H 12/07/23 04:43 GFR Calculation Not Reportable 12/07/23 04:43 Glucose 128 mg/dL (65-115) H 12/07/23 04:43 POC Glucose 127 mg/dL (70-110) H 12/07/23 06:25 Calculated Osmolality 298 mOsm/kg (285-295) H 12/07/23 04:43 Calcium 9.0 mg/dL (8.5-10.5) 12/07/23 04:43 Magnesium 2.0 mg/dL (1.7-2.3) 12/03/23 04:55 Total Bilirubin 0.5 mg/dL (0.15-1.2) 12/02/23 11:54 AST 14 U/L (0-32) 12/02/23 11:54 ALT 12 U/L (0-33) 12/02/23 11:54 Alkaline Phosphatase 111 U/L (35-105) H 12/02/23 11:54 Total Protein 7.5 g/dL (6.6-8.7) 12/02/23 11:54 Albumin 4.2 g/dL (3.5-5.2) 12/02/23 11:54 Globulin 3.3 g/dL (1.3-4.6) 12/02/23 11:54 TSH 3.02 uIU/mL (0.27-4.20) 12/02/23 11:54 Urine Color Yellow (Yellow) 12/02/23 12:03 Urine Appearance Clear (CLEAR) 12/02/23 12:03 Urine pH 5.0 (5-7) 12/02/23 12:03 Ur Specific [place] 1.034 (1.005-1.030) H 12/02/23 12:03 Urine Protein 1+ (Negative) A 12/02/23 12:03 Urine Glucose (UA) 3+ (Normal) H 12/02/23 12:03 Urine Ketones Trace (Negative) 12/02/23 12:03 Urine Blood Negative (Negative) 12/02/23 12:03 Urine Nitrate Negative (Negative) 12/02/23 12:03 Urine Bilirubin Negative (Negative) 12/02/23 12:03 Urine Urobilinogen 1.0 mg/dL (Negative) 12/02/23 12:03 Ur Leukocyte Esterase Negative (Negative) 12/02/23 12:03 Urine RBC 0-2 /hpf (0-2) 12/02/23 12:03 Urine WBC 51-100 /hpf (0-5) H 12/02/23 12:03 Ur Squamous Epith Cells 0-5 /hpf (0-5) 12/02/23 12:03 Amorphous Sediment Not Reportable 12/02/23 12:03 Urine Bacteria 4+ /hpf (NONE) H 12/02/23 12:03 Hyaline Casts 0-4 /lpf H 12/02/23 12:03 Serum Ketones Negative (Negative) 12/02/23 11:54 Vitals Last Vital Signs Temp 98.7 F 12/07/23 07:40 Pulse 65 12/07/23 08:10 Resp 18 12/07/23 08:10 BP 145/67 12/07/23 07:40 Pulse Ox 95 12/07/23 08:10 O2 Del Method Room Air 12/07/23 08:10 Discharge Plan Discharge Patient Disposition: Home Condition: Stable Prescriptions: New levofloxacin 750 mg Tablet 750 mg PO DAILY Qty: 3 0RF amlodipine 10 mg Tablet 10 mg PO DAILY Qty: 30 2RF metoprolol tartrate 25 mg Tablet 25 mg PO BID@0900,2100 Qty: 60 2RF Januvia 25 mg tablet 25 mg PO DAILY Qty: 30 4RF Continued (DME) Extended shower chair See Rx Instructions .Route .MEDSUPPLY Qty: 1 0RF Rx Instructions: As directed in shower (DME) glucose free style test strips See Rx Instructions .Route .MEDSUPPLY Qty: 100 5RF Rx Instructions: As directed fenofibrate micronized 200 mg capsule 200 mg PO QAM rosuvastatin 10 mg tablet 10 mg PO QAM Changed insulin glargine [Lantus Solostar U-100 Insulin] 100 unit/mL (3 mL) insulin pen 25 unit SUBCUT DAILY Qty: 15 3RF Discharge Orders: Discharge Order (Routine); Ordered 12/07/23 Ordered By: Corrie Dale Referrals: Williams Carcamo MD [Primary Care Provider] - 4-7 days (We have notified your physician's clinic of the need for a follow-up appointment to be scheduled. If you have not heard from them within the next 2 business days, please call them directly. ) Patient Instructions: Metoprolol (By mouth), Amlodipine (By mouth), Levofloxacin (By mouth), Sitagliptin (By mouth) (Januvia, Jdtuvio), Urinary Tract Infection in Women (DC), Altered Mental Status (ED), Diabetic Hyperglycemia (DC), Opioid Safety Discharge Attestations Time Spent in Discharge Care*: greater than 30 min Status at Discharge: Cognitive status at discharge: mildly impaired cognition, Behavioral status at discharge: [facility], Quality Metrics Clinical Quality Measures [ No reported AMI, CVA or VTE this stay] Coding Level of Care Code Acute Code for Chg Fwd Diagnoses Primary hypertension I10 Hypertension type: primary hypertension Type 2 diabetes mellitus with other specified complication, with long-term current use of insulin E11.69; Z79.4 Diabetes mellitus complication status: with other specified complication Diabetes mellitus assisted insulin use: with assisted use Acute UTI N39.0 Altered mental status R41.82 Confusion R41.0 Moderate dementia, unspecified dementia type, unspecified whether behavioral, psychotic, or mood disturbance or anxiety F03.B0 Dementia behavioral or psychological symptom: unspecified whether behavioral, psychotic, or mood disturbance or anxiety Dementia severity: moderate Dementia type: unspecified type
[2023-12-07 11:42] LABS: Glucose Point of Care 221 mg/dL (70-110)
[2023-12-07] MEDS: insulin lispro 100 unit/1 mL SUBCUT ×3 (11:57→22:09)
--- NOTE | 2023-12-07 11:57 | PC.NURSE ---
This production underwriter called to make follow up appointments with Dr. Carcamo. He is out of office until February. The first available appointment was with Maryuri VAUGHAN.
[2023-12-07 16:36] LABS: Glucose Point of Care 232 mg/dL (70-110)
[2023-12-07] MEDS: metoprolol tartrate 25 mg Tablet PO (20:00)
[2023-12-07 21:29] LABS: Glucose Point of Care 279 mg/dL (70-110)
[2023-12-07] MEDS: enoxaparin 40 mg/0.4 mL Syringe SUBCUT (22:10)
[2023-12-08] VITALS (8 sets, daily range): BP systolic 106–136; BP diastolic 56–71; PULSE 63–77; RESP 15–17; TEMP 36.7–37.2; O2SAT 94–99
[2023-12-08 06:21] LABS: Glucose Point of Care 141 mg/dL (70-110)
[2023-12-08] MEDS: levoFLOXacin 750 mg Tablet PO (06:37)
[2023-12-08] MEDS: insulin glargine 100 units/1 mL 30 UNIT SUBCUT (07:49)
[2023-12-08] MEDS: amlodipine 10 mg Tablet 5 MG PO (07:49)
[2023-12-08] MEDS: escitalopram 10 mg Tablet PO (07:50)
[2023-12-08 10:59] LABS: Glucose Point of Care 225 mg/dL (70-110)
[2023-12-08] MEDS: insulin lispro 100 unit/1 mL SUBCUT ×3 (11:31→21:39)
--- NOTE | 2023-12-08 13:27 | P.PN_ITS ---
Subjective 2 Subjective: Seen this morning. Patient resting comfortably bed. Sitter at bedside. Awaiting placement to nursing facility. Vitals/I&O/Wt Last Vital Signs Temp 98.0 F 12/08/23 11:08 Pulse 64 12/08/23 11:08 Resp 16 12/08/23 11:08 BP 134/70 12/08/23 11:08 Pulse Ox 97 12/08/23 11:08 O2 Del Method Room Air 12/08/23 11:08 12/07/23 12/08/23 12/08/23 22:59 06:59 14:59 Intake Total 240 / 720 240 / 240 Output Total 100 / 100 200 / 200 Balance 140 / 620 40 / 40 Weight last 48 hrs Weight 64.042 kg Weight 62.051 kg Physical Exam 2 Narrative: Pleasant and cooperative GCS 15 Nonfocal neuroexam awake and alert S1, S2 Abdomen soft Data 12/05/23 04:57 12/07/23 04:43 Micro: Microbiology 12/02/23 15:54 Blood Culture - Final Blood NO GROWTH AFTER 5 DAYS 12/02/23 15:48 Blood Culture - Final Blood NO GROWTH AFTER 5 DAYS A&P Assessment and plan (1) Hypertension: Qualifiers: Hypertension type: primary hypertension Qualified Code(s): I10 - Essential (primary) hypertension (2) Type 2 diabetes mellitus: Qualifiers: Diabetes mellitus ad terminal makeup operator insulin use: with ad terminal makeup operator use Diabetes mellitus complication status: with other specified complication Qualified Code(s): E11.69 - Type 2 diabetes mellitus with other specified complication; Z79.4 - [facility] (current) use of insulin (3) Acute UTI: (4) Altered mental status: (5) Confusion: (6) Dementia: Qualifiers: Dementia behavioral or psychological symptom: unspecified whether behavioral, psychotic, or mood disturbance or anxiety Dementia severity: m oderate Dementia type: unspecified type Qualified Code(s): F03.B0 - Unspecified dementia, moderate, without behavioral disturbance, psychotic disturbance, mood disturbance, and anxiety Plan Patient does have decision-making capacity at this time however is unsafe to go home without 24-hour supervision. We are unable to contact family at this time. She has been hotlined as well. State level to assessment is pending. Patient is cognitively impaired. She is alert and oriented x 1 only. Patient is awaiting placement in retirement at this time. Patient does not have a plan in place ? Continue Levaquin for UTI. Continue Lantus 30 twice daily, insulin sliding scale. Patient to be reseen by psych today. Attestations 2 Medical Necessity Statement*: Awaiting placement in nursing facility. Diagnoses Primary hypertension I10 Hypertension type: primary hypertension Type 2 diabetes mellitus with other specified complication, with long-term current use of insulin E11.69; Z79.4 Diabetes mellitus ad terminal makeup operator insulin use: with ad terminal makeup operator use Diabetes mellitus complication status: with other specified complication Acute UTI N39.0 Altered mental status R41.82 Confusion R41.0 Moderate dementia, unspecified dementia type, unspecified whether behavioral, psychotic, or mood disturbance or anxiety F03.B0 Dementia behavioral or psychological symptom: unspecified whether behavioral, psychotic, or mood disturbance or anxiety Dementia severity: moderate Dementia type: unspecified type
[2023-12-08 17:38] LABS: Glucose Point of Care 175 mg/dL (70-110)
[2023-12-08 21:11] LABS: Glucose Point of Care 242 mg/dL (70-110)
[2023-12-08] MEDS: enoxaparin 40 mg/0.4 mL Syringe SUBCUT (21:39)
[2023-12-08] MEDS: diphenhydrAMINE 25 mg Capsule PO (21:39)
[2023-12-08] MEDS: metoprolol tartrate 25 mg Tablet PO (21:39)
[2023-12-09 04:00] VITALS: BP 115/48; PULSE 58; RESP 16; TEMP 37; O2SAT 99
[2023-12-09 06:42] LABS: Glucose Point of Care 118 mg/dL (70-110)
[2023-12-09 06:45] LABS: Basophils % 0.4 %; Eosinophils # 0.1 10^3/uL (0.0-0.8); Eosinophils % 2.2 %; Hematocrit 35.5 % (36-47); Lymphocytes % 43.2 %; Mean Corpuscular HGB Conc 31.8 g/dL (30-55); Mean Corpuscular Hemoglobin 30.1 pg (27-33); Mean Corpuscular Volume 94.7 fl (85-98); Mean Platelet Volume 10.1 fL (7.4-10.4); Monocytes # 0.6 10^3/uL (0.2-0.9); Monocytes % 12.4 %; Neutrophils % 41.1 %; Nucleated Red Blood Cells % 0 %; Platelet Count 131 10^3/cmm (157-399); Red Blood Count 3.75 10^6/uL (3.85-5.65); Red Cell Distribution Width 13.4 % (12.1-15.1); White Blood Count 4.61 10^3/uL (3.29-11.43)
[2023-12-09 07:14] VITALS: BP 132/53; PULSE 59; RESP 16; TEMP 37.2; O2SAT 98
[2023-12-09 07:17] LABS: Anion Gap 12.2 (5-19); Blood Urea Nitrogen 35 mg/dL (8-23); Calcium 9.3 mg/dL (8.5-10.5); Carbon Dioxide 27 mmol/L (22-29); Chloride 106 mmol/L (98-107); Glucose 125 mg/dL (65-115); Osmolality Calculated 301 mOsm/kg (285-295); Potassium 4.2 mmol/L (3.5-5.1); Sodium 141 mmol/L (136-145)
[2023-12-09 08:42] VITALS: PULSE 60; RESP 18; O2SAT 96
[2023-12-09] MEDS: escitalopram 10 mg Tablet PO (09:40)
[2023-12-09] MEDS: amlodipine 10 mg Tablet 5 MG PO (09:41)
[2023-12-09 11:26] VITALS: BP 162/68; PULSE 69; RESP 16; TEMP 37; O2SAT 99
--- NOTE | 2023-12-09 12:29 | PM.PN ---
Subjective Subjective: Seen this morning. Patient resting comfortably bed. Sitter at bedside. Awaiting placement to nursing facility. Vitals/I&O/Wt Last Vital Signs Temp 98.6 F 12/09/23 11:26 Pulse 69 12/09/23 11:26 Resp 16 12/09/23 11:26 BP 162/68 12/09/23 11:26 Pulse Ox 99 12/09/23 11:26 O2 Del Method Room Air 12/09/23 11:26 12/08/23 12/09/23 12/09/23 22:59 06:59 14:59 Intake Total 240 / 480 358 / 358 Balance 240 / 280 358 / 358 Weight last 48 hrs Weight 63.276 kg Weight 64.042 kg Physical Exam Narrative: Pleasant and cooperative GCS 15 Nonfocal neuroexam awake and alert S1, S2 Abdomen soft Data 12/09/23 06:27 12/09/23 06:27 A&P Assessment and plan (1) Hypertension: Qualifiers: Hypertension type: primary hypertension Qualified Code(s): I10 - Essential (primary) hypertension (2) Type 2 diabetes mellitus: Qualifiers: Diabetes mellitus watermelon harvesting supervisor insulin use: with watermelon harvesting supervisor use Diabetes mellitus complication status: with other specified complication Qualified Code(s): E11.69 - Type 2 diabetes mellitus with other specified complication; Z79.4 - intermediate school teacher (current) use of insulin (3) Acute UTI: (4) Altered mental status: (5) Confusion: (6) Dementia: Qualifiers: Dementia behavioral or psychological symptom: unspecified whether behavioral, psychotic, or mood disturbance or anxiety Dementia severity: moderate Dementia type: unspecified type Qualified Code(s): F03.B0 - Unspecified dementia, moderate, without behavioral disturbance, psychotic disturbance, mood disturbance, and anxiety Plan Patient does have decision-making capacity at this time however is unsafe to go home without 24-hour supervision. We are unable to contact family at this time. She has been hotlined as well. State level to assessment is pending. Patient is cognitively impaired. She is alert and oriented x 2 only. Patient is awaiting placement in custodial at this time. Patient does not have a plan in place ? Continue Levaquin for UTI. Complete total 5 days. Will stop today. Continue Lantus 30 twice daily, insulin sliding scale. Awaiting placement. Attestations Medical Necessity Statement*: Awaiting placement. Diagnoses Primary hypertension I10 Hypertension type: primary hypertension Type 2 diabetes mellitus with other specified complication, with long-term current use of insulin E11.69; Z79.4 Diabetes mellitus watermelon harvesting supervisor insulin use: with shelter use Diabetes mellitus complication status: with other specified complication Acute UTI N39.0 Altered mental status R41.82 Confusion R41.0 Moderate dementia, unspecified dementia type, unspecified whether behavioral, psychotic, or mood disturbance or anxiety F03.B0 Dementia behavioral or psychological symptom: unspecified whether behavioral, psychotic, or mood disturbance or anxiety Dementia severity: moderate Dementia type: unspecified type
[2023-12-09 12:32] LABS: Glucose Point of Care 179 mg/dL (70-110)
[2023-12-09] MEDS: insulin lispro 100 unit/1 mL SUBCUT ×3 (13:37→21:16)
[2023-12-09 15:26] VITALS: BP 122/67; PULSE 65; RESP 17; TEMP 36.9; O2SAT 92
[2023-12-09 18:12] LABS: Glucose Point of Care 281 mg/dL (70-110)
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
[2023-12-09 20:00] VITALS: BP 101/59; PULSE 70; RESP 17; TEMP 36.6; O2SAT 99
[2023-12-09 21:04] LABS: Glucose Point of Care 148 mg/dL (70-110)
[2023-12-09] MEDS: enoxaparin 40 mg/0.4 mL Syringe SUBCUT (21:16)
[2023-12-10] VITALS (8 sets, daily range): BP systolic 119–157; BP diastolic 59–74; PULSE 59–65; RESP 15–18; TEMP 36.4–36.9; O2SAT 95–99
[2023-12-10 06:29] LABS: Glucose Point of Care 124 mg/dL (70-110)
[2023-12-10] MEDS: metoprolol tartrate 25 mg Tablet PO ×2 (08:33→20:45)
[2023-12-10] MEDS: amlodipine 10 mg Tablet 5 MG PO (08:33)
[2023-12-10] MEDS: escitalopram 10 mg Tablet PO (08:33)
[2023-12-10] MEDS: insulin glargine 100 units/1 mL 30 UNIT SUBCUT (08:35)
[2023-12-10 11:28] LABS: Glucose Point of Care 253 mg/dL (70-110)
--- NOTE | 2023-12-10 11:28 | PC.CHAP ---
Pastoral Care Encounter/Spiritual Assessment Type of Contact [] Declined alumni coordinator visit [] Patient/Family/Request visit [] Outpatient visit [X] Follow-up visit [] Physician referral [] Code/Alert [] Routine visit [] Staff referral [] Actively dying [] Patient sleeping [] Family support [] [] Out of room [] Palliative care [] [] Receiving care in room [] Pre-surgical visit [] Trauma [] Long length of stay [] ICU visit [] Other: Relational/Emotional Strength [X] Patient feels connected with others/family/visitors/staff [X] Distress [x] Loneliness/isolation [] Abandonment Spirituality of Patient [x] Person of Patti [] Attends Episcopalian of their Patti [x] Believes in Prayer [] Reads Bible or Restorationist materials [x] There are Spiritual issues to be addressed Client Relations Representative Interventions [x] Prayer [x] Active listening [] Non-anxious presence [] Spiritual/emotional support [] Crisis/trauma care [] Spiritual counseling [] Bereavement support [] Provided bereavement packet [] Provided Bible/devotional materials [] Provided toy/stuffed animal, coloring book to patient or family member [] Provided Communion [] Anointing/Cammal [] Salvation [] Completed spiritual assessment [] Other: Impact on Illness or Injury [] Angry [] Fearful [x] Anxious [] Often cries [] Exhaustion [] Unable to work [] Unable to attend religion [] Unable to walk/stand [] Unable to read [] Unable to drive [] Unable to eat/drink [] Unable to sleep [] Unable to be with family [] Patient intubated [] Other: Summary Seams to be searching Time spent with patient 20 Min
[2023-12-10] MEDS: insulin lispro 100 unit/1 mL SUBCUT ×3 (13:06→20:45)
--- NOTE | 2023-12-10 14:32 | P.PN_ITS ---
Subjective 2 Subjective: Seen this morning. Patient resting comfortably bed. Awaiting placement to nursing facility. Vitals/I&O/Wt Last Vital Signs Temp 97.6 F 12/10/23 12:10 Pulse 61 12/10/23 12:10 Resp 16 12/10/23 12:10 BP 129/59 12/10/23 12:10 Pulse Ox 98 12/10/23 12:10 O2 Del Method Room Air 12/10/23 12:10 12/09/23 12/10/23 12/10/23 22:59 06:59 14:59 Intake Total 118 / 476 554 / 554 Output Total 200 / 200 Balance -82 / 276 554 / 554 Weight last 48 hrs Weight 63.758 kg Weight 63.276 kg Physical Exam 2 Narrative: Pleasant and cooperative GCS 15 Nonfocal neuroexam awake and alert S1, S2 Abdomen soft Data 12/09/23 06:27 12/09/23 06:27 A&P Assessment and plan (1) Hypertension: Qualifiers: Hypertension type: primary hypertension Qualified Code(s): I10 - Essential (primary) hypertension (2) Type 2 diabetes mellitus: Qualifiers: Diabetes mellitus detention insulin use: with intermodal dispatcher use Diabetes mellitus complication status: with other specified complication Qualified Code(s): E11.69 - Type 2 diabetes mellitus with other specified complication; Z79.4 - termite inspector (current) use of insulin (3) Acute UTI: (4) Altered mental status: (5) Confusion: (6) Dementia: Qualifiers: Dementia behavioral or psychological symptom: unspecified whether behavioral, psychotic, or mood disturbance or anxiety Dementia severity: m oderate Dementia type: unspecified type Qualified Code(s): F03.B0 - Unspecified dementia, moderate, without behavioral disturbance, psychotic disturbance, mood disturbance, and anxiety Plan Patient does have decision-making capacity at this time however is unsafe to go home without 24-hour supervision. We are unable to contact family at this time. She has been hotlined as well. State level to assessment is pending. Patient is cognitively impaired. She is alert and oriented x 2 only. [facility] is [facility] placement in [facility] at this time. Patient does not have a plan in place ? Continue Levaquin for UTI. Complete total 5 days. Will stop today. Continue Lantus 30 twice daily, insulin sliding scale. Awaiting placement. Attestations 2 Medical Necessity Statement*: Awaiting placement. Diagnoses Primary hypertension I10 Hypertension type: primary hypertension Type 2 diabetes mellitus with other specified complication, with long-term current use of insulin E11.69; Z79.4 Diabetes mellitus detention insulin use: with intermodal dispatcher use Diabetes mellitus complication status: with other specified complication Acute UTI N39.0 Altered mental status R41.82 Confusion R41.0 Moderate dementia, unspecified dementia type, unspecified whether behavioral, psychotic, or mood disturbance or anxiety F03.B0 Dementia behavioral or psychological symptom: unspecified whether behavioral, psychotic, or mood disturbance or anxiety Dementia severity: moderate Dementia type: unspecified type
[2023-12-10 17:34] LABS: Glucose Point of Care 195 mg/dL (70-110)
--- NOTE | 2023-12-10 17:49 | P.NPUPN_ITS ---
Subjective NPU 2 Subjective: 72-year-old female with some age-related cognitive impairment currently admitted and recently abandoned here by family. The patient reported no changes from yesterday. She was compliant and reported being tired of being here. She had continued to remain agreeable about going to a group home. Mental Status Exam 2 MSE Comments: She was alert and oriented to person and place. She was cooperative on interview. Her speech was productive and normal in volume. Her mood was described as okay. Her affect appeared euthymic today. She did not endorse any thoughts of hurting herself or others. There is evidence of delusional thinking. She did not appear to be responding to internal stimuli. She had expressed some themes of abandonment on interview. Her recent and remote memory were not formally assessed today. Vitals/I&O/Wt Last Vital Signs Temp 98.2 F 12/10/23 15:20 Pulse 61 12/10/23 15:20 Resp 15 12/10/23 15:20 BP 157/74 12/10/23 15:20 Pulse Ox 98 12/10/23 15:20 O2 Del Method Room Air 12/10/23 15:20 12/10/23 12/10/23 12/10/23 06:59 14:59 22:59 Intake Total 554 / 554 Balance 554 / 554 Weight last 48 hrs Weight 63.758 kg Weight 63.276 kg Data NPU 12/09/23 06:27 12/09/23 06:27 A&P Assessment and plan (1) Altered mental status: (2) Hypertension: Qualifiers: Hypertension type: primary hypertension Qualified Code(s): I10 - Essential (primary) hypertension (3) Type 2 diabetes mellitus: Qualifiers: Diabetes mellitus detention insulin use: with detention use Diabetes mellitus complication status: with other specified complication Qualified Code(s): E11.69 - Type 2 diabetes mellitus with other specified complication; Z79.4 - correction (current) use of insulin (4) Acute UTI: (5) Confusion: (6) Dementia: Qualifiers: Dementia behavioral or psychological symptom: unspecified whether behavioral, psychotic, or mood disturbance or anxiety Dementia severity: m oderate Dementia type: unspecified type Qualified Code(s): F03.B0 - Unspecified dementia, moderate, without behavioral disturbance, psychotic disturbance, mood disturbance, and anxiety Plan Continue to monitor, not agreeable to patient returning home directly. Awaiting group home placement. Attestations NPU 2 Medical Necessity Statement*: NA. Coding Level of Care Code Acute Code for Chg Fwd Diagnoses Altered mental status R41.82 Primary hypertension I10 Hypertension type: primary hypertension Type 2 diabetes mellitus with other specified complication, with long-term current use of insulin E11.69; Z79.4 Diabetes mellitus detention insulin use: with intermediate card tender use Diabetes mellitus complication status: with other specified complication Acute UTI N39.0 Confusion R41.0 Moderate dementia, unspecified dementia type, unspecified whether behavioral, psychotic, or mood disturbance or anxiety F03.B0 Dementia behavioral or psychological symptom: unspecified whether behavioral, psychotic, or mood disturbance or anxiety Dementia severity: moderate Dementia type: unspecified type
[2023-12-10 20:45] LABS: Glucose Point of Care 303 mg/dL (70-110)
[2023-12-10] MEDS: enoxaparin 40 mg/0.4 mL Syringe SUBCUT (20:45)
[2023-12-11] VITALS (8 sets, daily range): BP systolic 117–173; BP diastolic 54–82; PULSE 60–68; RESP 14–18; TEMP 36.3–37; O2SAT 96–100
[2023-12-11 06:24] LABS: Glucose Point of Care 157 mg/dL (70-110)
[2023-12-11] MEDS: insulin lispro 100 unit/1 mL SUBCUT ×4 (08:22→20:56)
[2023-12-11] MEDS: metoprolol tartrate 25 mg Tablet PO ×2 (08:23→20:45)
[2023-12-11] MEDS: escitalopram 10 mg Tablet PO (08:23)
[2023-12-11] MEDS: amlodipine 10 mg Tablet 5 MG PO (08:23)
[2023-12-11] MEDS: insulin glargine 100 units/1 mL 30 UNIT SUBCUT (08:37)
[2023-12-11 12:01] LABS: Glucose Point of Care 206 mg/dL (70-110)
--- NOTE | 2023-12-11 14:03 | P.PN_ITS ---
Subjective 2 Subjective: Seen this morning. Patient resting comfortably bed. Awaiting placement to nursing facility. Vitals/I&O/Wt Last Vital Signs Temp 97.3 F L 12/11/23 08:00 Pulse 60 12/11/23 12:00 Resp 14 12/11/23 12:00 BP 133/71 12/11/23 12:00 Pulse Ox 100 12/11/23 12:00 O2 Del Method Room Air 12/11/23 12:00 12/10/23 12/11/23 12/11/23 22:59 06:59 14:59 Intake Total 240 / 794 600 / 600 Balance 240 / 794 600 / 600 Weight last 48 hrs Weight 62.341 kg Weight 63.758 kg Physical Exam 2 Narrative: Pleasant and cooperative GCS 15 Nonfocal neuroexam awake and alert S1, S2 Abdomen soft Data 12/09/23 06:27 12/09/23 06:27 A&P Assessment and plan (1) Altered mental status: (2) Hypertension: Qualifiers: Hypertension type: primary hypertension Qualified Code(s): I10 - Essential (primary) hypertension (3) Type 2 diabetes mellitus: Qualifiers: Diabetes mellitus lobsterman insulin use: with lobsterman use Diabetes mellitus complication status: with other specified complication Qualified Code(s): E11.69 - Type 2 diabetes mellitus with other specified complication; Z79.4 - FDC (current) use of insulin (4) Acute UTI: (5) Confusion: (6) Dementia: Qualifiers: Dementia behavioral or psychological symptom: unspecified whether behavioral, psychotic, or mood disturbance or anxiety Dementia severity: m oderate Dementia type: unspecified type Qualified Code(s): F03.B0 - Unspecified dementia, moderate, without behavioral disturbance, psychotic disturbance, mood disturbance, and anxiety Plan Patient does have decision-making capacity at this time however is unsafe to go home without 24-hour supervision. We are unable to contact family at this time. She has been hotlined as well. State level to assessment is pending. Patient is cognitively impaired. She is alert and oriented x 2 only. Patient is awaiting placement in retirement at this time. Patient does not have a plan in place ? Continue Levaquin for UTI. Complete total 5 days. Will stop today. Continue Lantus 30 twice daily, insulin sliding scale. Awaiting placement. Attestations 2 Medical Necessity Statement*: Awaiting placement. Diagnoses Altered mental status R41.82 Primary hypertension I10 Hypertension type: primary hypertension Type 2 diabetes mellitus with other specified complication, with long-term current use of insulin E11.69; Z79.4 Diabetes mellitus prison insulin use: with prison use Diabetes mellitus complication status: with other specified complication Acute UTI N39.0 Confusion R41.0 Moderate dementia, unspecified dementia type, unspecified whether behavioral, psychotic, or mood disturbance or anxiety F03.B0 Dementia behavioral or psychological symptom: unspecified whether behavioral, psychotic, or mood disturbance or anxiety Dementia severity: moderate Dementia type: unspecified type
[2023-12-11 16:40] LABS: Glucose Point of Care 176 mg/dL (70-110)
--- NOTE | 2023-12-11 18:44 | W.PM.NPUPNS ---
Subjective NPU Subjective: 72-year-old female with some age-related cognitive impairment currently admitted and recently abandoned here by family. The patient reports being bored. She reports good mood otherwise. She states waiting here for eventual placement in intermediate. Mental Status Exam MSE Comments: She was alert and oriented to person and place only. She was cooperative on interview. Her speech was productive and normal in volume. Her mood was described as good. Her affect appeared content. She did not endorse any thoughts of hurting herself or others. There is evidence of delusional thinking. She did not appear to be responding to internal stimuli. Her insight was fair. Her judgment was fair. Her impulse control was limited. Her recent and remote memory were not formally assessed today. Vitals/I&O/Wt Last Vital Signs Temp 97.8 F 12/11/23 16:00 Pulse 61 12/11/23 16:00 Resp 16 12/11/23 16:00 BP 150/54 12/11/23 16:00 Pulse Ox 97 12/11/23 16:00 O2 Del Method Room Air 12/11/23 16:00 12/11/23 12/11/23 12/11/23 06:59 14:59 22:59 Intake Total 600 / 600 240 / 840 Balance 600 / 600 240 / 840 Weight last 48 hrs Weight 62.341 kg Weight 63.758 kg Data NPU 12/09/23 06:27 12/09/23 06:27 A&P Assessment and plan (1) Altered mental status: (2) Hypertension: Qualifiers: Hypertension type: primary hypertension Qualified Code(s): I10 - Essential (primary) hypertension (3) Type 2 diabetes mellitus: Qualifiers: 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 renewal inspector insulin use: with prison use Diabetes mellitus complication status: with other specified complication Qualified Code(s): E11.69 - Type 2 diabetes mellitus with other specified complication; Z79.4 - halfway (current) use of insulin (4) Acute UTI: (5) Confusion: (6) Dementia: Qualifiers: Dementia behavioral or psychological symptom: unspecified whether behavioral, psychotic, or mood disturbance or anxiety Dementia severity: moderate Dementia type: unspecified type Qualified Code(s): F03.B0 - Unspecified dementia, moderate, without behavioral disturbance, psychotic disturbance, mood disturbance, and anxiety Plan Continue meds as prescribed, currently awaiting placement. Reconsult if necessary. Attestations U Medical Necessity Statement*: NA. Treat medically. Coding Level of Care Code Acute Code for Chg Fwd Diagnoses Altered mental status R41.82 Primary hypertension I10 Hypertension type: primary hypertension Type 2 diabetes mellitus with other specified complication, with long-term current use of insulin E11.69; Z79.4 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 renewal inspector insulin use: with prison use Diabetes mellitus complication status: with other specified complication Acute UTI N39.0 Confusion R41.0 Moderate dementia, unspecified dementia type, unspecified whether behavioral, psychotic, or mood disturbance or anxiety F03.B0 Dementia behavioral or psychological symptom: unspecified whether behavioral, psychotic, or mood disturbance or anxiety Dementia severity: moderate Dementia type: unspecified type
[2023-12-11] MEDS: enoxaparin 40 mg/0.4 mL Syringe SUBCUT (20:45)
[2023-12-11 20:55] LABS: Glucose Point of Care 211 mg/dL (70-110)
[2023-12-12] VITALS (8 sets, daily range): BP systolic 115–145; BP diastolic 56–70; PULSE 57–63; RESP 16–18; TEMP 36.4–36.9; O2SAT 98–99
[2023-12-12 06:20] LABS: Glucose Point of Care 118 mg/dL (70-110)
[2023-12-12] MEDS: amlodipine 10 mg Tablet 5 MG PO (07:56)
[2023-12-12] MEDS: insulin glargine 100 units/1 mL 30 UNIT SUBCUT (07:56)
[2023-12-12] MEDS: metoprolol tartrate 25 mg Tablet PO (07:56)
[2023-12-12] MEDS: escitalopram 10 mg Tablet PO (07:57)
[2023-12-12 10:40] LABS: Glucose Point of Care 284 mg/dL (70-110)
[2023-12-12] MEDS: insulin lispro 100 unit/1 mL SUBCUT ×3 (11:38→21:39)
--- NOTE | 2023-12-12 14:43 | PM.PN ---
Subjective Subjective: Seen this morning. No acute events overnight Patient is daughter and it is a gentleman came to see the patient today. ? Daughter and the gentleman did have an argument at the hospital where security had to be called. Daughter over that person are not here to take her home. Patient is alert oriented x 3. Vitals/I&O/Wt Last Vital Signs Temp 98.0 F 12/12/23 11:59 Pulse 57 L 12/12/23 11:59 Resp 16 12/12/23 11:59 BP 132/61 12/12/23 11:59 Pulse Ox 99 12/12/23 11:59 O2 Del Method Room Air 12/12/23 11:59 12/11/23 12/12/23 12/12/23 22:59 06:59 14:59 Intake Total 240 / 840 360 / 360 Balance 240 / 840 360 / 360 Weight last 48 hrs Weight 61.734 kg Weight 62.341 kg Physical Exam Narrative: Pleasant and cooperative GCS 15 Nonfocal neuroexam awake and alert S1, S2 Abdomen soft Data 12/09/23 06:27 12/09/23 06:27 A&P Assessment and plan (1) Altered mental status: (2) Hypertension: Qualifiers: Hypertension type: primary hypertension Qualified Code(s): I10 - Essential (primary) hypertension (3) Type 2 diabetes mellitus: Qualifiers: Diabetes mellitus intermediate insulin use: with intermediate use Diabetes mellitus complication status: with other specified complication Qualified Code(s): E11.69 - Type 2 diabetes mellitus with other specified complication; Z79.4 - termite control service representative (current) use of insulin (4) Acute UTI: (5) Confusion: (6) Dementia: Qualifiers: Dementia behavioral or psychological symptom: unspecified whether behavioral, psychotic, or mood disturbance or anxiety Dementia severity: moderate Dementia type: unspecified type Qualified Code(s): F03.B0 - Unspecified dementia, moderate, without behavioral disturbance, psychotic disturbance, mood disturbance, and anxiety Plan Patient does have decision-making capacity at this time however is unsafe to go home without 24-hour supervision. We are unable to contact family at this time. She has been hotlined as well. State level to assessment is pending. Patient is cognitively impaired. She is alert and oriented x 2 only. Patient is awaiting placement in assisted at this time. Patient does not have a plan in place ? Continue Levaquin for UTI. Complete total 5 days. Will stop today. Continue Lantus 30 twice daily, insulin sliding scale. Awaiting placement. Attestations Medical Necessity Statement*: Awaiting placement. Diagnoses Altered mental status R41.82 Primary hypertension I10 Hypertension type: primary hypertension Type 2 diabetes mellitus with other specified complication, with long-term current use of insulin E11.69; Z79.4 Diabetes mellitus intermediate insulin use: with long term acute care registered nurse use Diabetes mellitus complication status: with other specified complication Acute UTI N39.0 Confusion R41.0 Moderate dementia, unspecified dementia type, unspecified whether behavioral, psychotic, or mood disturbance or anxiety F03.B0 Dementia behavioral or psychological symptom: unspecified whether behavioral, psychotic, or mood disturbance or anxiety Dementia severity: moderate Dementia type: unspecified type
--- NOTE | 2023-12-12 16:43 | P.NPUPN_ITS ---
Subjective NPU 2 Subjective: 72-year-old female with some age-related cognitive impairment currently admitted awaiting placement at longterm. She continues to report that she will go to longterm. Patient family had come to visit today. Patient reports in front of family not recognizing the process description writer of the note. Mental Status Exam 2 MSE Comments: She was alert and oriented to person and place only. She was cooperative on interview. Her speech was productive and normal in volume. Her mood was described as good. Her affect appeared content. She did not endorse any thoughts of hurting herself or others. There is evidence of delusional thinking. She did not appear to be responding to internal stimuli. Her insight was limited. Her judgment was fair. Her impulse control was limited. Her recent and remote memory were not formally assessed today. Vitals/I&O/Wt Last Vital Signs Temp 98.2 F 12/12/23 15:51 Pulse 59 L 12/12/23 15:51 Resp 16 12/12/23 15:51 BP 132/62 12/12/23 15:51 Pulse Ox 98 12/12/23 15:51 O2 Del Method Room Air 12/12/23 15:51 12/12/23 12/12/23 12/12/23 06:59 14:59 22:59 Intake Total 600 / 600 Balance 600 / 600 Weight last 48 hrs Weight 61.734 kg Weight 62.341 kg Data NPU 12/09/23 06:27 12/09/23 06:27 A&P Assessment and plan (1) Altered mental status: (2) Hypertension: Qualifiers: Hypertension type: primary hypertension Qualified Code(s): I10 - Essential (primary) hypertension (3) Type 2 diabetes mellitus: Qualifiers: Diabetes mellitus terminal operations supervisor insulin use: with custodial use Diabetes mellitus complication status: with other specified complication Qualified Code(s): E11.69 - Type 2 diabetes mellitus with other specified complication; Z79.4 - USP (current) use of insulin (4) Acute UTI: (5) Confusion: (6) Dementia: Qualifiers: Dementia behavioral or psychological symptom: unspecified whether behavioral, psychotic, or mood disturbance or anxiety Dementia severity: m oderate Dementia type: unspecified type Qualified Code(s): F03.B0 - Unspecified dementia, moderate, without behavioral disturbance, psychotic disturbance, mood disturbance, and anxiety Plan Continue meds as prescribed, currently awaiting placement. Reconsult if necessary. Attestations NPU 2 Medical Necessity Statement*: NA. Treat medically. Coding Level of Care Code Acute Code for Chg Fwd Diagnoses Altered mental status R41.82 Primary hypertension I10 Hypertension type: primary hypertension Type 2 diabetes mellitus with other specified complication, with long-term current use of insulin E11.69; Z79.4 Diabetes mellitus custodial insulin use: with terminal operations supervisor use Diabetes mellitus complication status: with other specified complication Acute UTI N39.0 Confusion R41.0 Moderate dementia, unspecified dementia type, unspecified whether behavioral, psychotic, or mood disturbance or anxiety F03.B0 Dementia behavioral or psychological symptom: unspecified whether behavioral, psychotic, or mood disturbance or anxiety Dementia severity: moderate Dementia type: unspecified type
[2023-12-12 16:55] LABS: Glucose Point of Care 195 mg/dL (70-110)
[2023-12-12 20:48] LABS: Glucose Point of Care 254 mg/dL (70-110)
[2023-12-12] MEDS: enoxaparin 40 mg/0.4 mL Syringe SUBCUT (21:39)
[2023-12-13] VITALS (7 sets, daily range): BP systolic 126–164; BP diastolic 51–89; PULSE 62–69; RESP 14–19; TEMP 36.5–36.9; O2SAT 97–100
[2023-12-13 04:50] LABS: Basophils % 0.5 %; Eosinophils % 0.7 %; Hematocrit 34.8 % (36-47); Lymphocytes # 1.2 10^3/uL (0.8-4.8); Mean Corpuscular HGB Conc 32.2 g/dL (30-55); Mean Corpuscular Hemoglobin 30.3 pg (27-33); Mean Corpuscular Volume 94.1 fl (85-98); Mean Platelet Volume 10.7 fL (7.4-10.4); Monocytes # 0.5 10^3/uL (0.2-0.9); Monocytes % 9.2 %; Neutrophils # 3.85 10^3/uL (1.8-7.7); Neutrophils % 68.1 %; Nucleated Red Blood Cells % 0 %; Platelet Count 146 10^3/cmm (157-399); Red Cell Distribution Width 13.4 % (12.1-15.1); White Blood Count 5.66 10^3/uL (3.29-11.43)
[2023-12-13 05:13] LABS: Anion Gap 11.1 (5-19); Blood Urea Nitrogen 25 mg/dL (8-23); Calcium 9.3 mg/dL (8.5-10.5); Carbon Dioxide 29 mmol/L (22-29); Chloride 104 mmol/L (98-107); Creatinine Clr Calc Pharmacy 51.2933; Glucose 77 mg/dL (65-115); Magnesium 2.1 mg/dL (1.7-2.3); Osmolality Calculated 293 mOsm/kg (285-295); Potassium 4.1 mmol/L (3.5-5.1); Sodium 140 mmol/L (136-145)
[2023-12-13 06:23] LABS: Glucose Point of Care 120 mg/dL (70-110)
[2023-12-13] MEDS: insulin glargine 100 units/1 mL 30 UNIT SUBCUT (09:05)
[2023-12-13] MEDS: amlodipine 10 mg Tablet 5 MG PO (09:06)
[2023-12-13] MEDS: metoprolol tartrate 25 mg Tablet PO ×2 (09:06→19:44)
[2023-12-13] MEDS: escitalopram 10 mg Tablet PO (09:06)
[2023-12-13 11:19] LABS: Glucose Point of Care 354 mg/dL (70-110)
[2023-12-13] MEDS: insulin lispro 100 unit/1 mL SUBCUT ×2 (11:58→17:37)
[2023-12-13] MEDS: losartan 50 mg Tablet PO (12:00)
[2023-12-13 12:19] LABS: Estmated Average Glucose 278; Hemoglobin A1C 11.3 % (4.0-6.0)
--- NOTE | 2023-12-13 14:19 | PM.PN ---
Subjective Subjective: Hospital course, labs appreciated. On examination patient laying comfortably in bed, jovial. She is alert and oriented to self, knows she is in the hospital but thinks in [place], thinks the year is 2012. Not oriented to the season or the president. Patient otherwise denies any new complaints. Appreciate vitals. Remains on room air. Vitals/I&O/Wt Last Vital Signs Temp 98.2 F 12/13/23 11:39 Pulse 66 12/13/23 11:39 Resp 18 12/13/23 11:39 BP 151/89 12/13/23 12:00 Pulse Ox 97 12/13/23 11:39 O2 Del Method Room Air 12/13/23 11:39 12/12/23 12/13/23 12/13/23 22:59 06:59 14:59 Intake Total 240 / 840 360 / 360 Output Total 400 / 400 Balance 240 / 840 -400 / 440 360 / 360 Weight last 48 hrs Weight 63.412 kg Weight 61.734 kg Physical Exam Narrative: General: No acute distress, AO x 1-2 HEENT: PERRLA, pupils bilaterally equal and reactive Chest: Normal vesicular breath sounds, no added sounds, equal good air entry bilaterally CVS: S1-S2 regular, no murmurs, no tachycardia, no gallops, no rubs Abdomen: Soft, nontender, no organomegaly, bowel sounds present Neuro: No focal deficits, no facial deformity, power 5/5 in all limbs Data 12/13/23 03:17 12/13/23 03:17 A&P Assessment and plan (1) Altered mental status: (2) Hypertension: Qualifiers: Hypertension type: primary hypertension Qualified Code(s): I10 - Essential (primary) hypertension (3) Type 2 diabetes mellitus: Blood sugars elevated. Check A1c. Last A1c more than 11. Change Lantus to 20 units twice daily. Continue with sliding scale ACHS. Patient has been missing some doses of her insulin as per sliding scale. Switch to low-dose. Qualifiers: Diabetes mellitus [facility] insulin use: with superintendent container terminal use Diabetes mellitus complication status: with other specified complication Qualified Code(s): E11.69 - Type 2 diabetes mellitus with other specified complication; Z79.4 - senior living (current) use of insulin (4) Acute UTI: Finish course of IV antibiotics with Levaquin. (5) Confusion: Appreciate psychiatry recommendations. Patient has been deemed unsafe to take care of herself and needs 24-hour supervision. Concern for cognitive decline. (6) Dementia: Continue with Lexapro. Qualifiers: Dementia behavioral or psychological symptom: unspecified whether behavioral, psychotic, or mood disturbance or anxiety Dementia severity: moderate Dementia type: unspecified type Qualified Code(s): F03.B0 - Unspecified dementia, moderate, without behavioral disturbance, psychotic disturbance, mood disturbance, and anxiety Plan Because of the above patient has been deemed unable to take care of herself and is needing placement as she requires 24-hour supervision which she is not able to get out of the hospital at home. Attestations Medical Necessity Statement*: Requires further hospitalization while safe discharge planning is sought in setting of confusion and altered mental status due to baseline dementia, uncontrolled type 2 diabetes mellitus as patient requires SNF placement for safe discharge given cognitive decline Diagnoses Altered mental status R41.82 Primary hypertension I10 Hypertension type: primary hypertension Type 2 diabetes mellitus with other specified complication, with long-term current use of insulin E11.69; Z79.4 Diabetes mellitus [facility] insulin use: with superintendent container terminal use Diabetes mellitus complication status: with other specified complication Acute UTI N39.0 Confusion R41.0 Moderate dementia, unspecified dementia type, unspecified whether behavioral, psychotic, or mood disturbance or anxiety F03.B0 Dementia behavioral or psychological symptom: unspecified whether behavioral, psychotic, or mood disturbance or anxiety Dementia severity: moderate Dementia type: unspecified type
[2023-12-13 15:57] LABS: Glucose Point of Care 200 mg/dL (70-110)
[2023-12-13] MEDS: insulin glargine 100 units/1 mL 20 UNIT SUBCUT (17:24)
[2023-12-13] MEDS: enoxaparin 40 mg/0.4 mL Syringe SUBCUT (19:45)
[2023-12-13 21:07] LABS: Glucose Point of Care 133 mg/dL (70-110)
--- NOTE | 2023-12-13 23:12 | PC.NURSE ---
Assumed pt care at 2100, received report from SOFIYA Aguirre.
[2023-12-14] VITALS (8 sets, daily range): BP systolic 117–164; BP diastolic 41–78; PULSE 55–69; RESP 16–19; TEMP 36.4–36.9; O2SAT 97–100
[2023-12-14 06:29] LABS: Glucose Point of Care 67 mg/dL (70-110)
[2023-12-14] MEDS: fenofibrate 145 mg Tablet PO (06:36)
[2023-12-14] MEDS: atorvastatin 40 mg Tablet PO (06:37)
[2023-12-14 07:27] LABS: Glucose Point of Care 67 mg/dL (70-110)
[2023-12-14 08:18] LABS: Glucose Point of Care 116 mg/dL (70-110)
[2023-12-14] MEDS: losartan 50 mg Tablet PO (09:08)
[2023-12-14] MEDS: metoprolol tartrate 25 mg Tablet PO ×2 (09:09→22:22)
[2023-12-14] MEDS: escitalopram 10 mg Tablet PO (09:09)
[2023-12-14 09:26] LABS: Alanine Aminotransferase 27 U/L (0-33); Albumin Level 3.4 g/dL (3.5-5.2); Alkaline Phosphatase 83 U/L (35-105); Anion Gap 13.7 (5-19); Aspartate Amino Transferase 34 U/L (0-32); Blood Urea Nitrogen 28 mg/dL (8-23); Calcium 8.9 mg/dL (8.5-10.5); Carbon Dioxide 26 mmol/L (22-29); Chloride 104 mmol/L (98-107); Creatinine Clr Calc Pharmacy 50.6041; Globulin 2.6 g/dL (1.3-4.6); Glucose 156 mg/dL (65-115); Osmolality Calculated 297 mOsm/kg (285-295); Potassium 4.7 mmol/L (3.5-5.1); Sodium 139 mmol/L (136-145); Total Bilirubin 0.3 mg/dL (0.15-1.2)
[2023-12-14] MEDS: insulin glargine 100 units/1 mL 20 UNIT SUBCUT ×2 (09:48→17:25)
[2023-12-14 11:23] LABS: Glucose Point of Care 166 mg/dL (70-110)
[2023-12-14] MEDS: insulin lispro 100 unit/1 mL SUBCUT ×2 (11:47→17:26)
--- NOTE | 2023-12-14 11:55 | PM.PN ---
Subjective Subjective: No acute events overnight. Too early in the morning patient did have mild hypoglycemia which was treated with oral juice. On examination she is laying comfortably in bed. States she is feeling slightly tired today. Denies any nausea, vomiting, headache. Vitals/I&O/Wt Last Vital Signs Temp 97.5 F L 12/14/23 07:14 Pulse 69 12/14/23 09:18 Resp 16 12/14/23 09:18 BP 135/62 12/14/23 09:08 Pulse Ox 98 12/14/23 09:18 O2 Del Method Room Air 12/14/23 09:18 12/13/23 12/14/23 12/14/23 22:59 06:59 14:59 Intake Total 480 / 1320 360 / 360 Balance 480 / 1320 360 / 360 Weight last 48 hrs Weight 61.643 kg Weight 63.412 kg Physical Exam Narrative: General: No acute distress, AO x 1-2 HEENT: PERRLA, pupils bilaterally equal and reactive Chest: Normal vesicular breath sounds, no added sounds, equal good air entry bilaterally CVS: S1-S2 regular, no murmurs, no tachycardia, no gallops, no rubs Abdomen: Soft, nontender, no organomegaly, bowel sounds present Neuro: No focal deficits, no facial deformity, power 5/5 in all limbs Data 12/13/23 03:17 12/14/23 08:57 A&P Assessment and plan (1) Altered mental status: Resolved. Most likely in setting of worsening confusion with cognitive decline in setting of UTI with baseline dementia (2) Hypertension: Qualifiers: Hypertension type: primary hypertension Qualified Code(s): I10 - Essential (primary) hypertension (3) Type 2 diabetes mellitus: A1c again checked to be more than 11. Blood sugars better controlled with mild hypoglycemia today morning. For now we will continue with current dose of Lantus 20 units twice daily along with low-dose protocol sliding scale. Monitor blood sugars. Hypoglycemia protocol. Qualifiers: Diabetes mellitus half-way insulin use: with half-way use Diabetes mellitus complication status: with other specified complication Qualified Code(s): E11.69 - Type 2 diabetes mellitus with other specified complication; Z79.4 - custodial (current) use of insulin (4) Acute UTI: Finish course of IV antibiotics with Levaquin. (5) Confusion: Appreciate psychiatry recommendations. Patient has been deemed able to make her decisions at this time but needs 24-hour care because of age-related cognitive impairment. Patient is agreeable. Patient has been deemed unsafe to take care of herself and needs 24-hour supervision. Concern for cognitive decline. (6) Dementia: Continue with Lexapro. Qualifiers: Dementia behavioral or psychological symptom: unspecified whether behavioral, psychotic, or mood disturbance or anxiety Dementia severity: moderate Dementia type: unspecified type Qualified Code(s): F03.B0 - Unspecified dementia, moderate, without behavioral disturbance, psychotic disturbance, mood disturbance, and anxiety Plan Full code Carb consistent diet Lovenox for DVT prophylaxis Discharge plan: Because of the above patient has been deemed unable to take care of herself and is needing placement as she requires 24-hour supervision which she is not able to get out of the hospital at home as her family are not willing to take care of her needs. Awaiting placement to SNF and level 2 is pending. Attestations Medical Necessity Statement*: Requires further hospitalization while safe discharge planning to self and level 2 is achieved in a patient who requires 24-hour supervision in setting of cognitive decline Diagnoses Altered mental status R41.82 Primary hypertension I10 Hypertension type: primary hypertension Type 2 diabetes mellitus with other specified complication, with long-term current use of insulin E11.69; Z79.4 Diabetes mellitus press tender long goods insulin use: with press tender long goods use Diabetes mellitus complication status: with other specified complication Acute UTI N39.0 Confusion R41.0 Moderate dementia, unspecified dementia type, unspecified whether behavioral, psychotic, or mood disturbance or anxiety F03.B0 Dementia behavioral or psychological symptom: unspecified whether behavioral, psychotic, or mood disturbance or anxiety Dementia severity: moderate Dementia type: unspecified type
[2023-12-14 15:56] LABS: Glucose Point of Care 161 mg/dL (70-110)
[2023-12-14 20:03] LABS: Glucose Point of Care 165 mg/dL (70-110)
--- NOTE | 2023-12-14 21:58 | PC.NURSE ---
Evening medication administration: Pt BS this evening was 165 and has 2 units of insulin ordered per protocol. Last evening her BS was 133 and no insulin was given and in the morning it had dropped to 67. Also, she has no IV and is upset to her stomach, her Zofran is ordered IV. Gave orders to change Zofran to PO and hold this evening's insulin.
[2023-12-14 22:13] LABS: C.Diff PCR (Lab) NEGATIVE (Negative)
[2023-12-14] MEDS: ondansetron 4 MG Tablet PO (22:22)
[2023-12-14] MEDS: enoxaparin 40 mg/0.4 mL Syringe SUBCUT (22:22)
[2023-12-15] VITALS (8 sets, daily range): BP systolic 115–160; BP diastolic 57–77; PULSE 57–65; RESP 16–18; TEMP 36.3–37.1; O2SAT 97–100
[2023-12-15] MEDS: fenofibrate 145 mg Tablet PO (05:53)
[2023-12-15] MEDS: atorvastatin 40 mg Tablet PO (05:53)
[2023-12-15 06:23] LABS: Glucose Point of Care 99 mg/dL (70-110)
[2023-12-15] MEDS: insulin glargine 100 units/1 mL 20 UNIT SUBCUT ×2 (08:00→17:30)
[2023-12-15] MEDS: escitalopram 10 mg Tablet PO (08:00)
[2023-12-15] MEDS: losartan 50 mg Tablet PO (08:00)
[2023-12-15 11:05] LABS: Glucose Point of Care 189 mg/dL (70-110)
[2023-12-15] MEDS: metoprolol tartrate 25 mg Tablet PO ×2 (11:44→21:20)
[2023-12-15] MEDS: insulin lispro 100 unit/1 mL SUBCUT ×3 (11:45→21:20)
--- NOTE | 2023-12-15 12:39 | P.PN_ITS ---
Subjective 2 Subjective: No acute events overnight. Continue to have mild diarrhea earlier today morning. C. difficile negative. Patient denies any new complaints. Blood sugars controlled. Hemodynamically stable and afebrile. Vitals/I&O/Wt Last Vital Signs Temp 98.3 F 12/15/23 12:00 Pulse 61 12/15/23 12:00 Resp 16 12/15/23 12:00 BP 160/57 12/15/23 12:00 Pulse Ox 97 12/15/23 12:00 O2 Del Method Room Air 12/15/23 12:00 12/14/23 12/15/23 12/15/23 22:59 06:59 14:59 Intake Total 200 / 1040 Output Total 600 / 600 Balance -400 / 440 Weight last 48 hrs Weight 61.28 kg Weight 61.643 kg Physical Exam 2 Narrative: General: No acute distress, AO x 1-2 HEENT: PERRLA, pupils bilaterally equal and reactive Chest: Normal vesicular breath sounds, no added sounds, equal good air entry bilaterally CVS: S1-S2 regular, no murmurs, no tachycardia, no gallops, no rubs Abdomen: Soft, nontender, no organomegaly, bowel sounds present Neuro: No focal deficits, no facial deformity, power 5/5 in all limbs Data 12/13/23 03:17 12/14/23 08:57 A&P Assessment and plan (1) Altered mental status: Resolved. Most likely in setting of worsening confusion with cognitive decline in setting of UTI with baseline dementia (2) Hypertension: Qualifiers: Hypertension type: primary hypertension Qualified Code(s): I10 - Essential (primary) hypertension (3) Type 2 diabetes mellitus: A1c again checked to be more than 11. Blood sugars better controlled with mild hypoglycemia today morning. For now we will continue with current dose of Lantus 20 units twice daily along with low- dose protocol sliding scale. Monitor blood sugars. Hypoglycemia protocol. Qualifiers: Diabetes mellitus assisted insulin use: with intermodal owner operator truck driver use Diabetes mellitus complication status: with other specified complication Qualified Code(s): E11.69 - Type 2 diabetes mellitus with other specified complication; Z79.4 - roasterman (current) use of insulin (4) Acute UTI: Finish course of IV antibiotics with Levaquin. (5) Confusion: Appreciate psychiatry recommendations. Patient has been deemed able to make her decisions at this time but needs 24- hour care because of age-related cognitive impairment. Patient is agreeable. Patient has been deemed unsafe to take care of herself and needs 24-hour supervision. Concern for cognitive decline. (6) Dementia: Continue with Lexapro. Qualifiers: Dementia behavioral or psychological symptom: unspecified whether behavioral, psychotic, or mood disturbance or anxiety Dementia severity: m oderate Dementia type: unspecified type Qualified Code(s): F03.B0 - Unspecified dementia, moderate, without behavioral disturbance, psychotic disturbance, mood disturbance, and anxiety Plan Full code Carb consistent diet Lovenox for DVT prophylaxis Plan for the day: Blood sugars better controlled. Continue with Lantus 20 units twice daily along with low sliding scale before meals and at bedtime Humalog premeals. Finish course of antibiotics for UTI. Blood pressure better controlled. Continue with losartan 50 mg oral daily. Most likely will discharge on losartan and discontinue amlodipine. Discharge plan: Because of the above patient has been deemed unable to take care of herself and is needing placement as she requires 24-hour supervision which she is not able to get out of the hospital at home as her family are not willing to take care of her needs. Awaiting placement to SNF and level 2 is pending. Attestations 2 Medical Necessity Statement*: Patient requires further hospitalization while safe discharge planning and level 2 is awaited in a patient admitted for confusion in setting of baseline dementia getting worsened with UTI. Diagnoses Altered mental status R41.82 Primary hypertension I10 Hypertension type: primary hypertension Type 2 diabetes mellitus with other specified complication, with long-term current use of insulin E11.69; Z79.4 Diabetes mellitus assisted insulin use: with intermodal owner operator truck driver use Diabetes mellitus complication status: with other specified complication Acute UTI N39.0 Confusion R41.0 Moderate dementia, unspecified dementia type, unspecified whether behavioral, psychotic, or mood disturbance or anxiety F03.B0 Dementia behavioral or psychological symptom: unspecified whether behavioral, psychotic, or mood disturbance or anxiety Dementia severity: moderate Dementia type: unspecified type
[2023-12-15 17:03] LABS: Glucose Point of Care 224 mg/dL (70-110)
[2023-12-15 21:13] LABS: Glucose Point of Care 212 mg/dL (70-110)
[2023-12-15] MEDS: enoxaparin 40 mg/0.4 mL Syringe SUBCUT (21:20)
--- NOTE | 2023-12-15 23:28 | PC.NURSE ---
Assumed pt care at this time. Report received from LISSETH Mcpherson. Pt is resting in bed with eyes closed, respirations even and unlabored. Call light is within reach.
[2023-12-16] VITALS (8 sets, daily range): BP systolic 107–157; BP diastolic 54–71; PULSE 54–70; RESP 16–18; TEMP 36.5–36.9; O2SAT 95–100
[2023-12-16 04:30] LABS: Glucose Point of Care 77 mg/dL (70-110)
[2023-12-16] MEDS: fenofibrate 145 mg Tablet PO (06:27)
[2023-12-16] MEDS: atorvastatin 40 mg Tablet PO (06:27)
[2023-12-16 06:36] LABS: Glucose Point of Care 89 mg/dL (70-110)
[2023-12-16] MEDS: losartan 50 mg Tablet PO (08:34)
[2023-12-16] MEDS: insulin glargine 100 units/1 mL 20 UNIT SUBCUT ×2 (08:35→17:25)
[2023-12-16] MEDS: metoprolol tartrate 25 mg Tablet PO ×2 (08:35→21:17)
[2023-12-16] MEDS: escitalopram 10 mg Tablet PO (08:35)
--- NOTE | 2023-12-16 10:48 | P.PN_ITS ---
Subjective 2 Subjective: Reports no problems overnight. States that she is doing well. No problems with eating or drinking. Denies other problems at this time. Medications: Reviewed: Yes Vitals/I&O/Wt Last Vital Signs Temp 98.2 F 12/16/23 07:40 Pulse 54 L 12/16/23 07:40 Resp 16 12/16/23 07:40 BP 157/71 12/16/23 08:34 Pulse Ox 98 12/16/23 07:40 O2 Del Method Room Air 12/16/23 07:40 12/15/23 12/16/23 12/16/23 22:59 06:59 14:59 Intake Total 380 / 860 150 / 1010 480 / 480 Output Total 550 / 550 Balance 380 / 860 -400 / 460 480 / 480 Weight last 48 hrs Weight 135 lb 1.6 oz Physical Exam 2 Narrative: General: Cooperative patient in no apparent distress. Well developed. HEENT: Normocephalic, Atraumatic. External ears normal. Nasal passages patent without drainage. MMM. Heart: RRR. Resp: LCTA. No respiratory distress, no use of accessory muscles. Abd: Soft, non-tender. Non-distended. Extremities: No edema. Skin: No rash or lesions on exposed areas. Neuro: No focal motor or sensory loss. Data 12/13/23 03:17 12/14/23 08:57 A&P Assessment and plan (1) Altered mental status: Resolved. Most likely in setting of worsening confusion with cognitive decline in setting of UTI with baseline dementia (2) Hypertension: Qualifiers: Hypertension type: primary hypertension Qualified Code(s): I10 - Essential (primary) hypertension (3) Type 2 diabetes mellitus: A1c again checked to be more than 11. Blood sugars better controlled with mild hypoglycemia today morning. For now we will continue with current dose of Lantus 20 units twice daily along with low- dose protocol sliding scale. Monitor blood sugars. Hypoglycemia protocol. Qualifiers: Diabetes mellitus long winder tender insulin use: with senior care use Diabetes mellitus complication status: with other specified complication Qualified Code(s): E11.69 - Type 2 diabetes mellitus with other specified complication; Z79.4 - group home (current) use of insulin (4) Acute UTI: Finish course of IV antibiotics with Levaquin. (5) Confusion: Appreciate psychiatry recommendations. Patient has been deemed able to make her decisions at this time but needs 24- hour care because of age-related cognitive impairment. Patient is agreeable. Patient has been deemed unsafe to take care of herself and needs 24-hour supervision. Concern for cognitive decline. (6) Dementia: Continue with Lexapro. Qualifiers: Dementia behavioral or psychological symptom: unspecified whether behavioral, psychotic, or mood disturbance or anxiety Dementia severity: m oderate Dementia type: unspecified type Qualified Code(s): F03.B0 - Unspecified dementia, moderate, without behavioral disturbance, psychotic disturbance, mood disturbance, and anxiety Plan Plan for the day: Continue current inpatient management. Continue current glycemic management. Blood sugars currently well controlled. Has completed Abx treatment for UTI. Continue losartan for BP management. Remains slightly elevated, but expect this to improve after thoracentesis. Code Status: Full code IVF: none DVT PPx: Lovenox GI PPx: none ABx: None Diet: CC Discharge plan: Because of the above patient has been deemed unable to take care of herself and is needing placement as she requires 24-hour supervision which she is not able to get out of the hospital at home as her family are not willing to take care of her needs. Awaiting placement to SNF and level 2 is pending. Attestations 2 Medical Necessity Statement*: Patient requires further hospitalization while safe discharge planning and level 2 is awaited in a patient admitted for confusion in setting of baseline dementia getting worsened with UTI. Coding Level of Care Code Acute Code for Chg Fwd Diagnoses Altered mental status R41.82 Primary hypertension I10 Hypertension type: primary hypertension Type 2 diabetes mellitus with other specified complication, with long-term current use of insulin E11.69; Z79.4 Diabetes mellitus long winder tender insulin use: with senior care use Diabetes mellitus complication status: with other specified complication Acute UTI N39.0 Confusion R41.0 Moderate dementia, unspecified dementia type, unspecified whether behavioral, psychotic, or mood disturbance or anxiety F03.B0 Dementia behavioral or psychological symptom: unspecified whether behavioral, psychotic, or mood disturbance or anxiety Dementia severity: moderate Dementia type: unspecified type
[2023-12-16 11:39] LABS: Glucose Point of Care 188 mg/dL (70-110)
[2023-12-16] MEDS: insulin lispro 100 unit/1 mL SUBCUT ×3 (12:04→21:17)
[2023-12-16 16:31] LABS: Glucose Point of Care 216 mg/dL (70-110)
[2023-12-16] MEDS: enoxaparin 40 mg/0.4 mL Syringe SUBCUT (21:17)
[2023-12-16 21:35] LABS: Glucose Point of Care 182 mg/dL (70-110)
[2023-12-17] VITALS (8 sets, daily range): BP systolic 139–172; BP diastolic 5–81; PULSE 54–68; RESP 16–19; TEMP 36.4–36.9; O2SAT 95–100
[2023-12-17] MEDS: fenofibrate 145 mg Tablet PO (05:22)
[2023-12-17] MEDS: atorvastatin 40 mg Tablet PO (05:22)
[2023-12-17] MEDS: losartan 50 mg Tablet PO (08:48)
[2023-12-17] MEDS: insulin glargine 100 units/1 mL 20 UNIT SUBCUT ×2 (08:48→17:04)
[2023-12-17] MEDS: escitalopram 10 mg Tablet PO (08:48)
[2023-12-17 09:10] LABS: Glucose Point of Care 85 mg/dL (70-110)
[2023-12-17 09:10] LABS: Glucose Point of Care 90 mg/dL (70-110)
--- NOTE | 2023-12-17 10:55 | P.PN_ITS ---
Subjective 2 Subjective: No overnight events. Patient denies any pain or problems today. Medications: Reviewed: Yes Vitals/I&O/Wt Last Vital Signs Temp 97.6 F 12/17/23 07:41 Pulse 56 L 12/17/23 07:50 Resp 18 12/17/23 07:50 BP 156/62 12/17/23 08:48 Pulse Ox 95 12/17/23 07:50 O2 Del Method Room Air 12/17/23 07:50 12/16/23 12/17/23 12/17/23 22:59 06:59 14:59 Intake Total 360 / 1320 240 / 240 Balance 360 / 1320 240 / 240 Weight last 48 hrs Weight 138 lb 8 oz Weight 138 lb 1.6 oz Physical Exam 2 Narrative: General: Cooperative patient in no apparent distress. Well developed. HEENT: Normocephalic, Atraumatic. External ears normal. Nasal passages patent without drainage. MMM. Heart: RRR. Resp: LCTA. No respiratory distress, no use of accessory muscles. Abd: Soft, non-tender. Non-distended. Extremities: No edema. Skin: No rash or lesions on exposed areas. Data 12/13/23 03:17 12/14/23 08:57 A&P Assessment and plan (1) Altered mental status: Resolved. Most likely in setting of worsening confusion with cognitive decline in setting of UTI with baseline dementia (2) Hypertension: Qualifiers: Hypertension type: primary hypertension Qualified Code(s): I10 - Essential (primary) hypertension (3) Type 2 diabetes mellitus: A1c again checked to be more than 11. Blood sugars better controlled with mild hypoglycemia today morning. For now we will continue with current dose of Lantus 20 units twice daily along with low- dose protocol sliding scale. Monitor blood sugars. Hypoglycemia protocol. Qualifiers: Diabetes mellitus long-term insulin use: with long-term use Diabetes mellitus complication status: with other specified complication Qualified Code(s): E11.69 - Type 2 diabetes mellitus with other specified complication; Z79.4 - extermination supervisor (current) use of insulin (4) Acute UTI: Finish course of IV antibiotics with Levaquin. (5) Confusion: Appreciate psychiatry recommendations. Patient has been deemed able to make her decisions at this time but needs 24- hour care because of age-related cognitive impairment. Patient is agreeable. Patient has been deemed unsafe to take care of herself and needs 24-hour supervision. Concern for cognitive decline. (6) Dementia: Continue with Lexapro. Qualifiers: Dementia behavioral or psychological symptom: unspecified whether behavioral, psychotic, or mood disturbance or anxiety Dementia severity: m oderate Dementia type: unspecified type Qualified Code(s): F03.B0 - Unspecified dementia, moderate, without behavioral disturbance, psychotic disturbance, mood disturbance, and anxiety Plan Plan for the day: Continue current inpatient management. Continue current glycemic management. Blood sugars currently well controlled. Has completed Abx treatment for UTI. Continue losartan for BP management. Code Status: Full code IVF: none DVT PPx: Lovenox GI PPx: none ABx: None Diet: CC Discharge plan: Because of the above patient has been deemed unable to take care of herself and is needing placement as she requires 24-hour supervision which she is not able to get out of the hospital at home as her family are not willing to take care of her needs. Awaiting placement to SNF and level 2 is pending. Attestations 2 Medical Necessity Statement*: Patient requires further hospitalization while safe discharge planning and level 2 is awaited in a patient admitted for confusion in setting of baseline dementia getting worsened with UTI. 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
[2023-12-17 11:13] LABS: Glucose Point of Care 184 mg/dL (70-110)
[2023-12-17] MEDS: insulin lispro 100 unit/1 mL SUBCUT ×3 (11:37→21:09)
--- NOTE | 2023-12-17 15:42 | PC.NURSE ---
Addendum entered by Corine Trammell LPN 12/17/23 17:53: Pt ate 100% of her dinner. We had an extra dinner tray and this nurse offered it to pt in which she accepted. Pt ate 100% of 2nd dinner as well. Original Note: Pt claims that she has not been fed today and all we have offered her is jello and coffee. This nurse explained to patient that she has had breakfast and lunch so far as well as 3 sandwiches, jello and pudding. Pt will take a few bites of her sandwich and then throw it in the trash.
[2023-12-17 17:15] LABS: Glucose Point of Care 276 mg/dL (70-110)
[2023-12-17 20:23] LABS: Glucose Point of Care 264 mg/dL (70-110)
[2023-12-17] MEDS: metoprolol tartrate 25 mg Tablet PO (21:09)
[2023-12-17] MEDS: enoxaparin 40 mg/0.4 mL Syringe SUBCUT (21:10)
[2023-12-18] VITALS (8 sets, daily range): BP systolic 109–156; BP diastolic 53–82; PULSE 58–75; RESP 14–17; TEMP 36.4–36.9; O2SAT 92–100
[2023-12-18] MEDS: fenofibrate 145 mg Tablet PO (05:33)
[2023-12-18] MEDS: atorvastatin 40 mg Tablet PO (05:33)
[2023-12-18 06:40] LABS: Glucose Point of Care 95 mg/dL (70-110)
[2023-12-18 06:40] LABS: Glucose Point of Care 119 mg/dL (70-110)
[2023-12-18] MEDS: escitalopram 10 mg Tablet PO (08:30)
[2023-12-18] MEDS: losartan 50 mg Tablet PO (08:30)
[2023-12-18] MEDS: insulin glargine 100 units/1 mL 20 UNIT SUBCUT ×2 (08:31→18:15)
[2023-12-18] MEDS: metoprolol tartrate 25 mg Tablet PO ×2 (08:31→22:09)
[2023-12-18 11:15] LABS: Basophils % 0.7 %; Eosinophils # 0.1 10^3/uL (0.0-0.8); Eosinophils % 1.8 %; Hematocrit 37.4 % (36-47); Lymphocytes # 1.3 10^3/uL (0.8-4.8); Lymphocytes % 29.7 %; Mean Corpuscular Hemoglobin 30.2 pg (27-33); Mean Corpuscular Volume 97.4 fl (85-98); Mean Platelet Volume 9.7 fL (7.4-10.4); Monocytes # 0.5 10^3/uL (0.2-0.9); Monocytes % 10.1 %; Neutrophils # 2.56 10^3/uL (1.8-7.7); Neutrophils % 57.5 %; Nucleated Red Blood Cells % 0 %; Platelet Count 175 10^3/cmm (157-399); Red Blood Count 3.84 10^6/uL (3.85-5.65); Red Cell Distribution Width 14.1 % (12.1-15.1); White Blood Count 4.45 10^3/uL (3.29-11.43)
[2023-12-18 11:36] LABS: Alanine Aminotransferase 22 U/L (0-33); Albumin Level 3.5 g/dL (3.5-5.2); Alkaline Phosphatase 74 U/L (35-105); Anion Gap 12.5 (5-19); Aspartate Amino Transferase 19 U/L (0-32); Blood Urea Nitrogen 26 mg/dL (8-23); Calcium 9.1 mg/dL (8.5-10.5); Carbon Dioxide 27 mmol/L (22-29); Chloride 106 mmol/L (98-107); Creatinine Clr Calc Pharmacy 51.5762; Globulin 2.1 g/dL (1.3-4.6); Glucose 196 mg/dL (65-115); Osmolality Calculated 302 mOsm/kg (285-295); Potassium 4.5 mmol/L (3.5-5.1); Sodium 141 mmol/L (136-145); Total Bilirubin 0.4 mg/dL (0.15-1.2); Total Protein 5.6 g/dL (6.6-8.7)
[2023-12-18 11:46] LABS: Glucose Point of Care 203 mg/dL (70-110)
[2023-12-18] MEDS: insulin lispro 100 unit/1 mL SUBCUT ×2 (12:02→18:15)
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
[2023-12-18 17:15] LABS: Glucose Point of Care 207 mg/dL (70-110)
[2023-12-18 20:38] LABS: Glucose Point of Care 180 mg/dL (70-110)
[2023-12-18] MEDS: enoxaparin 40 mg/0.4 mL Syringe SUBCUT (22:09)
[2023-12-19 04:00] VITALS: BP 113/58; PULSE 62; RESP 17; TEMP 36.8; O2SAT 99
[2023-12-19] MEDS: atorvastatin 40 mg Tablet PO (05:55)
[2023-12-19] MEDS: fenofibrate 145 mg Tablet PO (05:55)
[2023-12-19 06:37] LABS: Glucose Point of Care 77 mg/dL (70-110)
[2023-12-19 07:48] VITALS: BP 138/54; PULSE 61; RESP 15; TEMP 36.4; O2SAT 98
[2023-12-19 08:06] VITALS: PULSE 70; RESP 16; O2SAT 92
[2023-12-19] MEDS: metoprolol tartrate 25 mg Tablet PO ×2 (09:07→21:49)
[2023-12-19] MEDS: insulin glargine 100 units/1 mL 20 UNIT SUBCUT ×2 (09:07→17:00)
[2023-12-19] MEDS: losartan 50 mg Tablet PO (09:07)
[2023-12-19] MEDS: escitalopram 10 mg Tablet PO (09:07)
[2023-12-19 11:46] LABS: Glucose Point of Care 159 mg/dL (70-110)
[2023-12-19 11:49] VITALS: BP 156/57; PULSE 61; RESP 14; TEMP 36.7; O2SAT 98
--- NOTE | 2023-12-19 12:01 | XRR_ITS ---
PROCEDURE INFORMATION: Exam: XR Right Shoulder Exam date and time: 12/19/2023 1:47 PM Age: 72 years old Clinical indication: Injury or trauma; Fall; Blunt trauma (contusions or hematomas); Shoulder; Right; Additional info: PT stated, fall TECHNIQUE: Imaging protocol: Radiologic exam of the right shoulder. Views: 2 or more views. COMPARISON: CR XR chest 1V portable [id number] 12/02/2023 12:27 PM FINDINGS: Bones/joints: The glenohumeral articulation is grossly intact with moderate osteoarthritis. The acromioclavicular articulation is grossly intact with mild osteoarthritis. Soft tissues: No gross soft tissue abnormality. XR/XR shoulder RT min 2V* [id number] IMPRESSION: 1. Osteoarthritis without evidence of fracture or subluxation. If there is ongoing clinical suspicion for traumatic injury, consider correlation with CT.
[2023-12-19] MEDS: insulin lispro 100 unit/1 mL SUBCUT ×2 (13:29→16:59)
--- NOTE | 2023-12-19 13:32 | P.PN_ITS ---
Subjective 2 Subjective: No acute events overnight. Patient has been slightly agitated today morning. Seen with a friend at bedside. She states she is going home with her friend today. Patient has been walking up to the nursing station multiple times during the evening yesterday and today morning asking when can she go home and demanding to be discharged. We did discuss in detail that unfortunately we are still waiting on a level 2 for placement to SNF and as per psychiatric team she has been deemed not capable of making her medical decisions. We also discussed that we can revisit with the psychiatric team and if they feel that she can make her medical decisions we can discharge her if she is cleared from psychiatric point of view. Patient states she fell earlier today morning and after that her right shoulder is hurting. Medications: Reviewed: Yes Vitals/I&O/Wt Last Vital Signs Temp 98.0 F 12/19/23 11:49 Pulse 61 12/19/23 11:49 Resp 14 12/19/23 11:49 BP 156/57 12/19/23 11:49 Pulse Ox 98 12/19/23 11:49 O2 Del Method Room Air 12/19/23 11:49 12/18/23 12/19/23 12/19/23 23:59 06:59 14:59 Intake Total 480 / 480 Balance 480 / 480 Weight last 48 hrs Weight 64.138 kg Weight 64.138 kg Physical Exam 2 Narrative: General: No acute distress, AO x 1-2 HEENT: PERRLA, pupils bilaterally equal and reactive Chest: Normal vesicular breath sounds, no added sounds, equal good air entry bilaterally CVS: S1-S2 regular, no murmurs, no tachycardia, no gallops, no rubs Abdomen: Soft, nontender, no organomegaly, bowel sounds present Neuro: No focal deficits, no facial deformity, power 5/5 in all limbs Data 12/18/23 11:03 12/18/23 11:03 A&P Assessment and plan (1) Altered mental status: Resolved. Most likely in setting of worsening confusion with cognitive decline in setting of UTI with baseline dementia (2) Hypertension: Qualifiers: Hypertension type: primary hypertension Qualified Code(s): I10 - Essential (primary) hypertension (3) Type 2 diabetes mellitus: A1c again checked to be more than 11. Blood sugars better controlled with mild hypoglycemia today morning. For now we will continue with current dose of Lantus 20 units twice daily along with low- dose protocol sliding scale. Monitor blood sugars. Hypoglycemia protocol. Qualifiers: Diabetes mellitus detention insulin use: with watcher automat long goods use Diabetes mellitus complication status: with other specified complication Qualified Code(s): E11.69 - Type 2 diabetes mellitus with other specified complication; Z79.4 - FPC (current) use of insulin (4) Acute UTI: Finish course of IV antibiotics with Levaquin. (5) Confusion: Appreciate psychiatry recommendations. Patient has been deemed able to make her decisions at this time but needs 24- hour care because of age-related cognitive impairment. Patient is agreeable. Patient has been deemed unsafe to take care of herself and needs 24-hour supervision. Concern for cognitive decline. (6) Dementia: Continue with Lexapro. Qualifiers: Dementia behavioral or psychological symptom: unspecified whether behavioral, psychotic, or mood disturbance or anxiety Dementia severity: m oderate Dementia type: unspecified type Qualified Code(s): F03.B0 - Unspecified dementia, moderate, without behavioral disturbance, psychotic disturbance, mood disturbance, and anxiety Plan Plan for the day: Slightly more agitated since yesterday evening. Asking and demanding to be discharged at the earliest. States that she would go home with her friend. Continue to redirect. Start on Zyprexa Zydis 2.5 mg at bedtime. Continue with Lexapro. Add Aricept. Will revisit with psychiatric team to see if patient has capacity to make her own decisions. If deemed to have capacity can discharge otherwise will have to place on 96-hour hold if patient continues to demand discharge. Currently awaiting level 2. Check right shoulder x-ray to rule out any injury. Patient reports fall. Fall precautions. Continue current glycemic management. Blood sugars currently well controlled early in the morning but she misses her dose of Humalog because of normal blood sugars. Discontinue at bedtime Humalog. Has completed Abx treatment for UTI. Continue losartan for BP management. Goal blood pressure less than 140/90 mmHg. Care discussed in detail with patient's caregiver at bedside. All the questions were answered. Code Status: Full code IVF: none DVT PPx: Lovenox GI PPx: none ABx: None Diet: CC Discharge plan: Because of the above patient has been deemed unable to take care of herself and is needing placement as she requires 24-hour supervision which she is not able to get out of the hospital at home as her family are not willing to take care of her needs. Awaiting placement to SNF and level 2 is pending. Attestations 2 Medical Necessity Statement*: Requires further hospitalization while level 2 is awaited inpatient admitted for confusion in setting of worsening dementia deemed not not safe to make her own decisions and requiring 24-hour supervision because of cognitive decline Diagnoses Altered mental status R41.82 Primary hypertension I10 Hypertension type: primary hypertension Type 2 diabetes mellitus with other specified complication, with long-term current use of insulin E11.69; Z79.4 Diabetes mellitus watcher automat long goods insulin use: with watcher automat long goods use Diabetes mellitus complication status: with other specified complication Acute UTI N39.0 Confusion R41.0 Moderate dementia, unspecified dementia type, unspecified whether behavioral, psychotic, or mood disturbance or anxiety F03.B0 Dementia behavioral or psychological symptom: unspecified whether behavioral, psychotic, or mood disturbance or anxiety Dementia severity: moderate Dementia type: unspecified type
[2023-12-19 16:47] LABS: Glucose Point of Care 235 mg/dL (70-110)
[2023-12-19] MEDS: acetaminophen 500 mg Tablet PO (17:01)
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
[2023-12-19 19:52] VITALS: BP 150/63; PULSE 64; RESP 16; TEMP 36.9; O2SAT 99
[2023-12-19 20:52] LABS: Glucose Point of Care 160 mg/dL (70-110)
[2023-12-19] MEDS: donepezil 5 MG Tablet 10 MG PO (21:49)
[2023-12-19] MEDS: enoxaparin 40 mg/0.4 mL Syringe SUBCUT (21:49)
[2023-12-19] MEDS: OLANZapine 5 mg ODT 2.5 MG PO (21:49)
[2023-12-19 23:52] VITALS: BP 156/70; PULSE 66; RESP 17; TEMP 36.8; O2SAT 98
[2023-12-20 04:00] VITALS: BP 149/64; PULSE 62; RESP 18; TEMP 36.6; O2SAT 98
[2023-12-20] MEDS: atorvastatin 40 mg Tablet PO (06:25)
[2023-12-20] MEDS: fenofibrate 145 mg Tablet PO (06:25)
[2023-12-20 06:35] LABS: Glucose Point of Care 76 mg/dL (70-110)
[2023-12-20 07:20] VITALS: BP 105/57; PULSE 55; RESP 18; TEMP 36.6; O2SAT 98
[2023-12-20 07:40] VITALS: PULSE 56; RESP 16; O2SAT 99
[2023-12-20] MEDS: escitalopram 10 mg Tablet PO (08:30)
--- NOTE | 2023-12-20 10:56 | P.PN_ITS ---
Subjective 2 Subjective: She tells me that she is going home but that her clothes have been lost. She cannot tell me the year. She tells me the season, cannot tell me the month. She thinks she is in the hospital in [place]. Discussed with her correct answers. She ate breakfast, feels hungry, is looking forward to lunch. Vitals/I&O/Wt Last Vital Signs Temp 97.9 F 12/20/23 07:20 Pulse 56 L 12/20/23 07:40 Resp 16 12/20/23 07:40 BP 105/57 12/20/23 07:20 Pulse Ox 99 12/20/23 07:40 O2 Del Method Room Air 12/20/23 07:40 12/19/23 12/20/23 12/20/23 22:59 06:59 14:59 Intake Total 240 / 720 360 / 360 Balance 240 / 720 360 / 360 Weight last 48 hrs Weight 63.82 kg Weight 64.138 kg Physical Exam 2 Narrative: Ambulating. Const: COMMON NORMALS: alert; negative for patient oriented x3 GENERAL APPEARANCE: cooperative O RIENTATION/CONSCIOUSNESS: Yes awake HENMT: COMMON NORMALS: oropharynx normal Neck/C-Spine: COMMON NORMALS: no JVD Resp: COMMON NORMALS: normal respiratory effort and clear to auscultation bilaterally AUSCULTATION: clear to auscultation bilaterally Cardio: COMMON NORMALS: no JVD, regular rhythm, S1 normal heart sound present, S2 normal heart sound present and No murmurs present (Cardio) RHYTHM: regular rhythm HEART SOUNDS: S1 normal heart sound present and S2 normal heart sound present GI: COMMON NORMALS: Normal to inspection, nondistended, normoactive bowel sounds present, Soft to palpation and non-tender PALPATION: Yes Soft to palpation Extremity: COMMON NORMALS: no joint enlargement and no pedal edema Neuro: COMMON NORMALS: moves all extremities; negative for patient oriented x3 SENSORIUM/ORIENTATION: Yes alert Skin: COMMON NORMALS: no rashes or lesions noted GENERAL SKIN EXAM: no rashes or lesions noted Data 12/18/23 11:03 12/18/23 11:03 A&P Assessment and plan (1) Altered mental status: Resolved. Most likely in setting of worsening confusion with cognitive decline in setting of UTI with baseline dementia (2) Hypertension: Blood pressure soft today as is heart rate. Losartan and metoprolol dose held. Decrease losartan to 25 mg daily. Qualifiers: Hypertension type: primary hypertension Qualified Code(s): I10 - Essential (primary) hypertension (3) Type 2 diabetes mellitus: Reviewed POC glucose. Glucose soft, held Lantus dose. Decrease to 5 units twice daily. Continue to monitor POC glucose. A1c again checked to be more than 11. Blood sugars better controlled with mild hypoglycemia today morning. For now we will continue with current dose of Lantus 20 units twice daily along with low- dose protocol sliding scale. Monitor blood sugars. Hypoglycemia protocol. 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 (5) Confusion: Appreciate psychiatry recommendations. Patient has been deemed able to make her decisions at this time but needs 24- hour care because of age-related cognitive impairment. Patient is agreeable. Patient has been deemed unsafe to take care of herself and needs 24-hour supervision. Concern for cognitive decline. (6) Dementia: Continue with Lexapro. Qualifiers: Dementia behavioral or psychological symptom: unspecified whether behavioral, psychotic, or mood disturbance or anxiety Dementia severity: m oderate Dementia type: unspecified type Qualified Code(s): F03.B0 - Unspecified dementia, moderate, without behavioral disturbance, psychotic disturbance, mood disturbance, and anxiety Plan States that she is going home, but her close have been loss. Not oriented. Continue Zyprexa Zydis 2.5 mg at bedtime. Continue with Lexapro. Continue Aricept. At current time does not have capacity to make her own decisions. Discussed with nursing, director of casework services. Continue level 2 approval process, placement arrangements. Reviewed right shoulder x-ray to rule out any injury. Noted osteoarthritis, no fracture or subluxation. Patient reports fall. Fall precautions. Reviewed POC glucose. Glucose 76. On Lantus 20 units twice daily. Decrease to 5 units twice daily. This morning blood pressure soft 105/57, heart rate soft as well, 56. Losartan and metoprolol dose held. Renew acetaminophen. Renew DuoNeb. Code Status: Full code IVF: none DVT PPx: Lovenox GI PPx: none ABx: None Diet: CC Discharge plan: SNF and level 2 is pending. Attestations 2 Medical Necessity Statement*: Continue admission for assessment and management of adjustment of medications due to soft blood pressure, low heart rate, decrease in blood sugar. Continued optimization of control of hypertension, diabetes. Continue post discharge planning and arrangements for placement pending level 2 approval. 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
[2023-12-20 11:19] LABS: Glucose Point of Care 146 mg/dL (70-110)
[2023-12-20 11:38] VITALS: BP 138/57; PULSE 61; RESP 18; TEMP 36.4; O2SAT 100
[2023-12-20] MEDS: insulin lispro 100 unit/1 mL SUBCUT ×2 (11:47→16:46)
[2023-12-20] MEDS: insulin glargine 100 units/1 mL 5 UNIT SUBCUT ×2 (11:47→16:46)
[2023-12-20 15:58] VITALS: BP 143/56; PULSE 70; RESP 18; TEMP 36.3; O2SAT 99
[2023-12-20 16:32] LABS: Glucose Point of Care 236 mg/dL (70-110)
[2023-12-20 19:57] VITALS: BP 107/64; PULSE 106; RESP 17; TEMP 36.4; O2SAT 93
[2023-12-20] MEDS: OLANZapine 5 mg ODT 2.5 MG PO (20:10)
[2023-12-20] MEDS: metoprolol tartrate 25 mg Tablet 12.5 MG PO (20:10)
[2023-12-20] MEDS: donepezil 5 MG Tablet 10 MG PO (20:10)
[2023-12-20] MEDS: enoxaparin 40 mg/0.4 mL Syringe SUBCUT (20:11)
[2023-12-20 20:48] LABS: Glucose Point of Care 262 mg/dL (70-110)
[2023-12-21] VITALS (8 sets, daily range): BP systolic 100–136; BP diastolic 53–75; PULSE 59–70; RESP 13–16; TEMP 36.6–37.1; O2SAT 97–99
[2023-12-21] MEDS: loperamide 2 mg Capsule PO (00:36)
[2023-12-21] MEDS: fenofibrate 145 mg Tablet PO (05:39)
[2023-12-21] MEDS: atorvastatin 40 mg Tablet PO (05:39)
[2023-12-21 06:32] LABS: Glucose Point of Care 95 mg/dL (70-110)
[2023-12-21] MEDS: metoprolol tartrate 25 mg Tablet 12.5 MG PO ×2 (08:50→20:23)
[2023-12-21] MEDS: losartan 50 mg Tablet 25 MG PO (08:50)
[2023-12-21] MEDS: escitalopram 10 mg Tablet PO (08:50)
[2023-12-21] MEDS: insulin glargine 100 units/1 mL 5 UNIT SUBCUT ×2 (08:51→17:54)
[2023-12-21 11:25] LABS: Glucose Point of Care 197 mg/dL (70-110)
[2023-12-21] MEDS: insulin lispro 100 unit/1 mL SUBCUT ×2 (12:21→17:54)
[2023-12-21] MEDS: haloperidol inj 5 mg/mL INJ 1 mL 2 MG IM (14:31)
--- NOTE | 2023-12-21 14:35 | PM.PN ---
Subjective Subjective: Ambulating near the commode. Noted that she was having diarrhea, but she cannot really give me more information about it. Later in the day getting restless, trying to walk out. Raising her voice at her ex boyfriend, stating they have nothing to do with each other. Vitals/I&O/Wt Last Vital Signs Temp 98.0 F 12/21/23 11:11 Pulse 59 L 12/21/23 11:11 Resp 15 12/21/23 11:11 BP 136/61 12/21/23 11:11 Pulse Ox 99 12/21/23 11:11 O2 Del Method Room Air 12/21/23 11:11 12/20/23 12/21/23 12/21/23 22:59 06:59 14:59 Intake Total 520 / 1240 476 / 476 Balance 520 / 1240 476 / 476 Weight last 48 hrs Weight 63.412 kg Weight 63.82 kg Physical Exam Const: COMMON NORMALS: alert; negative for patient oriented x3 GENERAL APPEARANCE: cooperative ORIENTATION/CONSCIOUSNESS: Yes awake HENMT: COMMON NORMALS: oropharynx normal Neck/C-Spine: COMMON NORMALS: no JVD Resp: COMMON NORMALS: normal respiratory effort and clear to auscultation bilaterally AUSCULTATION: clear to auscultation bilaterally Cardio: COMMON NORMALS: no JVD, regular rhythm, S1 normal heart sound present, S2 normal heart sound present and No murmurs present (Cardio) RHYTHM: regular rhythm HEART SOUNDS: S1 normal heart sound present and S2 normal heart sound present GI: COMMON NORMALS: Normal to inspection, nondistended, normoactive bowel sounds present, Soft to palpation and non-tender PALPATION: Yes Soft to palpation Extremity: COMMON NORMALS: no joint enlargement and no pedal edema Neuro: COMMON NORMALS: moves all extremities; negative for patient oriented x3 SENSORIUM/ORIENTATION: Yes alert Skin: COMMON NORMALS: no rashes or lesions noted GENERAL SKIN EXAM: no rashes or lesions noted Data 12/18/23 11:03 12/18/23 11:03 A&P Assessment and plan (1) Dementia: So far without improvement in her orientation, mentation despite treatment of urinary tract infection, hypertension. At least moderate possibly moderate to severe dementia and psychiatric assessment. Reviewed psychiatry note, appreciate assessment. She is lacking capacity to make decisions for herself at current time. Discussed with nursing, rehabilitation case coordinator. Arrangements underway for placement to facility. She is a flight risk and intermittently tries to walk out or started arguments with staff. Became restless and agitated today, would not redirect, requiring a dose of Haldol. Monitor for risk of QT prolongation. Will repeat EKG. Continue with Lexapro. Aricept. Zyprexa. Qualifiers: Dementia behavioral or psychological symptom: unspecified whether behavioral, psychotic, or mood disturbance or anxiety Dementia severity: moderate Dementia type: unspecified type Qualified Code(s): F03.B0 - Unspecified dementia, moderate, without behavioral disturbance, psychotic disturbance, mood disturbance, and anxiety (2) Altered mental status: Resolved. Most likely in setting of worsening confusion with cognitive decline in setting of UTI with baseline dementia (3) Hypertension: Blood pressure soft today as is heart rate. Losartan and metoprolol dose held. Decrease losartan to 25 mg daily. Metoprolol dose decreased to 12.5 mg due to bradycardia. Qualifiers: Hypertension type: primary hypertension Qualified Code(s): I10 - Essential (primary) hypertension (4) Type 2 diabetes mellitus: Reviewed POC glucose glucose down to 97, no room to increase Lantus. Continue5 units twice daily. Continue to monitor POC glucose. Monitor for risk of hypoglycemia. Continue insulin sliding scale. A1c again checked to be more than 11. Blood sugars better controlled with mild hypoglycemia today morning. For now we will continue with current dose of Lantus 20 units twice daily along with low-dose protocol sliding scale. Monitor blood sugars. Hypoglycemia protocol. 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 (6) Confusion: Appreciate psychiatry recommendations. Patient has been deemed able to make her decisions at this time but needs 24-hour care because of age-related cognitive impairment. Patient is agreeable. Patient has been deemed unsafe to take care of herself and needs 24-hour supervision. Concern for cognitive decline. Plan Diarrhea: Loose stools today, check C. difficile. States that she is going home, but her close have been loss. Not oriented. Continue Zyprexa Zydis 2.5 mg at bedtime. Continue with Lexapro. Continue Aricept. At current time does not have capacity to make her own decisions. Discussed with nursing, rehabilitation case coordinator. Continue level 2 approval process, placement arrangements. Reviewed right shoulder x-ray to rule out any injury. Noted osteoarthritis, no fracture or subluxation. Patient reports fall. Fall precautions. Renew acetaminophen. Renew DuoNeb. Code Status: Full code IVF: none DVT PPx: Lovenox GI PPx: none ABx: None Diet: CC Discharge plan: SNF and level 2 is pending. Attestations Medical Necessity Statement*: Continue admission for assessment and management of adjustment of medications due to soft blood pressure, low heart rate, decrease in blood sugar. Continued optimization of control of hypertension, diabetes. Continue post discharge planning and arrangements for placement pending level 2 approval. Diagnoses Moderate dementia, unspecified dementia type, unspecified whether behavioral, psychotic, or mood disturbance or anxiety F03.B0 Dementia behavioral or psychological symptom: unspecified whether behavioral, psychotic, or mood disturbance or anxiety Dementia severity: moderate Dementia type: unspecified type Altered mental status R41.82 Primary hypertension I10 Hypertension type: primary hypertension Type 2 diabetes mellitus with other specified complication, with long-term current use of insulin E11.69; Z79.4 Diabetes mellitus long term acute care registered nurse insulin use: with long term acute care registered nurse use Diabetes mellitus complication status: with other specified complication Acute UTI N39.0 Confusion R41.0
[2023-12-21 17:06] LABS: Glucose Point of Care 172 mg/dL (70-110)
[2023-12-21] MEDS: enoxaparin 40 mg/0.4 mL Syringe SUBCUT (20:22)
[2023-12-21] MEDS: OLANZapine 5 mg ODT 2.5 MG PO (20:23)
[2023-12-21] MEDS: donepezil 5 MG Tablet 10 MG PO (20:23)
[2023-12-21 21:02] LABS: Glucose Point of Care 194 mg/dL (70-110)
[2023-12-22] VITALS: BP 133/65; PULSE 60; RESP 18; TEMP 36.3; O2SAT 100
[2023-12-22 04:00] VITALS: BP 152/64; PULSE 52; RESP 16; TEMP 36.5; O2SAT 98
[2023-12-22] MEDS: fenofibrate 145 mg Tablet PO (05:17)
[2023-12-22] MEDS: atorvastatin 40 mg Tablet PO (05:17)
[2023-12-22 06:36] LABS: Glucose Point of Care 105 mg/dL (70-110)
[2023-12-22 07:07] VITALS: BP 156/60; PULSE 62; RESP 17; TEMP 36.7; O2SAT 99
[2023-12-22] MEDS: insulin glargine 100 units/1 mL 5 UNIT SUBCUT (09:33)
[2023-12-22] MEDS: losartan 50 mg Tablet 25 MG PO (09:33)
[2023-12-22] MEDS: escitalopram 10 mg Tablet PO (09:33)
[2023-12-22] MEDS: metoprolol tartrate 25 mg Tablet 12.5 MG PO (09:35)
--- NOTE | 2023-12-22 09:38 | ECG_ITS ---
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
[2023-12-22 11:24] VITALS: BP 168/70; PULSE 62; RESP 17; TEMP 36.6; O2SAT 97
[2023-12-22 11:28] LABS: Glucose Point of Care 274 mg/dL (70-110)
[2023-12-22] MEDS: insulin lispro 100 unit/1 mL SUBCUT (11:49)
--- NOTE | 2023-12-22 12:36 | PM.DCS ---
Discharge Providers Date of Admission: 12/02/23 20:34 Date of Discharge: December 22, 2023 Attending Provider at Admission: Corrie Dale MD Attending Provider at Discharge: Aram Jeffers Primary Care Provider: Williams Carcamo MD Diagnoses at Discharge Discharge Diagnosis (1) Dementia: Status: Acute Qualifiers: Dementia behavioral or psychological symptom: unspecified whether behavioral, psychotic, or mood disturbance or anxiety Dementia severity: moderate Dementia type: unspecified type Qualified Code(s): F03.B0 - Unspecified dementia, moderate, without behavioral disturbance, psychotic disturbance, mood disturbance, and anxiety (2) Altered mental status: Status: Acute (3) Hypertension: Status: Acute Qualifiers: Hypertension type: primary hypertension Qualified Code(s): I10 - Essential (primary) hypertension (4) Type 2 diabetes mellitus: Status: Acute Qualifiers: Diabetes mellitus custodial insulin use: with long term care pharmacist use Diabetes mellitus complication status: with other specified complication Qualified Code(s): E11.69 - Type 2 diabetes mellitus with other specified complication; 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 coli resistant to Augmentin, Unasyn and cefuroxime. Sensitive to cephalosporins. She complete antibiotic treatment. Her insulin Lantus dose was adjusted in the hospital with improvement in sugar control, decrease down to 5 units twice daily, and with blood pressures softer with improvement in hypertension control losartan was decreased to 25 mg and metoprolol decreased to 12.5 mg while here. On discharge she was also started on low-dose Januvia. Continues with persistent symptoms of dementia, she is generally awake, alert, interactive, holds a conversation, but lacks understanding for memory of her medical condition, not oriented. Intermittently requesting for discharge home. With a lack of social support in the community with [employer] involved and concern for neglect. Was assessed by psychiatry, and her memory is found to be in a place where her capacity for informed consent is not present. She is unable to take care of herself. Arrangements were made and she is currently excepted for further care at [place]. During hospitalization her medications have been adjusted, she started on Aricept, Lexapro and nightly Zyprexa. Please continue to reassess her dementia. Maintain fall precautions, elopement precautions. Continue pursuit of guardianship. Continue to optimize antidiabetic and antihypertensive therapy. She had 1 episode of diarrhea while in the hospital, this has resolved. Continue to monitor for any recurrence, assess for C. difficile in case of recurrence after antibiotic course. Physical Exam Const: COMMON NORMALS: alert; negative for patient oriented x3 GENERAL APPEARANCE: cooperative ORIENTATION/CONSCIOUSNESS: Yes awake OTHER: Thinks she is in [facility] the month is August,. HENMT: COMMON NORMALS: oropharynx normal Neck/C-Spine: COMMON NORMALS: no JVD Resp: COMMON NORMALS: normal respiratory effort and clear to auscultation bilaterally AUSCULTATION: clear to auscultation bilaterally Cardio: COMMON NORMALS: no JVD, regular rhythm, S1 normal heart sound present, S2 normal heart sound present and No murmurs present (Cardio) RHYTHM: regular rhythm HEART SOUNDS: S1 normal heart sound present and S2 normal heart sound present GI: COMMON NORMALS: Normal to inspection, nondistended, normoactive bowel sounds present, Soft to palpation and non-tender PALPATION: Yes Soft to palpation Extremity: COMMON NORMALS: no joint enlargement and no pedal edema Neuro: COMMON NORMALS: moves all extremities; negative for patient oriented x3 SENSORIUM/ORIENTATION: Yes alert Skin: COMMON NORMALS: no rashes or lesions noted GENERAL SKIN EXAM: no rashes or lesions noted Discharge Data Studies Completed and Pending Completed Studies During Hospitalization Category Date Time Status CT head wo con* [id number] Routine Cat Scan 12/05/23 09:30 Completed XR chest 1V portable [id number] Stat Exams 12/02/23 12:15 Completed XR shoulder RT min 2V* [id number] Routine Exams 12/19/23 12:01 Completed Pending at discharge Category Date Time Status C.Diff PCR (Lab) Routine Lab 12/21/23 14:48 Uncollected SARS Covid-2 Antigen Routine Lab 12/22/23 12:35 Uncollected Radiology Impressions Chest X-Ray 12/02/23 12:15 Impression: Atherosclerosis. Head CT 12/05/23 09:30 IMPRESSION: 1. No acute intracranial abnormality is identified. 2. Mild parenchymal volume loss. Shoulder X-Ray 12/19/23 12:01 IMPRESSION: 1. Osteoarthritis without evidence of fracture or subluxation. If there is ongoing clinical suspicion for traumatic injury, consider correlation with CT. Laboratory Results WBC 4.45 10^3/uL (3.29-11.43) 12/18/23 11:03 RBC 3.84 10^6/uL (3.85-5.65) L 12/18/23 11:03 Hgb 11.60 g/dL (11.27-16.99) 12/18/23 11:03 Hct 37.4 % (36-47) 12/18/23 11:03 MCV 97.4 fl (85-98) 12/18/23 11:03 MCH 30.2 pg (27-33) 12/18/23 11:03 MCHC 31.0 g/dL (30-55) 12/18/23 11:03 RDW 14.1 % (12.1-15.1) 12/18/23 11:03 Plt Count 175 10^3/cmm (157-399) 12/18/23 11:03 MPV 9.7 fL (7.4-10.4) 12/18/23 11:03 Neut % (Auto) 57.5 % 12/18/23 11:03 Lymph % (Auto) 29.7 % 12/18/23 11:03 [place] % (Auto) 10.1 % 12/18/23 11:03 Eos % (Auto) 1.8 % 12/18/23 11:03 Baso % (Auto) 0.7 % 12/18/23 11:03 Neut # (Auto) 2.56 10^3/uL (1.8-7.7) 12/18/23 11:03 Lymph # (Auto) 1.3 10^3/uL (0.8-4.8) 12/18/23 11:03 [place] # (Auto) 0.5 10^3/uL (0.2-0.9) 12/18/23 11:03 Eos # (Auto) 0.1 10^3/uL (0.0-0.8) 12/18/23 11:03 Baso # (Auto) 0.0 10^3/uL (0.0-0.1) 12/18/23 11:03 Nucleated RBC % (auto) 0 % 12/18/23 11:03 Nucleated RBCs # 0.0 /100WBC 12/18/23 11:03 Sodium 141 mmol/L (136-145) 12/18/23 11:03 Potassium 4.5 mmol/L (3.5-5.1) 12/18/23 11:03 Chloride 106 mmol/L (98-107) 12/18/23 11:03 Carbon Dioxide 27 mmol/L (22-29) 12/18/23 11:03 Anion Gap 12.5 (5-19) 12/18/23 11:03 BUN 26 mg/dL (8-23) H 12/18/23 11:03 Creatinine 0.6 mg/dL (0.5-0.9) 12/18/23 11:03 GFR Calculation Not Reportable 12/18/23 11:03 Glucose 196 mg/dL (65-115) H 12/18/23 11:03 POC Glucose 274 mg/dL (70-110) H 12/22/23 10:58 Estimat Average Glucose 278 12/13/23 03:17 Hemoglobin A1c 11.3 % (4.0-6.0) H 12/13/23 03:17 Calculated Osmolality 302 mOsm/kg (285-295) H 12/18/23 11:03 Calcium 9.1 mg/dL (8.5-10.5) 12/18/23 11:03 Magnesium 2.1 mg/dL (1.7-2.3) 12/13/23 03:17 Total Bilirubin 0.4 mg/dL (0.15-1.2) 12/18/23 11:03 AST 19 U/L (0-32) 12/18/23 11:03 ALT 22 U/L (0-33) 12/18/23 11:03 Alkaline Phosphatase 74 U/L (35-105) 12/18/23 11:03 Total Protein 5.6 g/dL (6.6-8.7) L 12/18/23 11:03 Albumin 3.5 g/dL (3.5-5.2) 12/18/23 11:03 Globulin 2.1 g/dL (1.3-4.6) 12/18/23 11:03 TSH 3.02 uIU/mL (0.27-4.20) 12/02/23 11:54 Urine Color Yellow (Yellow) 12/02/23 12:03 Urine Appearance Clear (CLEAR) 12/02/23 12:03 Urine pH 5.0 (5-7) 12/02/23 12:03 Ur Specific [place] 1.034 (1.005-1.030) H 12/02/23 12:03 Urine Protein 1+ (Negative) A 12/02/23 12:03 Urine Glucose (UA) 3+ (Normal) H 12/02/23 12:03 Urine Ketones Trace (Negative) 12/02/23 12:03 Urine Blood Negative (Negative) 12/02/23 12:03 Urine Nitrate Negative (Negative) 12/02/23 12:03 Urine Bilirubin Negative (Negative) 12/02/23 12:03 Urine Urobilinogen 1.0 mg/dL (Negative) 12/02/23 12:03 Ur Leukocyte Esterase Negative (Negative) 12/02/23 12:03 Urine RBC 0-2 /hpf (0-2) 12/02/23 12:03 Urine WBC 51-100 /hpf (0-5) H 12/02/23 12:03 Ur Squamous Epith Cells 0-5 /hpf (0-5) 12/02/23 12:03 Amorphous Sediment Not Reportable 12/02/23 12:03 Urine Bacteria 4+ /hpf (NONE) H 12/02/23 12:03 Hyaline Casts 0-4 /lpf H 12/02/23 12:03 Serum Ketones Negative (Negative) 12/02/23 11:54 C. difficile (PCR) Negative (Negative) 12/14/23 20:55 Vitals Last Vital Signs Temp 97.8 F 12/22/23 11:24 Pulse 62 12/22/23 11:24 Resp 17 12/22/23 11:24 BP 168/70 12/22/23 11:24 Pulse Ox 97 12/22/23 11:24 O2 Del Method Room Air 12/22/23 11:24 Discharge Plan Discharge Patient Disposition: Xfer SNF Condition: Stable Prescriptions: New Januvia 25 mg tablet 25 mg PO DAILY Qty: 30 4RF donepezil 5 mg Tablet 10 mg PO BEDTIME Qty: 90 0RF insulin glargine [Lantus U-100 Insulin] 100 unit/mL Solution 5 unit SUBCUT BID Qty: 10 0RF acetaminophen 500 mg Tablet 500 mg PO Q4H PRN (Reason: fever) Qty: 30 0RF escitalopram oxalate 10 mg Tablet 10 mg PO DAILY Qty: 90 0RF losartan 50 mg Tablet 25 mg PO DAILY Qty: 90 0RF olanzapine 5 mg Tablet,Disintegrating 2.5 mg PO BEDTIME Qty: 45 0RF metoprolol tartrate 25 mg Tablet 12.5 mg PO BID@0900,2100 Qty: 90 0RF insulin lispro [Humalog U-100 Insulin] 100 unit/mL Solution See Rx Instructions .ROUTE .COMPLEX Qty: 10 0RF Rx Instructions: ACHS Glucose: 141-180 - 2 units 181-220 - 3 221-260 - 4 261-300 - 5 301-350 - 6 351-400 - 7 >400 - 8 units Continued (DME) Extended shower chair See Rx Instructions .Route .MEDSUPPLY Qty: 1 0RF Rx Instructions: As directed in shower (DME) glucose free style test strips See Rx Instructions .Route .MEDSUPPLY Qty: 100 5RF Rx Instructions: As directed fenofibrate micronized 200 mg capsule 200 mg PO QAM rosuvastatin 10 mg tablet 10 mg PO QAM Discontinued insulin glargine [Lantus Solostar U-100 Insulin] 100 unit/mL (3 mL) insulin pen 20 unit SUBCUT DAILY Qty: 15 0RF Discharge Orders: Discharge Order (Routine); Ordered 12/22/23 Ordered By: Aram Jeffers Referrals: [facility] [Outside] Maryuri Mitchell NP [Nurse Practitioner] - 12/29/23 10:30 am Discharge Diet: Cardiac and Diabetic Patient Instructions: Metoprolol (By mouth), Amlodipine (By mouth), Levofloxacin (By mouth), Sitagliptin (By mouth) (Pj Montez), Urinary Tract Infection in Women (DC), Altered Mental Status (ED), Diabetic Hyperglycemia (DC), Opioid Safety Activity Restrictions/Additional Instructions: Continue elopement precautions. Continue to reassess dementia with initiation of Aricept. Continue to comfort, redirect and reorient. Fall precautions. Monitor for sundowning. Continue to monitor optimize blood pressure control. Insulin dose was decreased to 5 units Lantus twice daily with glucose becoming lower while in the hospital. Continue to monitor blood glucose. Escalate as needed depending on blood glucose. Had 1 episode of diarrhea which so far resolved. Monitor for any recurrence after antibiotic treatment for UTI. Continue arrangements for guardianship. Discharge Attestations Time Spent in Discharge Care*: greater than 30 min Status at Discharge: Cognitive status at discharge: mildly impaired cognition, Behavioral status at discharge: cooperative, Quality Metrics Clinical Quality Measures [ No reported AMI, CVA or VTE this stay] Coding Level of Care Code 02110 Total time (in minutes) for Discharge: 45 Diagnoses Moderate dementia, unspecified dementia type, unspecified whether behavioral, psychotic, or mood disturbance or anxiety F03.B0 Dementia behavioral or psychological symptom: unspecified whether behavioral, psychotic, or mood disturbance or anxiety Dementia severity: moderate Dementia type: unspecified type Altered mental status R41.82 Primary hypertension I10 Hypertension type: primary hypertension Type 2 diabetes mellitus with other specified complication, with long-term current use of insulin E11.69; Z79.4 Diabetes mellitus long term care pharmacist insulin use: with long term care pharmacist use Diabetes mellitus complication status: with other specified complication Acute UTI N39.0 Confusion R41.0
--- NOTE | 2023-12-22 12:54 | PC.NURSE ---
Report called to Freda at [facility]. All questions answered at this time.
[2023-12-22 13:07] LABS: SARS Covid-2 Antigen negative (Negative)
[2023-12-22 15:05] VITALS: BP 168/70; PULSE 62; RESP 16; TEMP 36.6; O2SAT 97
== END 2023-12-22 15:07 | disposition skilled nursing facility (03) ==
LOC: ER 18:15 → MEDSURG 20:41
PROVIDERS: Internal Medicine; Student in an Organized Health Care Education/Training Program; Admitting Provider Internal Medicine; Emergency Provider Emergency Medicine; PCP Family Medicine Adult Medicine; Visit Provider Internal Medicine
DX: N39.0 Urinary tract infection, site not specified (principal); F03.B0 Unspecified dementia, moderate, without behavioral disturbance, psychotic disturbance, mood disturbance, and anxiety; I10 Essential (primary) hypertension; E11.69 Type 2 diabetes mellitus with other specified complication; Z79.4 Long term (current) use of insulin; R41.0 Disorientation, unspecified; R19.7 Diarrhea, unspecified; Z91.81 History of falling; Z87.891 Personal history of nicotine dependence; Z86.73 Personal history of transient ischemic attack (TIA), and cerebral infarction without residual deficits; E11.65 Type 2 diabetes mellitus with hyperglycemia; Z75.1 Person awaiting admission to adequate facility elsewhere; I25.2 Old myocardial infarction; R41.81 Age-related cognitive decline; M19.011 Primary osteoarthritis, right shoulder; T74.01XA Adult neglect or abandonment, confirmed, initial encounter; Y99.9 Unspecified external cause status
CPT/HCPCS: 36415; 36416; 70450; 71045; 73030; 80048; 80053; 81001; 82009; 82962; 83036; 83735; 84443; 85025; 87040; 87077; 87086; 87186; 87426; 87493; 93005; 96365; 96372; 96375; 97110; 97116; 97161; 97167; 97530; 99285; G0378; J1630; J1650; J1815; J1956; J7030; J7120; Q0162

== ENCOUNTER 2024-02-29 18:20 | Emergency (ER) | payer MEDICARE, OTHER, SELFPAY ==
[2024-02-29 18:23] VITALS: BP 181/70; PULSE 63; RESP 16; TEMP 36.8; O2SAT 100; BMI 26.9
--- NOTE | 2024-02-29 18:25 | XRR_ITS ---
PROCEDURE INFORMATION: Exam: XR Pelvis Exam date and time: 02/29/2024 6:36 PM Age: 73 years old Clinical indication: Injury or trauma; Fall; Blunt trauma (contusions or hematomas); Bilateral; Hip; Injury date: 02/29/2024 TECHNIQUE: Imaging protocol: Radiologic exam of the pelvis. Views: 1 or 2 view. COMPARISON: CR XR pelvis 1-2V* [id number] 11/27/2022 4:16 PM FINDINGS: Bones/joints: Unremarkable. No acute fracture. Soft tissues: Unremarkable. Vasculature: Diffuse vascular calcifications. XR/XR pelvis 1-2V* [id number] IMPRESSION: No acute findings.
--- NOTE | 2024-02-29 18:25 | CTR_ITS ---
PROCEDURE INFORMATION: Exam: CT Cervical Spine Without Contrast Exam date and time: 02/29/2024 6:33 PM Age: 73 years old Clinical indication: Injury or trauma; Fall; Blunt trauma; Injury date: 02/29/2024 TECHNIQUE: Imaging protocol: Computed tomography of the cervical spine without contrast. Radiation optimization: All CT scans at this facility use at least one of these dose optimization techniques: automated exposure control; mA and/or kV adjustment per patient size (includes targeted exams where dose is matched to clinical indication); or iterative reconstruction. COMPARISON: CT head wo con* [id number] 02/29/2024 6:33 PM RADIATION DOSE METRICS: Total DLP (mGy-cm): 185.1 FINDINGS: Bones: No acute fracture. Normal alignment. No significant disc bulge or herniation. No severe spinal canal stenosis. Lungs: Lung apices are normal. Soft tissues: Unremarkable. CT/CT cervical spin wo con* [id number] IMPRESSION: No acute findings.
--- NOTE | 2024-02-29 18:25 | CTR_ITS ---
PROCEDURE INFORMATION: Exam: CT Head Without Contrast Exam date and time: 02/29/2024 6:33 PM Age: 73 years old Clinical indication: Injury or trauma; Fall; Blunt trauma (contusions or hematomas); Without loss of consciousness; Injury date: 02/29/2024 TECHNIQUE: Imaging protocol: Computed tomography of the head without contrast. Radiation optimization: All CT scans at this facility use at least one of these dose optimization techniques: automated exposure control; mA and/or kV adjustment per patient size (includes targeted exams where dose is matched to clinical indication); or iterative reconstruction. COMPARISON: CT head wo con* [id number] 12/05/2023 8:51 AM RADIATION DOSE METRICS: Total DLP (mGy-cm): 1016.8 FINDINGS: Brain: No hemorrhage. No edema. Moderate diffuse cerebral atrophy and mild sequela of chronic small vessel ischemic disease. No mass effect. Cerebral ventricles: No ventriculomegaly. Paranasal sinuses: Visualized sinuses are unremarkable. No fluid levels. Mastoid air cells: Visualized mastoid air cells are well aerated. Bones: Unremarkable. No acute fracture. Soft tissues: Unremarkable. CT/CT head wo con* [id number] IMPRESSION: No acute intracranial abnormality.
--- NOTE | 2024-02-29 18:29 | ED_ITS ---
HPI - Fall General: Chief Complaint: Fall Stated Complaint: Fall, Head pain Time Seen by Provider: 02/29/24 18:21 Source: patient Mode of arrival: ambulatory Limitations: no limitations History of Present Illness: 73-year-old female here from [facility] after 2 falls today. States that she slipped on her urinary today landed on her hip and had some hip pain since resolved states she had slipped and fell again this evening hit the back of her head has a headache and neck pain she rates a 2 out of 10 she denies any other injuries Associated symptoms-after fall: Reports headache(s); Denies abdominal pain, chest pain or neck pain Related Data Home Medications Medication Instructions Recorded Confirmed fenofibrate micronized 200 mg 200 mg PO QAM 11/18/22 02/20/24 capsule rosuvastatin 10 mg tablet 10 mg PO QAM 11/18/22 02/20/24 Previous Rx's Medication Instructions Recorded Extended shower chair #1 ea 01/01/23 glucose free style test strips #100 ea 06/04/23 sitagliptin phosphate 25 mg tablet 25 mg PO DAILY #30 tabs 12/03/23 (Januvia) acetaminophen 500 mg tablet 500 mg PO Q4H PRN fever #30 tabs 12/22/23 donepezil 5 mg tablet 10 mg (2 x 5 mg) PO BEDTIME #90 12/22/23 tabs escitalopram oxalate 10 mg tablet 10 mg PO DAILY #90 tabs 12/22/23 insulin glargine 100 unit/mL 5 unit (0.05 mL) SUBCUT BID #10 mL 12/22/23 subcutaneous solution (Lantus U-100 Insulin) insulin lispro 100 unit/mL See Rx Instructions .Route 12/22/23 subcutaneous solution (Humalog .COMPLEX #10 mL U-100 Insulin) losartan 50 mg tablet 25 mg (1/2 x 50 mg) PO DAILY #90 12/22/23 tabs metoprolol tartrate 25 mg tablet 12.5 mg (1/2 x 25 mg) PO 12/22/23 BID@0900,2100 #90 tabs olanzapine 5 mg disintegrating 2.5 mg (1/2 x 5 mg) PO BEDTIME #45 12/22/23 tablet tabs Allergies Allergy/AdvReac Type Severity Reaction Status Date / Time cefaclor [From [facility]] Allergy ALGY-Anaphy Verified 01/10/24 10:55 laxis codeine Allergy Unknown Verified 01/10/24 10:55 Iodine and Iodide Containing Allergy ADR-Vomitin Verified 01/10/24 10:55 Produc g Penicillins Allergy Unknown Verified 01/10/24 10:55 Sulfa (Sulfonamide Allergy Unknown Verified 01/10/24 10:55 Antibiotics) Review of Systems Const: Denies: fever(s), chills, body aches or change in appetite Eyes: Denies: blurry vision or eye discomfort ENMT: Denies: throat pain or dental pain Card: Denies: chest pain Resp: Denies: dyspnea GI: Denies: abdominal pain, nausea, vomiting or diarrhea Musc: Reports: extremity pain; Denies: neck pain or back pain Skin/Breast: Denies: rash Neuro: Reports: headache(s) PFSH ED PFSH: Medical History Hypertension Dementia Type 2 diabetes mellitus Hyperglycemia due to diabetes mellitus Dementia Confusion Altered mental status Acute UTI Decubitus ulcer Wheel chair as ambulatory aid CVA (cerebrovascular accident due to intracerebral hemorrhage) NSTEMI (non-ST elevated myocardial infarction) Acute encephalopathy Surgical History No pertinent past surgical history Family History Father Heart disease Hypertension Mother Stroke Social History Smoking and tobacco/nicotine status: unknown if used tobacco/nicotine Quit status (tobacco/nicotine): has quit using Alcohol intake: former Substance/Drug Use: never Household members: other Details: Daughter Physical Exam Const: COMMON NORMALS: no acute distress, patient oriented x3 and healthy appearing HENMT: COMMON NORMALS: normocephalic and atraumatic HEAD & SCALP: norm ocephalic and atraumatic Eye: COMMON NORMALS: Equal, round and reactive pupils present and EOMs intact bilaterally PUPIL: Yes Equal, round and reactive pupils present Neck/C-Spine: COMMON NORMALS: full ROM and supple Chest: COMMONS NORMALS: normal inspection of the chest and normal palpation of entire chest wall Resp: COMMON NORMALS: normal respiratory effort, No retractions, No use of accessory muscles and clear to auscultation bilaterally AUSCULTATION: clear to auscultation bilaterally Cardio: COMMON NORMALS: regular rate, regular rhythm and No murmurs present (Cardio) RATE: regular rate RHYTHM: regular rhythm GI: COMMON NORMALS: Normal to inspection, nondistended, normoactive bowel sounds present, Soft to palpation, non-tender and no masses PALPATION: Yes Soft to palpation Extremity: COMMON NORMALS: normal to inspection and full ROM Neuro: COMMON NORMALS: patient oriented x3, moves all extremities and no focal motor deficits Psych: COMMON NORMALS: mental status grossly normal, Normal thought process present and cooperative THOUGHT PROCESS: Normal thought process present Skin: COMMON NORMALS: no rashes or lesions noted and no wounds GENERAL SKIN EXAM: no rashes or lesions noted Course Vital Signs: Vital signs: Vital Signs Temperature 98.3 F 02/29/24 18:23 Pulse Rate 63 02/29/24 18:23 Respiratory Rate 16 02/29/24 18:23 Blood Pressure 181/70 02/29/24 18:23 Pulse Oximetry 100 02/29/24 18:23 Oxygen Delivery Me thod Room Air 02/29/24 18:23 MDM - Fall Medical Decision Making Patient presents here with close head injury after a fall she had no hip pain she had plain hip pain earlier x-ray here shows no fracture she is able ambulate here she stable for discharge back to shelter. Medical Records I reviewed the patient's medical records. Lab Data I reviewed the patient's lab results. Radiology Impressions Cervical Spine CT 02/29/24 18:25 IMPRESSION: No acute findings. Head CT 02/29/24 18:25 IMPRESSION: No acute intracranial abnormality. All radiology interpretation(s) finalized by discharge Discharge Plan Discharge Patient Disposition: Home Clinical Impression: CHI (closed head injury), Fall Condition: Stable Prescriptions: No Action (DME) Extended shower chair See Rx Instructions .Route .MEDSUPPLY Qty: 1 0RF Rx Instructions: As directed in shower (DME) glucose free style test strips See Rx Instructions .Route .MEDSUPPLY Qty: 100 5RF Rx Instructions: As directed fenofibrate micronized 200 mg capsule 200 mg PO QAM rosuvastatin 10 mg tablet 10 mg PO QAM Januvia 25 mg tablet 25 mg PO DAILY Qty: 30 4RF donepezil 5 mg Tablet 10 mg PO BEDTIME Qty: 90 0RF insulin glargine [Lantus U-100 Insulin] 100 unit/mL Solution 5 unit SUBCUT BID Qty: 10 0RF acetaminophen 500 mg Tablet 500 mg PO Q4H PRN (Reason: fever) Qty: 30 0RF escitalopram oxalate 10 mg Tablet 10 mg PO DAILY Qty: 90 0RF losartan 50 mg Tablet 25 mg PO DAILY Qty: 90 0RF olanzapine 5 mg Tablet,Disintegrating 2.5 mg PO BEDTIME Qty: 45 0RF metoprolol tartrate 25 mg Tablet 12.5 mg PO BID@0900,2100 Qty: 90 0RF insulin lispro [Humalog U-100 Insulin] 100 unit/mL Solution See Rx Instructions .ROUTE .COMPLEX Qty: 10 0RF Rx Instructions: ACHS Glucose: 141-180 - 2 units 181-220 - 3 221-260 - 4 261-300 - 5 301-350 - 6 351-400 - 7 >400 - 8 units Discharge Orders: Discharge ED (Routine); Ordered 02/29/24 Ordered By: Payton Falcon Referrals: Williams Carcamo MD [Primary Care Provider] - 4-7 days Discharge Diet: Advance as tolerated Discharge Activity: Resume usual activity Patient Instructions: Head Injury (ED) Coding Level of Care Code ED 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
[2024-02-29 19:41] VITALS: BP 121/56; O2SAT 100
[2024-02-29 20:47] VITALS: BP 105/52; RESP 16; O2SAT 98
[2024-02-29 20:49] VITALS: BP 94/48; PULSE 55; O2SAT 98
== END 2024-02-29 22:10 | disposition home or self-care (01) ==
PROVIDERS: Emergency Provider Emergency Medicine; PCP Family Medicine Adult Medicine
DX: S09.8XXA Other specified injuries of head, initial encounter (principal); W19.XXXA Unspecified fall, initial encounter; Z79.4 Long term (current) use of insulin; E11.9 Type 2 diabetes mellitus without complications; I10 Essential (primary) hypertension; Z86.73 Personal history of transient ischemic attack (TIA), and cerebral infarction without residual deficits
CPT/HCPCS: 70450; 72125; 72170; 99284

== ENCOUNTER → 2024-04-21 14:24 | Outpatient (BNVA) | payer MEDICAID, MEDICARE, SELFPAY | PROVIDERS: PCP Family Medicine Adult Medicine; Visit Provider Nurse Practitioner Family | DX: N39.0 Urinary tract infection, site not specified (principal) | CPT/HCPCS: 81000 ==

== ENCOUNTER → 2024-07-03 17:36 | Outpatient (BNVA) | payer MEDICARE, MEDICAID, SELFPAY | PROVIDERS: PCP Family Medicine Adult Medicine; Visit Provider Nurse Practitioner Family | DX: R41.0 Disorientation, unspecified (principal) | CPT/HCPCS: 81000; 87086 ==

== ENCOUNTER → 2024-12-11 09:27 | Outpatient (BNVA) | payer MEDICARE, OTHER, MEDICAID, SELFPAY | PROVIDERS: PCP Family Medicine Adult Medicine; Visit Provider Nurse Practitioner Family | DX: N39.0 Urinary tract infection, site not specified (principal); R41.0 Disorientation, unspecified | CPT/HCPCS: 81000; 87086 ==

== ENCOUNTER 2025-02-03 10:51 | Emergency (ER) | payer MEDICARE, OTHER, MEDICAID, SELFPAY ==
[2025-02-03] VITALS (10 sets, daily range): BP systolic 93–164; BP diastolic 49–88; PULSE 63–72; RESP 16; TEMP 36.4; O2SAT 97–100; BMI 32.5
--- NOTE | 2025-02-03 10:41 | ECG_ITS ---
[facility] Date: 2025-02-03 Pat Name: Danita Thorpe Department: Room: Gender: Female Category Consultant: : 1950 Requested By: Ayana Salcedo Order Number: [id number] Reading MD: Measurements Intervals [place] Rate: 61 P: 42 CO: 155 QRS: -19 QRSD: 100 T: 44 QT: 397 QTc: 403 Interpretive Statements SINUS RHYTHM No previous ECG available for comparison [email or web address]
--- NOTE | 2025-02-03 10:56 | ED_ITS ---
HPI - Weakness 2 General: Chief complaint: Weakness Stated complaint: weakness; hypotension Time Seen by Provider: 02/03/25 10:56 History of Present Illness: 74-year-old female with a history of dem entia, hypertension, diabetes, obesity, stroke and coronary artery disease who presents to the emergency room with weakness and multiple falls. She said she has hit her head several times. She says she is so weak she can hardly walk. She does not have any back pain. No loss of bowel or bladder. No abdominal pain. No chest pain. No known fever. No vomiting Related Data Home Medications ?Medication ?Instructions ?Recorded ?Confirmed fenofibrate micronized 200 mg 200 mg PO QAM 11/18/22 1 03/04/24 capsule rosuvastatin 10 mg tablet 10 mg PO QAM 11/18/22 fluoxetine 40 mg capsule 40 mg PO DAILY 09/24/2412/16 olanzapine 20 mg tablet 20 mg PO DAILY 09/24/2412/16 Previous Rx's ?Medication ?Instructions ?Recorded Extended shower chair #1 ea 01/01/23 glucose free style test strips #100 ea 06/04/23 sitagliptin phosphate 25 mg tablet 25 mg PO DAILY #30 tabs 12/03/23 (Januvia) acetaminophen 500 mg tablet 500 mg PO Q4H PRN fever #3 0 tabs 12/22/23 donepezil 5 mg tablet 10 mg (2 x 5 mg) PO BEDTIME #90 12/22/23 tabs insulin glargine 100 unit/mL 5 unit (0.05 mL) SUBCUT B ID #10 mL 12/22/23 subcutaneous solution (Lantus U-100 Insulin) insulin lispro 100 unit/mL See Rx Instructions .Route 12/22/23 subcutaneous solution (Humalog .COMPLEX #10 mL U-100 Insulin) losartan 50 mg tablet 25 mg (1/2 x 50 mg) PO DAILY #90 12/22/23 tabs metoprolol tartrate 25 mg tablet 12.5 mg (1/2 x 25 mg) PO 12/22/23 BID@0900,2100 #90 tabs tramadol 50 mg tablet 50 mg PO Q12H PRN pain #60 t abs 12/04/24 ciprofloxacin HCl 500 mg tablet 500 mg PO BID 10 days #20 tabs 02/03/25 Allergies Allergy/AdvReac Type Severity Reaction Status Date / Time cefaclor (From [facility]) Allergy ALGY-Anaphy Verified 01/02/25 15:54 laxis codeine Allergy Unknown Verified 01/02/25 15:54 Iodine and Iodide Containing Allergy ADR-Vomitin Verified 01/02/25 15:54 Produc g Penicillins Allergy Unknown Verified 01/02/25 15:54 Sulfa (Sulfonamide Allergy Unknown Verified 01/02/25 15:54 Antibiotics) Review of Systems 2 Narrative: Constitutional symptoms: Negative except as documented in HPI. Skin symptoms: Negative except as documented in HPI. Eye symptoms: Negative except as documented in HPI. ENMT symptoms: Negative except as documented in HPI. Respiratory symptoms: Negative except as documented in HPI. Cardiovascular symptoms: Negative except as documented in HPI. Gastrointestinal symptoms: Negative except as documented in HPI. Genitourinary symptoms: Negative except as documented in HPI. Musculoskeletal symptoms: Negative except as documented in HPI. Neurologic symptoms: Negative except as documented in HPI. Psychiatric symptoms: Negative except as documented in HPI. Endocrine symptoms: Negative except as documented in HPI. PFSH ED 2 PFSH: Medical History (Updated 02/03/25 @ 13:49 by Ayana Medellin MD) Confusion Hypertension Dementia Type 2 diabetes mellitus Hyperglycemia due to diabetes mellitus Dementia Altered mental status Acute UTI Decubitus ulcer Wheel chair as ambulatory aid CVA (cerebrovascular accident due to intracerebral hemorrhage) NSTEMI (non-ST elevated myocardial infarction) Acute encephalopathy Surgical History No pertinent past surgical history Family History Father Heart disease Hypertension Mother Stroke Social History Smoking and tobacco/nicotine status: former use of tobacco/nicotine Quit status (tobacco/nicotine): has quit using Alcohol intake: former Substance/Drug Use: never Household members: other Details: Daughter Physical Exam 2 Narrative: EXAM NARRATIVE: General: Alert, no acute distress. Skin: Warm, dry. Head: Normocephalic, atraumatic. Neck: Supple, trachea midline. Eye: Extraocular movements are intact. Ears, nose, mouth and throat: mucosa moist. Cardiovascular: Regular, Normal peripheral perfusion. Respiratory: Lungs are clear to auscultation, respirations are non-labored, breath sounds are equal, Symmetrical chest wall expansion. Gastrointestinal: Soft, Nontender, Non distended Musculoskeletal: Normal ROM, no deformity. Neurological: Alert and oriented, No focal neurological deficit observed. Psychiatric: Cooperative, appropriate mood & affect. Course 2 Vital Signs: Vital signs: Vital Signs Temperature 97.5 F L 02/03/25 10:33 Pulse Rate 64 02/03/25 11:10 Respiratory Rate 16 02/03/25 10:33 Blood Pressure 138/60 02/03/25 11:10 Pulse Oximetry 99 02/03/25 11:10 Oxygen Delivery Me thod Room Air 02/03/25 11:10 MDM - Weakness Medical Decision Making Medical decision making Patient's reason for coming to the emergency room: Weakness Social determinants: Patient from skilled nursing I reviewed the patient's medical record. 74-year-old female with a history of dementia, hypertension, diabetes, obesity, stroke and coronary artery disease I reviewed the patient's current home meds No anticoagulation Alternate historians: None Differential diagnosis for patient presenting with generalized weakness including but not limited to and based on the above HPI, review of systems and physical exam: Sepsis. Dehydration. Renal failure. Electrolyte abnormalities. Anemia. Congestive heart failure. Hypotension. Coronary syndrome. Hepatitis. Cirrhosis. Infections such as pneumonia, urinary tract infection, [place] illness, Cellulitis, Viral infections including influenza and Covid-19. Workup: labwork and lab/exam driven imaging ordered to evaluate, rule in and rule out above pathologies. Differential diagnosis including but not limited to and based on the above HPI, review of systems and physical exam: patient with fall and head injury. Subdural hematoma, subarachnoid hemorrhage, concussion, skull fracture. Orders placed to evaluate differential diagnosis based on the above differential, HPI and physical exam CT scan of the head was ordered. CT head: No acute intracranial process. No intracranial hemorrhage, no evidence of infarct. No evidence of acute fracture. This was reviewed and interpreted by myself the emergency room physician. I also reviewed the radiology report. CT of the lumbar spine: No fracture. Good alignment. No step-offs. This was reviewed and interpreted by myself the emergency room physician. Chest x-ray: No acute process. No infiltrate. No pneumothorax. This was reviewed and interpreted by myself the emergency room physician. I also reviewed the radiology report. Lab Review: Laboratory results were reviewed and interpreted by myself the emergency room physician. No leukocytosis. Stable anemia. Mild chronic renal insufficiency with slight worsening. Urinalysis shows significant urinary tract infection with greater than 100 whites with 4+ bacteria. Assessment of risk: Level of risk: Moderate risk patient. Multiple comorbidities Hospitalization considerations: Considered hospitalization but she is from a skilled nursing and should be able to be taken care of okay there does not show any signs of sepsis. She is receiving some fluids here. She has no altered mental status or focal motor deficits at this time. Reexamination: Patient remained stable. No increased work of breathing. No altered mental status. No focal motor deficits. Assessment and plan: Urinary tract infection Weakness Dehydration Acute on chronic renal insufficiency ?Normal saline bolus and IV Cipro in the emergency room. Patient allergic to cephalosporins - Discharged home - Discussed plan with patient. Answered any questions. - Evaluation and treatment of this problem were appropriate in the emergency setting. Lab Data 02/03/25 12:12 02/03/25 12:12 Radiology Impressions Chest X-Ray 02/03/25 11:57 IMPRESSION: No acute findings. Head CT 02/03/25 11:57 IMPRESSION: 1. No evidence of acute intracranial abnormality. No evidence of acute infarction, hemorrhage, or mass. 2. Atrophy and microvascular disease. Lumbar Spine CT 02/03/25 11:57 IMPRESSION: No acute lumbar spine fracture. Laboratory Results WBC 3.90 10^3/uL (3.29-11.43) 02/03/25 12:12 RBC 2.86 10^6/uL (3.85-5.65) L 02/03/25 12:12 Hgb 9.10 g/dL (11.27-16.99) L 02/03/25 12:12 Hct 30.1 % (36-47) L 02/03/25 12:12 MCV 105.2 fl (85-98) H 02/03/25 12:12 MCH 31.8 pg (27-33) 02/03/25 12:12 MCHC 30.2 g/dL (30-55) 02/03/25 12:12 RDW 14.4 % (12.1-15.1) 02/03/25 12:12 Plt Count 136 10^3/cmm (157-399) L 02/03/25 12:12 MPV 9.6 fL (7.4-10.4) 02/03/25 12:12 Neut % (Auto) 62.6 % 02/03/25 12:12 Lymph % (Auto) 23.8 % 02/03/25 12:12 [place] % (Auto) 9.5 % 02/03/25 12:12 Eos % (Auto) 3.3 % 02/03/25 12:12 Baso % (Auto) 0.5 % 02/03/25 12:12 Neut # (Auto) 2.44 10^3/uL (1.8-7.7) 02/03/25 12:12 Lymph # (Auto) 0.9 10^3/uL (0.8-4.8) 02/03/25 12:12 [place] # (Auto) 0.4 10^3/uL (0.2-0.9) 02/03/25 12:12 Eos # (Auto) 0.1 10^3/uL (0.0-0.8) 02/03/25 12:12 Baso # (Auto) 0.0 10^3/uL (0.0-0.1) 02/03/25 12:12 Nucleated RBC % (auto) 0 % 02/03/25 12:12 Nucleated RBCs # 0.0 /100WBC 02/03/25 12:12 PT 13.50 SECONDS (12.1-14.9) 02/03/25 12:12 INR 0.96 (0.8-1.2) 02/03/25 12:12 APTT 28.9 SECONDS (23.9-36.7) 02/03/25 12:12 Sodium 145 mmol/L (136-145) 02/03/25 12:12 Potassium 5.3 mmol/L (3.5-5.1) H 02/03/25 12:12 Chloride 113 mmol/L (98-107) H 02/03/25 12:12 Carbon Dioxide 20 mmol/L (22-29) L 02/03/25 12:12 Anion Gap 17.3 (5-19) 02/03/25 12:12 BUN 41 mg/dL (8-23) H 02/03/25 12:12 Creatinine 1.6 mg/dL (0.5-0.9) H 02/03/25 12:12 GFR Calculation Not Reportable 02/03/25 12:12 Glucose 248 mg/dL (65-115) H 02/03/25 12:12 Calculated Osmolality 318 mOsm/kg (285-295) H 02/03/25 12:12 Lactic Acid 1.0 mmol/L (0.5-2.2) 02/03/25 12:12 Calcium 9.0 mg/dL (8.5-10.5) 02/03/25 12:12 Total Bilirubin 0.6 mg/dL (0.15-1.2) 02/03/25 12:12 AST 30 U/L (0-32) 02/03/25 12:12 ALT 15 U/L (0-33) 02/03/25 12:12 Alkaline Phosphatase 55 U/L (35-105) 02/03/25 12:12 Troponin T Baseline 41 ng/L (0-10) H 02/03/25 12:12 Troponin T 60 Minute 39.97 ng/L (0-10) H 02/03/25 13:10 Delta Troponin T -1.03 ABS# (0-10) L 02/03/25 13:10 C-Reactive Protein 3.3 mg/L (0.0-4.9) 02/03/25 12:12 NT-Pro-B Natriuret Pep 1301 pg/mL (0-450) H 02/03/25 12:12 Total Protein 5.9 g/dL (6.6-8.7) L 02/03/25 12:12 Albumin 3.5 g/dL (3.5-5.2) 02/03/25 12:12 Globulin 2.4 g/dL (1.3-4.6) 02/03/25 12:12 Procalcitonin 0.14 ng/mL (0-0.5) 02/03/25 12:12 Urine Color Yellow (Yellow) 02/03/25 13:09 Urine Appearance Turbid (CLEAR) A 02/03/25 13:09 Urine pH 5.0 (5-7) 02/03/25 13:09 Ur Specific [place] 1.016 (1.005-1.030) 02/03/25 13:09 Urine Protein 1+ (Negative) A 02/03/25 13:09 Urine Glucose (UA) Trace (Normal) H 02/03/25 13:09 Urine Ketones Negative (Negative) 02/03/25 13:09 Urine Blood 1+ (Negative) A 02/03/25 13:09 Urine Nitrate Negative (Negative) 02/03/25 13:09 Urine Bilirubin Negative (Negative) 02/03/25 13:09 Urine Urobilinogen 1.0 mg/dL (Negative) 02/03/25 13:09 Ur Leukocyte Esterase 3+ (Negative) A 02/03/25 13:09 Urine RBC 0-2 /hpf (0-2) 02/03/25 13:09 Urine WBC >100 /hpf (0-5) H 02/03/25 13:09 Ur Squamous Epith Cells 0-5 /hpf (0-5) 02/03/25 13:09 Amorphous Sediment Not Reportable 02/03/25 13:09 Urine Bacteria 4+ /hpf (NONE) H 02/03/25 13:09 Hyaline Casts 5.51 /lpf 02/03/25 13:09 Influenza A (PCR) Negative (Negative) 02/03/25 13:09 Influenza Type B (PCR) Negative (Negative) 02/03/25 13:09 RSV (PCR) Negative (Negative) 02/03/25 13:09 SARS-CoV-2 (PCR) Negative (Negative) 02/03/25 13:09 All radiology interpretation(s) finalized by discharge Discharge Plan Discharge Patient Disposition: Home Clinical Impression: Urinary tract infection, Dehydration, Weakness Condition: Stable Prescriptions: New ciprofloxacin HCl 500 mg tablet 500 mg PO BID 10 Days Qty: 20 0RF No Action (DME) Extended shower chair See Rx Instructions .Route .MEDSUPPLY Qty: 1 0RF Rx Instructions: As directed in shower olanzapine 20 mg tablet 20 mg PO DAILY fluoxetine 40 mg capsule 40 mg PO DAILY (DME) glucose free style test strips See Rx Instructions .Route .MEDSUPPLY Qty: 100 5RF Rx Instructions: As directed tramadol 50 mg tablet 50 mg PO Q12H PRN (Reason: pain) Qty: 60 2RF fenofibrate micronized 200 mg capsule 200 mg PO QAM rosuvastatin 10 mg tablet 10 mg PO QAM Januvia 25 mg tablet 25 mg PO DAILY Qty: 30 4RF donepezil 5 mg Tablet 10 mg PO BEDTIME Qty: 90 0RF insulin glargine [Lantus U-100 Insulin] 100 unit/mL Solution 5 unit SUBCUT BID Qty: 10 0RF acetaminophen 500 mg Tablet 500 mg PO Q4H PRN (Reason: fever) Qty: 30 0RF losartan 50 mg Tablet 25 mg PO DAILY Qty: 90 0RF metoprolol tartrate 25 mg Tablet 12.5 mg PO BID@0900,2100 Qty: 90 0RF insulin lispro [Humalog U-100 Insulin] 100 unit/mL Solution See Rx Instructions .ROUTE .COMPLEX Qty: 10 0RF Rx Instructions: ACHS Glucose: 141-180 - 2 units 181-220 - 3 221-260 - 4 261-300 - 5 301-350 - 6 351-400 - 7 >400 - 8 units Discharge Orders: Discharge ED (Routine); Ordered 02/03/25 Ordered By: Ayana Medellin Referrals: Williams Carcamo MD [Physician, Family Practice] Discharge Diet: Usual diet Discharge Activity: Increase activity as tolerated Patient Instructions: Urinary Tract Infection in Older Adults (ED), Opioid Safety, Pain Management, Patient Portal & Mir Instructions Activity Restrictions/Additional Instructions: Thank you for choosing [facility] for your healthcare needs today. You have been screened and evaluated and felt safe for discharge. Health conditions do change or evolve sometimes and as such it is important that you follow up with your Primary Doctor to be re checked, 3-5 days is a general good time frame for follow up. You are always welcome to return to the ED for re assessment if your symptoms are worsening or you have new concerns. (Please note that included in your discharge packet is information concerning opioid safety and pain management. This information is given to all patients who are discharged from the ER regardless of their discharge diagnosis or the medicines they usually take or are prescribed.) Print Language: Welsh Coding Level of Care Code ED Stamping Press Operator for Airam Hamilton
--- NOTE | 2025-02-03 11:57 | CTR_ITS ---
PROCEDURE INFORMATION: Exam: CT Head Without Contrast Exam date and time: 02/03/2025 12:25 PM Age: 74 years old Clinical indication: Injury or trauma; Fall; Blunt trauma (contusions or hematomas); Additional info: Fall, head injury TECHNIQUE: Imaging protocol: Computed tomography of the head without contrast. Radiation optimization: All CT scans at this facility use at least one of these dose optimization techniques: automated exposure control; mA and/or kV adjustment per patient size (includes targeted exams where dose is matched to clinical indication); or iterative reconstruction. COMPARISON: CT head wo con* [id number] 02/29/2024 6:33 PM RADIATION DOSE METRICS: Total DLP (mGy-cm): 1028.55 FINDINGS: Brain: There is no acute intracranial hemorrhage. There is lucency in the cerebral white matter, likely microvascular disease although non-specific. No evidence of mass. There is no mass effect or midline shift. Ac white differentiation is intact. There are no extra-axial fluid collections. Cerebral ventricles: The ventricles and sulci are enlarged, consistent with volume loss / atrophy. No hydrocephalus. Paranasal sinuses: Visualized sinuses are unremarkable. No fluid levels. Mastoid air cells: No significant mastoid effusion. Bones: Unremarkable. No acute fracture. Soft tissues: Unremarkable as visualized. Vasculature: There is vascular calcification. CT/CT head wo con* [id number] IMPRESSION: 1. No evidence of acute intracranial abnormality. No evidence of acute infarction, hemorrhage, or mass. 2. Atrophy and microvascular disease.
--- NOTE | 2025-02-03 11:57 | XRR_ITS ---
PROCEDURE INFORMATION: Exam: XR Chest Exam date and time: 02/03/2025 11:56 AM Age: 74 years old Clinical indication: Shortness of breath; Additional info: Weakness; SOB with exertion TECHNIQUE: Imaging protocol: Radiologic exam of the chest. Views: 1 view. COMPARISON: CR XR chest 1V portable [id number] 12/02/2023 12:27 PM FINDINGS: Lungs: No consolidation. Pleural spaces: No pleural effusion. No pneumothorax. Heart/Mediastinum: No cardiomegaly. Bones/joints: No acute fracture. XR/XR chest 1V portable [id number] IMPRESSION: No acute findings.
--- NOTE | 2025-02-03 11:57 | CTR_ITS ---
PROCEDURE INFORMATION: Exam: CT Lumbar Spine Without Contrast Exam date and time: 02/03/2025 12:27 PM Age: 74 years old Clinical indication: Injury or trauma; Fall; Blunt trauma (contusions or hematomas); Additional info: Leg weakness, multiple falls TECHNIQUE: Imaging protocol: Computed tomography of the lumbar spine without contrast. Radiation optimization: All CT scans at this facility use at least one of these dose optimization techniques: automated exposure control; mA and/or kV adjustment per patient size (includes targeted exams where dose is matched to clinical indication); or iterative reconstruction. COMPARISON: CT abdomen pelvis w con* [id number] 11/17/2022 6:06 PM RADIATION DOSE METRICS: Total DLP (mGy-cm): 1050.3 FINDINGS: Bones/joints: Degenerative changes including osteophytes, disc space narrowing, endplate spurring, and facet hypertrophy. No acute fracture. Soft tissues: Unremarkable. CT/CT lumbar spine wo con* [id number] IMPRESSION: No acute lumbar spine fracture.
[2025-02-03 12:20] LABS: Hematocrit 30.1 % (36-47); Hemoglobin 9.10 g/dL (11.27-16.99); Mean Corpuscular HGB Conc 30.2 g/dL (30-55); Mean Corpuscular Hemoglobin 31.8 pg (27-33); Mean Corpuscular Volume 105.2 fl (85-98); Nucleated Red Blood Cells % 0 %; Platelet Count 136 10^3/cmm (157-399); Red Blood Count 2.86 10^6/uL (3.85-5.65); White Blood Count 3.90 10^3/uL (3.29-11.43)
[2025-02-03 12:33] LABS: INR 0.96 (0.8-1.2); Partial Thromboplastin Time 28.9 SECONDS (23.9-36.7); Prothrombin Time 13.50 SECONDS (12.1-14.9)
[2025-02-03 12:41] LABS: Troponin(5th) Baseline 41 ng/L (0-10)
[2025-02-03 12:42] LABS: Lactic Sepsis W/Reflex 1.0 mmol/L (0.5-2.2)
[2025-02-03 12:47] LABS: NT Pro B Type Natriuretic Pept 1301 pg/mL (0-450); Procalcitonin 0.14 ng/mL (0-0.5)
[2025-02-03 12:58] LABS: Albumin Level 3.5 g/dL (3.5-5.2); Chloride 113 mmol/L (98-107); Potassium 5.3 mmol/L (3.5-5.1); Sodium 145 mmol/L (136-145)
--- NOTE | 2025-02-03 13:06 | ECG_ITS ---
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
[2025-02-03 13:10] LABS: Alanine Aminotransferase 15 U/L (0-33); Alkaline Phosphatase 55 U/L (35-105); Anion Gap 17.3 (5-19); Aspartate Amino Transferase 30 U/L (0-32); Blood Urea Nitrogen 41 mg/dL (8-23); Calcium 9.0 mg/dL (8.5-10.5); Carbon Dioxide 20 mmol/L (22-29); Globulin 2.4 g/dL (1.3-4.6); Glucose 248 mg/dL (65-115); Osmolality Calculated 318 mOsm/kg (285-295); Total Protein 5.9 g/dL (6.6-8.7)
[2025-02-03 13:15] LABS: Glucose Urine UA Trace (Normal); Nitrate Urine Negative (Negative); Specific Gravity, Urine 1.016 (1.005-1.030)
[2025-02-03 13:33] LABS: UA Slide Review UA Slide Review Perf
[2025-02-03 13:50] LABS: Respiratory Syncytial Virus Ce NEGATIVE (Negative); SARS-CoV-2 PCR NEGATIVE (Negative)
== END 2025-02-03 17:32 | disposition home or self-care (01) ==
PROVIDERS: Emergency Provider Emergency Medicine; PCP Family Medicine
DX: N39.0 Urinary tract infection, site not specified (principal); R53.1 Weakness; E86.0 Dehydration; Z11.52 Encounter for screening for COVID-19; Z79.4 Long term (current) use of insulin; Z87.891 Personal history of nicotine dependence; E11.9 Type 2 diabetes mellitus without complications; Z86.73 Personal history of transient ischemic attack (TIA), and cerebral infarction without residual deficits; I25.10 Atherosclerotic heart disease of native coronary artery without angina pectoris
CPT/HCPCS: 36415; 70450; 71045; 72131; 80053; 81001; 83605; 83880; 84145; 84484; 85025; 85610; 85730; 86140; 87040; 87077; 87086; 87186; 87637; 93005; 96374; 99285; J0744; J7030